=== PATIENT | female | born 1950 | race African-American/Black ===

== ENCOUNTER 2017-04-15 02:19 | Emergency (ER) | payer OTHER, MEDICARE ==
[~2017-04-15] VITALS: Ht 160 cm; Wt 45.4 kg
[2017-04-15] MEDS ORDERED: Aspirin Baby 81mg ORAL ONE (02:30)
[2017-04-15 02:54] LABS: BASOPHILS % (AUTO) 1.7 % (0.0-2.0); EOSINOPHILS % (AUTO) 0.8 % (0.0-3.0); LYMPHOCYTES % (AUTO) 54.3 % (20.0-45.0); MEAN CORPUSCULAR HEMOGLOBIN 28.9 PG (27.0-31.0); MEAN CORPUSCULAR HGB CONC 32.1 G/DL (32.0-36.0); MEAN CORPUSCULAR VOLUME 90 FL (80-99); MONOCYTES % (AUTO) 5.7 % (1.0-10.0); NEUTROPHILS % (AUTO) 37.5 % (45.0-75.0); PLATELET COUNT 231 K/UL (150-450); RED CELL DISTRIBUTION WIDTH 15.3 % (11.6-14.8); WHITE BLOOD COUNT 8.1 K/UL (4.8-10.8)
[2017-04-15 03:04] VITALS: BP 151/87
[2017-04-15 03:07] LABS: INR 1.1 (0.9-1.1); PROTHROMBIN TIME 10.7 SEC (9.30-11.50)
[2017-04-15 03:08] LABS: APPEARANCE,URINE CLEAR; KETONES,URINE NEGATIVE (NEGATIVE); LEUKOCYTE ESTERASE ,URINE NEGATIVE (NEGATIVE); NITRITE,URINE NEGATIVE (NEGATIVE); PH,URINE 7 (4.5-8.0); PROTEIN,URINE 3+ (NEGATIVE); UROBILINOGEN,URINE NORMAL MG/DL (0.0-1.0)
[2017-04-15 03:15] LABS: CALCIUM 9.9 mg/dL (8.6-10.2); CREATININE 1.2 mg/dL (0.5-0.9); GLOMERULAR FILTRATION RATE 45.1 mL/min (>60); TOTAL PROTEIN 7.9 g/dL (6.6-8.7)
[2017-04-15 03:16] LABS: POTASSIUM 4.2 mEQ/L (3.4-4.9)
[2017-04-15] MEDS ORDERED: NOVOLIN R100 UNIT/1 SUBQ (03:21)
[2017-04-15] MEDS ORDERED: LOSARTAN POTASS25 MG ORAL (03:21)
[2017-04-15] MEDS ORDERED: HUMALOG100 UNIT/4 SUBQ (03:21)
[2017-04-15] MEDS ORDERED: METFORMIN HCL500 M1 ORAL (03:21)
[2017-04-15] MEDS ORDERED: LASIX40 MG ORAL (03:21)
[2017-04-15 03:26] LABS: SQUAMOUS EPITHELIAL CELL,UR FEW /LPF (NONE/OCC); WBC,URINE 0-2 /HPF (0 - 2)
[2017-04-15 03:27] LABS: TROPONIN I < 0.30 ng/mL (<=0.30)
[2017-04-15 03:37] LABS: CKMB 3.3 ng/mL (< 3.8)
[2017-04-15] MEDS ORDERED: Enalaprilat 2.5mg/2ml Inj IV ONE (04:15)
--- NOTE | 2017-04-15 04:19 | Emergency Room Report ---
History of Present Illness General Chief Complaint: Dyspnea/Respdistress Source: Patient, EMS Present Illness HPI This is a 66-year-old female with multiple medical problems including her blood pressure, diabetes, CHF. She presents with chief complaint of rest or distress. She's been out of her medication for a week. She presents with chief complaint of rest or distress. Per EMS she was hypoxic and pressure was extremely high. Her heart rate was in the 150s .They gave her 1.2 mg of nitroglycerin and placed on CPAP. I also gave her 5 mg albuterol treatment. She felt better being on CPAP. Denies any chest pain. No fever or chills. No nausea no vomiting. Allergies: Coded Allergies: No Known Allergies (Unverified , 04/15/17) Patient History Past Medical History: see triage record, old chart reviewed, DM, HTN, CHF Past Surgical History: other Pertinent Family History: none Social History: Denies: smoking Last Menstrual Period: unk Now: No Immunizations: other Reviewed Nursing Documentation: PMH: Agreed, PSxH: Agreed Nursing Documentation-PMH Past Medical History: No History, Except For Hx Cardiac Problems: Yes Hx Hypertension: Yes Review of Systems Eye: Denies: blurred vision, eye pain ENT: Denies: ear pain, nose congestion, throat swelling Respiratory: Reports: SEGOVIA, shortness of breath, Denies: cough Cardiovascular: Denies: chest pain, palpitations Gastrointestinal: Denies: abdominal pain, diarrhea, nausea, vomiting Musculoskeletal: Denies: back pain, joint pain Skin: Denies: rash Neurological: Denies: headache, numbness Endocrine: Denies: increased thirst, increased urine Hematologic/Lymphatic: Denies: easy bruising All Other Systems: negative except mentioned in HPI Physical Exam Vital Signs Date Time Temp Pulse Resp B/P Pulse Ox O2 Delivery O2 Flow Rate FiO2 04/15/17 02:10 139 25 232/114 100 Bi-pap 04/15/17 02:10 15.0 04/15/17 02:22 40 04/15/17 03:04 97.2 colitis with tachycardia, hypertension, hypoxia Sp02 EP Interpretation: abnormal General Appearance: severe distress Head: normocephalic, atraumatic Eyes: bilateral eye EOMI, bilateral eye PERRL ENT: hearing grossly normal, normal pharynx Neck: full range of motion, supple, no meningismus Respiratory: chest non-tender, rales Cardiovascular #1: regular rate, rhythm, no murmur Gastrointestinal: normal bowel sounds, non tender, no mass, no organomegaly, no bruit, non-distended Musculoskeletal: back normal, normal range of motion, other - One plus edema Neurologic: alert, oriented x3 Psychiatric: mood/affect normal Skin: warm/dry Procedures Critical Care Time Critical Care Time Critical care is mandated in this patient who presented with severe respiratory distress secondary to CHF. Patient require my urgent intervention to attenuate the risks of respiratory collapse which may lead to cardiovascular collapse and . Critical care time is 75 minutes excluding any reportable procedure. Critical care time included evaluation, multiple reevaluation, looking at old charts, interpreting laboratory and diagnostic data, discussing case with patient and family and consultants, and charting. Medical Decision Making Diagnostic Impression: Primary Impression: Acute respiratory failure with hypoxia Additional Impressions: Pulmonary edema with congestive heart failure Hyperglycemia due to type 1 diabetes mellitus Hypertensive emergency Noncompliance Proteinuria Qualified Codes: R80.9 - Proteinuria, unspecified ER Course Patient presents with respiratory distress from pulmonary edema and CHF. This is due to her been out of medication. Blood sugars extremely high but not in DKA. She was placed on BiPAP and given Lasix. She diuresed about a liter and wanted to be off the BiPAP. She is now 97% on 4 L. Heart rate also improved from the 150s down to the 120s. This may be secondary to rebound from nothing on her blood pressure medication, albuterol treatment, CHF. At this point she is improve enough to be transferred to [place]. I discussed the case with Dr. Decker, case #[id number], who accepted the patient. Laboratory Tests Test 04/15/17 02:20 04/15/17 02:45 White Blood Count 8.1 K/UL (4.8-10.8) Red Blood Count 5.70 M/UL (4.20-5.40) H Hemoglobin 16.5 G/DL (12.0-16.0) H Hematocrit 51.4 % (37.0-47.0) H Mean Corpuscular Volume 90 FL (80-99) Mean Corpuscular Hemoglobin 28.9 PG (27.0-31.0) Mean Corpuscular Hemoglobin Concent 32.1 G/DL (32.0-36.0) Red Cell Distribution Width 15.3 % (11.6-14.8) H Platelet Count 231 K/UL (150-450) Mean Platelet Volume 11.0 FL (6.5-10.1) H Neutrophils (%) (Auto) 37.5 % (45.0-75.0) L Lymphocytes (%) (Auto) 54.3 % (20.0-45.0) H Monocytes (%) (Auto) 5.7 % (1.0-10.0) Eosinophils (%) (Auto) 0.8 % (0.0-3.0) Basophils (%) (Auto) 1.7 % (0.0-2.0) Prothrombin Time 10.7 SEC (9.30-11.50) Prothromb Time International Ratio 1.1 (0.9-1.1) Activated Partial Thromboplast Time 24 SEC (23-33) Sodium Level 133 mEQ/L (135-145) L Potassium Level 4.2 mEQ/L (3.4-4.9) Chloride Level 89 mEQ/L (98-107) L Carbon Dioxide Level 23 mEQ/L (20-30) Anion Gap 21 (5-15) H Blood Urea Nitrogen 19 mg/dL (7-23) Creatinine 1.2 mg/dL (0.5-0.9) H Estimat Glomerular Filtration Rate 45.1 mL/min (>60) Glucose Level 804 mg/dL (74-106) *H Calcium Level 9.9 mg/dL (8.6-10.2) Total Bilirubin 0.8 mg/dL (0.0-1.2) Aspartate Amino Transf (AST/SGOT) 102 U/L (5-40) H Alanine Aminotransferase (ALT/SGPT) 86 U/L (3-33) H Alkaline Phosphatase 157 U/L (35-104) H Total Creatine Kinase 71 U/L (26-140) Creatine Kinase MB 3.3 ng/mL (< 3.8) Creatine Kinase MB Relative Index 4.6 Troponin I < 0.30 ng/mL (<=0.30) Pro-B-Type Natriuretic Peptide 1170 pg/mL (0-125) H Total Protein 7.9 g/dL (6.6-8.7) Albumin 4.0 g/dL (3.5-5.2) Globulin 3.9 g/dL Albumin/Globulin Ratio 1.0 (1.0-2.7) Urine Color Pale yellow Urine Appearance Clear Urine pH 7 (4.5-8.0) Urine Specific [place] 1.005 (1.005-1.035) Urine Protein 3+ (NEGATIVE) H Urine Glucose (UA) 4+ (NEGATIVE) H Urine Ketones Negative (NEGATIVE) Urine Occult Blood 1+ (NEGATIVE) H Urine Nitrite Negative (NEGATIVE) Urine Bilirubin Negative (NEGATIVE) Urine Urobilinogen Normal MG/DL (0.0-1.0) Urine Leukocyte Esterase Negative (NEGATIVE) Urine RBC 2-4 /HPF (0 - 2) H Urine WBC 0-2 /HPF (0 - 2) Urine Squamous Epithelial Cells Few /LPF (NONE/OCC) Urine Bacteria None /HPF (NONE) Urine Opiates Screen Negative (NEGATIVE) Urine Barbiturates Screen Negative (NEGATIVE) Phencyclidine (PCP) Screen Negative (NEGATIVE) Urine Amphetamines Screen Negative (NEGATIVE) Urine Benzodiazepines Screen Negative (NEGATIVE) Urine Cocaine Screen Negative (NEGATIVE) Urine Marijuana (THC) Screen Negative (NEGATIVE) Lab Results Impression labs with elevated BNP EKG Diagnostic Results Rate: tachycardiac Rhythm: NSR ST Segments: no acute changes Rhythm Strip Diag. Results EP Interpretation: yes Rate: 123 Rhythm: NSR, no PVC's, no ectopy Chest X-Ray Diagnostic Results EP Interpretation: Yes Findings: no effusion, no pneumothorax, other - Cardiomegaly with vascular congestion Number of Views: 1 Last Vital Signs Date Time Temp Pulse Resp B/P Pulse Ox O2 Delivery O2 Flow Rate FiO2 04/15/17 04:06 167/81 04/15/17 03:04 97.2 125 25 98 Nasal Cannula 4.0 04/15/17 02:32 40 Disposition: XFER SHT-TRM HOSP Condition: Serious Referrals: [facility] (PCP) CAESAR QUINTANA M.D. April 15, 2017 04:19
[2017-04-15 04:38] VITALS: BP 141/63
[2017-04-15 05:59] VITALS: BP 143/63
[2017-04-15 06:17] VITALS: BP 143/63
--- NOTE | 2017-04-15 11:07 | Diagnostic Imaging Report ---
Indication: Chest Pain Comparison: None A single view chest radiograph was obtained. Findings: Diffuse interstitial edema demonstrated. Single nodular opacity is projected over the right upper lobe. Followup is recommended. Heart is borderline enlarged. Bones are osteopenic. Impression: Suspected interstitial edema. Nodular density in the right upper lobe noted. Followup is recommended
--- NOTE | 2017-04-15 18:49 | Cardiology Report ---
APPROVED REPORT EKG Measurement Heart [id number] Sinus tachycardia Biatrial enlargement Nonspecific ST and T wave abnormality Abnormal ECG
== END 2017-04-15 06:21 | disposition short-term general hospital (02) ==
LOC: EDBD 02:19 → EMR 02:35 → EDBEDREQ 03:32 → EMR 06:21
DX: J96.01 Acute respiratory failure with hypoxia (principal); I50.1 Left ventricular failure, unspecified; E10.65 Type 1 diabetes mellitus with hyperglycemia; I16.1 Hypertensive emergency; Z91.14 Patient's other noncompliance with medication regimen; R80.9 Proteinuria, unspecified; I51.7 Cardiomegaly; R00.0 Tachycardia, unspecified
CPT/HCPCS: 36415; 71010; 80053; 80300; 81003; 82550; 82553; 82962; 83880; 84484; 85025; 85610; 85730; 93005; 94664; 96374; 96375; 99291; J1940

== ENCOUNTER 2017-08-13 03:29 | Emergency (ER) | payer MEDICARE, OTHER ==
[~2017-08-13] VITALS: Ht 162.6 cm; Wt 55.3 kg
[~2017-08-13 03:29] MED LIST: HUMALOG100 UNIT/4 SUBQ; LASIX40 MG ORAL; LOSARTAN POTASS25 MG ORAL; METFORMIN HCL500 M1 ORAL; NOVOLIN R100 UNIT/1 SUBQ
[2017-08-13 03:31] VITALS: BP 122/76
[2017-08-13] MEDS ORDERED: Albuterol ud Inhalation HHN ONE (03:45)
[2017-08-13] MEDS ORDERED: Solu-MEDROL 125mg Inj IVP ONE (03:45)
[2017-08-13] MEDS ORDERED: Ipratropium 0.02% Inh Soln 2.5ml UD HHN ONE (03:45)
[2017-08-13 03:56] LABS: MEAN CORPUSCULAR HGB CONC 32.7 G/DL (32.0-36.0); MEAN CORPUSCULAR VOLUME 92 FL (80-99); MEAN PLATELET VOLUME 9.9 FL (6.5-10.1); PLATELET COUNT 237 K/UL (150-450); RED BLOOD COUNT 5.72 M/UL (4.20-5.40); RED CELL DISTRIBUTION WIDTH 14.4 % (11.6-14.8); WHITE BLOOD COUNT 4.7 K/UL (4.8-10.8)
[2017-08-13 04:07] LABS: TROPONIN I < 0.30 ng/mL (<=0.30)
[2017-08-13 04:11] LABS: ALBUMIN/GLOBULIN RATIO 0.9 (1.0-2.7); CALCIUM 9.3 mg/dL (8.6-10.2); CREATININE 1.4 mg/dL (0.5-0.9); GLOMERULAR FILTRATION RATE 45.8 mL/min (>60); POTASSIUM 4.4 mEQ/L (3.4-4.9); TOTAL PROTEIN 7.7 g/dL (6.6-8.7)
[2017-08-13 04:21] LABS: CKMB 3.7 ng/mL (< 3.8)
[2017-08-13 04:22] LABS: APPEARANCE,URINE CLEAR; KETONES,URINE NEGATIVE (NEGATIVE); LEUKOCYTE ESTERASE ,URINE NEGATIVE (NEGATIVE); NITRITE,URINE NEGATIVE (NEGATIVE); PH,URINE 7 (4.5-8.0); UROBILINOGEN,URINE NORMAL MG/DL (0.0-1.0)
--- NOTE | 2017-08-13 04:29 | Emergency Room Report ---
History of Present Illness General Chief Complaint: Dyspnea/Respdistress Source: Patient, EMS Present Illness HPI This is a 66-year-old female with a history hypertension, diabetes and CHF. She is noncompliant with her medication. She says she hasn't had them for about a week. She was just at [facility] for the same thing. Last time she was here I saw her and she had to be on BiPAP. Patient called 911 because of rest or distress. Per EMS she was tripoding and very hypoxic. Her observation was 60% on room air. I place her on Z-Valdo and started breathing treatment. Here she is improved but still very short of breath. Denies any chest pain. Denies any fever or chills. Onset for about a day. Allergies: Coded Allergies: No Known Allergies (Unverified , 04/15/17) Patient History Past Medical History: see triage record, old chart reviewed, DM, HTN, CAD, CHF Past Surgical History: other Pertinent Family History: none Social History: Reports: smoking Last Menstrual Period: n/a Now: No Immunizations: other Reviewed Nursing Documentation: PMH: Agreed, PSxH: Agreed Nursing Documentation-PMH Past Medical History: No History, Except For Hx Cardiac Problems: Yes - chf Hx Hypertension: Yes Hx COPD: Yes Hx Diabetes: Yes Review of Systems Eye: Denies: eye pain, blurred vision ENT: Denies: ear pain, nose congestion, throat swelling Respiratory: Reports: cough, shortness of breath, SEGOVIA Cardiovascular: Denies: chest pain, palpitations Gastrointestinal: Denies: abdominal pain, diarrhea, nausea, vomiting Musculoskeletal: Denies: back pain, joint pain Skin: Denies: rash Neurological: Denies: headache, numbness Endocrine: Denies: increased thirst, increased urine Hematologic/Lymphatic: Denies: easy bruising All Other Systems: negative except mentioned in HPI Physical Exam Vital Signs Date Time Temp Pulse Resp B/P (MAP) Pulse Ox O2 Delivery O2 Flow Rate FiO2 08/13/17 03:25 140 220/140 99 Bi-pap 15.0 08/13/17 03:31 27 60 08/13/17 03:31 98.1 vitals with tachycardia, hypotension and hypoxia Sp02 EP Interpretation: reviewed, abnormal General Appearance: severe distress Head: normocephalic, atraumatic Eyes: bilateral eye PERRL, bilateral eye EOMI ENT: hearing grossly normal, normal pharynx Neck: full range of motion, supple, no meningismus Respiratory: chest non-tender, respiratory distress, decreased breath sounds, accessory muscle use, rales Cardiovascular #1: regular rate, rhythm, no murmur, tachycardia Gastrointestinal: normal bowel sounds, non tender, no mass, no organomegaly, no bruit, non-distended Musculoskeletal: back normal, gait/station normal, normal range of motion Psychiatric: mood/affect normal Skin: warm/dry Procedures Critical Care Time Critical Care Time Critical care is mandated in this patient who presented with respiratory distress secondary to pulmonary edema. Patient require my urgent intervention to attenuate the risks of metabolic collapse which may lead to cardiovascular collapse and . Critical care time is 35 minutes excluding any reportable procedure. Critical care time included evaluation, multiple reevaluation, looking at old charts, interpreting laboratory and diagnostic data, discussing case with patient and family and consultants, and charting. Medical Decision Making Diagnostic Impression: Primary Impression: Acute respiratory failure with hypoxia Additional Impressions: Hyperglycemia due to type 1 diabetes mellitus Pulmonary edema Qualified Codes: J81.0 - Acute pulmonary edema COPD exacerbation Noncompliance ER Course Patient present with pulmonary edema. She much improved after being on BiPAP given Lasix. Blood pressures improved. Oxygenation better. She is breathing better. She diuresed about a liter. I discussed the case with Dr. Ortiz at [facility]. She accepted patient for transfer. Laboratory Tests Test 08/13/17 03:30 08/13/17 04:00 White Blood Count 4.7 K/UL (4.8-10.8) L Red Blood Count 5.72 M/UL (4.20-5.40) H Hemoglobin 17.1 G/DL (12.0-16.0) H Hematocrit 52.4 % (37.0-47.0) H Mean Corpuscular Volume 92 FL (80-99) Mean Corpuscular Hemoglobin 30.0 PG (27.0-31.0) Mean Corpuscular Hemoglobin Concent 32.7 G/DL (32.0-36.0) Red Cell Distribution Width 14.4 % (11.6-14.8) Platelet Count 237 K/UL (150-450) Mean Platelet Volume 9.9 FL (6.5-10.1) Neutrophils (%) (Auto) % (45.0-75.0) Lymphocytes (%) (Auto) % (20.0-45.0) Monocytes (%) (Auto) % (1.0-10.0) Eosinophils (%) (Auto) % (0.0-3.0) Basophils (%) (Auto) % (0.0-2.0) Sodium Level 137 mEQ/L (135-145) Potassium Level 4.4 mEQ/L (3.4-4.9) Chloride Level 96 mEQ/L (98-107) L Carbon Dioxide Level 26 mEQ/L (20-30) Anion Gap 15 (5-15) Blood Urea Nitrogen 16 mg/dL (7-23) Creatinine 1.4 mg/dL (0.5-0.9) H Estimat Glomerular Filtration Rate 45.8 mL/min (>60) Glucose Level 553 mg/dL (74-106) *H Calcium Level 9.3 mg/dL (8.6-10.2) Total Bilirubin 0.7 mg/dL (0.0-1.2) Aspartate Amino Transf (AST/SGOT) 72 U/L (5-40) H Alanine Aminotransferase (ALT/SGPT) 54 U/L (3-33) H Alkaline Phosphatase 220 U/L (35-104) H Total Creatine Kinase 51 U/L (26-140) Creatine Kinase MB 3.7 ng/mL (< 3.8) Creatine Kinase MB Relative Index 7.2 Troponin I < 0.30 ng/mL (<=0.30) Pro-B-Type Natriuretic Peptide 2102 pg/mL (0-125) H Total Protein 7.7 g/dL (6.6-8.7) Albumin 3.7 g/dL (3.5-5.2) Globulin 4.0 g/dL Albumin/Globulin Ratio 0.9 (1.0-2.7) L Urine Color Yellow Urine Appearance Clear Urine pH 7 (4.5-8.0) Urine Specific [place] 1.005 (1.005-1.035) Urine Protein Negative (NEGATIVE) Urine Glucose (UA) 4+ (NEGATIVE) H Urine Ketones Negative (NEGATIVE) Urine Occult Blood Negative (NEGATIVE) Urine Nitrite Negative (NEGATIVE) Urine Bilirubin Negative (NEGATIVE) Urine Urobilinogen Normal MG/DL (0.0-1.0) Urine Leukocyte Esterase Negative (NEGATIVE) Urine Opiates Screen Negative (NEGATIVE) Urine Barbiturates Screen Negative (NEGATIVE) Phencyclidine (PCP) Screen Negative (NEGATIVE) Urine Amphetamines Screen Negative (NEGATIVE) Urine Benzodiazepines Screen Negative (NEGATIVE) Urine Cocaine Screen Negative (NEGATIVE) Urine Marijuana (THC) Screen Negative (NEGATIVE) Lab Results Impression labs with elevated glucose and BNP EKG Diagnostic Results Rate: tachycardiac Rhythm: NSR ST Segments: other - NSST changes. Rhythm Strip Diag. Results Rhythm Strip Time: 04:28 EP Interpretation: yes Rate: 91 Rhythm: NSR, no PVC's, no ectopy Chest X-Ray Diagnostic Results Chest X-Ray Diagnostic Results : Chest X-Ray Ordered: Yes # of Views/Limited/Complete: 1 View Indication: Shortness of Breath EP Interpretation: Yes Interpretation: no consolidation, no effusion, no pneumothorax, other - pulmonary edema/chf Impression: Other - chf Electronically Signed by: Electronically signed by Guy Alberts MD Last Vital Signs Date Time Temp Pulse Resp B/P (MAP) Pulse Ox O2 Delivery O2 Flow Rate FiO2 08/13/17 04:14 93 24 100 Bi-pap 60 08/13/17 04:05 15.0 08/13/17 03:31 98.1 122/76 Status: improved Disposition: XFER SHT-TRM HOSP Condition: Serious GUY ALBERTS M.D. Aug 13, 2017 04:29
[2017-08-13 04:45] LABS: PROTEIN,URINE NEGATIVE (NEGATIVE)
[2017-08-13 05:31] VITALS: BP 150/68
[2017-08-13 07:30] VITALS: BP 167/68
[2017-08-13 09:09] VITALS: BP 167/68
[2017-08-13 09:11] VITALS: BP 181/67
--- NOTE | 2017-08-13 11:26 | Diagnostic Imaging Report ---
Indication: Dyspnea Comparison: 04/15/17 A single view chest radiograph was obtained. Findings: Patchy groundglass opacities are present throughout the lungs bilaterally. Heart size is relatively normal. There is a nodular density in the right upper lobe again demonstrated. This was noted previously as well. Consider CT for further evaluation. The bones are mildly osteopenic. Impression: Bilateral infiltrates. Nodular density in the right upper lobe. Consider CT for further evaluation. A mass is not excluded.
--- NOTE | 2017-08-13 17:54 | Cardiology Report ---
APPROVED REPORT EKG Measurement Heart [id number] Sinus tachycardia Abnormal ECG
== END 2017-08-13 09:14 | disposition short-term general hospital (02) ==
LOC: EDBD 03:29 → EMR 03:35
DX: J96.01 Acute respiratory failure with hypoxia (principal); E10.65 Type 1 diabetes mellitus with hyperglycemia; J81.0 Acute pulmonary edema; J44.1 Chronic obstructive pulmonary disease with (acute) exacerbation; Z91.14 Patient's other noncompliance with medication regimen; I10 Essential (primary) hypertension; F17.200 Nicotine dependence, unspecified, uncomplicated; I25.10 Atherosclerotic heart disease of native coronary artery without angina pectoris; M85.80 Other specified disorders of bone density and structure, unspecified site
CPT/HCPCS: 36415; 71010; 80053; 80300; 81003; 82550; 82553; 82962; 83880; 84484; 85025; 93005; 94640; 96374; 96375; 99291; J1815; J1940; J2930

== ENCOUNTER 2017-08-20 01:00 | Emergency (ER) | payer MEDICARE, OTHER ==
[~2017-08-20] VITALS: Ht 162.6 cm; Wt 54.4 kg
[2017-08-20 01:13] VITALS: BP 172/98
[2017-08-20] MEDS ORDERED: Albuterol ud Inhalation HHN ONE (01:15)
[2017-08-20] MEDS ORDERED: Ipratropium 0.02% Inh Soln 2.5ml UD HHN ONE (01:15)
[2017-08-20] MEDS ORDERED: Nitroglycerin Subl 0.4mg tab SL ONE (01:15)
[2017-08-20 01:33] LABS: BASOPHILS % (AUTO) 1.5 % (0.0-2.0); EOSINOPHILS % (AUTO) 1.4 % (0.0-3.0); LYMPHOCYTES % (AUTO) 49.5 % (20.0-45.0); MEAN CORPUSCULAR HEMOGLOBIN 30.5 PG (27.0-31.0); MEAN CORPUSCULAR HGB CONC 32.8 G/DL (32.0-36.0); MEAN CORPUSCULAR VOLUME 93 FL (80-99); MEAN PLATELET VOLUME 8.9 FL (6.5-10.1); MONOCYTES % (AUTO) 8.5 % (1.0-10.0); NEUTROPHILS % (AUTO) 39.1 % (45.0-75.0); PLATELET COUNT 203 K/UL (150-450); RED BLOOD COUNT 4.94 M/UL (4.20-5.40); RED CELL DISTRIBUTION WIDTH 14.7 % (11.6-14.8); WHITE BLOOD COUNT 5.7 K/UL (4.8-10.8)
[2017-08-20 01:49] LABS: ALBUMIN/GLOBULIN RATIO 0.8 (1.0-2.7); CALCIUM 9.5 mg/dL (8.6-10.2); CREATININE 1.3 mg/dL (0.5-0.9); GLOMERULAR FILTRATION RATE 49.8 mL/min (>60); POTASSIUM 4.6 mEQ/L (3.4-4.9); TOTAL PROTEIN 7.7 g/dL (6.6-8.7)
[2017-08-20 02:25] LABS: TROPONIN I < 0.30 ng/mL (<=0.30)
[2017-08-20 02:33] LABS: CKMB 2.6 ng/mL (< 3.8)
[2017-08-20 03:13] VITALS: BP 130/78
--- NOTE | 2017-08-20 03:14 | Emergency Room Report ---
History of Present Illness General Chief Complaint: Dyspnea/Respdistress Source: Patient, Medical Record, EMS Present Illness HPI This is a 66-year-old female with history hypertension, diabetes, CHF and noncompliance with her medication. I saw her last week for the same thing. Patient presents with shortness of breath and respiratory distress. Onset tonight. Per EMS her observation was in the 70s. She was placed on BiPAP. Patient said she hasn't been taking her medication. No nausea no vomiting. No chest pain. Worse with exertion. Denies any other complaint. Allergies: Coded Allergies: No Known Allergies (Unverified , 04/15/17) Patient History Past Medical History: see triage record, old chart reviewed, DM, HTN, CHF Past Surgical History: other Pertinent Family History: none Social History: Reports: smoking Now: No Immunizations: other Reviewed Nursing Documentation: PMH: Agreed, PSxH: Agreed Nursing Documentation-PMH Hx Cardiac Problems: Yes - chf Hx Hypertension: Yes Hx COPD: Yes Hx Diabetes: Yes Review of Systems Eye: Denies: eye pain, blurred vision ENT: Denies: ear pain, nose congestion, throat swelling Respiratory: Reports: shortness of breath, wheezing, Denies: cough Cardiovascular: Denies: chest pain, palpitations Gastrointestinal: Denies: abdominal pain, diarrhea, nausea, vomiting Musculoskeletal: Denies: back pain, joint pain Skin: Denies: rash Neurological: Denies: headache, numbness Endocrine: Denies: increased thirst, increased urine Hematologic/Lymphatic: Denies: easy bruising All Other Systems: negative except mentioned in HPI Physical Exam Vital Signs Date Time Temp Pulse Resp B/P (MAP) Pulse Ox O2 Delivery O2 Flow Rate FiO2 08/20/17 01:09 97.3 130 24 172/98 82 Room Air 08/20/17 01:14 6.0 08/20/17 01:30 30 vitals with tachycardia, hypertension, and hypoxia Sp02 EP Interpretation: abnormal General Appearance: moderate distress Head: normocephalic, atraumatic Eyes: bilateral eye PERRL, bilateral eye EOMI ENT: hearing grossly normal, normal pharynx Neck: full range of motion, supple, no meningismus Respiratory: chest non-tender, rales, wheezing Cardiovascular #1: regular rate, rhythm, no murmur Gastrointestinal: normal bowel sounds, non tender, no mass, no organomegaly, no bruit, non-distended Musculoskeletal: back normal, normal range of motion Neurologic: alert, oriented x3 Psychiatric: mood/affect normal Skin: warm/dry Procedures Critical Care Time Critical Care Time Critical care is mandated in this patient who presented with respiratory failure secondary to chf. Patient require my urgent intervention to attenuate the risks of respiratory collapse which may lead to cardiovascular collapse and . Critical care time is 35 minutes excluding any reportable procedure. Critical care time included evaluation, multiple reevaluation, looking at old charts, interpreting laboratory and diagnostic data, discussing case with patient and family and consultants, and charting. Medical Decision Making Diagnostic Impression: Primary Impression: CHF exacerbation Qualified Codes: I50.9 - Heart failure, unspecified Additional Impressions: Respiratory failure with hypoxia Qualified Codes: J96.01 - Acute respiratory failure with hypoxia Hyperglycemia due to type 2 diabetes mellitus Qualified Codes: E11.65 - Type 2 diabetes mellitus with hyperglycemia Noncompliance ER Course Patient with CHF exacerbation respiratory failure. She did well and BiPAP. Nitroglycerin and Lasix here. Able to wean her off the BiPAP to nasal cannula. Patient is stable for transfer to [place]. First set of troponin negative. Lab Results Impression labs with elevated BNP. EKG Diagnostic Results Rate: tachycardiac Rhythm: NSR ST Segments: no acute changes Rhythm Strip Diag. Results EP Interpretation: yes Rate: 110 Rhythm: NSR, no PVC's, no ectopy Chest X-Ray Diagnostic Results Chest X-Ray Diagnostic Results : Chest X-Ray Ordered: Yes # of Views/Limited/Complete: 1 View Indication: Shortness of Breath EP Interpretation: Yes Interpretation: no consolidation, no effusion, no pneumothorax, other - cfh Impression: Other - chf Electronically Signed by: Electronically signed by Guy Alberts MD Last Vital Signs Date Time Temp Pulse Resp B/P (MAP) Pulse Ox O2 Delivery O2 Flow Rate FiO2 08/20/17 01:42 137/67 08/20/17 01:31 113 27 96 Facial 30 08/20/17 01:14 6.0 08/20/17 01:13 97.3 Status: unchanged Disposition: XFER SHT-TRM HOSP Condition: Serious Referrals: [facility] (PCP) GUY ALBERTS M.D. Aug 20, 2017 03:14
[2017-08-20 04:18] LABS: APPEARANCE,URINE CLEAR; KETONES,URINE NEGATIVE (NEGATIVE); LEUKOCYTE ESTERASE ,URINE NEGATIVE (NEGATIVE); NITRITE,URINE NEGATIVE (NEGATIVE); PH,URINE 6 (4.5-8.0); UROBILINOGEN,URINE NORMAL MG/DL (0.0-1.0)
[2017-08-20 04:31] LABS: PROTEIN,URINE NEGATIVE (NEGATIVE)
[2017-08-20 05:13] VITALS: BP 137/72
[2017-08-20 05:44] VITALS: BP 128/62
--- NOTE | 2017-08-20 10:30 | Diagnostic Imaging Report ---
Indication: SOB Technique: One view of the chest Comparison: 08/13/2017 Findings: Again demonstrated is diffuse bilateral pulmonary interstitial edema with associated groundglass opacity, appearance similar to the previous exam. The pleural spaces are clear. 2.5 cm diameter masslike opacity is again demonstrated in the right midlung. The heart is borderline enlarged. Impression: Bilateral interstitial edema, similar to prior study of 7 days earlier 2.5 cm masslike opacity in the right midlung also previously reported. Recommend CT for further evaluation, as previously recommended Borderline cardiomegaly
== END 2017-08-20 05:44 | disposition short-term general hospital (02) ==
LOC: EDBD 01:00 → EDUNIT# 01:00 → EMR 01:13
DX: I50.9 Heart failure, unspecified (principal); J96.01 Acute respiratory failure with hypoxia; E11.65 Type 2 diabetes mellitus with hyperglycemia; I10 Essential (primary) hypertension; Z91.14 Patient's other noncompliance with medication regimen; F17.200 Nicotine dependence, unspecified, uncomplicated; J44.9 Chronic obstructive pulmonary disease, unspecified
CPT/HCPCS: 36415; 71010; 80053; 81003; 82550; 82553; 83880; 84484; 85025; 93005; 94640; 96374; 96375; 99291; J1815; J1940

== ENCOUNTER 2017-09-14 02:35 | Emergency (ER) | payer MEDICARE, OTHER ==
[~2017-09-14] VITALS: Ht 167.6 cm; Wt 70.3 kg
[2017-09-14] MEDS ORDERED: Nitroglycerin Subl 0.4mg tab SL PRN (02:45)
[2017-09-14 02:52] LABS: MEAN CORPUSCULAR HEMOGLOBIN 29.5 PG (27.0-31.0); MEAN CORPUSCULAR HGB CONC 32.2 G/DL (32.0-36.0); MEAN CORPUSCULAR VOLUME 92 FL (80-99); MEAN PLATELET VOLUME 9.2 FL (6.5-10.1); PLATELET COUNT 236 K/UL (150-450); RED BLOOD COUNT 5.48 M/UL (4.20-5.40); RED CELL DISTRIBUTION WIDTH 14.7 % (11.6-14.8); WHITE BLOOD COUNT 6.5 K/UL (4.8-10.8)
[2017-09-14 03:17] LABS: ALANINE AMINOTRANSFERASE 161 U/L (12-78); ALBUMIN/GLOBULIN RATIO 0.6 (1.0-2.7); ANION GAP 10 (5-15); ASPARTATE AMINO TRANSFERASE 146 U/L (15-37); CALCIUM 9.3 MG/DL (8.5-10.1); CARBON DIOXIDE 24 MMOL/L (21-32); CHLORIDE 94 MMOL/L (98-107); CKMB 2.9 NG/ML (0.0-3.6); CREATININE 1.6 MG/DL (0.55-1.30); GLOMERULAR FILTRATION RATE 39.1 mL/min (>60); SODIUM 128 MMOL/L (136-145); TOTAL PROTEIN 7.9 G/DL (6.4-8.2)
--- NOTE | 2017-09-14 03:21 | Emergency Room Report ---
History of Present Illness General Chief Complaint: Dyspnea/Respdistress Source: Patient, EMS Present Illness HPI 67YOF BIBEMS from home on CPAP for acute SOB - EMS endorses bilateral rales. Non-compliant with medications for CHF Denies fever/chills, cough, chest pain, abd pain, urinary complaints, headache PMHx of HTN, CHF, DM. Patient was admitted/transferred to [facility] after stabilization in the ED twice in August 2017 and once in April 2017 Never had echo here so unknown CHF Allergies: Coded Allergies: No Known Allergies (Unverified , 04/15/17) Patient History Past Medical History: CHF Past Surgical History: none Pertinent Family History: none Social History: Denies: smoking, alcohol use, drug use Last Menstrual Period: N/A Now: No Immunizations: UTD Reviewed Nursing Documentation: PMH: Agreed, PSxH: Agreed Nursing Documentation-PMH Hx Cardiac Problems: Yes - chf Hx Hypertension: Yes Hx COPD: Yes - EMPHYSEMA Hx Diabetes: Yes Review of Systems All Other Systems: negative except mentioned in HPI Physical Exam Vital Signs Date Time Temp Pulse Resp B/P (MAP) Pulse Ox O2 Delivery O2 Flow Rate FiO2 09/14/17 02:35 99.1 98 18 181/107 99 Bi-pap 09/14/17 02:40 15.0 09/14/17 02:50 35 Sp02 EP Interpretation: reviewed, normal General Appearance: normal inspection, well appearing, alert, GCS 15, non-toxic , mild distress Head: normocephalic, atraumatic Eyes: bilateral eye PERRL, bilateral eye EOMI ENT: normal ENT inspection, hearing grossly normal, normal voice Neck: normal inspection, full range of motion, supple, no meningismus, no bony tend Respiratory: normal inspection, no wheezing, decreased breath sounds, accessory muscle use, rales Cardiovascular #1: no edema, no gallop, no JVD, no murmur, tachycardia Gastrointestinal: normal inspection, normal bowel sounds, non tender, soft, no guarding, no hernia Genitourinary: no CVA tenderness Musculoskeletal: normal inspection, back normal, normal range of motion, Sherice' s Sign negative Neurologic: normal inspection, alert, oriented x3, responsive, city secretary III-XII nml as tested, motor strength/tone normal, speech normal Psychiatric: normal inspection, judgement/insight normal, mood/affect normal Skin: normal inspection Medical Decision Making Medicare Attestation I Gosia Bangura MD hereby attest that the medical record entry for date of service, 09/14/17 accurately reflects signatures/notations that I made in my capacity as MD when I treated/diagnosed the above listed Medicare beneficiary. I attest that this information is true, accurate and complete to the best of my knowledge. I understand that any falsification, omission, or concealment of material fact may subject me to administrative, civil, or criminal liability. This patient warrants hospital admission for extreme of age and has a condition that cannot be treated as outpatient. Diagnostic Impression: Primary Impression: Dyspnea Qualified Codes: R06.00 - Dyspnea, unspecified Additional Impressions: Acute on chronic heart failure Qualified Codes: I50.9 - Heart failure, unspecified Elevated troponin Hyperglycemia ER Course Labs: H&H stable. No leuks. Troponin <0.056. Mild BNP elevation. ECG: Sinus tachy CXR: Bilateral pulm congestion Improved on BIPAP. HR down to 122. On FIO2 35% only and remains NOT hypoxic. Was given lasix, 1X SL nitro as well Was never hypoxic Elevated troponin 0.05. Under previous visits with older assay, levels always "normal" and <0.3 ASA given Hyperglycemia - known DM - K, AG, are normal - Was given 4U insulin regular - Not in DKA Dr Kate from [place] approved for Transfer EKG Diagnostic Results Rate: tachycardiac Rhythm: NSR ST Segments: no acute changes ASA given to the pt in ED: No Rhythm Strip Diag. Results EP Interpretation: yes Rate: 108 Rhythm: NSR, no PVC's, no ectopy Chest X-Ray Diagnostic Results Chest X-Ray Diagnostic Results : Chest X-Ray Ordered: Yes # of Views/Limited/Complete: 1 View Indication: Shortness of Breath EP Interpretation: Yes Interpretation: no consolidation, no pneumothorax, other - Pulm congestion Electronically Signed by: Dr Gosia Bangura MD Last Vital Signs Date Time Temp Pulse Resp B/P (MAP) Pulse Ox O2 Delivery O2 Flow Rate FiO2 09/14/17 03:08 115 21 Bi-pap 35 09/14/17 03:08 97 09/14/17 02:48 181/107 09/14/17 02:40 15.0 09/14/17 02:35 99.1 Status: improved Disposition: ADMITTED INPATIENT Condition: Serious Referrals: NOT CHOSEN YASMIN/,REFERRING (PCP) GOSIA BANGURA M.D. Sep 14, 2017 03:21
[2017-09-14 04:03] VITALS: BP 150/80
[2017-09-14 04:44] LABS: BAND NEUTROPHILS % (MANUAL) 2 % (0-8); BASOPHILS % (MANUAL) 0 % (0-2); EOSINOPHILS % (MANUAL) 2 % (0-3); LYMPHOCYTES % (MANUAL) 60 % (20-45); NEUTROPHILS % (MANUAL) 32 % (45-75); PLATELET ESTIMATE ADEQUATE; PLATELET MORPHOLOGY NORMAL; TOTAL CELLS COUNTED 100
[2017-09-14 04:45] LABS: ANISOCYTOSIS 1+
[2017-09-14 05:31] VITALS: BP 143/66
[2017-09-14 06:54] VITALS: BP 158/96
[2017-09-14 07:41] VITALS: BP 158/96
--- NOTE | 2017-09-14 08:59 | Diagnostic Imaging Report ---
Indication: Shortness of breath Comparison: Chest one view 08/20/2017 Findings: Single view the chest shows normal cardiac size. Again noted is bilateral interstitial edema which is not significantly changed from the prior examination. Also again noted is a 2.5 cm masslike opacity in the right midlung which is unchanged. There is also now increased density seen in the right lower lobe. No significant pleural effusions. Bones are unremarkable. Impression: Bilateral interstitial edema, not significantly changed from the prior exam 08/20/2017. 2.5 cm masslike opacity in the right midlung, unchanged. Recommend CT scan for further evaluation as previously recommended. Increasing density in the right lower lobe which may be due to worsening interstitial edema or underlying infiltrate.
--- NOTE | 2017-09-24 08:31 | Cardiology Report ---
APPROVED REPORT EKG Measurement Heart [id number] Sinus tachycardia with a few single VPCs. Biatrial enlargement Nonspecific T wave abnormality Abnormal ECG
== END 2017-09-14 07:45 | disposition short-term general hospital (02) ==
LOC: EDBD 02:35 → EMR 02:50
DX: I50.9 Heart failure, unspecified (principal); R79.89 Other specified abnormal findings of blood chemistry; E11.65 Type 2 diabetes mellitus with hyperglycemia; Z91.14 Patient's other noncompliance with medication regimen; I10 Essential (primary) hypertension; J43.9 Emphysema, unspecified; R00.0 Tachycardia, unspecified
CPT/HCPCS: 36415; 71010; 80053; 80300; 82550; 82553; 83880; 84484; 85007; 85025; 93005; 94664; 96374; 96375; 99284; J1815; J1940

== ENCOUNTER 2018-01-10 19:37 | Inpatient (IN) | payer MEDICARE, OTHER ==
[~2018-01-10] VITALS: Ht 162.6 cm; Wt 62.6 kg
[2018-01-10] MEDS ORDERED: Sodium Chloride 500ML 500 ML IV ONE (20:24)
[2018-01-10] MEDS ORDERED: Morphine Sulfate 2mg/ml Inj IVP ONE (20:30)
[2018-01-10 21:39] LABS: BASOPHILS % (AUTO) 1.2 % (0.0-2.0); EOSINOPHILS % (AUTO) 6.4 % (0.0-3.0); HEMATOCRIT 30.2 % (37.0-47.0); HEMOGLOBIN 9.7 G/DL (12.0-16.0); LYMPHOCYTES % (AUTO) 29.9 % (20.0-45.0); MEAN CORPUSCULAR VOLUME 90 FL (80-99); MONOCYTES % (AUTO) 8.9 % (1.0-10.0); NEUTROPHILS % (AUTO) 53.7 % (45.0-75.0); PLATELET COUNT 317 K/UL (150-450); RED BLOOD COUNT 3.37 M/UL (4.20-5.40); RED CELL DISTRIBUTION WIDTH 17.8 % (11.6-14.8); WHITE BLOOD COUNT 5.3 K/UL (4.8-10.8)
[2018-01-10] MEDS ORDERED: HYDRALAZINE HCL50 MG ORAL (21:39)
[2018-01-10] MEDS ORDERED: DULERA 200 MCG/13 GM IH (21:39)
[2018-01-10] MEDS ORDERED: GABAPENTIN300 MG ORAL (21:39)
[2018-01-10] MEDS ORDERED: NITROGLYCERIN0.4 MG SL (21:39)
[2018-01-10] MEDS ORDERED: PERCOCET 5-3251 EACH ORAL (21:39)
[2018-01-10] MEDS ORDERED: FUROSEMIDE40 MG ORAL (21:39)
[2018-01-10] MEDS ORDERED: ASPIRIN81 MG ORAL (21:39)
[2018-01-10] MEDS ORDERED: ATORVASTATIN CA40 MG ORAL (21:39)
[2018-01-10] MEDS ORDERED: TAMSULOSIN HCL0.4 MG ORAL (21:39)
[2018-01-10] MEDS ORDERED: DOCUSATE SODIU100 MG ORAL (21:39)
[2018-01-10] MEDS ORDERED: MULTIVITAMINS1 EAC8 ORAL (21:39)
[2018-01-10] MEDS ORDERED: STARLIX60 MG ORAL (21:39)
[2018-01-10] MEDS ORDERED: POLYETHYLENE GL17 GM ORAL (21:39)
[2018-01-10] MEDS ORDERED: HUMULIN R100 UNIT/1 SUBQ (21:39)
[2018-01-10] MEDS ORDERED: CALCITRIOL0.25 MCG PO (21:39)
[2018-01-10] MEDS ORDERED: VENTOLIN HFA18 GM INH (21:39)
[2018-01-10] MEDS ORDERED: CARVEDILOL6.25 MG ORAL (21:39)
[2018-01-10] MEDS ORDERED: HUMULIN N100 UNIT/1 SUBQ (21:39)
[2018-01-10] MEDS ORDERED: ACETAMINOP160 MG/54 ORAL (21:39)
[2018-01-10] MEDS ORDERED: BRILINTA90 MG PO (21:39)
[2018-01-10 21:51] LABS: ANION GAP 3 mmol/L (5-15); BLOOD UREA NITROGEN 21 mg/dL (7-18); CALCIUM 9.4 MG/DL (8.5-10.1); CARBON DIOXIDE 32 MMOL/L (21-32); CHLORIDE 101 MMOL/L (98-107); CREATININE 1.5 MG/DL (0.55-1.30); POTASSIUM 4.2 MMOL/L (3.5-5.1); SODIUM 136 MMOL/L (136-145)
[2018-01-10 22:04] LABS: ALANINE AMINOTRANSFERASE 26 U/L (12-78); ALBUMIN 2.5 G/DL (3.4-5.0); ALBUMIN/GLOBULIN RATIO 0.4 (1.0-2.7); ALKALINE PHOSPHATASE 258 U/L (46-116); ASPARTATE AMINO TRANSFERASE 36 U/L (15-37); BILIRUBIN,TOTAL 0.5 MG/DL (0.2-1.0); CREATINE KINASE 59 U/L (26-308)
[2018-01-10] MEDS ORDERED: Nitroglycerin Subl 0.4mg tab SL PRN (22:45)
[2018-01-10] MEDS ORDERED: Enalaprilat 2.5mg/2ml Inj IV PRN (22:45)
[2018-01-10] MEDS ORDERED: Ketorolac 30mg Inj IV PRN (22:45)
[2018-01-10] MEDS ORDERED: Miralax 17gm pkt ORAL PRN (22:45)
[2018-01-10] MEDS ORDERED: dilTIAZem HCl 25mg/5ml Inj IV PRN (22:45)
--- NOTE | 2018-01-10 23:14 | Emergency Room Report ---
History of Present Illness General Chief Complaint: Chest Pain Source: Patient, Medical Record, EMS Present Illness HPI 67-year-old female presents ED complaining of chest pain. Comes from [facility] facility. Started at rest just prior to arrival. Pressure-like, 8/10, nonradiating. Patient was given nitroglycerin x3, aspirin. States chest pain is resolved. Denies any fevers or chills. Denies cough. No other aggravating relieving factors. Denies any other associated symptoms Allergies: Coded Allergies: No Known Allergies (Unverified , 04/15/17) Patient History Past Medical History: DM, HTN Past Surgical History: none Pertinent Family History: none Social History: Denies: smoking, alcohol use, drug use Now: No Immunizations: UTD Reviewed Nursing Documentation: PMH: Agreed, PSxH: Agreed Nursing Documentation-PMH Past Medical History: No History, Except For Hx Hypertension: Yes Hx COPD: Yes - PE Hx Diabetes: Yes - Type 2 Hx Gastrointestinal Problems: Yes - Dysphagia, UTI Review of Systems All Other Systems: negative except mentioned in HPI Physical Exam Vital Signs Date Time Temp Pulse Resp B/P (MAP) Pulse Ox O2 Delivery O2 Flow Rate FiO2 01/10/18 19:34 97.2 91 18 134/77 98 Nasal Cannula 2.0 Sp02 EP Interpretation: reviewed, normal General Appearance: no apparent distress, alert, GCS 15, non-toxic Head: normocephalic, atraumatic Eyes: bilateral eye normal inspection, bilateral eye PERRL ENT: hearing grossly normal, normal pharynx, no angioedema, normal voice Neck: full range of motion, supple/symm/no masses Respiratory: chest non-tender, lungs clear, normal breath sounds, speaking full sentences Cardiovascular #1: regular rate, rhythm, no edema Cardiovascular #2: 2+ carotid (R), 2+ carotid (L), 2+ radial (R), 2+ radial (L) , 2+ dorsalis pedis (R), 2+ dorsalis pedis (L) Gastrointestinal: normal bowel sounds, non tender, soft, non-distended, no guarding, no rebound Rectal: deferred Genitourinary: normal inspection, no CVA tenderness Musculoskeletal: back normal, gait/station normal, normal range of motion, non- tender Neurologic: alert, oriented x3, responsive, motor strength/tone normal, sensory intact, speech normal Psychiatric: judgement/insight normal, memory normal, mood/affect normal, no suicidal/homicidal ideation Reflexes: 3+ bicep (R), 3+ bicep (L), 3+ tricep (R), 3+ tricep (L), 3+ knee (R) , 3+ knee (L) Skin: normal color, no rash, warm/dry, well hydrated Lymphatic: no adenopathy Medical Decision Making Diagnostic Impression: Primary Impression: ACS (acute coronary syndrome) ER Course Hospital Course 54-year-old male presents ED complaining of left-sided chest pain, shortness of breath Differential diagnoses include: FL/unstable angina, contusion, muscle strain, PTX, rib fracture Clinical course Patient placed on stretcher. on air sampling and monitoring. After initial history and physical I ordered labs, EKG, chest x-ray, morphine labs reviewed- no leukocytosis, hb/hct stable, electrolytes ok, trop 0.358 EKG - NSR, PVCs noted, no acute ischemic changes interpreted by me Chest x-ray- cardiomegaly. bilateral effusions. ? infiltrate + R lung nodule seen on previous CXR given abx Case discussed with Dr. Bautista and he agreed to accept the patient to his service for further care and support I. I feel this is a highly complex case requiring extensive working including EKG/Rhythm strip, Xray/CT/US, Blood/urine lab work, repeat exams while in ED, and administration of strong opiates/narcotics for pain control, admission to hospital or close patient follow up. Diagnosis - ACS admitted to telemetry in serious condition Labs Test 01/10/18 21:21 White Blood Count 5.3 K/UL (4.8-10.8) Red Blood Count 3.37 M/UL (4.20-5.40) Hemoglobin 9.7 G/DL (12.0-16.0) Hematocrit 30.2 % (37.0-47.0) Mean Corpuscular Volume 90 FL (80-99) Mean Corpuscular Hemoglobin 28.9 PG (27.0-31.0) Mean Corpuscular Hemoglobin Concent 32.2 G/DL (32.0-36.0) Red Cell Distribution Width 17.8 % (11.6-14.8) Platelet Count 317 K/UL (150-450) Mean Platelet Volume 6.9 FL (6.5-10.1) Neutrophils (%) (Auto) 53.7 % (45.0-75.0) Lymphocytes (%) (Auto) 29.9 % (20.0-45.0) Monocytes (%) (Auto) 8.9 % (1.0-10.0) Eosinophils (%) (Auto) 6.4 % (0.0-3.0) Basophils (%) (Auto) 1.2 % (0.0-2.0) Sodium Level 136 MMOL/L (136-145) Potassium Level 4.2 MMOL/L (3.5-5.1) Chloride Level 101 MMOL/L (98-107) Carbon Dioxide Level 32 MMOL/L (21-32) Anion Gap 3 mmol/L (5-15) Blood Urea Nitrogen 21 mg/dL (7-18) Creatinine 1.5 MG/DL (0.55-1.30) Estimat Glomerular Filtration Rate 42.1 mL/min (>60) Glucose Level 162 MG/DL (74-106) Calcium Level 9.4 MG/DL (8.5-10.1) Total Bilirubin 0.5 MG/DL (0.2-1.0) Aspartate Amino Transf (AST/SGOT) 36 U/L (15-37) Alanine Aminotransferase (ALT/SGPT) 26 U/L (12-78) Alkaline Phosphatase 258 U/L (46-116) Total Creatine Kinase 59 U/L (26-308) Creatine Kinase MB 1.0 NG/ML (0.0-3.6) Creatine Kinase MB Relative Index 1.6 Troponin I 0.358 ng/mL (0.000-0.056) Total Protein 8.7 G/DL (6.4-8.2) Albumin 2.5 G/DL (3.4-5.0) Globulin 6.2 g/dL Albumin/Globulin Ratio 0.4 (1.0-2.7) EKG Diagnostic Results Rate: normal Rhythm: NSR ST Segments: no acute changes ASA given to the pt in ED: No - given by ems Rhythm Strip Diag. Results EP Interpretation: yes Rhythm: NSR, no ectopy, other - PVCs Chest X-Ray Diagnostic Results Chest X-Ray Diagnostic Results : Chest X-Ray Ordered: Yes # of Views/Limited/Complete: 1 View Indication: Chest Pain EP Interpretation: Yes Interpretation: no pneumothorax, other - bilateral effusion. ? R lung mass. ?infiltrate Impression: Other - lung mass + PNA Electronically Signed by: Electronically signed by Chaz Rutledge MD Last Vital Signs Date Time Temp Pulse Resp B/P (MAP) Pulse Ox O2 Delivery O2 Flow Rate FiO2 01/10/18 19:34 97.2 91 18 134/77 98 Nasal Cannula 2.0 Status: improved Disposition: ADMITTED INPATIENT Condition: Serious Referrals: Onesimo Bautista MD (PCP) CHAZ RUTLEDGE M.D. Jan 10, 2018 23:13
--- NOTE | 2018-01-10 23:42 | Consultation ---
History of Present Illness General Date patient seen: Jan 10, 2018 Chief Complaint: Chest Pain Referring physician: Dr. Lindsay Reason for Consultation: chest pain Present Illness HPI 67-year-old female with hx of CAD, DM, [facility] resident presented to ED complaining of chest pain, Started at rest just prior to arrival. Pressure- like, 8/10, nonradiating. Patient was given nitroglycerin x3, aspirin. States chest pain is resolved. Denies any fevers or chills. Denies cough. No other aggravating relieving factors. Denies any other associated symptoms. Her troponin was elevated and she is admitted to telemetry for further evaluation. Allergies: Coded Allergies: No Known Allergies (Unverified , 04/15/17) Medication History Scheduled Albuterol Sulfate (Ventolin Hfa), 1 PUFF INH EVERY 6 HOURS, (Reported) Aspirin* (Aspirin*), 81 MG ORAL DAILY, (Reported) Atorvastatin Calcium* (Atorvastatin Calcium*), 80 MG ORAL BEDTIME, (Reported) Carvedilol* (Carvedilol*), 6.25 MG ORAL EVERY 12 HOURS, (Reported) Docusate Sodium* (Docusate Sodium*), 200 MG ORAL TWICE A DAY, (Reported) Furosemide* (Lasix*), 40 MG ORAL DAILY, (Reported) Furosemide* (Lasix*), 40 MG ORAL DAILY, (Reported) Gabapentin* (Gabapentin*), 300 MG ORAL BEDTIME, (Reported) Hydralazine Hcl* (Hydralazine Hcl*), 50 MG ORAL EVERY 6 HOURS, (Reported) Insulin Regular, Human* (Novolin R*), 0 SUBQ .SLIDING SCALE, (Reported) Losartan Potassium* (Losartan Potassium*), 25 MG ORAL DAILY, (Reported) Metformin Hcl* (Metformin Hcl*), 500 MG ORAL TWICE A DAY, (Reported) Multivitamin With Minerals (Multivitamins With Minerals*), 1 TAB ORAL DAILY, ( Reported) Nateglinide* (Starlix*), 60 MG ORAL BID, (Reported) Tamsulosin Hcl (Tamsulosin Hcl*), 0.4 MG ORAL BEDTIME, (Reported) Ticagrelor* (Brilinta*), 90 MG PO BID, (Reported) Scheduled PRN Acetaminophen* (Acetaminophen*), 320 MG ORAL Q6H PRN for Mild Pain/Temp > 100.5, (Reported) Oxycodone/Acetaminophen 5-325* (Percocet 5-325 Mg Tablet*), 1 TAB ORAL Q6H PRN for For Pain, (Reported) Polyethylene Glycol 3350* (Polyethylene Glycol 3350*), 17 GM ORAL NEEDED PRN for Constipation, (Reported) Miscellaneous Medications Calcitriol (Calcitriol), 0.25 MCG PO, (Reported) Insulin Lispro (Humalog), 0 SUBQ, (Reported) Insulin Regular, Human (Humulin R), 8 SUBQ, (Reported) Mometasone/Formoterol (Dulera 200 Mcg/5 Mcg Inhaler), 13 GM IH, (Reported) Nitroglycerin (Nitroglycerin), 0.4 MG SL, (Reported) Nph, Human Insulin Isophane (Humulin N), 18 SUBQ, (Reported) Patient History Healthcare decision maker WILD SERRANO Resuscitation status Advanced Directive on File No Past Medical/Surgical History Past Medical/Surgical History: (1) Diabetes mellitus (2) Anemia (3) Hypertension Review of Systems All Other Systems: negative except mentioned in HPI Physical Exam General Appearance: cachetic Lines, tubes and drains: peripheral HEENT: normocephalic, anicteric Neck: non-tender, normal alignment Respiratory/Chest: chest wall non-tender, lungs clear, normal breath sounds Breasts: no masses Cardiovascular/Chest: normal peripheral pulses Abdomen: normal bowel sounds Genitourinary/Rectal: normal genital exam Extremities: normal range of motion Last 24 Hour Vital Signs Date Time Temp Pulse Resp B/P (MAP) Pulse Ox O2 Delivery O2 Flow Rate FiO2 01/10/18 19:34 97.2 91 18 134/77 98 Nasal Cannula 2.0 Laboratory Tests Test 01/10/18 21:21 01/10/18 22:00 White Blood Count 5.3 K/UL (4.8-10.8) Red Blood Count 3.37 M/UL (4.20-5.40) L Hemoglobin 9.7 G/DL (12.0-16.0) L Hematocrit 30.2 % (37.0-47.0) L Mean Corpuscular Volume 90 FL (80-99) Mean Corpuscular Hemoglobin 28.9 PG (27.0-31.0) Mean Corpuscular Hemoglobin Concent 32.2 G/DL (32.0-36.0) Red Cell Distribution Width 17.8 % (11.6-14.8) H Platelet Count 317 K/UL (150-450) Mean Platelet Volume 6.9 FL (6.5-10.1) Neutrophils (%) (Auto) 53.7 % (45.0-75.0) Lymphocytes (%) (Auto) 29.9 % (20.0-45.0) Monocytes (%) (Auto) 8.9 % (1.0-10.0) Eosinophils (%) (Auto) 6.4 % (0.0-3.0) H Basophils (%) (Auto) 1.2 % (0.0-2.0) Sodium Level 136 MMOL/L (136-145) Potassium Level 4.2 MMOL/L (3.5-5.1) Chloride Level 101 MMOL/L (98-107) Carbon Dioxide Level 32 MMOL/L (21-32) Anion Gap 3 mmol/L (5-15) L Blood Urea Nitrogen 21 mg/dL (7-18) H Creatinine 1.5 MG/DL (0.55-1.30) H Estimat Glomerular Filtration Rate 42.1 mL/min (>60) Glucose Level 162 MG/DL (74-106) H Calcium Level 9.4 MG/DL (8.5-10.1) Total Bilirubin 0.5 MG/DL (0.2-1.0) Aspartate Amino Transf (AST/SGOT) 36 U/L (15-37) Alanine Aminotransferase (ALT/SGPT) 26 U/L (12-78) Alkaline Phosphatase 258 U/L (46-116) H Total Creatine Kinase 59 U/L (26-308) Creatine Kinase MB 1.0 NG/ML (0.0-3.6) Creatine Kinase MB Relative Index 1.6 Troponin I 0.358 ng/mL (0.000-0.056) Pending Total Protein 8.7 G/DL (6.4-8.2) H Albumin 2.5 G/DL (3.4-5.0) L Globulin 6.2 g/dL Albumin/Globulin Ratio 0.4 (1.0-2.7) L Height (Feet): 5 Height (Inches): 4.00 Weight (Pounds): 145 Medications Current Medications Medications (Trade) Dose Ordered Sig/Tristan Route PRN Reason Start Time Stop Time Status Last Admin Dose Admin Acetaminophen (Tylenol) 650 mg Q4H PRN ORAL FEVER 01/10/18 22:45 02/09/18 22:44 Albuterol/ Ipratropium (Albuterol/ Ipratropium) 3 ml EVERY 4 HOURS PRN HHN Shortness of Breath 01/10/18 22:45 01/15/18 22:44 Aspirin (ASA) 162 mg DAILY ORAL 01/11/18 09:00 02/10/18 08:59 Carvedilol (Coreg) 6.25 mg EVERY 12 HOURS ORAL 01/11/18 09:00 02/10/18 08:59 Diltiazem HCl (Cardizem) 10 mg EVERY HOUR PRN IV heart rate more than 120, 01/10/18 22:45 02/09/18 22:44 Enalaprilat (Vasotec) 2.5 mg EVERY 6 HOURS PRN IV sbp more than 160 01/10/18 22:45 02/09/18 22:44 Gabapentin (Neurontin) 300 mg BEDTIME ORAL 01/11/18 21:00 02/10/18 20:59 Heparin Sodium (Porcine) (Heparin 5000 units/ml) 5,000 units EVERY 12 HOURS SUBQ 01/11/18 09:00 02/10/18 08:59 Hydralazine HCl (Apresoline) 50 mg EVERY 6 HOURS ORAL 01/11/18 00:00 02/10/18 00:00 Ketorolac Tromethamine (Toradol 30mg) 30 mg Q6HR PRN IV moderate pain ( 4-6) 01/10/18 22:45 01/15/18 22:44 Levofloxacin 150 ml @ 100 mls/hr NOW ONCE IVPB 01/10/18 23:15 01/11/18 00:44 Morphine Sulfate (Morphine Sulfate) 2 mg EVERY 4 HOURS PRN IVP severe Pain (Pain Scale 7-10) 01/10/18 22:45 01/17/18 22:44 Nateglinide (Starlix) 60 mg BID ORAL 01/11/18 09:00 02/10/18 08:59 Nitroglycerin (Ntg) 0.4 mg Every 5 Minutes PRN SL Prn Chest Pain 01/10/18 22:45 02/09/18 22:44 Ondansetron HCl (Zofran) 4 mg Q6H PRN IVP Nausea & Vomiting 01/10/18 22:45 02/09/18 22:44 Polyethylene Glycol (Miralax) 17 gm DAILYPRN PRN ORAL Constipation 01/10/18 22:45 02/09/18 22:44 Tamsulosin HCl (Flomax) 0.4 mg BEDTIME ORAL 01/11/18 21:00 02/10/18 20:59 Temazepam (Restoril) 15 mg HSPRN PRN ORAL Insomnia 01/10/18 22:45 01/17/18 22:44 Assessment/Plan Problem List: (1) ACS (acute coronary syndrome) ICD Codes: I24.9 - Acute ischemic heart disease, unspecified SNOMED: 938106902 (2) Anemia ICD Codes: D64.9 - Anemia, unspecified SNOMED: 616437200 (3) ATN (acute tubular necrosis) ICD Codes: N17.0 - Acute kidney failure with tubular necrosis SNOMED: 99584353 (4) Diabetes mellitus ICD Codes: E11.9 - Type 2 diabetes mellitus without complications SNOMED: 95596495 (5) Hypertension ICD Codes: I10 - Essential (primary) hypertension SNOMED: 87179519 Assessment/Plan serial ekg, troponin echo sliding scale diabetic diet endo to see stool for ob renal w/u dvt prophylaxis KHADAR BENAVIDES Jan 10, 2018 23:42
[2018-01-10 23:57] LABS: CREATINE KINASE 48 U/L (26-308)
[2018-01-11] VITALS (7 sets, daily range): BP systolic 125–158; BP diastolic 63–99
[2018-01-11] MEDS: HydrALAZINE 50mg tab ORAL SCH ×5 (01:56→23:56)
[2018-01-11] MEDS: Morphine Sulfate 2mg/ml Inj IVP PRN ×3 (01:57→18:30)
[2018-01-11] MEDS: Albuterol/Ipratropium 3ml neb HHN PRN (02:24)
[2018-01-11 05:13] LABS: APPEARANCE,URINE CLOUDY; BILIRUBIN, URINE NEGATIVE (NEGATIVE); COLOR,URINE YELLOW; GLUCOSE, URINE (UA) NEGATIVE (NEGATIVE); KETONES,URINE NEGATIVE (NEGATIVE); LEUKOCYTE ESTERASE ,URINE 3+ (NEGATIVE); NITRITE,URINE NEGATIVE (NEGATIVE); PH,URINE 6.5 (4.5-8.0); PROTEIN,URINE 2+ (NEGATIVE); UROBILINOGEN,URINE NORMAL MG/DL (0.0-1.0)
--- NOTE | 2018-01-11 06:24 | General Progress Note ---
Assessment/Plan Problem List: (1) Diabetes mellitus ICD Codes: E11.9 - Type 2 diabetes mellitus without complications SNOMED: 99781132 (2) ACS (acute coronary syndrome) ICD Codes: I24.9 - Acute ischemic heart disease, unspecified SNOMED: 210010149 (3) Anemia ICD Codes: D64.9 - Anemia, unspecified SNOMED: 611022610 (4) Hypertension ICD Codes: I10 - Essential (primary) hypertension SNOMED: 44217090 Assessment/Plan add Levemir 10 units daily add NISS continue Starlix 60 mg ac tid Subjective Allergies: Coded Allergies: No Known Allergies (Unverified , 04/15/17) All Systems: reviewed and negative except above Subjective 67-year-old female presents ED complaining of chest pain. Comes from intermediate facility. Started at rest just prior to arrival. Pressure-like, 810, nonradiating. Patient was given nitroglycerin x3, aspirin. States chest pain is resolved. Denies any fevers or chills. Denies cough. No other aggravating relieving factors. Denies any other associated symptoms insulin dependent diabetic on NPH, Humalog and Starlix as OP Objective Last 24 Hour Vital Signs Date Time Temp Pulse Resp B/P (MAP) Pulse Ox O2 Delivery O2 Flow Rate FiO2 01/11/18 06:18 161/80 01/11/18 04:00 97.0 88 16 153/90 97 Nasal Cannula 2.0 01/11/18 02:26 88 20 Room Air 21 01/11/18 02:25 88 20 99 Room Air 21 01/11/18 02:24 82 20 97 Room Air 21 01/11/18 01:56 131/70 01/11/18 01:16 91 01/11/18 01:00 97.0 90 20 131/70 100 Nasal Cannula 2.0 01/11/18 01:00 97.5 88 20 144/72 100 Nasal Cannula 2.0 01/11/18 00:16 97.5 88 20 144/72 100 Nasal Cannula 2.0 01/10/18 22:33 97.2 01/10/18 20:20 91 18 Nasal Cannula 2.0 01/10/18 19:34 97.2 91 18 134/77 98 Nasal Cannula 2.0 Intake and Output 01/10/18 01/11/18 19:00 07:00 Output Total 300 ml Balance -300 ml Output Urine Total 300 ml Laboratory Tests 01/10/18 21:21: White Blood Count 5.3, Red Blood Count 3.37L, Hemoglobin 9.7L, Hematocrit 30.2L , Mean Corpuscular Volume 90, Mean Corpuscular Hemoglobin 28.9, Mean Corpuscular Hemoglobin Concent 32.2, Red Cell Distribution Width 17.8H, Platelet Count 317, Mean Platelet Volume 6.9, Neutrophils (%) (Auto) 53.7, Lymphocytes (%) (Auto) 29.9, Monocytes (%) (Auto) 8.9, Eosinophils (%) (Auto) 6.4H, Basophils (%) (Auto) 1.2, Sodium Level 136, Potassium Level 4.2, Chloride Level 101, Carbon Dioxide Level 32, Anion Gap 3L, Blood Urea Nitrogen 21H, Creatinine 1.5H, Estimat Glomerular Filtration Rate 42.1, Glucose Level 162H, Calcium Level 9.4, Total Bilirubin 0.5, Aspartate Amino Transf (AST/SGOT) 36, Alanine Aminotransferase (ALT/SGPT) 26, Alkaline Phosphatase 258H, Total Creatine Kinase 59, Creatine Kinase MB 1.0, Creatine Kinase MB Relative Index 1.6, Troponin I 0.358H, Total Protein 8.7H, Albumin 2.5L, Globulin 6.2, Albumin/ Globulin Ratio 0.4L 01/10/18 22:00: Total Creatine Kinase 48, Troponin I 0.354H, Uric Acid 6.7 01/11/18 00:13: Troponin I 0.317H Height (Feet): 5 Height (Inches): 4.00 Weight (Pounds): 138 General Appearance: no apparent distress Neck: normal alignment Cardiovascular: normal rate Respiratory/Chest: lungs clear Abdomen: normal bowel sounds Pelvis: normal external exam Edema: no edema noted Arm (L), no edema noted Arm (R), no edema noted Leg (L), no edema noted Leg (R), no edema noted Pedal (L), no edema noted Pedal (R), no edema noted Generalized Objective Current Medications Medications (Trade) Dose Ordered Sig/Tristan Route PRN Reason Start Time Stop Time Status Last Admin Dose Admin Acetaminophen (Tylenol) 650 mg Q4H PRN ORAL FEVER 01/10/18 22:45 02/09/18 22:44 Albuterol/ Ipratropium (Albuterol/ Ipratropium) 3 ml EVERY 4 HOURS PRN HHN Shortness of Breath 01/10/18 22:45 01/15/18 22:44 01/11/18 02:24 Aspirin (ASA) 162 mg DAILY ORAL 01/11/18 09:00 02/10/18 08:59 Carvedilol (Coreg) 6.25 mg EVERY 12 HOURS ORAL 01/11/18 09:00 02/10/18 08:59 Diltiazem HCl (Cardizem) 10 mg EVERY HOUR PRN IV heart rate more than 120, 01/10/18 22:45 02/09/18 22:44 Enalaprilat (Vasotec) 2.5 mg EVERY 6 HOURS PRN IV sbp more than 160 01/10/18 22:45 02/09/18 22:44 Gabapentin (Neurontin) 300 mg BEDTIME ORAL 01/11/18 21:00 02/10/18 20:59 Heparin Sodium (Porcine) (Heparin 5000 units/ml) 5,000 units EVERY 12 HOURS SUBQ 01/11/18 09:00 02/10/18 08:59 Hydralazine HCl (Apresoline) 50 mg EVERY 6 HOURS ORAL 01/11/18 00:00 02/10/18 00:00 01/11/18 06:18 Ketorolac Tromethamine (Toradol 30mg) 30 mg Q6HR PRN IV moderate pain ( 4-6) 01/10/18 22:45 01/15/18 22:44 Morphine Sulfate (Morphine Sulfate) 2 mg EVERY 4 HOURS PRN IVP severe Pain (Pain Scale 7-10) 01/10/18 22:45 01/17/18 22:44 01/11/18 01:57 Nateglinide (Starlix) 60 mg BID ORAL 01/11/18 09:00 02/10/18 08:59 Nitroglycerin (Ntg) 0.4 mg Every 5 Minutes PRN SL Prn Chest Pain 01/10/18 22:45 02/09/18 22:44 Ondansetron HCl (Zofran) 4 mg Q6H PRN IVP Nausea & Vomiting 01/10/18 22:45 02/09/18 22:44 Polyethylene Glycol (Miralax) 17 gm DAILYPRN PRN ORAL Constipation 01/10/18 22:45 02/09/18 22:44 Tamsulosin HCl (Flomax) 0.4 mg BEDTIME ORAL 01/11/18 21:00 02/10/18 20:59 Temazepam (Restoril) 15 mg HSPRN PRN ORAL Insomnia 01/10/18 22:45 01/17/18 22:44 Item Value Date Time Glucose Level 162 MG/DL H 01/10/181 TREVOR ARIAS Jan 11, 2018 06:24
[2018-01-11] MEDS: NovoLOG Insulin Flexpen SUBQ SCH ×4 (06:30→20:48)
[2018-01-11] MEDS: Heparin 5000 units/ml inj SUBQ SCH ×2 (09:00→20:47)
[2018-01-11] MEDS ORDERED: Aspirin Baby 81mg ORAL SCH (09:00)
--- NOTE | 2018-01-11 09:12 | Pulmonology Progress Note ---
Assessment/Plan Problems: (1) ACS (acute coronary syndrome) (2) Anemia (3) ATN (acute tubular necrosis) (4) UTI (urinary tract infection) (5) Hypertension (6) Diabetes mellitus Assessment/Plan check echo Endo note and input appreciated check electroltyes add levofolxacin f/u torponin cardio to see Subjective ROS Limited/Unobtainable: No Constitutional: Reports: no symptoms Allergies: Coded Allergies: No Known Allergies (Unverified , 04/15/17) Objective Last 24 Hour Vital Signs Date Time Temp Pulse Resp B/P (MAP) Pulse Ox O2 Delivery O2 Flow Rate FiO2 01/11/18 06:18 161/80 01/11/18 04:00 97.0 88 16 153/90 97 Nasal Cannula 2.0 01/11/18 02:26 88 20 Room Air 21 01/11/18 02:25 88 20 99 Room Air 21 01/11/18 02:24 82 20 97 Room Air 21 01/11/18 01:56 131/70 01/11/18 01:16 91 01/11/18 01:00 97.0 90 20 131/70 100 Nasal Cannula 2.0 01/11/18 01:00 97.5 88 20 144/72 100 Nasal Cannula 2.0 01/11/18 00:16 97.5 88 20 144/72 100 Nasal Cannula 2.0 01/10/18 22:33 97.2 01/10/18 20:20 91 18 Nasal Cannula 2.0 01/10/18 19:34 97.2 91 18 134/77 98 Nasal Cannula 2.0 Intake and Output 01/10/18 01/11/18 19:00 07:00 Intake Total 300 ml Output Total 550 ml Balance -250 ml Intake Oral 300 ml Output Urine Total 550 ml General Appearance: WD/WN HEENT: normocephalic Respiratory/Chest: chest wall non-tender, lungs clear, normal breath sounds Cardiovascular: normal peripheral pulses, normal rate Abdomen: normal bowel sounds, soft, non tender, no organomegaly Extremities: no cyanosis, no clubbing Neurologic/Psychiatric: 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 grossly normal Lymphatic: no neck adenopathy Laboratory Tests 01/10/18 21:21: White Blood Count 5.3, Red Blood Count 3.37L, Hemoglobin 9.7L, Hematocrit 30.2L , Mean Corpuscular Volume 90, Mean Corpuscular Hemoglobin 28.9, Mean Corpuscular Hemoglobin Concent 32.2, Red Cell Distribution Width 17.8H, Platelet Count 317, Mean Platelet Volume 6.9, Neutrophils (%) (Auto) 53.7, Lymphocytes (%) (Auto) 29.9, Monocytes (%) (Auto) 8.9, Eosinophils (%) (Auto) 6.4H, Basophils (%) (Auto) 1.2, Sodium Level 136, Potassium Level 4.2, Chloride Level 101, Carbon Dioxide Level 32, Anion Gap 3L, Blood Urea Nitrogen 21H, Creatinine 1.5H, Estimat Glomerular Filtration Rate 42.1, Glucose Level 162H, Calcium Level 9.4, Total Bilirubin 0.5, Aspartate Amino Transf (AST/SGOT) 36, Alanine Aminotransferase (ALT/SGPT) 26, Alkaline Phosphatase 258H, Total Creatine Kinase 59, Creatine Kinase MB 1.0, Creatine Kinase MB Relative Index 1.6, Troponin I 0.358H, Total Protein 8.7H, Albumin 2.5L, Globulin 6.2, Albumin/ Globulin Ratio 0.4L 01/10/18 22:00: Total Creatine Kinase 48, Troponin I 0.354H, Uric Acid 6.7 01/11/18 00:13: Troponin I 0.317H 01/11/18 08:20: White Blood Count [Pending], Red Blood Count [Pending], Hemoglobin [Pending], Hematocrit [Pending], Mean Corpuscular Volume [Pending], Mean Corpuscular Hemoglobin [Pending], Mean Corpuscular Hemoglobin Concent [Pending], Red Cell Distribution Width [Pending], Platelet Count [Pending], Mean Platelet Volume [ Pending], Neutrophils (%) (Auto) [Pending], Lymphocytes (%) (Auto) [Pending], Monocytes (%) (Auto) [Pending], Eosinophils (%) (Auto) [Pending], Basophils (%) (Auto) [Pending], Erythrocyte Sedimentation Rate [Pending], Reticulocyte Count [ Pending], Prothrombin Time [Pending], Prothromb Time International Ratio [ Pending], Activated Partial Thromboplast Time [Pending], Iron Level [Pending], Unsaturated Iron Binding [Pending], Lactate Dehydrogenase [Pending], C-Reactive Protein, Quantitative [Pending], Triglycerides Level [Pending], Cholesterol Level [Pending], LDL Cholesterol [Pending], HDL Cholesterol [Pending], Cholesterol/HDL Ratio [Pending], Vitamin B12 Level [Pending], Folate [Pending], Thyroid Stimulating Hormone (TSH) [Pending] Current Medications Medications (Trade) Dose Ordered Sig/Tristan Route PRN Reason Start Time Stop Time Status Last Admin Dose Admin Acetaminophen (Tylenol) 650 mg Q4H PRN ORAL FEVER 01/10/18 22:45 02/09/18 22:44 Albuterol/ Ipratropium (Albuterol/ Ipratropium) 3 ml EVERY 4 HOURS PRN HHN Shortness of Breath 01/10/18 22:45 01/15/18 22:44 01/11/18 02:24 Aspirin (ASA) 162 mg DAILY ORAL 01/11/18 09:00 02/10/18 08:59 Carvedilol (Coreg) 6.25 mg EVERY 12 HOURS ORAL 01/11/18 09:00 02/10/18 08:59 Dextrose (Dextrose 50%) STAT PRN IV Hypoglycemia 01/11/18 06:30 02/10/18 06:29 Diltiazem HCl (Cardizem) 10 mg EVERY HOUR PRN IV heart rate more than 120, 01/10/18 22:45 02/09/18 22:44 Enalaprilat (Vasotec) 2.5 mg EVERY 6 HOURS PRN IV sbp more than 160 01/10/18 22:45 02/09/18 22:44 Gabapentin (Neurontin) 300 mg BEDTIME ORAL 01/11/18 21:00 02/10/18 20:59 Heparin Sodium (Porcine) (Heparin 5000 units/ml) 5,000 units EVERY 12 HOURS SUBQ 01/11/18 09:00 02/10/18 08:59 Hydralazine HCl (Apresoline) 50 mg EVERY 6 HOURS ORAL 01/11/18 00:00 02/10/18 00:00 01/11/18 06:18 Insulin Aspart (NovoLOG) BEFORE MEALS AND HS SUBQ 01/11/18 06:30 02/10/18 06:29 Insulin Detemir (Levemir) 10 units DAILY SUBQ 01/11/18 09:00 02/10/18 08:59 Ketorolac Tromethamine (Toradol 30mg) 30 mg Q6HR PRN IV moderate pain ( 4-6) 01/10/18 22:45 01/15/18 22:44 Morphine Sulfate (Morphine Sulfate) 2 mg EVERY 4 HOURS PRN IVP severe Pain (Pain Scale 7-10) 01/10/18 22:45 01/17/18 22:44 01/11/18 01:57 Nateglinide (Starlix) 60 mg BID ORAL 01/11/18 09:00 02/10/18 08:59 Nitroglycerin (Ntg) 0.4 mg Every 5 Minutes PRN SL Prn Chest Pain 01/10/18 22:45 02/09/18 22:44 Ondansetron HCl (Zofran) 4 mg Q6H PRN IVP Nausea & Vomiting 01/10/18 22:45 02/09/18 22:44 Polyethylene Glycol (Miralax) 17 gm DAILYPRN PRN ORAL Constipation 01/10/18 22:45 02/09/18 22:44 Tamsulosin HCl (Flomax) 0.4 mg BEDTIME ORAL 01/11/18 21:00 02/10/18 20:59 Temazepam (Restoril) 15 mg HSPRN PRN ORAL Insomnia 01/10/18 22:45 01/17/18 22:44 KHADAR BENAVIDES Jan 11, 2018 09:12
[2018-01-11 09:26] LABS: BASOPHILS % (AUTO) 1.7 % (0.0-2.0); EOSINOPHILS % (AUTO) 6.3 % (0.0-3.0); HEMATOCRIT 26.3 % (37.0-47.0); HEMOGLOBIN 8.4 G/DL (12.0-16.0); LYMPHOCYTES % (AUTO) 26.7 % (20.0-45.0); MEAN CORPUSCULAR VOLUME 90 FL (80-99); MONOCYTES % (AUTO) 11.9 % (1.0-10.0); NEUTROPHILS % (AUTO) 53.4 % (45.0-75.0); PLATELET COUNT 274 K/UL (150-450); RED BLOOD COUNT 2.93 M/UL (4.20-5.40); RED CELL DISTRIBUTION WIDTH 17.9 % (11.6-14.8); WHITE BLOOD COUNT 5.2 K/UL (4.8-10.8)
[2018-01-11] MEDS: Nateglinide 60mg tab ORAL SCH ×2 (09:35→17:13)
[2018-01-11] MEDS: Carvedilol 6.25mg Tab ORAL SCH ×2 (09:36→20:43)
[2018-01-11] MEDS: Levemir Flexpen SUBQ SCH (09:37)
[2018-01-11 09:41] LABS: INR 1.1 (0.9-1.1)
[2018-01-11 09:47] LABS: % IRON SATURATION 20 % (15-50); IRON 53 ug/dL (50-175); TOTAL IRON BINDING CAPACITY 270 ug/dL (250-450)
[2018-01-11 09:49] LABS: LACTATE DEHYDROGENASE 273 U/L (81-234)
[2018-01-11 09:53] LABS: CHOLESTEROL 122 MG/DL (< 200); HDL CHOLESTEROL 49 MG/DL (40-60); TRIGLYCERIDES 71 MG/DL (30-150)
--- NOTE | 2018-01-11 12:09 | Diagnostic Imaging Report ---
Indication: Chest pain Technique: XRAY Chest 1v Comparison: 09/14/2017 Findings: Heart border is obscured but likely stable. There is interstitial and patchy bilateral airspace opacities. There are small bowel are pleural effusions and bibasilar atelectasis/consolidation. There is a 2.1 cm masslike opacity in the right midlung. This is seen on prior exams. Is no pneumothorax. No acute osseous abnormality appreciated. Impression: Interstitial opacification/edema and patchy bilateral airspace opacities with small bilateral pleural effusions and bibasilar atelectasis or consolidation. Findings may be related to CHF. Superimposed pneumonia not entirely excluded. Clinical correlation and follow-up exam recommended. 2.1 cm masslike opacity in the right midlung. This was seen on prior exams and is roughly stable in size. CT of the chest recommended (as recommended on previous chest x-rays) for more definitive characterization if not done previously (none in [place] [facility]). Study obtained via the emergency department however patient admitted to the hospital at time of dictation of the final report.
--- NOTE | 2018-01-11 12:41 | Diagnostic Imaging Report ---
Indication: Abnormal renal function Technique: Multiplanar grayscale and Doppler imaging of the kidneys and bladder Comparison: None Findings: Right kidney measures 9.2 cm in length. Left kidney measures 9.4 cm in length. No hydronephrosis or sonographically usual renal stones bilaterally. Both kidneys demonstrate normal parenchymal echogenicity. Romero catheter decompresses the bladder. Imaged portions of the liver and IVC unremarkable. Impression: No hydronephrosis or sonographically appreciable renal stone. Parenchymal echogenicity appears within normal limits. Romero catheter in the bladder, limiting its evaluation.
--- NOTE | 2018-01-11 16:27 | Cardiology Progress Note ---
Subjective Subjective [id number] Objective Last 24 Hour Vital Signs Date Time Temp Pulse Resp B/P (MAP) Pulse Ox O2 Delivery O2 Flow Rate FiO2 01/11/18 16:00 138/74 01/11/18 12:00 94 01/11/18 12:00 138/74 01/11/18 12:00 97.2 20 138/76 97 Nasal Cannula 2.0 01/11/18 09:36 92 158/80 01/11/18 08:07 92 20 Room Air 21 01/11/18 08:00 97.0 18 158/99 95 Nasal Cannula 2.0 01/11/18 08:00 96 01/11/18 06:18 161/80 01/11/18 04:00 97.0 88 16 153/90 97 Nasal Cannula 2.0 01/11/18 02:26 88 20 Room Air 21 01/11/18 02:25 88 20 99 Room Air 21 01/11/18 02:24 82 20 97 Room Air 21 01/11/18 01:56 131/70 01/11/18 01:16 91 01/11/18 01:00 97.0 90 20 131/70 100 Nasal Cannula 2.0 01/11/18 01:00 97.5 88 20 144/72 100 Nasal Cannula 2.0 01/11/18 00:16 97.5 88 20 144/72 100 Nasal Cannula 2.0 01/10/18 22:33 97.2 01/10/18 20:20 91 18 Nasal Cannula 2.0 01/10/18 19:34 97.2 91 18 134/77 98 Nasal Cannula 2.0 Intake and Output 01/10/18 01/11/18 19:00 07:00 Intake Total 300 ml Output Total 550 ml Balance -250 ml Intake Oral 300 ml Output Urine Total 550 ml Laboratory Tests Test 01/10/18 21:21 01/10/18 22:00 01/11/18 00:13 01/11/18 08:20 White Blood Count 5.3 K/UL (4.8-10.8) 5.2 K/UL (4.8-10.8) Red Blood Count 3.37 M/UL (4.20-5.40) L 2.93 M/UL (4.20-5.40) L Hemoglobin 9.7 G/DL (12.0-16.0) L 8.4 G/DL (12.0-16.0) L Hematocrit 30.2 % (37.0-47.0) L 26.3 % (37.0-47.0) L Mean Corpuscular Volume 90 FL (80-99) 90 FL (80-99) Mean Corpuscular Hemoglobin 28.9 PG (27.0-31.0) 28.7 PG (27.0-31.0) Mean Corpuscular Hemoglobin Concent 32.2 G/DL (32.0-36.0) 32.0 G/DL (32.0-36.0) Red Cell Distribution Width 17.8 % (11.6-14.8) H 17.9 % (11.6-14.8) H Platelet Count 317 K/UL (150-450) 274 K/UL (150-450) Mean Platelet Volume 6.9 FL (6.5-10.1) 7.4 FL (6.5-10.1) Neutrophils (%) (Auto) 53.7 % (45.0-75.0) 53.4 % (45.0-75.0) Lymphocytes (%) (Auto) 29.9 % (20.0-45.0) 26.7 % (20.0-45.0) Monocytes (%) (Auto) 8.9 % (1.0-10.0) 11.9 % (1.0-10.0) H Eosinophils (%) (Auto) 6.4 % (0.0-3.0) H 6.3 % (0.0-3.0) H Basophils (%) (Auto) 1.2 % (0.0-2.0) 1.7 % (0.0-2.0) Sodium Level 136 MMOL/L (136-145) Potassium Level 4.2 MMOL/L (3.5-5.1) Chloride Level 101 MMOL/L (98-107) Carbon Dioxide Level 32 MMOL/L (21-32) Anion Gap 3 mmol/L (5-15) L Blood Urea Nitrogen 21 mg/dL (7-18) H Creatinine 1.5 MG/DL (0.55-1.30) H Estimat Glomerular Filtration Rate 42.1 mL/min (>60) Glucose Level 162 MG/DL (74-106) H Calcium Level 9.4 MG/DL (8.5-10.1) Total Bilirubin 0.5 MG/DL (0.2-1.0) Aspartate Amino Transf (AST/SGOT) 36 U/L (15-37) Alanine Aminotransferase (ALT/SGPT) 26 U/L (12-78) Alkaline Phosphatase 258 U/L (46-116) H Total Creatine Kinase 59 U/L (26-308) 48 U/L (26-308) Creatine Kinase MB 1.0 NG/ML (0.0-3.6) Creatine Kinase MB Relative Index 1.6 Troponin I 0.358 ng/mL (0.000-0.056) 0.354 ng/mL (0.000-0.056) 0.317 ng/mL (0.000-0.056) Total Protein 8.7 G/DL (6.4-8.2) H Albumin 2.5 G/DL (3.4-5.0) L Globulin 6.2 g/dL Albumin/Globulin Ratio 0.4 (1.0-2.7) L Uric Acid 6.7 MG/DL (2.6-7.2) Differential Total Cells Counted 100 Neutrophils % (Manual) 54 % (45-75) Lymphocytes % (Manual) 27 % (20-45) Monocytes % (Manual) 12 % (1-10) H Eosinophils % (Manual) 6 % (0-3) H Basophils % (Manual) 1 % (0-2) Band Neutrophils 0 % (0-8) Platelet Estimate Adequate Platelet Morphology Normal Hypochromasia 2+ Anisocytosis 1+ Erythrocyte Sedimentation Rate 121 MM/HR (0-30) H Reticulocyte Count 3.1 % (0.0-2.0) H Prothrombin Time 12.0 SEC (9.30-11.50) H Prothromb Time International Ratio 1.1 (0.9-1.1) Activated Partial Thromboplast Time 28 SEC (23-33) Iron Level 53 ug/dL (50-175) Total Iron Binding Capacity 270 ug/dL (250-450) Percent Iron Saturation 20 % (15-50) Unsaturated Iron Binding 217 ug/dL (112-346) Lactate Dehydrogenase 273 U/L (81-234) H C-Reactive Protein, Quantitative 0.6 mg/dL (0.00-0.90) Triglycerides Level 71 MG/DL (30-150) Cholesterol Level 122 MG/DL (< 200) LDL Cholesterol 71 mg/dL (<100) HDL Cholesterol 49 MG/DL (40-60) Cholesterol/HDL Ratio 2.5 (3.3-4.4) L Vitamin B12 Level 901 PG/ML (193-986) Folate 7.9 NG/ML (8.6-58.9) L Thyroid Stimulating Hormone (TSH) 6.889 uiU/mL (0.358-3.740) JOE CORRAL Jan 11, 2018 16:27
[2018-01-11] MEDS ORDERED: Aspirin Baby 81mg NG SCH (16:30)
--- NOTE | 2018-01-11 18:15 | History & Physical ---
History and Physical History & Physicial Dictated for Int Med-Dr Bautista no. [id number]. KRISTINA CARABALLO Jan 11, 2018 18:15
[2018-01-11 19:22] LABS: ANION GAP 5 mmol/L (5-15); BLOOD UREA NITROGEN 26 mg/dL (7-18); CALCIUM 8.8 MG/DL (8.5-10.1); CARBON DIOXIDE 29 MMOL/L (21-32); CHLORIDE 103 MMOL/L (98-107); CREATININE 1.5 MG/DL (0.55-1.30); POTASSIUM 4.2 MMOL/L (3.5-5.1); SODIUM 137 MMOL/L (136-145)
[2018-01-11] MEDS: Tamsulosin 0.4mg cap ORAL SCH (20:43)
[2018-01-11] MEDS: Atorvastatin 20mg tab ORAL SCH (20:43)
--- NOTE | 2018-01-11 21:30 | History and Physical Report ---
DATE OF ADMISSION: 01/10/2018 CHIEF COMPLAINT: The patient is a 67-year-old female who presents with chief complaint of chest pain and shortness of breath. HISTORY OF PRESENT ILLNESS: The patient is a resident of [facility]. The patient states that she began to feel short of breath yesterday . The patient has a history of congestive heart failure. The patient presented to [place] emergency room. The patient is admitted for chest pain and congestive heart failure. PAST MEDICAL HISTORY: Significant for: 1. Type 2 diabetes. 2. Hypertension. 3. Diabetic peripheral neuropathy. 4. Congestive heart failure. 5. History of coronary artery disease. 6. Chronic obstructive pulmonary disease. PAST SURGICAL HISTORY: The patient denies. CURRENT MEDICATIONS: 1. Albuterol metered-dose inhaler two puffs p.o. q.i.d. p.r.n. 2. Aspirin 81 mg p.o. daily. 3. Atorvastatin 80 mg p.o. at bedtime. 4. Calcitriol 0.25 mcg p.o. daily. 5. Carvedilol 6.25 mg p.o. q.12 hours. 6. Lasix 40 mg p.o. daily. 7. Gabapentin 300 mg p.o. at bedtime. 8. Hydralazine 50 mg p.o. q.6 hours. 9. Lispro sliding scale. 10. Losartan 25 mg p.o. daily. 11. Metformin 500 mg p.o. twice daily. 12. Dulera one puff p.o. daily. 13. Multivitamin daily. 14. Starlix 60 mg p.o. twice daily. 15. Nitroglycerin as needed. 16. NPH insulin 18 units subcutaneously daily. 17. Oxycodone as needed for pain. 18. 19. Brilinta 90 mg p.o. twice daily. ALLERGIES: No known drug allergies. SOCIAL HISTORY: The patient is single. The patient lives at [facility]. The patient denies tobacco use having quit in December 2017. The patient denies alcohol use. REVIEW OF SYSTEMS: CONSTITUTIONAL: The patient denies weight loss or weight gain. The patient denies fevers or chills. HEENT: The patient denies ear or throat pain. The patient denies headache. CARDIOVASCULAR: The patient complains of chest pain as above. The patient denies palpitations. CHEST: The patient complains of shortness of breath. The patient denies wheezes. ABDOMEN: The patient denies nausea, vomiting, diarrhea, or constipation. GENITOURINARY: The patient denies dysuria or increased frequency of urination. NEUROMUSCULAR: The patient denies seizures or generalized weakness. PHYSICAL EXAMINATION: VITAL SIGNS: Temperature 97.0, respirations 18, pulse 96, blood pressure 158/99. GENERAL: The patient is well-developed and well-nourished thin appearing female, in no apparent distress. HEENT: Eyes, pupils are equal and responsive to light and accommodation. Extraocular movements are intact. NECK: Supple without lymphadenopathy. CHEST AND LUNGS: Diffuse crackles on bilateral bases otherwise, clear to auscultation without wheezes or rales. CARDIOVASCULAR: Regular rhythm and rate. S1 and S2 are normal without murmurs, rubs, or gallops. ABDOMEN: Soft, nontender, and nondistended. Positive bowel sounds. No evidence of hepatosplenomegaly. Currently, no rebound or guarding noted. EXTREMITIES: Negative for clubbing, cyanosis, or edema. RECTAL/GENITAL: Refused. NEUROLOGICAL: Cranial nerves II to XII grossly intact without focal deficits. Motor strength is 5/5 bilaterally. Deep tendon reflexes are 2+ plantar. LABORATORY STUDIES: WBC 5.3, hemoglobin 9.7, hematocrit 30.2, platelets 217,000. Sodium 136, potassium 4.2, chloride 101, CO2 32, BUN 29, creatinine 1.5, glucose 162. Troponin elevated at 0.358. A chest x-ray was consistent with congestive heart failure. ASSESSMENT: This is a 67-year-old female. 1. Shortness of breath. 2. Congestive heart failure. 3. Chest pain. 4. Diabetes type 2. 5. Elevated troponin. 6. Hypertension. 7. Asthma. 8. Chronic obstructive pulmonary disease. 9. History of coronary artery disease. TREATMENT: 1. Shortness of breath/congestive heart failure. Cardiology consultation obtained with Dr. Jayro Jay. Serial troponin levels will be performed. An echocardiogram is pending. We will follow recommendations of Cardiology. 2. Diabetes type 2. Continue NovoLog sliding scale. 3. Elevated troponin. As above, a Cardiology consultation obtained with Dr. Jayro Jay. We will follow serial troponin. 4. Hypertension. The patient will remain on Coreg and intravenous Vasotec during the hospitalization. 5. Asthma/chronic obstructive pulmonary disease. The patient will be offered DuoNeb as needed for shortness of breath. 6. History of coronary artery disease. Paul Lindsay M.D. DR: Yvonne JOB#: [id number] CC:
[2018-01-12] VITALS: BP 138/93
--- NOTE | 2018-01-12 02:30 | Consultation ---
DATE OF CONSULTATION: 01/11/2018 CARDIOLOGY CONSULTATION IDENTIFYING DATA: This is a 67-year-old black female. REASON FOR EVALUATION: Chest pain. HISTORY OF PRESENT ILLNESS: History of present illness was taken from the patient and her family member. The patient reports severe left-sided chest pain at the junction with the sternum in the special point, severe, nonradiating, and she had for about a month. The patient was admitted to [facility] a month ago and that was for respiratory failure requiring intubation, but in addition to that, she also had found coronary artery disease with non-ST elevation myocardial infarction and she underwent coronary angiogram that revealed three-vessel coronary artery disease and subsequently underwent interventional LAD and circumflex. The procedure was done on 12/20/2017. The reason for intervention was that Surgery felt her not a good candidate for heart surgery because of severe chronic obstructive pulmonary disease. On 12/16/2017, the patient suffered cardiac arrest, most likely due to respiratory condition and she received chest compression. PAST MEDICAL HISTORY: Significant for severe chronic obstructive pulmonary disease, diabetes, hypertension, and she is a heavy smoker. MEDICATIONS: Her home medications were reviewed. After the procedure, the patient was placed on ticagrelor and aspirin. ALLERGIES: Not reported. HABITS: She continues to smoke. No alcohol abuse. No any drug abuse. REVIEW OF SYSTEMS: The main problem is severe left-sided chest pain at the junction to the sternum of about 6 or 7 rib, which is constant and relieved by morphine. Her review of system was done in detail. She has some mild orthopnea and some cough. Her ejection fraction by the echo, which was done at [facility] was 35%. PHYSICAL EXAMINATION: GENERAL: This is an elderly female, resting in bed, slightly anxious, not in any distress. VITAL SIGNS: Blood pressure is 138/70, heart rate is 90, temperature is normal, and oxygen saturation 97% on three liters. She looks chronically ill. HEENT: PERRLA. EOMI. NECK: Neck veins are distended up to 8 cm. Carotid upstroke is brisk. There is no bruit. LUNGS: Severely decreased breath sounds bilaterally with some wheezing. HEART: Regular with distant S1. ABDOMEN: Soft and nontender. There is tenderness on palpation of the 7 and 8 rib cartilage attached to the sternum. EXTREMITIES: Lower extremities, no edema. Distal pulses palpable. DIAGNOSTIC DATA: Her EKG shows sinus rhythm with mild T-inversion in lateral leads, which is not much different from her ECG at [facility]. Her chest x-ray is significant for interstitial disease and possible fluid collection. LABORATORY DATA: Significant for hemoglobin 8.4 and platelets 274,000. Her chemistry showed elevated blood sugar with creatinine of 1.5. Chest x-ray showed interstitial disease and possible heart failure. IMPRESSION AND RECOMMENDATION: Atypical chest pain, reproducible on palpation due to tenderness on the cartilage, area should be treated with regular pain medication such as Tylenol and narcotics. I would suggest to stay away as much as possible from nonsteroidals to avoid more bleeding because she is on dual antiplatelet therapy and she must be on it for at least two months. Also add furosemide and monitor her very closely with the serial troponins. Thank you very much for your consultation. I will follow this patient with you. Alicia Perdomo M.D. DR: LORRI JOB#: [id number] CC:
[2018-01-12 04:00] VITALS: BP 134/64
--- NOTE | 2018-01-12 04:15 | Consultation ---
DATE OF CONSULTATION: 01/11/2018 HEMATOLOGY/ONCOLOGY CONSULTATION CONSULTING PHYSICIAN: Earl Oquendo M.D. REQUESTING PHYSICIAN: Onesimo Bautista M.D. REASON FOR CONSULTATION: Evaluation of anemia. IDENTIFICATION DATA: Dear Dr. Bautista, The patient is a pleasant 67-year-old female with past medical history significant for diabetes mellitus, CAD, is a [facility] resident, at this time presents to the ER with chest pain, which began prior to arrival, pressure like, 8/10, nonradiating, given nitroglycerin for several doses as well as aspirin, which was started. Denies any fevers, chills, night sweats, hematochezia, or hematemesis. Troponin is elevated. She was admitted to telemetry for further evaluation and care. Hematology Service was consulted for further evaluation and underlying treatment given anemia. PAST MEDICAL HISTORY: CAD and diabetes mellitus. MEDICATIONS: Albuterol, aspirin, Lasix, Colace, losartan, metformin, multivitamin, tamsulosin, and ticagrelor. ALLERGIES: No known drug allergies. REVIEW OF SYSTEMS: CONSTITUTIONAL: No fevers, chills, or night sweats. SKIN: No rashes, bumps, or itching. HEENT: No headache, hearing or vision changes. BREASTS: No lumps, pain, or discharge. PULMONARY: No cough, sputum, or shortness of breath. GASTROINTESTINAL: No nausea, vomiting, or diarrhea. GENITOURINARY: No dysuria, frequency, or urgency. MUSCULOSKELETAL: No joint swelling, muscle pain, or trauma. PHYSICAL EXAMINATION: VITAL SIGNS: Reviewed. GENERAL: No distress. PULMONARY: Decreased breath sounds. CARDIOVASCULAR: Regular rate. No S3 or S4. ABDOMEN: Soft, nontender, and nondistended. EXTREMITIES: No cyanosis, swelling, or edema. LABORATORY DATA: WBC 5.3, hemoglobin 9.7, hematocrit 30, and platelet count of 200. ASSESSMENT AND RECOMMENDATIONS: 1. Anemia due to underlying chronic disease. Reticulocyte count elevated. Anemia workup ordered. Apparently, folic acid was found to be decreased. 2. Anemia due to folic acid deficiency. At this time, begin the patient on folic acid. Folic acid has been begun. 3. Diabetes mellitus. A1c is pending at this time. 4. Acute coronary syndrome rule out. Troponin pending at the moment as well. Cardiology to follow. 5. Hypertension. Blood pressure at goal. Systolic blood pressure less than 140. I appreciate the consultation. Thank you for the courtesy of this consultation. Earl Oquendo M.D. DR: Shawna JOB#: [id number] CC:
[2018-01-12] MEDS: HydrALAZINE 50mg tab ORAL SCH ×3 (06:20→17:21)
[2018-01-12] MEDS: NovoLOG Insulin Flexpen SUBQ SCH ×4 (06:22→21:00)
[2018-01-12 08:00] VITALS: BP 129/58
[2018-01-12 08:37] LABS: BASOPHILS % (AUTO) 1.1 % (0.0-2.0); EOSINOPHILS % (AUTO) 2.9 % (0.0-3.0); HEMATOCRIT 24.8 % (37.0-47.0); HEMOGLOBIN 8.6 G/DL (12.0-16.0); LYMPHOCYTES % (AUTO) 28.6 % (20.0-45.0); MEAN CORPUSCULAR VOLUME 88 FL (80-99); MONOCYTES % (AUTO) 11.7 % (1.0-10.0); NEUTROPHILS % (AUTO) 55.7 % (45.0-75.0); PLATELET COUNT 251 K/UL (150-450); RED BLOOD COUNT 2.82 M/UL (4.20-5.40); RED CELL DISTRIBUTION WIDTH 17.2 % (11.6-14.8); WHITE BLOOD COUNT 5.2 K/UL (4.8-10.8)
--- NOTE | 2018-01-12 08:38 | Pulmonology Progress Note ---
Assessment/Plan Problems: (1) ACS (acute coronary syndrome) (2) Anemia (3) ATN (acute tubular necrosis) (4) UTI (urinary tract infection) (5) Hypertension (6) Diabetes mellitus Assessment/Plan check echo Endo note and input appreciated check electroltyes add levofolxacin f/u torponin cardio note appreciated anemia w/u in progress Subjective ROS Limited/Unobtainable: No Constitutional: Reports: no symptoms HEENT: Repors: no symptoms Allergies: Coded Allergies: No Known Allergies (Unverified , 04/15/17) Objective Last 24 Hour Vital Signs Date Time Temp Pulse Resp B/P (MAP) Pulse Ox O2 Delivery O2 Flow Rate FiO2 01/12/18 08:07 106 20 Room Air 21 01/12/18 06:20 134/64 01/12/18 04:00 103 01/12/18 04:00 99.3 100 20 134/64 93 Nasal Cannula 2.0 01/12/18 00:39 83 20 Room Air 21 01/12/18 00:00 96 01/12/18 00:00 97.0 100 20 138/93 97 Nasal Cannula 2.0 01/11/18 23:56 138/93 01/11/18 20:43 83 125/64 01/11/18 20:00 97.9 83 16 125/64 98 01/11/18 20:00 85 01/11/18 17:14 138/74 01/11/18 16:00 86 01/11/18 16:00 138/74 01/11/18 16:00 97.5 20 135/63 97 Nasal Cannula 2.0 01/11/18 12:00 94 01/11/18 12:00 138/74 01/11/18 12:00 97.2 20 138/76 97 Nasal Cannula 2.0 01/11/18 09:36 92 158/80 Intake and Output 01/11/18 01/12/18 19:00 07:00 Intake Total 120 ml Output Total 300 ml 300 ml Balance -180 ml -300 ml Intake Oral 120 ml Output Urine Total 300 ml 300 ml Objective General Appearance: WD/WN HEENT: normocephalic Respiratory/Chest: chest wall non-tender, lungs clear, normal breath sounds Cardiovascular: normal peripheral pulses, normal rate Abdomen: normal bowel sounds, soft, non tender, no organomegaly Extremities: no cyanosis, no clubbing 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 Lymphatic: no neck adenopathy Laboratory Tests 01/12/18 07:45: White Blood Count [Pending], Red Blood Count [Pending], Hemoglobin [Pending], Hematocrit [Pending], Mean Corpuscular Volume [Pending], Mean Corpuscular Hemoglobin [Pending], Mean Corpuscular Hemoglobin Concent [Pending], Red Cell Distribution Width [Pending], Platelet Count [Pending], Mean Platelet Volume [ Pending], Neutrophils (%) (Auto) [Pending], Lymphocytes (%) (Auto) [Pending], Monocytes (%) (Auto) [Pending], Eosinophils (%) (Auto) [Pending], Basophils (%) (Auto) [Pending], Troponin I [Pending], Pro-B-Type Natriuretic Peptide [Pending] Current Medications Medications (Trade) Dose Ordered Sig/Tristan Route PRN Reason Start Time Stop Time Status Last Admin Dose Admin Acetaminophen (Tylenol) 650 mg Q4H PRN ORAL FEVER 01/10/18 22:45 02/09/18 22:44 Albuterol/ Ipratropium (Albuterol/ Ipratropium) 3 ml EVERY 4 HOURS PRN HHN Shortness of Breath 01/10/18 22:45 01/15/18 22:44 01/11/18 02:24 Aspirin (ASA) 81 mg DAILY ORAL 01/12/18 09:00 02/11/18 08:59 Atorvastatin Calcium (Lipitor) 20 mg BEDTIME ORAL 01/11/18 21:00 02/10/18 20:59 01/11/18 20:43 Carvedilol (Coreg) 6.25 mg EVERY 12 HOURS ORAL 01/11/18 09:00 02/10/18 08:59 01/11/18 20:43 Clopidogrel Bisulfate (Plavix) 75 mg DAILY ORAL 01/11/18 16:30 02/10/18 16:29 Dextrose (Dextrose 50%) STAT PRN IV Hypoglycemia 01/11/18 06:30 02/10/18 06:29 Diltiazem HCl (Cardizem) 10 mg EVERY HOUR PRN IV heart rate more than 120, 01/10/18 22:45 02/09/18 22:44 Enalaprilat (Vasotec) 2.5 mg EVERY 6 HOURS PRN IV sbp more than 160 01/10/18 22:45 02/09/18 22:44 Folic Acid (Folate) 1 mg Q24HRS ORAL 01/11/18 21:00 02/10/18 20:59 01/11/18 20:50 Furosemide (Lasix) 20 mg DAILY ORAL 01/11/18 16:30 02/10/18 16:29 01/11/18 17:13 Gabapentin (Neurontin) 300 mg BEDTIME ORAL 01/11/18 21:00 02/10/18 20:59 01/11/18 20:43 Heparin Sodium (Porcine) (Heparin 5000 units/ml) 5,000 units EVERY 12 HOURS SUBQ 01/11/18 09:00 02/10/18 08:59 01/11/18 20:47 Hydralazine HCl (Apresoline) 50 mg EVERY 6 HOURS ORAL 01/11/18 00:00 02/10/18 00:00 01/12/18 06:20 Insulin Aspart (NovoLOG) BEFORE MEALS AND HS SUBQ 01/11/18 06:30 02/10/18 06:29 01/12/18 06:22 Insulin Detemir (Levemir) 10 units DAILY SUBQ 01/11/18 09:00 02/10/18 08:59 01/11/18 09:37 Ketorolac Tromethamine (Toradol 30mg) 30 mg Q6HR PRN IV moderate pain ( 4-6) 01/10/18 22:45 01/15/18 22:44 Levofloxacin 50 ml @ 50 mls/hr Q24H IVPB 01/11/18 23:00 01/18/18 22:59 01/11/18 23:55 Morphine Sulfate (Morphine Sulfate) 2 mg Q4H PRN IVP severe Pain (Pain Scale 7-10) 01/11/18 14:45 01/17/18 22:44 01/11/18 18:30 Nateglinide (Starlix) 60 mg BID ORAL 01/11/18 09:00 02/10/18 08:59 01/11/18 17:13 Nitroglycerin (Ntg) 0.4 mg Every 5 Minutes PRN SL Prn Chest Pain 01/10/18 22:45 02/09/18 22:44 01/11/18 16:00 Ondansetron HCl (Zofran) 4 mg Q6H PRN IVP Nausea & Vomiting 01/10/18 22:45 02/09/18 22:44 Polyethylene Glycol (Miralax) 17 gm DAILYPRN PRN ORAL Constipation 01/10/18 22:45 02/09/18 22:44 Tamsulosin HCl (Flomax) 0.4 mg BEDTIME ORAL 01/11/18 21:00 02/10/18 20:59 01/11/18 20:43 Temazepam (Restoril) 15 mg HSPRN PRN ORAL Insomnia 01/10/18 22:45 01/17/18 22:44 KHADAR BENAVIDES Jan 12, 2018 08:38
[2018-01-12] MEDS: Heparin 5000 units/ml inj SUBQ SCH ×2 (09:00→21:08)
[2018-01-12] MEDS: Nateglinide 60mg tab ORAL SCH ×3 (09:28→17:21)
[2018-01-12] MEDS: Aspirin Baby 81mg ORAL SCH (09:29)
[2018-01-12] MEDS: Carvedilol 6.25mg Tab ORAL SCH ×2 (09:29→21:09)
[2018-01-12] MEDS: Levemir Flexpen SUBQ SCH (09:30)
--- NOTE | 2018-01-12 09:40 | General Progress Note ---
Assessment/Plan Problem List: (1) Diabetes mellitus ICD Codes: E11.9 - Type 2 diabetes mellitus without complications SNOMED: 98576329 (2) ACS (acute coronary syndrome) ICD Codes: I24.9 - Acute ischemic heart disease, unspecified SNOMED: 667146242 (3) Anemia ICD Codes: D64.9 - Anemia, unspecified SNOMED: 536797425 (4) Hypertension ICD Codes: I10 - Essential (primary) hypertension SNOMED: 62504986 (5) Abnormal thyroid blood test ICD Codes: R94.6 - Abnormal results of thyroid function studies SNOMED: 802696769 Assessment/Plan continue Levemir 10 units daily continue NISS change Starlix 60 mg ac bid to tid repeat TSH check free T4 Subjective Allergies: Coded Allergies: No Known Allergies (Unverified , 04/15/17) All Systems: reviewed and negative except above Subjective events noted - interval notes reviewed Objective Last 24 Hour Vital Signs Date Time Temp Pulse Resp B/P (MAP) Pulse Ox O2 Delivery O2 Flow Rate FiO2 01/12/18 09:29 110 129/58 01/12/18 08:07 106 20 Room Air 21 01/12/18 06:20 134/64 01/12/18 04:00 103 01/12/18 04:00 99.3 100 20 134/64 93 Nasal Cannula 2.0 01/12/18 00:39 83 20 Room Air 21 01/12/18 00:00 96 01/12/18 00:00 97.0 100 20 138/93 97 Nasal Cannula 2.0 01/11/18 23:56 138/93 01/11/18 20:43 83 125/64 01/11/18 20:00 97.9 83 16 125/64 98 01/11/18 20:00 85 01/11/18 17:14 138/74 01/11/18 16:00 86 01/11/18 16:00 138/74 01/11/18 16:00 97.5 20 135/63 97 Nasal Cannula 2.0 01/11/18 12:00 94 01/11/18 12:00 138/74 01/11/18 12:00 97.2 20 138/76 97 Nasal Cannula 2.0 Intake and Output 01/11/18 01/12/18 19:00 07:00 Intake Total 120 ml Output Total 300 ml 300 ml Balance -180 ml -300 ml Intake Oral 120 ml Output Urine Total 300 ml 300 ml Laboratory Tests 01/12/18 07:45: White Blood Count 5.2, Red Blood Count 2.82L, Hemoglobin 8.6L, Hematocrit 24.8L , Mean Corpuscular Volume 88, Mean Corpuscular Hemoglobin 30.4, Mean Corpuscular Hemoglobin Concent 34.5, Red Cell Distribution Width 17.2H, Platelet Count 251, Mean Platelet Volume 7.0, Neutrophils (%) (Auto) 55.7, Lymphocytes (%) (Auto) 28.6, Monocytes (%) (Auto) 11.7H, Eosinophils (%) (Auto) 2.9, Basophils (%) (Auto) 1.1, Sodium Level [Pending], Potassium Level [Pending] , Chloride Level [Pending], Carbon Dioxide Level [Pending], Blood Urea Nitrogen [Pending], Creatinine [Pending], Estimat Glomerular Filtration Rate [Pending], Glucose Level [Pending], Calcium Level [Pending], Total Bilirubin [Pending], Aspartate Amino Transf (AST/SGOT) [Pending], Alanine Aminotransferase (ALT/SGPT ) [Pending], Alkaline Phosphatase [Pending], Troponin I 0.287H, Pro-B-Type Natriuretic Peptide 3704H, Total Protein [Pending], Albumin [Pending], Globulin [Pending] Height (Feet): 5 Height (Inches): 4.00 Weight (Pounds): 138 General Appearance: no apparent distress Neck: normal alignment Cardiovascular: normal rate Respiratory/Chest: lungs clear Abdomen: non tender Objective Current Medications Medications (Trade) Dose Ordered Sig/Tristan Route PRN Reason Start Time Stop Time Status Last Admin Dose Admin Acetaminophen (Tylenol) 650 mg Q4H PRN ORAL FEVER 01/10/18 22:45 02/09/18 22:44 Albuterol/ Ipratropium (Albuterol/ Ipratropium) 3 ml EVERY 4 HOURS PRN HHN Shortness of Breath 01/10/18 22:45 01/15/18 22:44 01/11/18 02:24 Aspirin (ASA) 162 mg DAILY ORAL 01/11/18 09:00 02/10/18 08:59 Carvedilol (Coreg) 6.25 mg EVERY 12 HOURS ORAL 01/11/18 09:00 02/10/18 08:59 Diltiazem HCl (Cardizem) 10 mg EVERY HOUR PRN IV heart rate more than 120, 01/10/18 22:45 02/09/18 22:44 Enalaprilat (Vasotec) 2.5 mg EVERY 6 HOURS PRN IV sbp more than 160 01/10/18 22:45 02/09/18 22:44 Gabapentin (Neurontin) 300 mg BEDTIME ORAL 01/11/18 21:00 02/10/18 20:59 Heparin Sodium (Porcine) (Heparin 5000 units/ml) 5,000 units EVERY 12 HOURS SUBQ 01/11/18 09:00 02/10/18 08:59 Hydralazine HCl (Apresoline) 50 mg EVERY 6 HOURS ORAL 01/11/18 00:00 02/10/18 00:00 01/11/18 06:18 Ketorolac Tromethamine (Toradol 30mg) 30 mg Q6HR PRN IV moderate pain ( 4-6) 01/10/18 22:45 01/15/18 22:44 Morphine Sulfate (Morphine Sulfate) 2 mg EVERY 4 HOURS PRN IVP severe Pain (Pain Scale 7-10) 01/10/18 22:45 01/17/18 22:44 01/11/18 01:57 Nateglinide (Starlix) 60 mg BID ORAL 01/11/18 09:00 02/10/18 08:59 Nitroglycerin (Ntg) 0.4 mg Every 5 Minutes PRN SL Prn Chest Pain 01/10/18 22:45 02/09/18 22:44 Ondansetron HCl (Zofran) 4 mg Q6H PRN IVP Nausea & Vomiting 01/10/18 22:45 02/09/18 22:44 Polyethylene Glycol (Miralax) 17 gm DAILYPRN PRN ORAL Constipation 01/10/18 22:45 02/09/18 22:44 Tamsulosin HCl (Flomax) 0.4 mg BEDTIME ORAL 01/11/18 21:00 02/10/18 20:59 Temazepam (Restoril) 15 mg HSPRN PRN ORAL Insomnia 01/10/18 22:45 01/17/18 22:44 Item Value Date Time Glucose Level 162 MG/DL H 01/10/181 TREVOR ARIAS Jan 12, 2018 09:40
[2018-01-12 10:06] LABS: ALANINE AMINOTRANSFERASE 19 U/L (12-78); ALBUMIN 2.1 G/DL (3.4-5.0); ALBUMIN/GLOBULIN RATIO 0.4 (1.0-2.7); ALKALINE PHOSPHATASE 178 U/L (46-116); ANION GAP 8 mmol/L (5-15); ASPARTATE AMINO TRANSFERASE 31 U/L (15-37); BILIRUBIN,TOTAL 0.4 MG/DL (0.2-1.0); BLOOD UREA NITROGEN 24 mg/dL (7-18); CALCIUM 8.9 MG/DL (8.5-10.1); CARBON DIOXIDE 25 MMOL/L (21-32); CHLORIDE 102 MMOL/L (98-107); CREATININE 1.4 MG/DL (0.55-1.30); POTASSIUM 4.6 MMOL/L (3.5-5.1); SODIUM 135 MMOL/L (136-145)
[2018-01-12 12:00] VITALS: BP 121/58
--- NOTE | 2018-01-12 14:47 | Cardiology Report ---
APPROVED REPORT EXAM: Two-dimensional and M-mode echocardiogram with Doppler and color Doppler. INDICATION LV FUNCTION M-Mode DIMENSIONS IVSd1.5 (0.7-1.1cm)Left Atrium (MM)3.7 (1.6-4.0cm) LVDd5.5 (3.5-5.6cm)Aortic Root3.3 (2.0-3.7cm) PWd1.4 (0.7-1.1cm)Aortic Cusp Exc.1.3 (1.5-2.0cm) IVSs2.0 cm LVDs5.0 (2.5-4.0cm) PWs1.3 cm Global left ventricular hypokinesis. Mild left atrial enlargements . Left ventricular ejection fraction estimated to be 40-45%. Mild left ventricular hypertrophy by 2-D. Pleural effusion . Mild Left atrial enlargement. Right ventricular chamber sizes is within normal limits. Focal aortic valve sclerosis with adequate cusp excursion. Heavy Thickened mitral valve leaflets with normal excursion. Heavy Mitral annulus and aortic root calcification. Pulmonic valve not well visualized. IVC dilated at 2.5 cm with physiologic collapse suggestive of increased RA pressure. A color flow and spectral Doppler study was performed and revealed: trace aortic regurgitation. Peak aortic valve gradient of 11 mm Hg and a mean of 4 mmHg. Aortic valve area 1.4 cm2 calculated by continuity equation. Mild to moderate mitral regurgitation. Mitral inflow velocities indicates possible pseudo normalization pattern implying moderately elevated left atrial pressure (Grade II ). Mild tricuspid regurgitation. Tricuspid systolic velocities suggests peak right ventricular systolic pressure of 38 mmHg,consistent with mild pulmonary hypertension. No Pulmonic regurgitation present.
--- NOTE | 2018-01-12 15:10 | Cardiology Report ---
APPROVED REPORT EKG Measurement Heart [id number] ID [id number] Sinus rhythm with occasional premature ventricular complexes Low voltage QRS Nonspecific T wave abnormality Abnormal ECG
[2018-01-12 16:00] VITALS: BP 129/65
--- NOTE | 2018-01-12 16:36 | Internal Med Progress Note ---
Subjective Date of Service: Jan 12, 2018 Physician Name LindsayKristina argueta Attending Physician Onesimo Bautista MD Current Medications Medications (Trade) Dose Ordered Sig/Tristan Route PRN Reason Start Time Stop Time Status Last Admin Dose Admin Acetaminophen (Tylenol) 650 mg Q4H PRN ORAL FEVER 01/10/18 22:45 02/09/18 22:44 Albuterol/ Ipratropium (Albuterol/ Ipratropium) 3 ml EVERY 4 HOURS PRN HHN Shortness of Breath 01/10/18 22:45 01/15/18 22:44 01/11/18 02:24 Aspirin (ASA) 81 mg DAILY ORAL 01/12/18 09:00 02/11/18 08:59 01/12/18 09:29 Atorvastatin Calcium (Lipitor) 20 mg BEDTIME ORAL 01/11/18 21:00 02/10/18 20:59 01/11/18 20:43 Carvedilol (Coreg) 6.25 mg EVERY 12 HOURS ORAL 01/11/18 09:00 02/10/18 08:59 01/12/18 09:29 Clopidogrel Bisulfate (Plavix) 75 mg DAILY ORAL 01/11/18 16:30 02/10/18 16:29 01/12/18 09:29 Dextrose (Dextrose 50%) STAT PRN IV Hypoglycemia 01/11/18 06:30 02/10/18 06:29 Diltiazem HCl (Cardizem) 10 mg EVERY HOUR PRN IV heart rate more than 120, 01/10/18 22:45 02/09/18 22:44 Enalaprilat (Vasotec) 2.5 mg EVERY 6 HOURS PRN IV sbp more than 160 01/10/18 22:45 02/09/18 22:44 Folic Acid (Folate) 1 mg Q24HRS ORAL 01/11/18 21:00 02/10/18 20:59 01/11/18 20:50 Furosemide (Lasix) 20 mg DAILY ORAL 01/11/18 16:30 02/10/18 16:29 01/12/18 09:28 Gabapentin (Neurontin) 300 mg BEDTIME ORAL 01/11/18 21:00 02/10/18 20:59 01/11/18 20:43 Heparin Sodium (Porcine) (Heparin 5000 units/ml) 5,000 units EVERY 12 HOURS SUBQ 01/11/18 09:00 02/10/18 08:59 01/11/18 20:47 Hydralazine HCl (Apresoline) 50 mg EVERY 6 HOURS ORAL 01/11/18 00:00 02/10/18 00:00 01/12/18 12:30 Insulin Aspart (NovoLOG) BEFORE MEALS AND HS SUBQ 01/11/18 06:30 02/10/18 06:29 01/12/18 06:22 Insulin Detemir (Levemir) 10 units DAILY SUBQ 01/11/18 09:00 02/10/18 08:59 01/12/18 09:30 Ketorolac Tromethamine (Toradol 30mg) 30 mg Q6HR PRN IV moderate pain ( 4-6) 01/10/18 22:45 01/15/18 22:44 Levofloxacin 50 ml @ 50 mls/hr Q24H IVPB 01/11/18 23:00 01/18/18 22:59 01/11/18 23:55 Morphine Sulfate (Morphine Sulfate) 2 mg Q4H PRN IVP severe Pain (Pain Scale 7-10) 01/11/18 14:45 01/17/18 22:44 01/11/18 18:30 Nateglinide (Starlix) 60 mg TID ORAL 01/12/18 13:00 02/10/18 08:59 01/12/18 12:30 Nitroglycerin (Ntg) 0.4 mg Every 5 Minutes PRN SL Prn Chest Pain 01/10/18 22:45 02/09/18 22:44 01/11/18 16:00 Ondansetron HCl (Zofran) 4 mg Q6H PRN IVP Nausea & Vomiting 01/10/18 22:45 02/09/18 22:44 Polyethylene Glycol (Miralax) 17 gm DAILYPRN PRN ORAL Constipation 01/10/18 22:45 02/09/18 22:44 Tamsulosin HCl (Flomax) 0.4 mg BEDTIME ORAL 01/11/18 21:00 02/10/18 20:59 01/11/18 20:43 Temazepam (Restoril) 15 mg HSPRN PRN ORAL Insomnia 01/10/18 22:45 01/17/18 22:44 Allergies: Coded Allergies: No Known Allergies (Unverified , 04/15/17) ROS Limited/Unobtainable: No Constitutional: Reports: no symptoms HEENT: Reports: no symptoms Cardiovascular: Reports: chest pain Respiratory: Reports: shortness of breath Gastrointestinal/Abdominal: Reports: no symptoms Genitourinary: Reports: no symptoms Neurologic/Psychiatric: Reports: no symptoms Subjective 67 YO F admitted with chest pain and shortness of breath. Now elevated troponin. Cover for Int Trever-Dr Bautista Objective Last Vital Signs Date Time Temp Pulse Resp B/P (MAP) Pulse Ox O2 Delivery O2 Flow Rate FiO2 01/12/18 12:30 128/57 01/12/18 12:00 94 01/12/18 12:00 98.2 20 96 Nasal Cannula 2.0 01/12/18 08:07 21 General Appearance: WD/WN, no apparent distress, alert EENT: PERRL/EOMI, normal ENT inspection, TMs normal Neck: non-tender, normal alignment, supple Cardiovascular: normal peripheral pulses, normal rate, regular rhythm, no gallop/murmur, no JVD Respiratory/Chest: chest wall non-tender, lungs clear, normal breath sounds, no respiratory distress, no accessory muscle use Abdomen: normal bowel sounds, non tender, soft, no organomegaly, no mass Extremities: normal range of motion, non-tender 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, no motor/sensory deficits Skin: normal pigmentation, warm/dry Laboratory Tests Test 01/12/18 07:45 White Blood Count 5.2 K/UL (4.8-10.8) Red Blood Count 2.82 M/UL (4.20-5.40) L Hemoglobin 8.6 G/DL (12.0-16.0) L Hematocrit 24.8 % (37.0-47.0) L Mean Corpuscular Volume 88 FL (80-99) Mean Corpuscular Hemoglobin 30.4 PG (27.0-31.0) Mean Corpuscular Hemoglobin Concent 34.5 G/DL (32.0-36.0) Red Cell Distribution Width 17.2 % (11.6-14.8) H Platelet Count 251 K/UL (150-450) Mean Platelet Volume 7.0 FL (6.5-10.1) Neutrophils (%) (Auto) 55.7 % (45.0-75.0) Lymphocytes (%) (Auto) 28.6 % (20.0-45.0) Monocytes (%) (Auto) 11.7 % (1.0-10.0) H Eosinophils (%) (Auto) 2.9 % (0.0-3.0) Basophils (%) (Auto) 1.1 % (0.0-2.0) Sodium Level 135 MMOL/L (136-145) L Potassium Level 4.6 MMOL/L (3.5-5.1) Chloride Level 102 MMOL/L (98-107) Carbon Dioxide Level 25 MMOL/L (21-32) Anion Gap 8 mmol/L (5-15) Blood Urea Nitrogen 24 mg/dL (7-18) H Creatinine 1.4 MG/DL (0.55-1.30) H Estimat Glomerular Filtration Rate 45.6 mL/min (>60) Glucose Level 113 MG/DL (74-106) H Calcium Level 8.9 MG/DL (8.5-10.1) Total Bilirubin 0.4 MG/DL (0.2-1.0) Aspartate Amino Transf (AST/SGOT) 31 U/L (15-37) Alanine Aminotransferase (ALT/SGPT) 19 U/L (12-78) Alkaline Phosphatase 178 U/L (46-116) H Troponin I 0.287 ng/mL (0.000-0.056) Pro-B-Type Natriuretic Peptide 3704 pg/mL (0-125) H Total Protein 7.4 G/DL (6.4-8.2) Albumin 2.1 G/DL (3.4-5.0) L Globulin 5.3 g/dL Albumin/Globulin Ratio 0.4 (1.0-2.7) L Thyroid Stimulating Hormone (TSH) 4.812 uiU/mL (0.358-3.740) Free Thyroxine 1.06 NG/DL (0.76-1.46) Microbiology Date/Time Source Procedure Growth Status 01/10/18 04:00 Urine,Clean Catch Urine Culture - Preliminary Gram Negative Bacillus 1 Resulted Intake and Output 01/11/18 01/12/18 19:00 07:00 Intake Total 120 ml Output Total 300 ml 300 ml Balance -180 ml -300 ml Intake Oral 120 ml Output Urine Total 300 ml 300 ml Assessment/Plan Problem List: (1) Chest pain (2) SOB (shortness of breath) (3) Diabetes mellitus, type II Assessment & Plan: See Endocrinology note. Cont levemir, novolog and starlix. (4) Elevated troponin Assessment & Plan: See cardiology note. (5) HTN (hypertension) Assessment & Plan: Continue coreg, vasotec and diltiazem (6) Asthma (7) COPD (chronic obstructive pulmonary disease) (8) CAD (coronary artery disease) Assessment & Plan: Continue plavix and aspirin. See cardiology note. (9) Anemia Status: unchanged KRISTINA LINDSAY Jan 12, 2018 16:36
--- NOTE | 2018-01-12 17:19 | Cardiology Progress Note ---
Assessment/Plan Assessment/Plan The patient post recent coronary intervention, most likely troponin elevation is still lingering from that intervention her pain is atypical continue to morniot Subjective Subjective The patient is compalining on left sdied chest pain pointing ot left sdied chest Objective Last 24 Hour Vital Signs Date Time Temp Pulse Resp B/P (MAP) Pulse Ox O2 Delivery O2 Flow Rate FiO2 01/12/18 16:00 98.1 92 20 129/65 97 Nasal Cannula 2.0 01/12/18 12:30 128/57 01/12/18 12:00 94 01/12/18 12:00 98.2 95 20 121/58 96 Nasal Cannula 2.0 01/12/18 09:29 110 129/58 01/12/18 08:07 106 20 Room Air 21 01/12/18 08:00 112 01/12/18 08:00 99.3 110 20 129/58 93 Nasal Cannula 2.0 01/12/18 06:20 134/64 01/12/18 04:00 103 01/12/18 04:00 99.3 100 20 134/64 93 Nasal Cannula 2.0 01/12/18 00:39 83 20 Room Air 21 01/12/18 00:00 96 01/12/18 00:00 97.0 100 20 138/93 97 Nasal Cannula 2.0 01/11/18 23:56 138/93 01/11/18 20:43 83 125/64 01/11/18 20:00 97.9 83 16 125/64 98 01/11/18 20:00 85 General Appearance: alert, mild distress EENT: PERRL/EOMI Neck: JVD Rhythm: NSR Cardiovascular: regular rhythm Respiratory/Chest: crackles/rales Abdomen: normal bowel sounds Intake and Output 01/11/18 01/12/18 19:00 07:00 Intake Total 120 ml Output Total 300 ml 300 ml Balance -180 ml -300 ml Intake Oral 120 ml Output Urine Total 300 ml 300 ml Laboratory Tests Test 01/12/18 07:45 White Blood Count 5.2 K/UL (4.8-10.8) Red Blood Count 2.82 M/UL (4.20-5.40) L Hemoglobin 8.6 G/DL (12.0-16.0) L Hematocrit 24.8 % (37.0-47.0) L Mean Corpuscular Volume 88 FL (80-99) Mean Corpuscular Hemoglobin 30.4 PG (27.0-31.0) Mean Corpuscular Hemoglobin Concent 34.5 G/DL (32.0-36.0) Red Cell Distribution Width 17.2 % (11.6-14.8) H Platelet Count 251 K/UL (150-450) Mean Platelet Volume 7.0 FL (6.5-10.1) Neutrophils (%) (Auto) 55.7 % (45.0-75.0) Lymphocytes (%) (Auto) 28.6 % (20.0-45.0) Monocytes (%) (Auto) 11.7 % (1.0-10.0) H Eosinophils (%) (Auto) 2.9 % (0.0-3.0) Basophils (%) (Auto) 1.1 % (0.0-2.0) Sodium Level 135 MMOL/L (136-145) L Potassium Level 4.6 MMOL/L (3.5-5.1) Chloride Level 102 MMOL/L (98-107) Carbon Dioxide Level 25 MMOL/L (21-32) Anion Gap 8 mmol/L (5-15) Blood Urea Nitrogen 24 mg/dL (7-18) H Creatinine 1.4 MG/DL (0.55-1.30) H Estimat Glomerular Filtration Rate 45.6 mL/min (>60) Glucose Level 113 MG/DL (74-106) H Calcium Level 8.9 MG/DL (8.5-10.1) Total Bilirubin 0.4 MG/DL (0.2-1.0) Aspartate Amino Transf (AST/SGOT) 31 U/L (15-37) Alanine Aminotransferase (ALT/SGPT) 19 U/L (12-78) Alkaline Phosphatase 178 U/L (46-116) H Troponin I 0.287 ng/mL (0.000-0.056) Pro-B-Type Natriuretic Peptide 3704 pg/mL (0-125) H Total Protein 7.4 G/DL (6.4-8.2) Albumin 2.1 G/DL (3.4-5.0) L Globulin 5.3 g/dL Albumin/Globulin Ratio 0.4 (1.0-2.7) L Thyroid Stimulating Hormone (TSH) 4.812 uiU/mL (0.358-3.740) Free Thyroxine 1.06 NG/DL (0.76-1.46) Microbiology Date/Time Source Procedure Growth Status 01/10/18 04:00 Urine,Clean Catch Urine Culture - Preliminary Gram Negative Bacillus 1 Resulted JOE CORRAL Jan 12, 2018 17:19
[2018-01-12 20:00] VITALS: BP 128/65
[2018-01-12] MEDS: Tamsulosin 0.4mg cap ORAL SCH (21:09)
[2018-01-12] MEDS: Atorvastatin 20mg tab ORAL SCH (21:09)
[2018-01-13] VITALS: BP 139/68
[2018-01-13] MEDS: HydrALAZINE 50mg tab ORAL SCH ×4 (00:20→17:04)
--- NOTE | 2018-01-13 00:28 | General Progress Note ---
Assessment/Plan Assessment/Plan 1. Anemia due to underlying chronic disease. --> Reticulocyte count elevated. --> Anemia workup ordered. --> Apparently, folic acid was found to be decreased. 2. Anemia due to folic acid deficiency. --> At this time, begin the patient on folic acid. --> Folic acid has been begun. 3. Diabetes mellitus. A1c is pending at this time. 4. Acute coronary syndrome rule out. --> Troponin pending at the moment as well. Cardiology to follow. 5. Hypertension. --> Blood pressure at goal. Systolic blood pressure less than 140. Subjective Date patient seen: Jan 12, 2018 Constitutional: Denies: no symptoms, chills, diaphoresis, fever, malaise, weakness, other HEENT: Denies: no symptoms, eye pain, blurred vision, tearing, double vision, ear pain, ear discharge, nose pain, nose congestion, throat pain, throat swelling, mouth pain, mouth swelling, other Cardiovascular: Denies: no symptoms, chest pain, edema, irregular heart rate, lightheadedness, palpitations, syncope, other Respiratory: Denies: no symptoms, cough, orthopnea, shortness of breath, SOB with excertion, SOB at rest, sputum, stridor, wheezing, other Gastrointestinal/Abdominal: Denies: no symptoms, abdomen distended, abdominal pain, black stools, tarry stools, blood in stool, constipated, diarrhea, difficulty swallowing, nausea, poor appetite, poor fluid intake, rectal bleeding , vomiting, other Genitourinary: Denies: no symptoms, burning, discharge, frequency, flank pain, hematuria, incontinence, pain, urgency, other Neurologic/Psychiatric: Denies: no symptoms, anxiety, depressed, emotional problems, headache, numbness, paresthesia, pre-existing deficit, seizure, tingling, tremors, weakness, other Allergies: Coded Allergies: No Known Allergies (Unverified , 04/15/17) Subjective NAD. Afebrile. Objective Last 24 Hour Vital Signs Date Time Temp Pulse Resp B/P (MAP) Pulse Ox O2 Delivery O2 Flow Rate FiO2 01/13/18 00:20 137/59 01/12/18 21:09 63 137/59 01/12/18 20:00 98.2 97 18 128/65 97 Nasal Cannula 2.0 01/12/18 20:00 96 2/11/18 19:30 90 20 Nasal Cannula 2.0 28 01/12/18 19:30 96 Nasal Cannula 2.0 28 01/12/18 19:30 Nasal Cannula 2.0 28 01/12/18 17:21 129/65 01/12/18 16:00 98.1 92 20 129/65 97 Nasal Cannula 2.0 01/12/18 16:00 92 01/12/18 12:30 128/57 01/12/18 12:00 94 01/12/18 12:00 98.2 95 20 121/58 96 Nasal Cannula 2.0 01/12/18 09:29 110 129/58 01/12/18 08:07 106 20 Room Air 21 01/12/18 08:00 112 01/12/18 08:00 99.3 110 20 129/58 93 Nasal Cannula 2.0 01/12/18 06:20 134/64 01/12/18 04:00 103 01/12/18 04:00 99.3 100 20 134/64 93 Nasal Cannula 2.0 01/12/18 00:39 83 20 Room Air 21 Intake and Output 01/12/18 01/13/18 19:00 07:00 Output Total 400 ml Balance -400 ml Output Urine Total 400 ml Laboratory Tests 01/12/18 07:45: White Blood Count 5.2, Red Blood Count 2.82L, Hemoglobin 8.6L, Hematocrit 24.8L , Mean Corpuscular Volume 88, Mean Corpuscular Hemoglobin 30.4, Mean Corpuscular Hemoglobin Concent 34.5, Red Cell Distribution Width 17.2H, Platelet Count 251, Mean Platelet Volume 7.0, Neutrophils (%) (Auto) 55.7, Lymphocytes (%) (Auto) 28.6, Monocytes (%) (Auto) 11.7H, Eosinophils (%) (Auto) 2.9, Basophils (%) (Auto) 1.1, Sodium Level 135L, Potassium Level 4.6, Chloride Level 102, Carbon Dioxide Level 25, Anion Gap 8, Blood Urea Nitrogen 24H, Creatinine 1.4H, Estimat Glomerular Filtration Rate 45.6, Glucose Level 113H, Calcium Level 8.9, Total Bilirubin 0.4, Aspartate Amino Transf (AST/SGOT) 31, Alanine Aminotransferase (ALT/SGPT) 19, Alkaline Phosphatase 178H, Troponin I 0.287H, Pro-B-Type Natriuretic Peptide 3704H, Total Protein 7.4, Albumin 2.1L, Globulin 5.3, Albumin/Globulin Ratio 0.4L, Thyroid Stimulating Hormone (TSH) 4.812H, Free Thyroxine 1.06 01/12/18 22:15: Troponin I 0.322H Height (Feet): 5 Height (Inches): 4.00 Weight (Pounds): 138 General Appearance: no apparent distress Neck: supple Cardiovascular: normal rate, regular rhythm Respiratory/Chest: lungs clear, normal breath sounds Abdomen: soft Earl Oquendo Jan 13, 2018 00:27
[2018-01-13 04:00] VITALS: BP 140/77
[2018-01-13] MEDS: NovoLOG Insulin Flexpen SUBQ SCH ×4 (06:30→22:07)
[2018-01-13 08:00] VITALS: BP 133/69
--- NOTE | 2018-01-13 08:00 | General Progress Note ---
Assessment/Plan Problem List: (1) Diabetes mellitus ICD Codes: E11.9 - Type 2 diabetes mellitus without complications SNOMED: 46805644 (2) ACS (acute coronary syndrome) ICD Codes: I24.9 - Acute ischemic heart disease, unspecified SNOMED: 764236622 (3) Anemia ICD Codes: D64.9 - Anemia, unspecified SNOMED: 987227085 (4) Hypertension ICD Codes: I10 - Essential (primary) hypertension SNOMED: 18113125 (5) Abnormal thyroid blood test ICD Codes: R94.6 - Abnormal results of thyroid function studies SNOMED: 889468785 Assessment/Plan BG values on lower side without hypoglycemia - continue Levemir 10 units daily - continue NISS - DC Starlix for now repeat TSH shows improvement from 6 to 4 without treatment free T4 is normal - no need for thyroid hormone replacement - repeat thyroid function in 3-4 weeks Subjective Allergies: Coded Allergies: No Known Allergies (Unverified , 04/15/17) All Systems: reviewed and negative except above Subjective events noted - interval notes reviewed Objective Last 24 Hour Vital Signs Date Time Temp Pulse Resp B/P (MAP) Pulse Ox O2 Delivery O2 Flow Rate FiO2 01/13/18 07:07 99 Room Air 21 01/13/18 07:07 106 20 Room Air 21 01/13/18 07:07 Room Air 21 01/13/18 07:00 97 18 Nasal Cannula 2.0 28 01/13/18 06:34 140/77 01/13/18 04:00 97.9 99 21 140/77 100 Nasal Cannula 2.0 01/13/18 04:00 98 01/13/18 00:20 137/59 01/13/18 00:00 100.2 99 20 139/68 98 Nasal Cannula 2.0 01/13/18 00:00 95 01/12/18 21:09 63 137/59 01/12/18 20:00 98.2 97 18 128/65 97 Nasal Cannula 2.0 01/12/18 20:00 96 01/12/18 19:30 90 20 Nasal Cannula 2.0 28 01/12/18 19:30 96 Nasal Cannula 2.0 28 01/12/18 19:30 Nasal Cannula 2.0 28 01/12/18 17:21 129/65 01/12/18 16:00 98.1 92 20 129/65 97 Nasal Cannula 2.0 01/12/18 16:00 92 01/12/18 12:30 128/57 01/12/18 12:00 94 01/12/18 12:00 98.2 95 20 121/58 96 Nasal Cannula 2.0 01/12/18 09:29 110 129/58 01/12/18 08:07 106 20 Room Air 21 01/12/18 08:00 112 01/12/18 08:00 99.3 110 20 129/58 93 Nasal Cannula 2.0 Intake and Output 01/12/18 01/13/18 19:00 07:00 Intake Total 100 ml Output Total 400 ml 400 ml Balance -400 ml -300 ml Intake Oral 100 ml Output Urine Total 400 ml 400 ml Laboratory Tests 01/12/18 22:15: Troponin I 0.322H Height (Feet): 5 Height (Inches): 4.00 Weight (Pounds): 138 General Appearance: no apparent distress Neck: normal alignment Cardiovascular: normal rate Respiratory/Chest: lungs clear Abdomen: normal bowel sounds Pelvis: normal external exam Edema: no edema noted Arm (L), no edema noted Arm (R), no edema noted Leg (L), no edema noted Leg (R), no edema noted Pedal (L), no edema noted Pedal (R), no edema noted Generalized Objective Current Medications Medications (Trade) Dose Ordered Sig/Tristan Route PRN Reason Start Time Stop Time Status Last Admin Dose Admin Acetaminophen (Tylenol) 650 mg Q4H PRN ORAL FEVER 01/10/18 22:45 02/09/18 22:44 Albuterol/ Ipratropium (Albuterol/ Ipratropium) 3 ml EVERY 4 HOURS PRN HHN Shortness of Breath 01/10/18 22:45 01/15/18 22:44 01/11/18 02:24 Aspirin (ASA) 81 mg DAILY ORAL 01/12/18 09:00 02/11/18 08:59 01/12/18 09:29 Atorvastatin Calcium (Lipitor) 20 mg BEDTIME ORAL 01/11/18 21:00 02/10/18 20:59 01/12/18 21:09 Carvedilol (Coreg) 6.25 mg EVERY 12 HOURS ORAL 01/11/18 09:00 02/10/18 08:59 01/12/18 21:09 Clopidogrel Bisulfate (Plavix) 75 mg DAILY ORAL 01/11/18 16:30 02/10/18 16:29 01/12/18 09:29 Dextrose (Dextrose 50%) STAT PRN IV Hypoglycemia 01/11/18 06:30 3 06:29 Diltiazem HCl (Cardizem) 10 mg EVERY HOUR PRN IV heart rate more than 120, 01/10/18 22:45 02/09/18 22:44 Enalaprilat (Vasotec) 2.5 mg EVERY 6 HOURS PRN IV sbp more than 160 01/10/18 22:45 02/09/18 22:44 Folic Acid (Folate) 1 mg Q24HRS ORAL 01/11/18 21:00 02/10/18 20:59 01/12/18 21:09 Furosemide (Lasix) 20 mg DAILY ORAL 01/11/18 16:30 02/10/18 16:29 01/12/18 09:28 Gabapentin (Neurontin) 300 mg BEDTIME ORAL 01/11/18 21:00 02/10/18 20:59 01/12/18 21:09 Heparin Sodium (Porcine) (Heparin 5000 units/ml) 5,000 units EVERY 12 HOURS SUBQ 01/11/18 09:00 02/10/18 08:59 01/12/18 21:08 Hydralazine HCl (Apresoline) 50 mg EVERY 6 HOURS ORAL 01/11/18 00:00 02/10/18 00:00 01/13/18 06:34 Insulin Aspart (NovoLOG) BEFORE MEALS AND HS SUBQ 01/11/18 06:30 02/10/18 06:29 01/12/18 06:22 Insulin Detemir (Levemir) 10 units DAILY SUBQ 01/11/18 09:00 02/10/18 08:59 01/12/18 09:30 Ketorolac Tromethamine (Toradol 30mg) 30 mg Q6HR PRN IV moderate pain ( 4-6) 01/10/18 22:45 01/15/18 22:44 Levofloxacin 50 ml @ 50 mls/hr Q24H IVPB 01/11/18 23:00 01/18/18 22:59 01/12/18 23:00 Morphine Sulfate (Morphine Sulfate) 2 mg Q4H PRN IVP severe Pain (Pain Scale 7-10) 01/11/18 14:45 01/17/18 22:44 01/11/18 18:30 Nateglinide (Starlix) 60 mg TID ORAL 01/12/18 13:00 02/10/18 08:59 01/12/18 17:21 Nitroglycerin (Ntg) 0.4 mg Every 5 Minutes PRN SL Prn Chest Pain 01/10/18 22:45 02/09/18 22:44 01/11/18 16:00 Ondansetron HCl (Zofran) 4 mg Q6H PRN IVP Nausea & Vomiting 01/10/18 22:45 02/09/18 22:44 Polyethylene Glycol (Miralax) 17 gm DAILYPRN PRN ORAL Constipation 01/10/18 22:45 02/09/18 22:44 Tamsulosin HCl (Flomax) 0.4 mg BEDTIME ORAL 01/11/18 21:00 02/10/18 20:59 01/12/18 21:09 Temazepam (Restoril) 15 mg HSPRN PRN ORAL Insomnia 01/10/18 22:45 01/17/18 22:44 Item Value Date Time Bedside Blood Glucose 128 mg/dl H 01/12/18 0930 Bedside Blood Glucose 117 mg/dl 01/12/18 0630 Bedside Blood Glucose 136 mg/dl H 01/11/18 2100 Bedside Blood Glucose 155 mg/dl H 01/11/18 1715 Bedside Blood Glucose 198 mg/dl H 01/11/18 1201 Bedside Blood Glucose 188 mg/dl H 01/11/18 0937 Bedside Blood Glucose 188 mg/dl H 01/11/18 0630 Bedside Blood Glucose 96 mg/dl 01/13/18 0630 Bedside Blood Glucose 80 mg/dl 01/12/18 2100 Bedside Blood Glucose 86 mg/dl 01/12/18 1630 Bedside Blood Glucose 110 mg/dl 01/12/18 1130 TREVOR ARIAS Jan 13, 2018 08:00
[2018-01-13] MEDS: Carvedilol 6.25mg Tab ORAL SCH ×2 (08:23→22:03)
[2018-01-13] MEDS: Aspirin Baby 81mg ORAL SCH (08:24)
[2018-01-13] MEDS: Heparin 5000 units/ml inj SUBQ SCH ×2 (08:26→22:05)
[2018-01-13] MEDS: Levemir Flexpen SUBQ SCH (08:34)
[2018-01-13 08:37] LABS: BASOPHILS % (AUTO) 1.4 % (0.0-2.0); EOSINOPHILS % (AUTO) 0.8 % (0.0-3.0); HEMATOCRIT 25.7 % (37.0-47.0); HEMOGLOBIN 8.4 G/DL (12.0-16.0); LYMPHOCYTES % (AUTO) 34.9 % (20.0-45.0); MEAN CORPUSCULAR VOLUME 89 FL (80-99); MONOCYTES % (AUTO) 12.5 % (1.0-10.0); NEUTROPHILS % (AUTO) 50.5 % (45.0-75.0); PLATELET COUNT 252 K/UL (150-450); RED CELL DISTRIBUTION WIDTH 17.4 % (11.6-14.8)
[2018-01-13 09:04] LABS: ALANINE AMINOTRANSFERASE 16 U/L (12-78); ALBUMIN 2.1 G/DL (3.4-5.0); ALBUMIN/GLOBULIN RATIO 0.4 (1.0-2.7); ALKALINE PHOSPHATASE 157 U/L (46-116); ANION GAP 10 mmol/L (5-15); ASPARTATE AMINO TRANSFERASE 26 U/L (15-37); BILIRUBIN,TOTAL 0.5 MG/DL (0.2-1.0); BLOOD UREA NITROGEN 24 mg/dL (7-18); CALCIUM 8.8 MG/DL (8.5-10.1); CARBON DIOXIDE 25 MMOL/L (21-32); CHLORIDE 104 MMOL/L (98-107); CREATININE 1.5 MG/DL (0.55-1.30); PHOSPHORUS 3.7 MG/DL (2.5-4.9); POTASSIUM 4.2 MMOL/L (3.5-5.1); SODIUM 139 MMOL/L (136-145)
[2018-01-13 12:00] VITALS: BP 140/64
--- NOTE | 2018-01-13 12:02 | Pulmonology Progress Note ---
Assessment/Plan Problems: (1) ACS (acute coronary syndrome) (2) Anemia (3) ATN (acute tubular necrosis) (4) UTI (urinary tract infection) (5) Hypertension (6) Diabetes mellitus Assessment/Plan checked echo, EF 40% and mild pulmonary hypertension Endo note and input appreciated check electrolytes on levofloxacin f/u torponin cardio note appreciated anemia w/u in progress could go home if no cardiac procedure is planned. Subjective ROS Limited/Unobtainable: No Interval Events: doing better Allergies: Coded Allergies: No Known Allergies (Unverified , 04/15/17) Objective Last 24 Hour Vital Signs Date Time Temp Pulse Resp B/P (MAP) Pulse Ox O2 Delivery O2 Flow Rate FiO2 01/13/18 11:40 133/69 01/13/18 08:23 100 133/69 01/13/18 08:00 97.2 100 20 133/69 97 Nasal Cannula 2.0 01/13/18 08:00 98 01/13/18 07:07 99 Room Air 21 01/13/18 07:07 106 20 Room Air 21 01/13/18 07:07 Room Air 21 01/13/18 07:00 97 18 Nasal Cannula 2.0 28 01/13/18 06:34 140/77 01/13/18 04:00 97.9 99 21 140/77 100 Nasal Cannula 2.0 01/13/18 04:00 98 01/13/18 00:20 137/59 01/13/18 00:00 100.2 99 20 139/68 98 Nasal Cannula 2.0 01/13/18 00:00 95 01/12/18 21:09 63 137/59 01/12/18 20:00 98.2 97 18 128/65 97 Nasal Cannula 2.0 01/12/18 20:00 96 01/12/18 19:30 90 20 Nasal Cannula 2.0 28 01/12/18 19:30 96 Nasal Cannula 2.0 28 01/12/18 19:30 Nasal Cannula 2.0 28 01/12/18 17:21 129/65 01/12/18 16:00 98.1 92 20 129/65 97 Nasal Cannula 2.0 01/12/18 16:00 92 01/12/18 12:30 128/57 01/12/18 12:00 94 01/12/18 12:00 98.2 95 20 121/58 96 Nasal Cannula 2.0 Intake and Output 01/12/18 01/13/18 19:00 07:00 Intake Total 100 ml Output Total 400 ml 400 ml Balance -400 ml -300 ml Intake Oral 100 ml Output Urine Total 400 ml 400 ml Objective General Appearance: WD/WN HEENT: normocephalic Respiratory/Chest: chest wall non-tender, lungs clear, normal breath sounds Cardiovascular: normal peripheral pulses, normal rate Abdomen: normal bowel sounds, soft, non tender, no organomegaly Extremities: no cyanosis, no clubbing 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 Complete 01/11/18 00:00 Rectum VRE Culture - Final Enterococcus Faecalis - Vre Complete Laboratory Tests 01/12/18 22:15: Troponin I 0.322H 01/13/18 08:07: White Blood Count 5.0, Red Blood Count 2.90L, Hemoglobin 8.4L, Hematocrit 25.7L , Mean Corpuscular Volume 89, Mean Corpuscular Hemoglobin 28.9, Mean Corpuscular Hemoglobin Concent 32.5, Red Cell Distribution Width 17.4H, Platelet Count 252, Mean Platelet Volume 6.6, Neutrophils (%) (Auto) 50.5, Lymphocytes (%) (Auto) 34.9, Monocytes (%) (Auto) 12.5H, Eosinophils (%) (Auto) 0.8, Basophils (%) (Auto) 1.4, Erythrocyte Sedimentation Rate 116H, Sodium Level 139, Potassium Level 4.2, Chloride Level 104, Carbon Dioxide Level 25, Anion Gap 10, Blood Urea Nitrogen 24H, Creatinine 1.5H, Estimat Glomerular Filtration Rate 42.1, Glucose Level 86, Calcium Level 8.8, Phosphorus Level 3.7 , Magnesium Level 1.8, Total Bilirubin 0.5, Aspartate Amino Transf (AST/SGOT) 26 , Alanine Aminotransferase (ALT/SGPT) 16, Alkaline Phosphatase 157H, Total Protein 7.0, Albumin 2.1L, Globulin 4.9, Albumin/Globulin Ratio 0.4L Current Medications Medications (Trade) Dose Ordered Sig/Tristan Route PRN Reason Start Time Stop Time Status Last Admin Dose Admin Acetaminophen (Tylenol) 650 mg Q4H PRN ORAL FEVER 01/10/18 22:45 02/09/18 22:44 Albuterol/ Ipratropium (Albuterol/ Ipratropium) 3 ml EVERY 4 HOURS PRN HHN Shortness of Breath 01/10/18 22:45 01/15/18 22:44 01/11/18 02:24 Aspirin (ASA) 81 mg DAILY ORAL 01/12/18 09:00 02/11/18 08:59 01/13/18 08:24 Atorvastatin Calcium (Lipitor) 20 mg BEDTIME ORAL 01/11/18 21:00 02/10/18 20:59 01/12/18 21:09 Carvedilol (Coreg) 6.25 mg EVERY 12 HOURS ORAL 01/11/18 09:00 02/10/18 08:59 01/13/18 08:23 Clopidogrel Bisulfate (Plavix) 75 mg DAILY ORAL 01/11/18 16:30 02/10/18 16:29 01/13/18 08:23 Dextrose (Dextrose 50%) STAT PRN IV Hypoglycemia 01/11/18 06:30 02/10/18 06:29 Diltiazem HCl (Cardizem) 10 mg EVERY HOUR PRN IV heart rate more than 120, 01/10/18 22:45 02/09/18 22:44 Enalaprilat (Vasotec) 2.5 mg EVERY 6 HOURS PRN IV sbp more than 160 01/10/18 22:45 02/09/18 22:44 Folic Acid (Folate) 1 mg Q24HRS ORAL 01/11/18 21:00 02/10/18 20:59 01/12/18 21:09 Furosemide (Lasix) 20 mg DAILY ORAL 01/11/18 16:30 02/10/18 16:29 01/13/18 08:23 Gabapentin (Neurontin) 300 mg BEDTIME ORAL 01/11/18 21:00 02/10/18 20:59 01/12/18 21:09 Heparin Sodium (Porcine) (Heparin 5000 units/ml) 5,000 units EVERY 12 HOURS SUBQ 01/11/18 09:00 02/10/18 08:59 01/13/18 08:26 Hydralazine HCl (Apresoline) 50 mg EVERY 6 HOURS ORAL 01/11/18 00:00 02/10/18 00:00 01/13/18 11:40 Insulin Aspart (NovoLOG) BEFORE MEALS AND HS SUBQ 01/11/18 06:30 02/10/18 06:29 01/12/18 06:22 Insulin Detemir (Levemir) 10 units DAILY SUBQ 01/11/18 09:00 02/10/18 08:59 01/13/18 08:34 Ketorolac Tromethamine (Toradol 30mg) 30 mg Q6HR PRN IV moderate pain ( 4-6) 01/10/18 22:45 01/15/18 22:44 Levofloxacin (Levaquin) 250 mg DAILY ORAL 01/13/18 11:00 01/20/18 10:59 01/13/18 11:39 Morphine Sulfate (Morphine Sulfate) 2 mg Q4H PRN IVP severe Pain (Pain Scale 7-10) 01/11/18 14:45 01/17/18 22:44 01/11/18 18:30 Nitroglycerin (Ntg) 0.4 mg Every 5 Minutes PRN SL Prn Chest Pain 01/10/18 22:45 02/09/18 22:44 01/11/18 16:00 Ondansetron HCl (Zofran) 4 mg Q6H PRN IVP Nausea & Vomiting 01/10/18 22:45 02/09/18 22:44 Polyethylene Glycol (Miralax) 17 gm DAILYPRN PRN ORAL Constipation 01/10/18 22:45 02/09/18 22:44 Tamsulosin HCl (Flomax) 0.4 mg BEDTIME ORAL 01/11/18 21:00 02/10/18 20:59 01/12/18 21:09 Temazepam (Restoril) 15 mg HSPRN PRN ORAL Insomnia 01/10/18 22:45 01/17/18 22:44 KHADAR BENAVIDES Jan 13, 2018 12:02
--- NOTE | 2018-01-13 13:06 | Internal Med Progress Note ---
Subjective Date of Service: Jan 13, 2018 Physician Name LindsayKristina argueta Attending Physician Onesimo Bautista MD Current Medications Medications (Trade) Dose Ordered Sig/Tristan Route PRN Reason Start Time Stop Time Status Last Admin Dose Admin Acetaminophen (Tylenol) 650 mg Q4H PRN ORAL FEVER 01/10/18 22:45 02/09/18 22:44 Albuterol/ Ipratropium (Albuterol/ Ipratropium) 3 ml EVERY 4 HOURS PRN HHN Shortness of Breath 01/10/18 22:45 01/15/18 22:44 01/11/18 02:24 Aspirin (ASA) 81 mg DAILY ORAL 01/12/18 09:00 02/11/18 08:59 01/13/18 08:24 Atorvastatin Calcium (Lipitor) 20 mg BEDTIME ORAL 01/11/18 21:00 02/10/18 20:59 01/12/18 21:09 Carvedilol (Coreg) 6.25 mg EVERY 12 HOURS ORAL 01/11/18 09:00 02/10/18 08:59 01/13/18 08:23 Clopidogrel Bisulfate (Plavix) 75 mg DAILY ORAL 01/11/18 16:30 02/10/18 16:29 01/13/18 08:23 Dextrose (Dextrose 50%) STAT PRN IV Hypoglycemia 01/11/18 06:30 02/10/18 06:29 Diltiazem HCl (Cardizem) 10 mg EVERY HOUR PRN IV heart rate more than 120, 01/10/18 22:45 02/09/18 22:44 Enalaprilat (Vasotec) 2.5 mg EVERY 6 HOURS PRN IV sbp more than 160 01/10/18 22:45 02/09/18 22:44 Folic Acid (Folate) 1 mg Q24HRS ORAL 01/11/18 21:00 02/10/18 20:59 01/12/18 21:09 Furosemide (Lasix) 20 mg DAILY ORAL 01/11/18 16:30 02/10/18 16:29 01/13/18 08:23 Gabapentin (Neurontin) 300 mg BEDTIME ORAL 01/11/18 21:00 02/10/18 20:59 01/12/18 21:09 Heparin Sodium (Porcine) (Heparin 5000 units/ml) 5,000 units EVERY 12 HOURS SUBQ 01/11/18 09:00 02/10/18 08:59 01/13/18 08:26 Hydralazine HCl (Apresoline) 50 mg EVERY 6 HOURS ORAL 01/11/18 00:00 02/10/18 00:00 01/13/18 11:40 Insulin Aspart (NovoLOG) BEFORE MEALS AND HS SUBQ 01/11/18 06:30 02/10/18 06:29 01/12/18 06:22 Insulin Detemir (Levemir) 10 units DAILY SUBQ 01/11/18 09:00 02/10/18 08:59 01/13/18 08:34 Ketorolac Tromethamine (Toradol 30mg) 30 mg Q6HR PRN IV moderate pain ( 4-6) 01/10/18 22:45 01/15/18 22:44 Levofloxacin (Levaquin) 250 mg DAILY ORAL 01/13/18 11:00 01/20/18 10:59 01/13/18 11:39 Morphine Sulfate (Morphine Sulfate) 2 mg Q4H PRN IVP severe Pain (Pain Scale 7-10) 01/11/18 14:45 01/17/18 22:44 01/11/18 18:30 Nitroglycerin (Ntg) 0.4 mg Every 5 Minutes PRN SL Prn Chest Pain 01/10/18 22:45 02/09/18 22:44 01/11/18 16:00 Ondansetron HCl (Zofran) 4 mg Q6H PRN IVP Nausea & Vomiting 01/10/18 22:45 02/09/18 22:44 Polyethylene Glycol (Miralax) 17 gm DAILYPRN PRN ORAL Constipation 01/10/18 22:45 02/09/18 22:44 Tamsulosin HCl (Flomax) 0.4 mg BEDTIME ORAL 01/11/18 21:00 02/10/18 20:59 01/12/18 21:09 Temazepam (Restoril) 15 mg HSPRN PRN ORAL Insomnia 01/10/18 22:45 01/17/18 22:44 Allergies: Coded Allergies: No Known Allergies (Unverified , 04/15/17) ROS Limited/Unobtainable: No Constitutional: Reports: no symptoms HEENT: Reports: no symptoms Cardiovascular: Reports: chest pain Respiratory: Reports: shortness of breath Genitourinary: Reports: no symptoms Neurologic/Psychiatric: Reports: no symptoms Subjective 67 YO F admitted with chest pain and shortness of breath. Now elevated troponin. Cover for Int Trever-Dr Bautista Objective Last Vital Signs Date Time Temp Pulse Resp B/P (MAP) Pulse Ox O2 Delivery O2 Flow Rate FiO2 01/13/18 12:00 97.5 18 140/64 96 Nasal Cannula 2.0 01/13/18 12:00 100 01/13/18 07:07 21 Laboratory Tests Test 01/12/18 22:15 01/13/18 08:07 Troponin I 0.322 ng/mL (0.000-0.056) White Blood Count 5.0 K/UL (4.8-10.8) Red Blood Count 2.90 M/UL (4.20-5.40) L Hemoglobin 8.4 G/DL (12.0-16.0) L Hematocrit 25.7 % (37.0-47.0) L Mean Corpuscular Volume 89 FL (80-99) Mean Corpuscular Hemoglobin 28.9 PG (27.0-31.0) Mean Corpuscular Hemoglobin Concent 32.5 G/DL (32.0-36.0) Red Cell Distribution Width 17.4 % (11.6-14.8) H Platelet Count 252 K/UL (150-450) Mean Platelet Volume 6.6 FL (6.5-10.1) Neutrophils (%) (Auto) 50.5 % (45.0-75.0) Lymphocytes (%) (Auto) 34.9 % (20.0-45.0) Monocytes (%) (Auto) 12.5 % (1.0-10.0) H Eosinophils (%) (Auto) 0.8 % (0.0-3.0) Basophils (%) (Auto) 1.4 % (0.0-2.0) Erythrocyte Sedimentation Rate 116 MM/HR (0-30) H Sodium Level 139 MMOL/L (136-145) Potassium Level 4.2 MMOL/L (3.5-5.1) Chloride Level 104 MMOL/L (98-107) Carbon Dioxide Level 25 MMOL/L (21-32) Anion Gap 10 mmol/L (5-15) Blood Urea Nitrogen 24 mg/dL (7-18) H Creatinine 1.5 MG/DL (0.55-1.30) H Estimat Glomerular Filtration Rate 42.1 mL/min (>60) Glucose Level 86 MG/DL (74-106) Calcium Level 8.8 MG/DL (8.5-10.1) Phosphorus Level 3.7 MG/DL (2.5-4.9) Magnesium Level 1.8 MG/DL (1.8-2.4) Total Bilirubin 0.5 MG/DL (0.2-1.0) Aspartate Amino Transf (AST/SGOT) 26 U/L (15-37) Alanine Aminotransferase (ALT/SGPT) 16 U/L (12-78) Alkaline Phosphatase 157 U/L (46-116) H Total Protein 7.0 G/DL (6.4-8.2) Albumin 2.1 G/DL (3.4-5.0) L Globulin 4.9 g/dL Albumin/Globulin Ratio 0.4 (1.0-2.7) L Microbiology Date/Time Source Procedure Growth Status 01/11/18 00:00 Nasal Nares MRSA Culture - Final NO METHICILLIN RESISTANT STAPH AUREUS... Complete 01/11/18 00:00 Rectum VRE Culture - Final Enterococcus Faecalis - Vre Complete Intake and Output 01/12/18 01/13/18 19:00 07:00 Intake Total 100 ml Output Total 400 ml 400 ml Balance -400 ml -300 ml Intake Oral 100 ml Output Urine Total 400 ml 400 ml Objective General Appearance: WD/WN, no apparent distress, alert EENT: PERRL/EOMI, normal ENT inspection, TMs normal Neck: non-tender, normal alignment, supple Cardiovascular: normal peripheral pulses, normal rate, regular rhythm, no gallop/murmur, no JVD Respiratory/Chest: chest wall non-tender, lungs clear, normal breath sounds, no respiratory distress, no accessory muscle use Abdomen: normal bowel sounds, non tender, soft, no organomegaly, no mass Extremities: normal range of motion, non-tender Neurologic: stem mounter II-XII grossly normal, no motor/sensory deficits Skin: normal pigmentation, warm/dry Assessment/Plan Problem List: (1) Chest pain Assessment & Plan: Atypical. See cardiology note. (2) SOB (shortness of breath) (3) Diabetes mellitus, type II Assessment & Plan: See Endocrinology note. Cont levemir, novolog and starlix. (4) Elevated troponin Assessment & Plan: ?due to recent procedure? See cardiology note. (5) HTN (hypertension) Assessment & Plan: Continue coreg, vasotec and diltiazem (6) Asthma (7) COPD (chronic obstructive pulmonary disease) (8) CAD (coronary artery disease) Assessment & Plan: Continue plavix and aspirin. See cardiology note. (9) Anemia Status: not improved KRISTINA LINDSAY Jan 13, 2018 13:06
[2018-01-13 16:00] VITALS: BP 138/72
[2018-01-13 20:00] VITALS: BP 115/54
--- NOTE | 2018-01-13 21:01 | Cardiology Progress Note ---
Assessment/Plan Assessment/Plan chest wall pain s/p cpr cad s/p pci renal insuf anemia min abn trop the pain seem reproducible on palp her trop are nto sig elevated and the pattern of release is not suggestive of acs with peak or sridevi tele sinus ekg shows sinus t inversion in lead 2 3 avf v1-v6 amny of which have been present on prior ekg as well form [place] ef seems unchanged since [place]ed[place] with swma in nato infer and inferolateral aldana i am unalbe to exclude underlyign cad yaya brothers iacheryl discussed with pt son at bedside optiof perfusion iamgign with it risk of mi and or side effect d.w him he asked pt if she wanter o have doen which pt confirmed will try to sched for tomorrow Subjective ROS Limited/Unobtainable: Yes Cardiovascular: Reports: chest pain - right sided she say but indicates has been on goign for while Respiratory: Denies: shortness of breath Gastrointestinal/Abdominal: Denies: abdominal pain Genitourinary: Denies: burning Objective Last 24 Hour Vital Signs Date Time Temp Pulse Resp B/P (MAP) Pulse Ox O2 Delivery O2 Flow Rate FiO2 01/13/18 17:04 134/72 01/13/18 16:00 87 01/13/18 16:00 97.9 95 22 138/72 96 Nasal Cannula 2.0 01/13/18 12:00 97.5 18 140/64 96 Nasal Cannula 2.0 01/13/18 12:00 100 01/13/18 11:40 133/69 01/13/18 08:23 100 133/69 01/13/18 08:00 97.2 100 20 133/69 97 Nasal Cannula 2.0 01/13/18 08:00 98 01/13/18 07:07 99 Room Air 21 01/13/18 07:07 106 20 Room Air 21 01/13/18 07:07 Room Air 21 01/13/18 07:00 97 18 Nasal Cannula 2.0 28 01/13/18 06:34 140/77 01/13/18 04:00 97.9 99 21 140/77 100 Nasal Cannula 2.0 01/13/18 04:00 98 01/13/18 00:20 137/59 01/13/18 00:00 100.2 99 20 139/68 98 Nasal Cannula 2.0 01/13/18 00:00 95 01/12/18 21:09 63 137/59 General Appearance: no apparent distress, alert Cardiovascular: normal rate, other - chest wall is tender rith side an ton the sternum reproducing pt pain Respiratory/Chest: lungs clear Abdomen: normal bowel sounds, non tender, soft Extremities: trace edema Intake and Output 01/12/18 01/13/18 19:00 07:00 Intake Total 100 ml Output Total 400 ml 400 ml Balance -400 ml -300 ml Intake Oral 100 ml Output Urine Total 400 ml 400 ml Laboratory Tests Test 01/12/18 22:15 01/13/18 08:07 Troponin I 0.322 ng/mL (0.000-0.056) White Blood Count 5.0 K/UL (4.8-10.8) Red Blood Count 2.90 M/UL (4.20-5.40) L Hemoglobin 8.4 G/DL (12.0-16.0) L Hematocrit 25.7 % (37.0-47.0) L Mean Corpuscular Volume 89 FL (80-99) Mean Corpuscular Hemoglobin 28.9 PG (27.0-31.0) Mean Corpuscular Hemoglobin Concent 32.5 G/DL (32.0-36.0) Red Cell Distribution Width 17.4 % (11.6-14.8) H Platelet Count 252 K/UL (150-450) Mean Platelet Volume 6.6 FL (6.5-10.1) Neutrophils (%) (Auto) 50.5 % (45.0-75.0) Lymphocytes (%) (Auto) 34.9 % (20.0-45.0) Monocytes (%) (Auto) 12.5 % (1.0-10.0) H Eosinophils (%) (Auto) 0.8 % (0.0-3.0) Basophils (%) (Auto) 1.4 % (0.0-2.0) Erythrocyte Sedimentation Rate 116 MM/HR (0-30) H Sodium Level 139 MMOL/L (136-145) Potassium Level 4.2 MMOL/L (3.5-5.1) Chloride Level 104 MMOL/L (98-107) Carbon Dioxide Level 25 MMOL/L (21-32) Anion Gap 10 mmol/L (5-15) Blood Urea Nitrogen 24 mg/dL (7-18) H Creatinine 1.5 MG/DL (0.55-1.30) H Estimat Glomerular Filtration Rate 42.1 mL/min (>60) Glucose Level 86 MG/DL (74-106) Calcium Level 8.8 MG/DL (8.5-10.1) Phosphorus Level 3.7 MG/DL (2.5-4.9) Magnesium Level 1.8 MG/DL (1.8-2.4) Total Bilirubin 0.5 MG/DL (0.2-1.0) Aspartate Amino Transf (AST/SGOT) 26 U/L (15-37) Alanine Aminotransferase (ALT/SGPT) 16 U/L (12-78) Alkaline Phosphatase 157 U/L (46-116) H Total Protein 7.0 G/DL (6.4-8.2) Albumin 2.1 G/DL (3.4-5.0) L Globulin 4.9 g/dL Albumin/Globulin Ratio 0.4 (1.0-2.7) L Microbiology Date/Time Source Procedure Growth Status 01/11/18 00:00 Nasal Nares MRSA Culture - Final NO METHICILLIN RESISTANT STAPH AUREUS... Complete 01/11/18 00:00 Rectum VRE Culture - Final Enterococcus Faecalis - Vre Complete LITA DAVE Jan 13, 2018 21:01
[2018-01-13] MEDS ORDERED: Lexiscan 0.4mg/5ml syringe IV PRN (21:15)
[2018-01-13] MEDS: Tamsulosin 0.4mg cap ORAL SCH (22:03)
[2018-01-13] MEDS: Atorvastatin 20mg tab ORAL SCH (22:03)
[2018-01-14] VITALS: BP 110/74
--- NOTE | 2018-01-14 00:17 | General Progress Note ---
Assessment/Plan Assessment/Plan 1. Anemia due to underlying chronic disease. --> Reticulocyte count elevated. --> Anemia workup reviewed. --> Apparently, folic acid was found to be decreased. --> Blood transfusion not required unless symptomatic or hgb <7 2. Anemia due to folic acid deficiency. --> At this time, begin the patient on folic acid. --> Folic acid has been begun. 3. Diabetes mellitus. A1c is pending at this time. 4. Acute coronary syndrome rule out. --> Troponin pending at the moment as well. Cardiology to follow. 5. Hypertension. --> Blood pressure at goal. Systolic blood pressure less than 140. Subjective Date patient seen: Jan 13, 2018 Constitutional: Denies: no symptoms, chills, diaphoresis, fever, malaise, weakness, other HEENT: Denies: no symptoms, eye pain, blurred vision, tearing, double vision, ear pain, ear discharge, nose pain, nose congestion, throat pain, throat swelling, mouth pain, mouth swelling, other Cardiovascular: Denies: no symptoms, chest pain, edema, irregular heart rate, lightheadedness, palpitations, syncope, other Respiratory: Denies: no symptoms, cough, orthopnea, shortness of breath, SOB with excertion, SOB at rest, sputum, stridor, wheezing, other Gastrointestinal/Abdominal: Denies: no symptoms, abdomen distended, abdominal pain, black stools, tarry stools, blood in stool, constipated, diarrhea, difficulty swallowing, nausea, poor appetite, poor fluid intake, rectal bleeding , vomiting, other Genitourinary: Denies: no symptoms, burning, discharge, frequency, flank pain, hematuria, incontinence, pain, urgency, other Neurologic/Psychiatric: Denies: no symptoms, anxiety, depressed, emotional problems, headache, numbness, paresthesia, pre-existing deficit, seizure, tingling, tremors, weakness, other Hematologic/Lymphatic: Reports: anemia Allergies: Coded Allergies: No Known Allergies (Unverified , 04/15/17) Subjective No acute events. No fever or chills. Objective Last 24 Hour Vital Signs Date Time Temp Pulse Resp B/P (MAP) Pulse Ox O2 Delivery O2 Flow Rate FiO2 01/13/18 22:03 100 115/54 01/13/18 21:20 104 01/13/18 20:00 97.7 100 18 115/54 96 Nasal Cannula 2.0 01/13/18 17:04 134/72 01/13/18 16:00 87 01/13/18 16:00 97.9 95 22 138/72 96 Nasal Cannula 2.0 01/13/18 12:00 97.5 18 140/64 96 Nasal Cannula 2.0 01/13/18 12:00 100 01/13/18 11:40 133/69 01/13/18 08:23 100 133/69 01/13/18 08:00 97.2 100 20 133/69 97 Nasal Cannula 2.0 01/13/18 08:00 98 01/13/18 07:07 99 Room Air 21 01/13/18 07:07 106 20 Room Air 21 01/13/18 07:07 Room Air 21 01/13/18 07:00 97 18 Nasal Cannula 2.0 28 01/13/18 06:34 140/77 01/13/18 04:00 97.9 99 21 140/77 100 Nasal Cannula 2.0 01/13/18 04:00 98 01/13/18 00:20 137/59 Intake and Output 01/13/18 01/14/18 19:00 07:00 Intake Total 360 ml Output Total 700 ml Balance -340 ml Intake Oral 360 ml Output Urine Total 700 ml Laboratory Tests 01/13/18 08:07: White Blood Count 5.0, Red Blood Count 2.90L, Hemoglobin 8.4L, Hematocrit 25.7L , Mean Corpuscular Volume 89, Mean Corpuscular Hemoglobin 28.9, Mean Corpuscular Hemoglobin Concent 32.5, Red Cell Distribution Width 17.4H, Platelet Count 252, Mean Platelet Volume 6.6, Neutrophils (%) (Auto) 50.5, Lymphocytes (%) (Auto) 34.9, Monocytes (%) (Auto) 12.5H, Eosinophils (%) (Auto) 0.8, Basophils (%) (Auto) 1.4, Erythrocyte Sedimentation Rate 116H, Sodium Level 139, Potassium Level 4.2, Chloride Level 104, Carbon Dioxide Level 25, Anion Gap 10, Blood Urea Nitrogen 24H, Creatinine 1.5H, Estimat Glomerular Filtration Rate 42.1, Glucose Level 86, Calcium Level 8.8, Phosphorus Level 3.7 , Magnesium Level 1.8, Total Bilirubin 0.5, Aspartate Amino Transf (AST/SGOT) 26 , Alanine Aminotransferase (ALT/SGPT) 16, Alkaline Phosphatase 157H, Total Protein 7.0, Albumin 2.1L, Globulin 4.9, Albumin/Globulin Ratio 0.4L Height (Feet): 5 Height (Inches): 4.00 Weight (Pounds): 138 General Appearance: no apparent distress EENT: normal ENT inspection Cardiovascular: normal rate Respiratory/Chest: lungs clear Abdomen: non tender, soft Earl Oquendo Jan 14, 2018 00:16
[2018-01-14] MEDS: HydrALAZINE 50mg tab ORAL SCH ×5 (00:42→23:58)
[2018-01-14 04:00] VITALS: BP 141/68
[2018-01-14] MEDS: NovoLOG Insulin Flexpen SUBQ SCH ×4 (06:44→20:40)
[2018-01-14 07:21] LABS: BASOPHILS % (AUTO) 1.2 % (0.0-2.0); HEMATOCRIT 25.6 % (37.0-47.0); HEMOGLOBIN 8.3 G/DL (12.0-16.0); LYMPHOCYTES % (AUTO) 36.8 % (20.0-45.0); MEAN CORPUSCULAR VOLUME 88 FL (80-99); MONOCYTES % (AUTO) 12.1 % (1.0-10.0); NEUTROPHILS % (AUTO) 48.9 % (45.0-75.0); PLATELET COUNT 246 K/UL (150-450); RED CELL DISTRIBUTION WIDTH 17.5 % (11.6-14.8); WHITE BLOOD COUNT 4.7 K/UL (4.8-10.8)
[2018-01-14 07:40] LABS: ANION GAP 11 mmol/L (5-15); BLOOD UREA NITROGEN 22 mg/dL (7-18); CALCIUM 8.6 MG/DL (8.5-10.1); CARBON DIOXIDE 23 MMOL/L (21-32); CHLORIDE 103 MMOL/L (98-107); CREATININE 1.6 MG/DL (0.55-1.30); POTASSIUM 4.1 MMOL/L (3.5-5.1); SODIUM 137 MMOL/L (136-145)
[2018-01-14 08:00] VITALS: BP 128/69
[2018-01-14] MEDS: Carvedilol 6.25mg Tab ORAL SCH ×2 (09:00→20:38)
[2018-01-14] MEDS: Aspirin Baby 81mg ORAL SCH (09:13)
[2018-01-14] MEDS: Heparin 5000 units/ml inj SUBQ SCH ×2 (09:17→20:39)
[2018-01-14] MEDS: Levemir Flexpen SUBQ SCH (10:37)
--- NOTE | 2018-01-14 11:04 | Pulmonology Progress Note ---
Assessment/Plan Problems: (1) ACS (acute coronary syndrome) (2) Anemia (3) ATN (acute tubular necrosis) (4) UTI (urinary tract infection) (5) Hypertension (6) Diabetes mellitus (7) Lower GI bleed Assessment/Plan checked echo, EF 40% and mild pulmonary hypertension Endo note and input appreciated check electrolytes on levofloxacin OB positive, with anemia, needs to rule out GI bleeding and malignancy, Dr. petersen informed cardio note appreciated stress test pending Subjective ROS Limited/Unobtainable: No Constitutional: Reports: no symptoms Respiratory: Reports: no symptoms Allergies: Coded Allergies: No Known Allergies (Unverified , 04/15/17) Objective Last 24 Hour Vital Signs Date Time Temp Pulse Resp B/P (MAP) Pulse Ox O2 Delivery O2 Flow Rate FiO2 01/14/18 10:08 98 Room Air 21 01/14/18 10:08 Room Air 21 01/14/18 10:08 89 18 Room Air 21 01/14/18 09:12 99.7 01/14/18 09:00 110 128/69 01/14/18 08:00 106 01/14/18 08:00 99.7 110 18 128/69 95 Room Air 01/14/18 06:57 141/68 01/14/18 04:01 102 01/14/18 04:00 96.9 105 20 141/68 97 Nasal Cannula 2.0 01/14/18 00:42 149/82 01/14/18 00:00 97.7 100 19 110/74 98 Nasal Cannula 2.0 01/13/18 23:53 102 01/13/18 22:03 100 115/54 01/13/18 21:20 104 01/13/18 20:00 97.7 100 18 115/54 96 Nasal Cannula 2.0 01/13/18 17:04 134/72 01/13/18 16:00 87 01/13/18 16:00 97.9 95 22 138/72 96 Nasal Cannula 2.0 01/13/18 12:00 97.5 18 140/64 96 Nasal Cannula 2.0 01/13/18 12:00 100 01/13/18 11:40 133/69 Intake and Output 01/13/18 01/14/18 19:00 07:00 Intake Total 360 ml Output Total 700 ml 300 ml Balance -340 ml -300 ml Intake Oral 360 ml Output Urine Total 700 ml 300 ml # Bowel Movements 2 Objective General Appearance: WD/WN HEENT: normocephalic Respiratory/Chest: chest wall non-tender, lungs clear, normal breath sounds Cardiovascular: normal peripheral pulses, normal rate Abdomen: normal bowel sounds, soft, non tender, no organomegaly Extremities: no cyanosis, no clubbing Neurologic/Psychiatric: supervisor print line II-XII grossly normal Lymphatic: no neck adenopathy Laboratory Tests 01/13/18 20:30: Stool Occult Blood Positive 01/14/18 05:55: White Blood Count 4.7L, Red Blood Count 2.90L, Hemoglobin 8.3L, Hematocrit 25.6L , Mean Corpuscular Volume 88, Mean Corpuscular Hemoglobin 28.6, Mean Corpuscular Hemoglobin Concent 32.3, Red Cell Distribution Width 17.5H, Platelet Count 246, Mean Platelet Volume 7.0, Neutrophils (%) (Auto) 48.9, Lymphocytes (%) (Auto) 36.8, Monocytes (%) (Auto) 12.1H, Eosinophils (%) (Auto) 1.0, Basophils (%) (Auto) 1.2, Sodium Level 137, Potassium Level 4.1, Chloride Level 103, Carbon Dioxide Level 23, Anion Gap 11, Blood Urea Nitrogen 22H, Creatinine 1.6H, Estimat Glomerular Filtration Rate 39.1, Glucose Level 143H, Calcium Level 8.6 Current Medications Medications (Trade) Dose Ordered Sig/Tristan Route PRN Reason Start Time Stop Time Status Last Admin Dose Admin Acetaminophen (Tylenol) 650 mg Q4H PRN ORAL FEVER 01/10/18 22:45 02/09/18 22:44 01/14/18 09:12 Albuterol/ Ipratropium (Albuterol/ Ipratropium) 3 ml EVERY 4 HOURS PRN HHN Shortness of Breath 01/10/18 22:45 01/15/18 22:44 01/11/18 02:24 Aspirin (ASA) 81 mg DAILY ORAL 01/12/18 09:00 02/11/18 08:59 01/14/18 09:13 Atorvastatin Calcium (Lipitor) 20 mg BEDTIME ORAL 01/11/18 21:00 02/10/18 20:59 01/13/18 22:03 Carvedilol (Coreg) 6.25 mg EVERY 12 HOURS ORAL 01/11/18 09:00 02/10/18 08:59 01/13/18 22:03 Clopidogrel Bisulfate (Plavix) 75 mg DAILY ORAL 01/11/18 16:30 02/10/18 16:29 01/14/18 09:13 Dextrose (Dextrose 50%) STAT PRN IV Hypoglycemia 01/11/18 06:30 02/10/18 06:29 Diltiazem HCl (Cardizem) 10 mg EVERY HOUR PRN IV heart rate more than 120, 01/10/18 22:45 02/09/18 22:44 Enalaprilat (Vasotec) 2.5 mg EVERY 6 HOURS PRN IV sbp more than 160 01/10/18 22:45 02/09/18 22:44 Folic Acid (Folate) 1 mg Q24HRS ORAL 01/11/18 21:00 02/10/18 20:59 01/13/18 22:03 Furosemide (Lasix) 20 mg DAILY ORAL 01/11/18 16:30 02/10/18 16:29 01/14/18 09:12 Gabapentin (Neurontin) 300 mg BEDTIME ORAL 01/11/18 21:00 02/10/18 20:59 01/13/18 22:07 Heparin Sodium (Porcine) (Heparin 5000 units/ml) 5,000 units EVERY 12 HOURS SUBQ 01/11/18 09:00 02/10/18 08:59 01/14/18 09:17 Hydralazine HCl (Apresoline) 50 mg EVERY 6 HOURS ORAL 01/11/18 00:00 02/10/18 00:00 01/14/18 06:57 Insulin Aspart (NovoLOG) BEFORE MEALS AND HS SUBQ 01/11/18 06:30 02/10/18 06:29 01/14/18 06:44 Insulin Detemir (Levemir) 10 units DAILY SUBQ 01/11/18 09:00 02/10/18 08:59 01/14/18 10:37 Ketorolac Tromethamine (Toradol 30mg) 30 mg Q6HR PRN IV moderate pain ( 4-6) 01/10/18 22:45 01/15/18 22:44 Levofloxacin (Levaquin) 250 mg DAILY ORAL 01/13/18 11:00 01/20/18 10:59 01/14/18 09:13 Morphine Sulfate (Morphine Sulfate) 2 mg Q4H PRN IVP severe Pain (Pain Scale 7-10) 01/11/18 14:45 01/17/18 22:44 01/11/18 18:30 Nitroglycerin (Ntg) 0.4 mg Every 5 Minutes PRN SL Prn Chest Pain 01/10/18 22:45 02/09/18 22:44 01/11/18 16:00 Ondansetron HCl (Zofran) 4 mg Q6H PRN IVP Nausea & Vomiting 01/10/18 22:45 02/09/18 22:44 Polyethylene Glycol (Miralax) 17 gm DAILYPRN PRN ORAL Constipation 01/10/18 22:45 02/09/18 22:44 Regadenoson (Lexiscan) 0.4 mg ONCE PRN IV STRESS TEST 01/13/18 21:15 01/15/18 23:59 Tamsulosin HCl (Flomax) 0.4 mg BEDTIME ORAL 01/11/18 21:00 02/10/18 20:59 01/13/18 22:03 Temazepam (Restoril) 15 mg HSPRN PRN ORAL Insomnia 01/10/18 22:45 01/17/18 22:44 KHADAR BENAVIDES Jan 14, 2018 11:04
[2018-01-14 12:00] VITALS: BP 144/73
[2018-01-14] MEDS: Morphine Sulfate 2mg/ml Inj IVP PRN (14:10)
--- NOTE | 2018-01-14 14:10 | Cardiology Progress Note ---
Assessment/Plan Assessment/Plan chest wall pain s/p cpr cad s/p pci renal insuf anemia min abn trop her trop are nto sig elevated and the pattern of release is not suggestive of acs with peak or sridevi tele sinus ekg shows sinus t inversion in lead 2 3 avf v1-v6 many of which have been present on prior ekg as well form [place] butsome new ones as well ef seems unchanged since [place] with swma in nato infer and inferolateral aldana lexiscan imaging performed pt had sob bu tno chest pain , ekg did not chnge during the test and for logn term monitring post sat were at 99-100% impoved late in recovery await perfusion imaging results had ob positive stool will need evlaution once cardiac aleman ok zantac for nwo may need proton pump inhibitor Subjective Cardiovascular: Reports: chest pain - right sided Respiratory: Reports: shortness of breath - durign nato infusion lexiscan with normal sats and ekg Gastrointestinal/Abdominal: Denies: abdominal pain Genitourinary: Denies: burning Objective Last 24 Hour Vital Signs Date Time Temp Pulse Resp B/P (MAP) Pulse Ox O2 Delivery O2 Flow Rate FiO2 01/14/18 13:05 144/73 01/14/18 12:00 97.9 94 18 144/73 98 Room Air 01/14/18 12:00 96 01/14/18 10:11 97.9 01/14/18 10:08 Room Air 01/14/18 10:08 Room Air 01/14/18 10:08 01/14/18 09:12 99.7 01/14/18 09:00 110 128/69 01/14/18 08:00 106 01/14/18 08:00 99.7 110 18 128/69 95 Room Air 01/14/18 06:57 141/68 01/14/18 04:01 102 01/14/18 04:00 96.9 105 20 141/68 97 Nasal Cannula 2.0 01/14/18 00:42 149/82 01/14/18 00:00 97.7 100 19 110/74 98 Nasal Cannula 2.0 01/13/18 23:53 102 01/13/18 22:03 100 115/54 01/13/18 21:20 104 01/13/18 20:00 97.7 100 18 115/54 96 Nasal Cannula 2.0 2/12/18 17:04 134/72 01/13/18 16:00 87 01/13/18 16:00 97.9 95 22 138/72 96 Nasal Cannula 2.0 General Appearance: no apparent distress, alert Cardiovascular: normal rate Respiratory/Chest: lungs clear, normal breath sounds Abdomen: normal bowel sounds, non tender, soft Extremities: no swelling Intake and Output 01/13/18 01/14/18 19:00 07:00 Intake Total 360 ml Output Total 700 ml 300 ml Balance -340 ml -300 ml Intake Oral 360 ml Output Urine Total 700 ml 300 ml # Bowel Movements 2 Laboratory Tests Test 01/13/18 20:30 01/14/18 05:55 Stool Occult Blood Positive (NEGATIVE) White Blood Count 4.7 K/UL (4.8-10.8) L Red Blood Count 2.90 M/UL (4.20-5.40) L Hemoglobin 8.3 G/DL (12.0-16.0) L Hematocrit 25.6 % (37.0-47.0) L Mean Corpuscular Volume 88 FL (80-99) Mean Corpuscular Hemoglobin 28.6 PG (27.0-31.0) Mean Corpuscular Hemoglobin Concent 32.3 G/DL (32.0-36.0) Red Cell Distribution Width 17.5 % (11.6-14.8) H Platelet Count 246 K/UL (150-450) Mean Platelet Volume 7.0 FL (6.5-10.1) Neutrophils (%) (Auto) 48.9 % (45.0-75.0) Lymphocytes (%) (Auto) 36.8 % (20.0-45.0) Monocytes (%) (Auto) 12.1 % (1.0-10.0) H Eosinophils (%) (Auto) 1.0 % (0.0-3.0) Basophils (%) (Auto) 1.2 % (0.0-2.0) Sodium Level 137 MMOL/L (136-145) Potassium Level 4.1 MMOL/L (3.5-5.1) Chloride Level 103 MMOL/L (98-107) Carbon Dioxide Level 23 MMOL/L (21-32) Anion Gap 11 mmol/L (5-15) Blood Urea Nitrogen 22 mg/dL (7-18) H Creatinine 1.6 MG/DL (0.55-1.30) H Estimat Glomerular Filtration Rate 39.1 mL/min (>60) Glucose Level 143 MG/DL (74-106) H Calcium Level 8.6 MG/DL (8.5-10.1) LITA DAVE Jan 14, 2018 14:10
--- NOTE | 2018-01-14 14:17 | GI Initial Consult Note ---
Celina Alberts N.PJorge 01/14/18 1417: History of Present Illness General Date patient seen: Jan 14, 2018 Time patient seen: 13:00 Reason for Hospitalization: Chest Pain Referring physician: Dr. Lindsay Reason for Consultation: OCCULT STOOL POSITIVE Present Illness HPI 67-year-old female presents ED complaining of chest pain. Comes from alf facility. Started at rest just prior to arrival. Pressure-like, 8/10, nonradiating. Patient was given nitroglycerin x3, aspirin. States chest pain is resolved. Denies any fevers or chills. Denies cough. No other aggravating relieving factors. Denies any other associated symptoms. GI consulted for positive occult blood. Pt seen on floor, awake A&Ox4 NAD with no active s/sx of N/V/D. No GI complaints at this time, just feeling tired and hungry. Patient pending stress test today, has been seen by Hematology noted with anemia 2/2 to folic/B12 deficiency. Presents today with anemia, positive OB stool and elevated troponin levels. Last colonoscopy over 5 years ago. Home Meds Reported Medications Albuterol Sulfate (VENTOLIN HFA) 18 Gm Hfa.aer.ad, 1 PUFF INH EVERY 6 HOURS, # 18 GM 0 Refills 01/10/18 Ticagrelor* (BRILINTA*) 90 Mg Tablet, 90 MG PO BID, TAB 01/10/18 Tamsulosin Hcl (TAMSULOSIN HCL*) 0.4 Mg Cap.er.24h, 0.4 MG ORAL BEDTIME, CAP 01/10/18 Polyethylene Glycol 3350* (POLYETHYLENE GLYCOL 3350*) 17 Gm Powd.pack, 17 GM ORAL NEEDED Y for Constipation, PACKET 01/10/18 Oxycodone/Acetaminophen 5-325* (PERCOCET 5-325 MG TABLET*) 1 Each Tablet, 1 TAB ORAL Q6H Y for For Pain, #30 TAB 0 Refills 01/10/18 Nitroglycerin (NITROGLYCERIN) 0.4 Mg Tab.subl, 0.4 MG SL, TAB 01/10/18 Nateglinide* (STARLIX*) 60 Mg Tablet, 60 MG ORAL BID, TAB 01/10/18 Multivitamin With Minerals (MULTIVITAMINS WITH MINERALS*) 1 Each Tablet, 1 TAB ORAL DAILY, TAB 01/10/18 Hydralazine Hcl* (HYDRALAZINE HCL*) 50 Mg Tablet, 50 MG ORAL EVERY 6 HOURS, TAB 01/10/18 Insulin Regular, Human (HUMULIN R) 100 Unit/1 Ml Vial, 8 SUBQ, VIAL 01/10/18 Nph, Human Insulin Isophane (HUMULIN N) 100 Unit/1 Ml Vial, 18 SUBQ, VIAL 01/10/18 Gabapentin* (GABAPENTIN*) 300 Mg Capsule, 300 MG ORAL BEDTIME, CAP 01/10/18 Furosemide* (LASIX*) 40 Mg Tablet, 40 MG ORAL DAILY, TAB 01/10/18 Mometasone/Formoterol (DULERA 200 MCG/5 MCG INHALER) 13 Gm Hfa.aer.ad, 13 GM IH 01/10/18 Docusate Sodium* (DOCUSATE SODIUM*) 100 Mg Capsule, 200 MG ORAL TWICE A DAY, CAP 01/10/18 Carvedilol* (CARVEDILOL*) 6.25 Mg Tablet, 6.25 MG ORAL EVERY 12 HOURS, TAB 01/10/18 Calcitriol (CALCITRIOL) 0.25 Mcg Capsule, 0.25 MCG PO, CAP 01/10/18 Atorvastatin Calcium* (ATORVASTATIN CALCIUM*) 40 Mg Tablet, 80 MG ORAL BEDTIME, TAB 01/10/18 Aspirin* (ASPIRIN*) 81 Mg Tab.chew, 81 MG ORAL DAILY, TAB 01/10/18 Acetaminophen* (ACETAMINOPHEN*) 160 Mg/5 Ml Solution, 320 MG ORAL Q6H Y for Mild Pain/Temp > 100.5, ML 01/10/18 Insulin Lispro (HUMALOG) 100 Unit/1 Ml Cartridge, 0 SUBQ, #1 UNITS 0 Refills 04/15/17 Insulin Regular, Human* (NOVOLIN R*) 100 Unit/1 Ml Vial, 0 SUBQ .SLIDING SCALE, UNITS 04/15/17 Metformin Hcl* (METFORMIN HCL*) 500 Mg Tablet, 500 MG ORAL TWICE A DAY, TAB 04/15/17 Losartan Potassium* (LOSARTAN POTASSIUM*) 25 Mg Tablet, 25 MG ORAL DAILY, TAB 04/15/17 Furosemide* (LASIX*) 40 Mg Tablet, 40 MG ORAL DAILY, TAB 04/15/17 Med list reviewed/reconciled: Yes Allergies: Coded Allergies: No Known Allergies (Unverified , 04/15/17) Patient History History Provided By: Patient, Medical Record PMH Narrative Past Medical History: DM, HTN Past Surgical History: none Pertinent Family History: none Social History: Denies: smoking, alcohol use, drug use Now: No Immunizations: UTD Reviewed Nursing Documentation: PMH: Agreed, PSxH: Agreed Nursing Documentation-PM Past Medical History: No History, Except For Hx Hypertension: Yes Hx COPD: Yes - PE Hx Diabetes: Yes - Type 2 Hx Gastrointestinal Problems: Yes - Dysphagia, UTI Social History: Denies: smoking, alcohol use, drug use, other Review of Systems All Other Systems: negative except mentioned in HPI Physical Exam Vital Signs Date Time Temp Pulse Resp B/P (MAP) Pulse Ox O2 Delivery O2 Flow Rate FiO2 01/10/18 19:34 97.2 91 18 134/77 98 Nasal Cannula 2.0 01/11/18 02:24 21 Sp02 EP Interpretation: reviewed, normal Labs Laboratory Tests Test 01/13/18 20:30 01/14/18 05:55 Stool Occult Blood Positive (NEGATIVE) White Blood Count 4.7 K/UL (4.8-10.8) L Red Blood Count 2.90 M/UL (4.20-5.40) L Hemoglobin 8.3 G/DL (12.0-16.0) L Hematocrit 25.6 % (37.0-47.0) L Mean Corpuscular Volume 88 FL (80-99) Mean Corpuscular Hemoglobin 28.6 PG (27.0-31.0) Mean Corpuscular Hemoglobin Concent 32.3 G/DL (32.0-36.0) Red Cell Distribution Width 17.5 % (11.6-14.8) H Platelet Count 246 K/UL (150-450) Mean Platelet Volume 7.0 FL (6.5-10.1) Neutrophils (%) (Auto) 48.9 % (45.0-75.0) Lymphocytes (%) (Auto) 36.8 % (20.0-45.0) Monocytes (%) (Auto) 12.1 % (1.0-10.0) H Eosinophils (%) (Auto) 1.0 % (0.0-3.0) Basophils (%) (Auto) 1.2 % (0.0-2.0) Sodium Level 137 MMOL/L (136-145) Potassium Level 4.1 MMOL/L (3.5-5.1) Chloride Level 103 MMOL/L (98-107) Carbon Dioxide Level 23 MMOL/L (21-32) Anion Gap 11 mmol/L (5-15) Blood Urea Nitrogen 22 mg/dL (7-18) H Creatinine 1.6 MG/DL (0.55-1.30) H Estimat Glomerular Filtration Rate 39.1 mL/min (>60) Glucose Level 143 MG/DL (74-106) H Calcium Level 8.6 MG/DL (8.5-10.1) General Appearance: well appearing, no apparent distress, alert Head: normocephalic EENT: PERRL/EOMI, normal ENT inspection Neck: supple Respiratory: normal breath sounds, no respiratory distress Cardiovascular: normal rate Gastrointestinal: normal inspection, non tender, soft, normal bowel sounds, non -distended Rectal: deferred Genitourinary: no CVA tenderness Musculoskeletal: normal inspection, back normal Neurologic: normal inspection, alert, oriented x3, responsive Psychiatric: normal inspection, judgement/insight normal, memory normal Skin: normal inspection, normal color, no rash, warm/dry, palpation normal, well hydrated Lymphatic: normal inspection, no adenopathy Current Medications Current Medications Medications (Trade) Dose Ordered Sig/Tristan Route PRN Reason Start Time Stop Time Status Last Admin Dose Admin Acetaminophen (Tylenol) 650 mg Q4H PRN ORAL FEVER 01/10/18 22:45 02/09/18 22:44 01/14/18 09:12 Albuterol/ Ipratropium (Albuterol/ Ipratropium) 3 ml EVERY 4 HOURS PRN HHN Shortness of Breath 01/10/18 22:45 01/15/18 22:44 01/11/18 02:24 Aspirin (ASA) 81 mg DAILY ORAL 01/12/18 09:00 02/11/18 08:59 01/14/18 09:13 Atorvastatin Calcium (Lipitor) 20 mg BEDTIME ORAL 01/11/18 21:00 02/10/18 20:59 01/13/18 22:03 Carvedilol (Coreg) 6.25 mg EVERY 12 HOURS ORAL 01/11/18 09:00 02/10/18 08:59 01/13/18 22:03 Clopidogrel Bisulfate (Plavix) 75 mg DAILY ORAL 01/11/18 16:30 02/10/18 16:29 01/14/18 09:13 Dextrose (Dextrose 50%) STAT PRN IV Hypoglycemia 01/11/18 06:30 02/10/18 06:29 Diltiazem HCl (Cardizem) 10 mg EVERY HOUR PRN IV heart rate more than 120, 01/10/18 22:45 02/09/18 22:44 Enalaprilat (Vasotec) 2.5 mg EVERY 6 HOURS PRN IV sbp more than 160 01/10/18 22:45 02/09/18 22:44 Folic Acid (Folate) 1 mg Q24HRS ORAL 01/11/18 21:00 02/10/18 20:59 01/13/18 22:03 Furosemide (Lasix) 20 mg DAILY ORAL 01/11/18 16:30 02/10/18 16:29 01/14/18 09:12 Gabapentin (Neurontin) 300 mg BEDTIME ORAL 01/11/18 21:00 02/10/18 20:59 01/13/18 22:07 Heparin Sodium (Porcine) (Heparin 5000 units/ml) 5,000 units EVERY 12 HOURS SUBQ 01/11/18 09:00 02/10/18 08:59 01/14/18 09:17 Hydralazine HCl (Apresoline) 50 mg EVERY 6 HOURS ORAL 01/11/18 00:00 02/10/18 00:00 01/14/18 13:05 Insulin Aspart (NovoLOG) BEFORE MEALS AND HS SUBQ 01/11/18 06:30 02/10/18 06:29 01/14/18 06:44 Insulin Detemir (Levemir) 10 units DAILY SUBQ 01/11/18 09:00 02/10/18 08:59 01/14/18 10:37 Ketorolac Tromethamine (Toradol 30mg) 30 mg Q6HR PRN IV moderate pain ( 4-6) 01/10/18 22:45 01/15/18 22:44 Levofloxacin (Levaquin) 250 mg DAILY ORAL 01/13/18 11:00 01/20/18 10:59 01/14/18 09:13 Morphine Sulfate (Morphine Sulfate) 2 mg Q4H PRN IVP severe Pain (Pain Scale 7-10) 01/11/18 14:45 01/17/18 22:44 01/11/18 18:30 Nitroglycerin (Ntg) 0.4 mg Every 5 Minutes PRN SL Prn Chest Pain 01/10/18 22:45 02/09/18 22:44 01/11/18 16:00 Ondansetron HCl (Zofran) 4 mg Q6H PRN IVP Nausea & Vomiting 01/10/18 22:45 02/09/18 22:44 Polyethylene Glycol (Miralax) 17 gm DAILYPRN PRN ORAL Constipation 01/10/18 22:45 02/09/18 22:44 Regadenoson (Lexiscan) 0.4 mg ONCE PRN IV STRESS TEST 01/13/18 21:15 01/15/18 23:59 Tamsulosin HCl (Flomax) 0.4 mg BEDTIME ORAL 01/11/18 21:00 02/10/18 20:59 01/13/18 22:03 Temazepam (Restoril) 15 mg HSPRN PRN ORAL Insomnia 01/10/18 22:45 01/17/18 22:44 GI: Plan Problems: (1) Occult blood in stools (2) Anemia (3) Diabetes mellitus, type II Plan occult blood positive anemia 2/2 folate/b12 deficiency r/o GI bleed elevated troponin patient on plavix EGD/colonoscopy on hold, will require cardiac clearance - pending stress test today renal/ADA diet monitor H&H, prn transfusions ppi folate/B12 supplementation fu labs Discussed with Dr. Don. Thank you for this patient referral, we will follow. SVETLANA DON 01/15/18 1053: History of Present Illness General Reason for Hospitalization: Chest Pain Present Illness Home Meds Reported Medications Albuterol Sulfate (VENTOLIN HFA) 18 Gm Hfa.aer.ad, 1 PUFF INH EVERY 6 HOURS, # 18 GM 0 Refills 01/10/18 Ticagrelor* (BRILINTA*) 90 Mg Tablet, 90 MG PO BID, TAB 01/10/18 Tamsulosin Hcl (TAMSULOSIN HCL*) 0.4 Mg Cap.er.24h, 0.4 MG ORAL BEDTIME, CAP 01/10/18 Polyethylene Glycol 3350* (POLYETHYLENE GLYCOL 3350*) 17 Gm Powd.pack, 17 GM ORAL NEEDED Y for Constipation, PACKET 01/10/18 Oxycodone/Acetaminophen 5-325* (PERCOCET 5-325 MG TABLET*) 1 Each Tablet, 1 TAB ORAL Q6H Y for For Pain, #30 TAB 0 Refills 01/10/18 Nitroglycerin (NITROGLYCERIN) 0.4 Mg Tab.subl, 0.4 MG SL, TAB 01/10/18 Nateglinide* (STARLIX*) 60 Mg Tablet, 60 MG ORAL BID, TAB 01/10/18 Multivitamin With Minerals (MULTIVITAMINS WITH MINERALS*) 1 Each Tablet, 1 TAB ORAL DAILY, TAB 01/10/18 Hydralazine Hcl* (HYDRALAZINE HCL*) 50 Mg Tablet, 50 MG ORAL EVERY 6 HOURS, TAB 01/10/18 Insulin Regular, Human (HUMULIN R) 100 Unit/1 Ml Vial, 8 SUBQ, VIAL 01/10/18 Nph, Human Insulin Isophane (HUMULIN N) 100 Unit/1 Ml Vial, 18 SUBQ, VIAL 01/10/18 Gabapentin* (GABAPENTIN*) 300 Mg Capsule, 300 MG ORAL BEDTIME, CAP 01/10/18 Furosemide* (LASIX*) 40 Mg Tablet, 40 MG ORAL DAILY, TAB 01/10/18 Mometasone/Formoterol (DULERA 200 MCG/5 MCG INHALER) 13 Gm Hfa.aer.ad, 13 GM IH 01/10/18 Docusate Sodium* (DOCUSATE SODIUM*) 100 Mg Capsule, 200 MG ORAL TWICE A DAY, CAP 01/10/18 Carvedilol* (CARVEDILOL*) 6.25 Mg Tablet, 6.25 MG ORAL EVERY 12 HOURS, TAB 01/10/18 Calcitriol (CALCITRIOL) 0.25 Mcg Capsule, 0.25 MCG PO, CAP 01/10/18 Atorvastatin Calcium* (ATORVASTATIN CALCIUM*) 40 Mg Tablet, 80 MG ORAL BEDTIME, TAB 01/10/18 Aspirin* (ASPIRIN*) 81 Mg Tab.chew, 81 MG ORAL DAILY, TAB 01/10/18 Acetaminophen* (ACETAMINOPHEN*) 160 Mg/5 Ml Solution, 320 MG ORAL Q6H Y for Mild Pain/Temp > 100.5, ML 01/10/18 Insulin Lispro (HUMALOG) 100 Unit/1 Ml Cartridge, 0 SUBQ, #1 UNITS 0 Refills 04/15/17 Insulin Regular, Human* (NOVOLIN R*) 100 Unit/1 Ml Vial, 0 SUBQ .SLIDING SCALE, UNITS 04/15/17 Metformin Hcl* (METFORMIN HCL*) 500 Mg Tablet, 500 MG ORAL TWICE A DAY, TAB 04/15/17 Losartan Potassium* (LOSARTAN POTASSIUM*) 25 Mg Tablet, 25 MG ORAL DAILY, TAB 04/15/17 Furosemide* (LASIX*) 40 Mg Tablet, 40 MG ORAL DAILY, TAB 04/15/17 Allergies: Coded Allergies: No Known Allergies (Unverified , 04/15/17) GI: Plan Plan The patient was seen and examined at bedside and all new and available data was reviewed in the patients chart. I agree with the above findings, impression and plan. (Patient seen earlier today. Signature stamp does not reflect patient encounter time.). - MD Lexus Humphrey [address] [place] Jan 14, 2018 14:17 SVETLANA DON Jan 15, 2018 10:53
[2018-01-14 16:00] VITALS: BP 123/61
--- NOTE | 2018-01-14 16:20 | Diagnostic Imaging Report ---
Indication: chest pain Technique: The study was conducted under the supervision of a signal maintenance technician. lexiscan (regadenoson) infusion over 10 seconds followed by intravenous administration of 31.4 mCi of technetium 99m Myoview was performed. Three plane SPECT imaging of the heart was then performed. A resting study was performed as part of the one-day protocol with 9.5 mCi of technetium 99m myoview injected intravenously at that time. Three plane SPECT imaging of the heart was obtained. Comparison: None Clinical data: 1. Clinical response: Non ischemic 2. Electrocardiographic response: Non ischemic Findings: The myocardial perfusion scan demonstrates perfusion defect in the lateral and inferior segment. The defect appears slightly worse on the Lexiscan SPECT images compared to the resting SPECT images. Findings are consistent with myocardial infarct involving the inferior wall and lateral wall with some degree of sg-infarct ischemia. Left ventricular ejection fraction is estimated at 47%. IMPRESSION: Myocardial infarct involving the lateral wall, inferolateral wall and inferior wall. This appears to be one contiguous perfusion defect. The margins of the infarct show some reversibility indicative of sg-infarct ischemia. LVEF 47%
--- NOTE | 2018-01-14 17:35 | Internal Med Progress Note ---
Subjective Date of Service: Jan 14, 2018 Physician Name Kristina Caraballo Attending Physician Onesimo Bautista MD Current Medications Medications (Trade) Dose Ordered Sig/Tristan Route PRN Reason Start Time Stop Time Status Last Admin Dose Admin Acetaminophen (Tylenol) 650 mg Q4H PRN ORAL FEVER 01/10/18 22:45 02/09/18 22:44 01/14/18 09:12 Albuterol/ Ipratropium (Albuterol/ Ipratropium) 3 ml EVERY 4 HOURS PRN HHN Shortness of Breath 01/10/18 22:45 01/15/18 22:44 01/11/18 02:24 Aspirin (ASA) 81 mg DAILY ORAL 01/12/18 09:00 02/11/18 08:59 01/14/18 09:13 Atorvastatin Calcium (Lipitor) 20 mg BEDTIME ORAL 01/11/18 21:00 02/10/18 20:59 01/13/18 22:03 Carvedilol (Coreg) 6.25 mg EVERY 12 HOURS ORAL 01/11/18 09:00 02/10/18 08:59 01/13/18 22:03 Clopidogrel Bisulfate (Plavix) 75 mg DAILY ORAL 01/11/18 16:30 02/10/18 16:29 01/14/18 09:13 Dextrose (Dextrose 50%) STAT PRN IV Hypoglycemia 01/11/18 06:30 02/10/18 06:29 Diltiazem HCl (Cardizem) 10 mg EVERY HOUR PRN IV heart rate more than 120, 01/10/18 22:45 02/09/18 22:44 Enalaprilat (Vasotec) 2.5 mg EVERY 6 HOURS PRN IV sbp more than 160 01/10/18 22:45 02/09/18 22:44 Folic Acid (Folate) 1 mg Q24HRS ORAL 01/11/18 21:00 02/10/18 20:59 01/13/18 22:03 Furosemide (Lasix) 20 mg DAILY ORAL 01/11/18 16:30 02/10/18 16:29 01/14/18 09:12 Gabapentin (Neurontin) 300 mg BEDTIME ORAL 01/11/18 21:00 02/10/18 20:59 01/13/18 22:07 Heparin Sodium (Porcine) (Heparin 5000 units/ml) 5,000 units EVERY 12 HOURS SUBQ 01/11/18 09:00 02/10/18 08:59 01/14/18 09:17 Hydralazine HCl (Apresoline) 50 mg EVERY 6 HOURS ORAL 01/11/18 00:00 02/10/18 00:00 01/14/18 17:21 Insulin Aspart (NovoLOG) BEFORE MEALS AND HS SUBQ 01/11/18 06:30 02/10/18 06:29 01/14/18 17:22 Insulin Detemir (Levemir) 10 units DAILY SUBQ 01/11/18 09:00 02/10/18 08:59 01/14/18 10:37 Ketorolac Tromethamine (Toradol 30mg) 30 mg Q6HR PRN IV moderate pain ( 4-6) 01/10/18 22:45 01/15/18 22:44 Levofloxacin (Levaquin) 250 mg DAILY ORAL 01/13/18 11:00 01/20/18 10:59 01/14/18 09:13 Morphine Sulfate (Morphine Sulfate) 2 mg Q4H PRN IVP severe Pain (Pain Scale 7-10) 01/11/18 14:45 01/17/18 22:44 01/14/18 14:10 Nitroglycerin (Ntg) 0.4 mg Every 5 Minutes PRN SL Prn Chest Pain 01/10/18 22:45 02/09/18 22:44 01/11/18 16:00 Ondansetron HCl (Zofran) 4 mg Q6H PRN IVP Nausea & Vomiting 01/10/18 22:45 02/09/18 22:44 Pantoprazole (Protonix) 40 mg DAILY ORAL 01/15/18 09:00 02/14/18 08:59 Polyethylene Glycol (Miralax) 17 gm DAILYPRN PRN ORAL Constipation 01/10/18 22:45 02/09/18 22:44 Regadenoson (Lexiscan) 0.4 mg ONCE PRN IV STRESS TEST 01/13/18 21:15 01/15/18 23:59 01/14/18 14:13 Tamsulosin HCl (Flomax) 0.4 mg BEDTIME ORAL 01/11/18 21:00 02/10/18 20:59 01/13/18 22:03 Temazepam (Restoril) 15 mg HSPRN PRN ORAL Insomnia 01/10/18 22:45 01/17/18 22:44 Allergies: Coded Allergies: No Known Allergies (Unverified , 04/15/17) ROS Limited/Unobtainable: No Constitutional: Reports: no symptoms HEENT: Reports: no symptoms Cardiovascular: Reports: no symptoms Respiratory: Reports: no symptoms Gastrointestinal/Abdominal: Reports: no symptoms Genitourinary: Reports: no symptoms Neurologic/Psychiatric: Reports: no symptoms Subjective 67 YO F admitted with chest pain and shortness of breath. Now elevated troponin. Await myocardial perfusion scan. Cover for Int Trever-Dr Bautista Objective Last Vital Signs Date Time Temp Pulse Resp B/P (MAP) Pulse Ox O2 Delivery O2 Flow Rate FiO2 01/14/18 17:21 123/61 01/14/18 16:00 97.3 94 18 100 Room Air 01/14/18 10:08 01/14/18 04:00 2.0 Laboratory Tests Test 01/13/18 20:30 01/14/18 05:55 Stool Occult Blood Positive (NEGATIVE) White Blood Count 4.7 K/UL (4.8-10.8) L Red Blood Count 2.90 M/UL (4.20-5.40) L Hemoglobin 8.3 G/DL (12.0-16.0) L Hematocrit 25.6 % (37.0-47.0) L Mean Corpuscular Volume 88 FL (80-99) Mean Corpuscular Hemoglobin 28.6 PG (27.0-31.0) Mean Corpuscular Hemoglobin Concent 32.3 G/DL (32.0-36.0) Red Cell Distribution Width 17.5 % (11.6-14.8) H Platelet Count 246 K/UL (150-450) Mean Platelet Volume 7.0 FL (6.5-10.1) Neutrophils (%) (Auto) 48.9 % (45.0-75.0) Lymphocytes (%) (Auto) 36.8 % (20.0-45.0) Monocytes (%) (Auto) 12.1 % (1.0-10.0) H Eosinophils (%) (Auto) 1.0 % (0.0-3.0) Basophils (%) (Auto) 1.2 % (0.0-2.0) Sodium Level 137 MMOL/L (136-145) Potassium Level 4.1 MMOL/L (3.5-5.1) Chloride Level 103 MMOL/L (98-107) Carbon Dioxide Level 23 MMOL/L (21-32) Anion Gap 11 mmol/L (5-15) Blood Urea Nitrogen 22 mg/dL (7-18) H Creatinine 1.6 MG/DL (0.55-1.30) H Estimat Glomerular Filtration Rate 39.1 mL/min (>60) Glucose Level 143 MG/DL (74-106) H Calcium Level 8.6 MG/DL (8.5-10.1) Intake and Output 01/13/18 01/14/18 19:00 07:00 Intake Total 360 ml Output Total 700 ml 300 ml Balance -340 ml -300 ml Intake Oral 360 ml Output Urine Total 700 ml 300 ml # Bowel Movements 2 Objective General Appearance: WD/WN, no apparent distress, alert EENT: PERRL/EOMI, normal ENT inspection, TMs normal Neck: non-tender, normal alignment, supple Cardiovascular: normal peripheral pulses, normal rate, regular rhythm, no gallop/murmur, no JVD Respiratory/Chest: chest wall non-tender, lungs clear, normal breath sounds, no respiratory distress, no accessory muscle use Abdomen: normal bowel sounds, non tender, soft, no organomegaly, no mass Extremities: normal range of motion, non-tender Neurologic: back order clerk II-XII grossly normal, no motor/sensory deficits Skin: normal pigmentation, warm/dry Assessment/Plan Problem List: (1) Chest pain Assessment & Plan: Await myocardial perfusion scan. See cardiology note. (2) SOB (shortness of breath) (3) Diabetes mellitus, type II Assessment & Plan: See Endocrinology note. Cont levemir, novolog and starlix. (4) Elevated troponin Assessment & Plan: ?due to recent procedure? See cardiology note. (5) HTN (hypertension) Assessment & Plan: Continue coreg, vasotec and diltiazem (6) Asthma (7) COPD (chronic obstructive pulmonary disease) (8) CAD (coronary artery disease) Assessment & Plan: Continue plavix and aspirin. See cardiology note. (9) Anemia Status: not improved KRISTINA CARABALLO Jan 14, 2018 17:35
[2018-01-14 20:00] VITALS: BP 142/77
[2018-01-14] MEDS: Atorvastatin 20mg tab ORAL SCH (20:38)
[2018-01-14] MEDS: Tamsulosin 0.4mg cap ORAL SCH (20:39)
[2018-01-15] VITALS: BP 129/70
--- NOTE | 2018-01-15 03:45 | General Progress Note ---
Assessment/Plan Assessment/Plan 1. Anemia due to underlying chronic disease. --> Hgb >8, no prbc needed today. --> Reticulocyte count elevated. --> Anemia workup reviewed. --> Apparently, folic acid was found to be decreased. --> Blood transfusion not required unless symptomatic or hgb <7 2. Anemia due to folic acid deficiency. --> At this time, begin the patient on folic acid. --> Folic acid has been begun. --> monitor levels. 3. Diabetes mellitus. A1c test done. 4. Acute coronary syndrome rule out. --> Check troponin. Cardiology to follow. 5. Hypertension. --> Blood pressure at goal. Systolic blood pressure less than 140. --> Improved 6. Myocardial infarct. Subjective Date patient seen: Jan 14, 2018 Constitutional: Denies: no symptoms, chills, diaphoresis, fever, malaise, weakness, other HEENT: Denies: no symptoms, eye pain, blurred vision, tearing, double vision, ear pain, ear discharge, nose pain, nose congestion, throat pain, throat swelling, mouth pain, mouth swelling, other Cardiovascular: Denies: no symptoms, chest pain, edema, irregular heart rate, lightheadedness, palpitations, syncope, other Respiratory: Denies: no symptoms, cough, orthopnea, shortness of breath, SOB with excertion, SOB at rest, sputum, stridor, wheezing, other Gastrointestinal/Abdominal: Denies: no symptoms, abdomen distended, abdominal pain, black stools, tarry stools, blood in stool, constipated, diarrhea, difficulty swallowing, nausea, poor appetite, poor fluid intake, rectal bleeding , vomiting, other Genitourinary: Denies: no symptoms, burning, discharge, frequency, flank pain, hematuria, incontinence, pain, urgency, other Allergies: Coded Allergies: No Known Allergies (Unverified , 04/15/17) Subjective No major events overnight. Afebrile. Objective Last 24 Hour Vital Signs Date Time Temp Pulse Resp B/P (MAP) Pulse Ox O2 Delivery O2 Flow Rate FiO2 01/15/18 00:00 98.2 92 20 129/70 98 Room Air 01/15/18 00:00 90 01/14/18 23:58 129/70 01/14/18 20:38 92 142/77 01/14/18 20:04 92 2/13/18 20:00 98.7 91 20 142/77 98 Room Air 01/14/18 17:21 123/61 01/14/18 16:00 97.3 94 18 123/61 100 Room Air 01/14/18 16:00 94 01/14/18 13:05 144/73 01/14/18 12:00 97.9 94 18 144/73 98 Room Air 01/14/18 12:00 96 01/14/18 10:11 97.9 01/14/18 10:08 Room Air 01/14/18 10:08 Room Air 01/14/18 10:08 01/14/18 09:12 99.7 01/14/18 09:00 110 128/69 01/14/18 08:00 106 01/14/18 08:00 99.7 110 18 128/69 95 Room Air 01/14/18 06:57 141/68 01/14/18 04:01 102 01/14/18 04:00 96.9 105 20 141/68 97 Nasal Cannula 2.0 Intake and Output 01/14/18 01/15/18 19:00 07:00 Intake Total 350 ml Output Total 425 ml Balance -75 ml Intake Oral 350 ml Output Urine Total 425 ml Laboratory Tests 01/14/18 05:55: White Blood Count 4.7L, Red Blood Count 2.90L, Hemoglobin 8.3L, Hematocrit 25.6L , Mean Corpuscular Volume 88, Mean Corpuscular Hemoglobin 28.6, Mean Corpuscular Hemoglobin Concent 32.3, Red Cell Distribution Width 17.5H, Platelet Count 246, Mean Platelet Volume 7.0, Neutrophils (%) (Auto) 48.9, Lymphocytes (%) (Auto) 36.8, Monocytes (%) (Auto) 12.1H, Eosinophils (%) (Auto) 1.0, Basophils (%) (Auto) 1.2, Sodium Level 137, Potassium Level 4.1, Chloride Level 103, Carbon Dioxide Level 23, Anion Gap 11, Blood Urea Nitrogen 22H, Creatinine 1.6H, Estimat Glomerular Filtration Rate 39.1, Glucose Level 143H, Calcium Level 8.6 Height (Feet): 5 Height (Inches): 4.00 Weight (Pounds): 138 Earl Oquendo Jan 15, 2018 03:45
[2018-01-15 04:00] VITALS: BP 131/59
[2018-01-15] MEDS: HydrALAZINE 50mg tab ORAL SCH ×3 (06:17→17:19)
[2018-01-15] MEDS: NovoLOG Insulin Flexpen SUBQ SCH ×4 (06:19→21:13)
[2018-01-15 08:00] VITALS: BP 127/71
[2018-01-15 08:10] LABS: ALANINE AMINOTRANSFERASE 18 U/L (12-78); ALBUMIN 2.1 G/DL (3.4-5.0); ALBUMIN/GLOBULIN RATIO 0.4 (1.0-2.7); ALKALINE PHOSPHATASE 155 U/L (46-116); ANION GAP 8 mmol/L (5-15); ASPARTATE AMINO TRANSFERASE 33 U/L (15-37); BILIRUBIN,TOTAL 0.6 MG/DL (0.2-1.0); BLOOD UREA NITROGEN 9 mg/dL (7-18); CALCIUM 8.5 MG/DL (8.5-10.1); CARBON DIOXIDE 26 MMOL/L (21-32); CHLORIDE 102 MMOL/L (98-107); CREATININE 1.4 MG/DL (0.55-1.30); PHOSPHORUS 3.8 MG/DL (2.5-4.9); POTASSIUM 4.1 MMOL/L (3.5-5.1); SODIUM 136 MMOL/L (136-145)
[2018-01-15 08:17] LABS: HEMATOCRIT 24.7 % (37.0-47.0); MEAN CORPUSCULAR VOLUME 89 FL (80-99); PLATELET COUNT 203 K/UL (150-450); RED BLOOD COUNT 2.78 M/UL (4.20-5.40); WHITE BLOOD COUNT 3.7 K/UL (4.8-10.8)
[2018-01-15 08:18] LABS: BASOPHILS % (AUTO) 1.9 % (0.0-2.0); EOSINOPHILS % (AUTO) 2.5 % (0.0-3.0); LYMPHOCYTES % (AUTO) 42.6 % (20.0-45.0); MONOCYTES % (AUTO) 17.2 % (1.0-10.0); NEUTROPHILS % (AUTO) 35.8 % (45.0-75.0)
[2018-01-15] MEDS: Aspirin Baby 81mg ORAL SCH (09:04)
[2018-01-15] MEDS: Carvedilol 6.25mg Tab ORAL SCH ×2 (09:04→21:10)
[2018-01-15] MEDS: Heparin 5000 units/ml inj SUBQ SCH ×2 (09:05→21:12)
[2018-01-15] MEDS: Levemir Flexpen SUBQ SCH (09:06)
--- NOTE | 2018-01-15 10:54 | GI Progress Note ---
Assessment/Plan Problems: (1) Occult blood in stools ICD Codes: R19.5 - Other fecal abnormalities SNOMED: 24180083, 891940929 (2) Elevated troponin ICD Codes: R74.8 - Abnormal levels of other serum enzymes SNOMED: 762714673, 794429280, [id number] (3) Diabetes mellitus, type II ICD Codes: E11.9 - Type 2 diabetes mellitus without complications SNOMED: 18071496 (4) Anemia ICD Codes: D64.9 - Anemia, unspecified SNOMED: 456278454 (5) Diabetes mellitus ICD Codes: E11.9 - Type 2 diabetes mellitus without complications SNOMED: 77428770 Status: unchanged Status Narrative Discussed with Dr. Snow. Assessment/Plan occult blood positive anemia 2/2 folate/b12 deficiency elevated troponin patient on plavix EGD/colonoscopy on hold, will require cardiac clearance renal/ADA diet monitor H&H, prn transfusions ppi folate/B12 supplementation fu labs Subjective Gastrointestinal/Abdominal: Reports: no symptoms Objective Last 24 Hour Vital Signs Date Time Temp Pulse Resp B/P (MAP) Pulse Ox O2 Delivery O2 Flow Rate FiO2 01/15/18 09:04 104 127/71 01/15/18 08:00 97.0 104 19 127/71 99 Room Air 01/15/18 07:38 104 01/15/18 06:17 127/69 01/15/18 04:00 97.2 99 20 131/59 100 Room Air 01/15/18 04:00 97 01/15/18 00:00 98.2 92 20 129/70 98 Room Air 01/15/18 00:00 90 01/14/18 23:58 129/70 01/14/18 20:38 92 142/77 01/14/18 20:04 92 01/14/18 20:00 98.7 91 20 142/77 98 Room Air 01/14/18 19:00 98 20 Room Air 21 01/14/18 19:00 98 Room Air 21 01/14/18 19:00 Room Air 01/14/18 17:21 123/61 01/14/18 16:00 97.3 94 18 123/61 100 Room Air 01/14/18 16:00 94 01/14/18 13:05 144/73 01/14/18 12:00 97.9 94 18 144/73 98 Room Air 01/14/18 12:00 96 Intake and Output 01/14/18 01/15/18 19:00 07:00 Intake Total 350 ml Output Total 425 ml 300 ml Balance -75 ml -300 ml Intake Oral 350 ml Output Urine Total 425 ml 300 ml Laboratory Tests Test 01/15/18 06:34 White Blood Count 3.7 K/UL (4.8-10.8) L Red Blood Count 2.78 M/UL (4.20-5.40) L Hemoglobin 8.0 G/DL (12.0-16.0) L Hematocrit 24.7 % (37.0-47.0) L Mean Corpuscular Volume 89 FL (80-99) Mean Corpuscular Hemoglobin 28.7 PG (27.0-31.0) Mean Corpuscular Hemoglobin Concent 32.3 G/DL (32.0-36.0) Red Cell Distribution Width 17.0 % (11.6-14.8) H Platelet Count 203 K/UL (150-450) Mean Platelet Volume 7.5 FL (6.5-10.1) Neutrophils (%) (Auto) 35.8 % (45.0-75.0) L Lymphocytes (%) (Auto) 42.6 % (20.0-45.0) Monocytes (%) (Auto) 17.2 % (1.0-10.0) H Eosinophils (%) (Auto) 2.5 % (0.0-3.0) Basophils (%) (Auto) 1.9 % (0.0-2.0) Erythrocyte Sedimentation Rate 110 MM/HR (0-30) H Sodium Level 136 MMOL/L (136-145) Potassium Level 4.1 MMOL/L (3.5-5.1) Chloride Level 102 MMOL/L (98-107) Carbon Dioxide Level 26 MMOL/L (21-32) Anion Gap 8 mmol/L (5-15) Blood Urea Nitrogen 9 mg/dL (7-18) Creatinine 1.4 MG/DL (0.55-1.30) H Estimat Glomerular Filtration Rate 45.6 mL/min (>60) Glucose Level 141 MG/DL (74-106) H Calcium Level 8.5 MG/DL (8.5-10.1) Phosphorus Level 3.8 MG/DL (2.5-4.9) Magnesium Level 1.8 MG/DL (1.5-2.4) Total Bilirubin 0.6 MG/DL (0.2-1.0) Aspartate Amino Transf (AST/SGOT) 33 U/L (15-37) Alanine Aminotransferase (ALT/SGPT) 18 U/L (12-78) Alkaline Phosphatase 155 U/L (46-116) H Troponin I 0.356 ng/mL (0.000-0.056) Total Protein 6.8 G/DL (6.4-8.2) Albumin 2.1 G/DL (3.4-5.0) L Globulin 4.7 g/dL Albumin/Globulin Ratio 0.4 (1.0-2.7) L Height (Feet): 5 Height (Inches): 4.00 Weight (Pounds): 138 General Appearance: WD/WN, no apparent distress, alert Cardiovascular: normal rate Respiratory/Chest: normal breath sounds, no respiratory distress Abdominal Exam: normal bowel sounds, non tender, soft Extremities: normal range of motion, non-tender Celina Alberts N.P. Jan 15, 2018 10:54
[2018-01-15 12:00] VITALS: BP 126/58
[2018-01-15] MEDS: Morphine Sulfate 4mg/ml Inj IVP PRN (12:16)
--- NOTE | 2018-01-15 12:21 | Pulmonology Progress Note ---
Assessment/Plan Problems: (1) ACS (acute coronary syndrome) (2) Anemia (3) ATN (acute tubular necrosis) (4) UTI (urinary tract infection) (5) Hypertension (6) Diabetes mellitus (7) Lower GI bleed Assessment/Plan checked echo, EF 40% and mild pulmonary hypertension Endo note and input appreciated check electrolytes on levofloxacin OB positive, with anemia, needs to rule out GI bleeding and malignancy, Dr. petersen informed cardio note appreciated stress test done showing ischemia/ awaiting cardiac recommendation GI procedure pending Subjective ROS Limited/Unobtainable: No Interval Events: nuclear medicine study done Allergies: Coded Allergies: No Known Allergies (Unverified , 04/15/17) Objective Last 24 Hour Vital Signs Date Time Temp Pulse Resp B/P (MAP) Pulse Ox O2 Delivery O2 Flow Rate FiO2 01/15/18 09:04 104 127/71 01/15/18 08:00 98 Room Air 21 01/15/18 08:00 97.0 104 19 127/71 99 Room Air 01/15/18 08:00 80 20 Room Air 01/15/18 08:00 Room Air 01/15/18 07:38 104 01/15/18 06:17 127/69 01/15/18 04:00 97.2 99 20 131/59 100 Room Air 01/15/18 04:00 97 01/15/18 00:00 98.2 92 20 129/70 98 Room Air 01/15/18 00:00 90 01/14/18 23:58 129/70 01/14/18 20:38 92 142/77 01/14/18 20:04 92 01/14/18 20:00 98.7 91 20 142/77 98 Room Air 01/14/18 19:00 98 20 Room Air 21 01/14/18 19:00 98 Room Air 21 01/14/18 19:00 Room Air 01/14/18 17:21 123/61 01/14/18 16:00 97.3 94 18 123/61 100 Room Air 01/14/18 16:00 94 01/14/18 13:05 144/73 Intake and Output 01/14/18 01/15/18 19:00 07:00 Intake Total 350 ml Output Total 425 ml 300 ml Balance -75 ml -300 ml Intake Oral 350 ml Output Urine Total 425 ml 300 ml Objective General Appearance: WD/WN HEENT: normocephalic Respiratory/Chest: chest wall non-tender, lungs clear, normal breath sounds Cardiovascular: normal peripheral pulses, normal rate Abdomen: normal bowel sounds, soft, non tender, no organomegaly Extremities: no cyanosis, no clubbing Neurologic/Psychiatric: suspect artist II-XII grossly normal Lymphatic: no neck adenopathy Laboratory Tests 01/15/18 06:34: White Blood Count 3.7L, Red Blood Count 2.78L, Hemoglobin 8.0L, Hematocrit 24.7L , Mean Corpuscular Volume 89, Mean Corpuscular Hemoglobin 28.7, Mean Corpuscular Hemoglobin Concent 32.3, Red Cell Distribution Width 17.0H, Platelet Count 203, Mean Platelet Volume 7.5, Neutrophils (%) (Auto) 35.8L, Lymphocytes (%) (Auto) 42.6, Monocytes (%) (Auto) 17.2H, Eosinophils (%) (Auto) 2.5, Basophils (%) (Auto) 1.9, Erythrocyte Sedimentation Rate 110H, Sodium Level 136, Potassium Level 4.1, Chloride Level 102, Carbon Dioxide Level 26, Anion Gap 8, Blood Urea Nitrogen 9, Creatinine 1.4H, Estimat Glomerular Filtration Rate 45.6, Glucose Level 141H, Calcium Level 8.5, Phosphorus Level 3.8, Magnesium Level 1.8, Total Bilirubin 0.6, Aspartate Amino Transf (AST/SGOT ) 33, Alanine Aminotransferase (ALT/SGPT) 18, Alkaline Phosphatase 155H, Troponin I 0.356H, Total Protein 6.8, Albumin 2.1L, Globulin 4.7, Albumin/ Globulin Ratio 0.4L Current Medications Medications (Trade) Dose Ordered Sig/Tristan Route PRN Reason Start Time Stop Time Status Last Admin Dose Admin Acetaminophen (Tylenol) 650 mg Q4H PRN ORAL FEVER 01/10/18 22:45 02/09/18 22:44 01/14/18 09:12 Albuterol/ Ipratropium (Albuterol/ Ipratropium) 3 ml EVERY 4 HOURS PRN HHN Shortness of Breath 01/10/18 22:45 01/15/18 22:44 01/11/18 02:24 Aspirin (ASA) 81 mg DAILY ORAL 01/12/18 09:00 02/11/18 08:59 01/15/18 09:04 Atorvastatin Calcium (Lipitor) 20 mg BEDTIME ORAL 01/11/18 21:00 02/10/18 20:59 01/14/18 20:38 Carvedilol (Coreg) 6.25 mg EVERY 12 HOURS ORAL 01/11/18 09:00 02/10/18 08:59 01/15/18 09:04 Clopidogrel Bisulfate (Plavix) 75 mg DAILY ORAL 01/11/18 16:30 02/10/18 16:29 01/15/18 09:04 Dextrose (Dextrose 50%) STAT PRN IV Hypoglycemia 01/11/18 06:30 02/10/18 06:29 Diltiazem HCl (Cardizem) 10 mg EVERY HOUR PRN IV heart rate more than 120, 01/10/18 22:45 02/09/18 22:44 Enalaprilat (Vasotec) 2.5 mg EVERY 6 HOURS PRN IV sbp more than 160 01/10/18 22:45 02/09/18 22:44 Folic Acid (Folate) 1 mg Q24HRS ORAL 01/11/18 21:00 02/10/18 20:59 01/14/18 20:39 Furosemide (Lasix) 20 mg DAILY ORAL 01/11/18 16:30 02/10/18 16:29 01/15/18 09:04 Gabapentin (Neurontin) 300 mg BEDTIME ORAL 01/11/18 21:00 02/10/18 20:59 01/14/18 20:38 Heparin Sodium (Porcine) (Heparin 5000 units/ml) 5,000 units EVERY 12 HOURS SUBQ 01/11/18 09:00 02/10/18 08:59 01/15/18 09:05 Hydralazine HCl (Apresoline) 50 mg EVERY 6 HOURS ORAL 01/11/18 00:00 02/10/18 00:00 01/15/18 06:17 Insulin Aspart (NovoLOG) BEFORE MEALS AND HS SUBQ 01/11/18 06:30 02/10/18 06:29 01/15/18 06:19 Insulin Detemir (Levemir) 10 units DAILY SUBQ 01/11/18 09:00 02/10/18 08:59 01/15/18 09:06 Ketorolac Tromethamine (Toradol 30mg) 30 mg Q6HR PRN IV moderate pain ( 4-6) 01/10/18 22:45 01/15/18 22:44 Levofloxacin (Levaquin) 250 mg DAILY ORAL 01/13/18 11:00 01/20/18 10:59 01/15/18 09:04 Morphine Sulfate (Morphine Sulfate) 2 mg Q4H PRN IVP severe Pain (Pain Scale 7-10) 01/15/18 12:15 01/22/18 12:14 Nitroglycerin (Ntg) 0.4 mg Every 5 Minutes PRN SL Prn Chest Pain 01/10/18 22:45 02/09/18 22:44 01/11/18 16:00 Ondansetron HCl (Zofran) 4 mg Q6H PRN IVP Nausea & Vomiting 01/10/18 22:45 02/09/18 22:44 Pantoprazole (Protonix) 40 mg DAILY ORAL 01/15/18 09:00 02/14/18 08:59 01/15/18 09:04 Polyethylene Glycol (Miralax) 17 gm DAILYPRN PRN ORAL Constipation 01/10/18 22:45 02/09/18 22:44 Regadenoson (Lexiscan) 0.4 mg ONCE PRN IV STRESS TEST 01/13/18 21:15 01/15/18 23:59 01/14/18 14:13 Tamsulosin HCl (Flomax) 0.4 mg BEDTIME ORAL 01/11/18 21:00 02/10/18 20:59 01/14/18 20:39 Temazepam (Restoril) 15 mg HSPRN PRN ORAL Insomnia 01/10/18 22:45 01/17/18 22:44 KHADAR BENAVIDES Jan 15, 2018 12:21
--- NOTE | 2018-01-15 12:37 | Internal Med Progress Note ---
Subjective Date of Service: Jan 15, 2018 Physician Name Kristina Lindsay Attending Physician Onesimo Bautista MD Current Medications Medications (Trade) Dose Ordered Sig/Tristan Route PRN Reason Start Time Stop Time Status Last Admin Dose Admin Acetaminophen (Tylenol) 650 mg Q4H PRN ORAL FEVER 01/10/18 22:45 02/09/18 22:44 01/14/18 09:12 Albuterol/ Ipratropium (Albuterol/ Ipratropium) 3 ml EVERY 4 HOURS PRN HHN Shortness of Breath 01/10/18 22:45 01/15/18 22:44 01/11/18 02:24 Aspirin (ASA) 81 mg DAILY ORAL 01/12/18 09:00 02/11/18 08:59 01/15/18 09:04 Atorvastatin Calcium (Lipitor) 20 mg BEDTIME ORAL 01/11/18 21:00 02/10/18 20:59 01/14/18 20:38 Carvedilol (Coreg) 6.25 mg EVERY 12 HOURS ORAL 01/11/18 09:00 02/10/18 08:59 01/15/18 09:04 Clopidogrel Bisulfate (Plavix) 75 mg DAILY ORAL 01/11/18 16:30 02/10/18 16:29 01/15/18 09:04 Dextrose (Dextrose 50%) STAT PRN IV Hypoglycemia 01/11/18 06:30 02/10/18 06:29 Diltiazem HCl (Cardizem) 10 mg EVERY HOUR PRN IV heart rate more than 120, 01/10/18 22:45 02/09/18 22:44 Enalaprilat (Vasotec) 2.5 mg EVERY 6 HOURS PRN IV sbp more than 160 01/10/18 22:45 02/09/18 22:44 Folic Acid (Folate) 1 mg Q24HRS ORAL 01/11/18 21:00 02/10/18 20:59 01/14/18 20:39 Furosemide (Lasix) 20 mg DAILY ORAL 01/11/18 16:30 02/10/18 16:29 01/15/18 09:04 Gabapentin (Neurontin) 300 mg BEDTIME ORAL 01/11/18 21:00 02/10/18 20:59 01/14/18 20:38 Heparin Sodium (Porcine) (Heparin 5000 units/ml) 5,000 units EVERY 12 HOURS SUBQ 01/11/18 09:00 02/10/18 08:59 01/15/18 09:05 Hydralazine HCl (Apresoline) 50 mg EVERY 6 HOURS ORAL 01/11/18 00:00 02/10/18 00:00 01/15/18 12:17 Insulin Aspart (NovoLOG) BEFORE MEALS AND HS SUBQ 01/11/18 06:30 02/10/18 06:29 01/15/18 12:18 Insulin Detemir (Levemir) 10 units DAILY SUBQ 01/11/18 09:00 02/10/18 08:59 01/15/18 09:06 Ketorolac Tromethamine (Toradol 30mg) 30 mg Q6HR PRN IV moderate pain ( 4-6) 01/10/18 22:45 01/15/18 22:44 Levofloxacin (Levaquin) 250 mg DAILY ORAL 01/13/18 11:00 01/20/18 10:59 01/15/18 09:04 Morphine Sulfate (Morphine Sulfate) 2 mg Q4H PRN IVP severe Pain (Pain Scale 7-10) 01/15/18 12:15 01/22/18 12:14 01/15/18 12:16 Nitroglycerin (Ntg) 0.4 mg Every 5 Minutes PRN SL Prn Chest Pain 01/10/18 22:45 02/09/18 22:44 01/11/18 16:00 Ondansetron HCl (Zofran) 4 mg Q6H PRN IVP Nausea & Vomiting 01/10/18 22:45 02/09/18 22:44 Pantoprazole (Protonix) 40 mg DAILY ORAL 01/15/18 09:00 02/14/18 08:59 01/15/18 09:04 Polyethylene Glycol (Miralax) 17 gm DAILYPRN PRN ORAL Constipation 01/10/18 22:45 02/09/18 22:44 Regadenoson (Lexiscan) 0.4 mg ONCE PRN IV STRESS TEST 01/13/18 21:15 01/15/18 23:59 01/14/18 14:13 Tamsulosin HCl (Flomax) 0.4 mg BEDTIME ORAL 01/11/18 21:00 02/10/18 20:59 01/14/18 20:39 Temazepam (Restoril) 15 mg HSPRN PRN ORAL Insomnia 01/10/18 22:45 01/17/18 22:44 Allergies: Coded Allergies: No Known Allergies (Unverified , 04/15/17) ROS Limited/Unobtainable: No Constitutional: Reports: no symptoms HEENT: Reports: no symptoms Cardiovascular: Reports: no symptoms Respiratory: Reports: no symptoms Gastrointestinal/Abdominal: Reports: no symptoms Genitourinary: Reports: no symptoms Neurologic/Psychiatric: Reports: no symptoms Subjective 67 YO F admitted with chest pain and shortness of breath. Now elevated troponin. Await myocardial perfusion scan. Cover for Int Trever-Dr Bautista Objective Last Vital Signs Date Time Temp Pulse Resp B/P (MAP) Pulse Ox O2 Delivery O2 Flow Rate FiO2 01/15/18 12:17 126/58 01/15/18 12:16 97.0 01/15/18 09:04 104 01/15/18 08:00 98 Room Air 21 01/15/18 08:00 19 01/14/18 04:00 2.0 Laboratory Tests Test 01/15/18 06:34 White Blood Count 3.7 K/UL (4.8-10.8) L Red Blood Count 2.78 M/UL (4.20-5.40) L Hemoglobin 8.0 G/DL (12.0-16.0) L Hematocrit 24.7 % (37.0-47.0) L Mean Corpuscular Volume 89 FL (80-99) Mean Corpuscular Hemoglobin 28.7 PG (27.0-31.0) Mean Corpuscular Hemoglobin Concent 32.3 G/DL (32.0-36.0) Red Cell Distribution Width 17.0 % (11.6-14.8) H Platelet Count 203 K/UL (150-450) Mean Platelet Volume 7.5 FL (6.5-10.1) Neutrophils (%) (Auto) 35.8 % (45.0-75.0) L Lymphocytes (%) (Auto) 42.6 % (20.0-45.0) Monocytes (%) (Auto) 17.2 % (1.0-10.0) H Eosinophils (%) (Auto) 2.5 % (0.0-3.0) Basophils (%) (Auto) 1.9 % (0.0-2.0) Erythrocyte Sedimentation Rate 110 MM/HR (0-30) H Sodium Level 136 MMOL/L (136-145) Potassium Level 4.1 MMOL/L (3.5-5.1) Chloride Level 102 MMOL/L (98-107) Carbon Dioxide Level 26 MMOL/L (21-32) Anion Gap 8 mmol/L (5-15) Blood Urea Nitrogen 9 mg/dL (7-18) Creatinine 1.4 MG/DL (0.55-1.30) H Estimat Glomerular Filtration Rate 45.6 mL/min (>60) Glucose Level 141 MG/DL (74-106) H Calcium Level 8.5 MG/DL (8.5-10.1) Phosphorus Level 3.8 MG/DL (2.5-4.9) Magnesium Level 1.8 MG/DL (1.5-2.4) Total Bilirubin 0.6 MG/DL (0.2-1.0) Aspartate Amino Transf (AST/SGOT) 33 U/L (15-37) Alanine Aminotransferase (ALT/SGPT) 18 U/L (12-78) Alkaline Phosphatase 155 U/L (46-116) H Troponin I 0.356 ng/mL (0.000-0.056) Total Protein 6.8 G/DL (6.4-8.2) Albumin 2.1 G/DL (3.4-5.0) L Globulin 4.7 g/dL Albumin/Globulin Ratio 0.4 (1.0-2.7) L Intake and Output 01/14/18 01/15/18 19:00 07:00 Intake Total 350 ml Output Total 425 ml 300 ml Balance -75 ml -300 ml Intake Oral 350 ml Output Urine Total 425 ml 300 ml Objective General Appearance: WD/WN, no apparent distress, alert EENT: PERRL/EOMI, normal ENT inspection, TMs normal Neck: non-tender, normal alignment, supple Cardiovascular: normal peripheral pulses, normal rate, regular rhythm, no gallop/murmur, no JVD Respiratory/Chest: chest wall non-tender, lungs clear, normal breath sounds, no respiratory distress, no accessory muscle use Abdomen: normal bowel sounds, non tender, soft, no organomegaly, no mass Extremities: normal range of motion, non-tender Neurologic: lumber straightener II-XII grossly normal, no motor/sensory deficits Skin: normal pigmentation, warm/dry Assessment/Plan Problem List: (1) Chest pain Assessment & Plan: Await myocardial perfusion scan. See cardiology note. (2) SOB (shortness of breath) (3) Diabetes mellitus, type II Assessment & Plan: See Endocrinology note. Cont levemir, novolog and starlix. (4) Elevated troponin Assessment & Plan: ?due to recent procedure? See cardiology note. (5) HTN (hypertension) Assessment & Plan: Continue coreg, vasotec and diltiazem (6) Asthma (7) COPD (chronic obstructive pulmonary disease) (8) CAD (coronary artery disease) Assessment & Plan: Continue plavix and aspirin. See cardiology note. (9) Anemia Status: KRISTINA Gomez Jan 15, 2018 12:37
[2018-01-15 16:27] VITALS: BP 123/62
--- NOTE | 2018-01-15 19:01 | Cardiology Progress Note ---
Assessment/Plan Assessment/Plan chest wall pain s/p cpr cad s/p pci renal insuf anemia min abn trop her trop are nto sig elevated and the pattern of release is not suggestive of acs with peak or sridevi tele sinus ekg shows sinus perfusion showed infarction with some periinfarct ischemia no need for further intervention at this time chest wall remains tender to palp d/w son op + sahil proceed with gi dewey bonita enriquez Subjective Cardiovascular: Reports: chest pain, Denies: lightheadedness Respiratory: Denies: shortness of breath Gastrointestinal/Abdominal: Denies: abdominal pain Genitourinary: Reports: other - enriquez in place Subjective son questioning if foely can come off Objective Last 24 Hour Vital Signs Date Time Temp Pulse Resp B/P (MAP) Pulse Ox O2 Delivery O2 Flow Rate FiO2 01/15/18 17:19 123/62 01/15/18 16:27 97.2 88 18 123/62 98 Room Air 01/15/18 16:06 89 01/15/18 12:46 97.0 01/15/18 12:17 126/58 01/15/18 12:16 97.0 01/15/18 12:00 97.6 93 22 126/58 98 Room Air 01/15/18 11:41 98 01/15/18 09:04 104 127/71 01/15/18 08:00 98 Room Air 01/15/18 08:00 97.0 104 19 127/71 99 Room Air 01/15/18 08:00 80 20 Room Air 01/15/18 08:00 Room Air 01/15/18 07:38 104 01/15/18 06:17 127/69 01/15/18 04:00 97.2 99 20 131/59 100 Room Air 01/15/18 04:00 97 01/15/18 00:00 98.2 92 20 129/70 98 Room Air 01/15/18 00:00 90 01/14/18 23:58 129/70 01/14/18 20:38 92 142/77 01/14/18 20:04 92 01/14/18 20:00 98.7 91 20 142/77 98 Room Air 01/14/18 19:00 98 20 Room Air 01/14/18 19:00 98 Room Air 21 01/14/18 19:00 Room Air General Appearance: no apparent distress, alert Neck: supple Cardiovascular: normal rate, regular rhythm Respiratory/Chest: lungs clear, normal breath sounds Abdomen: normal bowel sounds, non tender, soft Extremities: no swelling Intake and Output 01/14/18 01/15/18 19:00 07:00 Intake Total 350 ml Output Total 425 ml 300 ml Balance -75 ml -300 ml Intake Oral 350 ml Output Urine Total 425 ml 300 ml Laboratory Tests Test 01/15/18 06:34 White Blood Count 3.7 K/UL (4.8-10.8) L Red Blood Count 2.78 M/UL (4.20-5.40) L Hemoglobin 8.0 G/DL (12.0-16.0) L Hematocrit 24.7 % (37.0-47.0) L Mean Corpuscular Volume 89 FL (80-99) Mean Corpuscular Hemoglobin 28.7 PG (27.0-31.0) Mean Corpuscular Hemoglobin Concent 32.3 G/DL (32.0-36.0) Red Cell Distribution Width 17.0 % (11.6-14.8) H Platelet Count 203 K/UL (150-450) Mean Platelet Volume 7.5 FL (6.5-10.1) Neutrophils (%) (Auto) 35.8 % (45.0-75.0) L Lymphocytes (%) (Auto) 42.6 % (20.0-45.0) Monocytes (%) (Auto) 17.2 % (1.0-10.0) H Eosinophils (%) (Auto) 2.5 % (0.0-3.0) Basophils (%) (Auto) 1.9 % (0.0-2.0) Erythrocyte Sedimentation Rate 110 MM/HR (0-30) H Sodium Level 136 MMOL/L (136-145) Potassium Level 4.1 MMOL/L (3.5-5.1) Chloride Level 102 MMOL/L (98-107) Carbon Dioxide Level 26 MMOL/L (21-32) Anion Gap 8 mmol/L (5-15) Blood Urea Nitrogen 9 mg/dL (7-18) Creatinine 1.4 MG/DL (0.55-1.30) H Estimat Glomerular Filtration Rate 45.6 mL/min (>60) Glucose Level 141 MG/DL (74-106) H Calcium Level 8.5 MG/DL (8.5-10.1) Phosphorus Level 3.8 MG/DL (2.5-4.9) Magnesium Level 1.8 MG/DL (1.5-2.4) Total Bilirubin 0.6 MG/DL (0.2-1.0) Aspartate Amino Transf (AST/SGOT) 33 U/L (15-37) Alanine Aminotransferase (ALT/SGPT) 18 U/L (12-78) Alkaline Phosphatase 155 U/L (46-116) H Troponin I 0.356 ng/mL (0.000-0.056) Total Protein 6.8 G/DL (6.4-8.2) Albumin 2.1 G/DL (3.4-5.0) L Globulin 4.7 g/dL Albumin/Globulin Ratio 0.4 (1.0-2.7) L LITA DAVE Jan 15, 2018 19:01
--- NOTE | 2018-01-15 19:40 | General Progress Note ---
Assessment/Plan Problem List: (1) Diabetes mellitus ICD Codes: E11.9 - Type 2 diabetes mellitus without complications SNOMED: 43750697 (2) ACS (acute coronary syndrome) ICD Codes: I24.9 - Acute ischemic heart disease, unspecified SNOMED: 365037119 (3) Anemia ICD Codes: D64.9 - Anemia, unspecified SNOMED: 728293902 (4) Hypertension ICD Codes: I10 - Essential (primary) hypertension SNOMED: 42262223 (5) Abnormal thyroid blood test ICD Codes: R94.6 - Abnormal results of thyroid function studies SNOMED: 632243855 Assessment/Plan BG mostly elevated - especially during the day - continue Levemir 10 units daily - continue NISS - add Starlix 60 mg ac tid repeat TSH shows improvement from 6 to 4 without treatment free T4 is normal - no need for thyroid hormone replacement - repeat thyroid function in 3-4 weeks Subjective Allergies: Coded Allergies: No Known Allergies (Unverified , 04/15/17) All Systems: reviewed and negative except above Subjective events noted - interval notes reviewed Item Value Date Time Bedside Blood Glucose 207 mg/dl H 01/15/18 1720 Bedside Blood Glucose 250 mg/dl H 01/15/18 1218 Bedside Blood Glucose 169 mg/dl H 01/15/18 0906 Bedside Blood Glucose 169 mg/dl H 01/15/18 0630 Objective Last 24 Hour Vital Signs Date Time Temp Pulse Resp B/P (MAP) Pulse Ox O2 Delivery O2 Flow Rate FiO2 01/15/18 17:19 123/62 01/15/18 16:27 97.2 88 18 123/62 98 Room Air 01/15/18 16:06 89 01/15/18 12:46 97.0 01/15/18 12:17 126/58 01/15/18 12:16 97.0 01/15/18 12:00 97.6 93 22 126/58 98 Room Air 01/15/18 11:41 98 01/15/18 09:04 104 127/71 01/15/18 08:00 98 Room Air 21 01/15/18 08:00 97.0 104 19 127/71 99 Room Air 01/15/18 08:00 80 20 Room Air 21 01/15/18 08:00 Room Air 01/15/18 07:38 104 2/14/18 06:17 127/69 01/15/18 04:00 97.2 99 20 131/59 100 Room Air 01/15/18 04:00 97 01/15/18 00:00 98.2 92 20 129/70 98 Room Air 01/15/18 00:00 90 01/14/18 23:58 129/70 01/14/18 20:38 92 142/77 01/14/18 20:04 92 01/14/18 20:00 98.7 91 20 142/77 98 Room Air Intake and Output 01/14/18 01/15/18 19:00 07:00 Intake Total 350 ml Output Total 425 ml 300 ml Balance -75 ml -300 ml Intake Oral 350 ml Output Urine Total 425 ml 300 ml Laboratory Tests 01/15/18 06:34: White Blood Count 3.7L, Red Blood Count 2.78L, Hemoglobin 8.0L, Hematocrit 24.7L , Mean Corpuscular Volume 89, Mean Corpuscular Hemoglobin 28.7, Mean Corpuscular Hemoglobin Concent 32.3, Red Cell Distribution Width 17.0H, Platelet Count 203, Mean Platelet Volume 7.5, Neutrophils (%) (Auto) 35.8L, Lymphocytes (%) (Auto) 42.6, Monocytes (%) (Auto) 17.2H, Eosinophils (%) (Auto) 2.5, Basophils (%) (Auto) 1.9, Erythrocyte Sedimentation Rate 110H, Sodium Level 136, Potassium Level 4.1, Chloride Level 102, Carbon Dioxide Level 26, Anion Gap 8, Blood Urea Nitrogen 9, Creatinine 1.4H, Estimat Glomerular Filtration Rate 45.6, Glucose Level 141H, Calcium Level 8.5, Phosphorus Level 3.8, Magnesium Level 1.8, Total Bilirubin 0.6, Aspartate Amino Transf (AST/SGOT ) 33, Alanine Aminotransferase (ALT/SGPT) 18, Alkaline Phosphatase 155H, Troponin I 0.356H, Total Protein 6.8, Albumin 2.1L, Globulin 4.7, Albumin/ Globulin Ratio 0.4L Height (Feet): 5 Height (Inches): 4.00 Weight (Pounds): 138 General Appearance: no apparent distress Neck: normal alignment Cardiovascular: normal rate Respiratory/Chest: lungs clear Abdomen: normal bowel sounds Pelvis: normal external exam Objective Current Medications Medications (Trade) Dose Ordered Sig/Tristan Route PRN Reason Start Time Stop Time Status Last Admin Dose Admin Acetaminophen (Tylenol) 650 mg Q4H PRN ORAL FEVER 01/10/18 22:45 02/09/18 22:44 01/14/18 09:12 Albuterol/ Ipratropium (Albuterol/ Ipratropium) 3 ml EVERY 4 HOURS PRN HHN Shortness of Breath 01/10/18 22:45 01/15/18 22:44 01/11/18 02:24 Aspirin (ASA) 81 mg DAILY ORAL 01/12/18 09:00 02/11/18 08:59 01/15/18 09:04 Atorvastatin Calcium (Lipitor) 20 mg BEDTIME ORAL 01/11/18 21:00 02/10/18 20:59 01/14/18 20:38 Carvedilol (Coreg) 6.25 mg EVERY 12 HOURS ORAL 01/11/18 09:00 02/10/18 08:59 01/15/18 09:04 Clopidogrel Bisulfate (Plavix) 75 mg DAILY ORAL 01/11/18 16:30 02/10/18 16:29 01/15/18 09:04 Dextrose (Dextrose 50%) STAT PRN IV Hypoglycemia 01/11/18 06:30 02/10/18 06:29 Diltiazem HCl (Cardizem) 10 mg EVERY HOUR PRN IV heart rate more than 120, 01/10/18 22:45 02/09/18 22:44 Enalaprilat (Vasotec) 2.5 mg EVERY 6 HOURS PRN IV sbp more than 160 01/10/18 22:45 02/09/18 22:44 Folic Acid (Folate) 1 mg Q24HRS ORAL 01/11/18 21:00 02/10/18 20:59 01/14/18 20:39 Furosemide (Lasix) 20 mg DAILY ORAL 01/11/18 16:30 02/10/18 16:29 01/15/18 09:04 Gabapentin (Neurontin) 300 mg BEDTIME ORAL 01/11/18 21:00 02/10/18 20:59 01/14/18 20:38 Heparin Sodium (Porcine) (Heparin 5000 units/ml) 5,000 units EVERY 12 HOURS SUBQ 01/11/18 09:00 02/10/18 08:59 01/15/18 09:05 Hydralazine HCl (Apresoline) 50 mg EVERY 6 HOURS ORAL 01/11/18 00:00 02/10/18 00:00 01/15/18 17:19 Insulin Aspart (NovoLOG) BEFORE MEALS AND HS SUBQ 01/11/18 06:30 02/10/18 06:29 01/15/18 17:20 Insulin Detemir (Levemir) 10 units DAILY SUBQ 01/11/18 09:00 02/10/18 08:59 01/15/18 09:06 Ketorolac Tromethamine (Toradol 30mg) 30 mg Q6HR PRN IV moderate pain ( 4-6) 01/10/18 22:45 01/15/18 22:44 Levofloxacin (Levaquin) 250 mg DAILY ORAL 01/13/18 11:00 01/20/18 10:59 01/15/18 09:04 Morphine Sulfate (Morphine Sulfate) 2 mg Q4H PRN IVP severe Pain (Pain Scale 7-10) 01/15/18 12:15 01/22/18 12:14 01/15/18 12:16 Nitroglycerin (Ntg) 0.4 mg Every 5 Minutes PRN SL Prn Chest Pain 01/10/18 22:45 02/09/18 22:44 01/11/18 16:00 Ondansetron HCl (Zofran) 4 mg Q6H PRN IVP Nausea & Vomiting 01/10/18 22:45 02/09/18 22:44 Pantoprazole (Protonix) 40 mg DAILY ORAL 01/15/18 09:00 02/14/18 08:59 01/15/18 09:04 Polyethylene Glycol (Miralax) 17 gm DAILYPRN PRN ORAL Constipation 01/10/18 22:45 02/09/18 22:44 Regadenoson (Lexiscan) 0.4 mg ONCE PRN IV STRESS TEST 01/13/18 21:15 01/15/18 23:59 01/14/18 14:13 Tamsulosin HCl (Flomax) 0.4 mg BEDTIME ORAL 01/11/18 21:00 02/10/18 20:59 01/14/18 20:39 Temazepam (Restoril) 15 mg HSPRN PRN ORAL Insomnia 01/10/18 22:45 01/17/18 22:44 TREVOR ARIAS Jan 15, 2018 19:40
[2018-01-15 20:00] VITALS: BP 127/67
[2018-01-15] MEDS: Atorvastatin 20mg tab ORAL SCH (21:10)
[2018-01-15] MEDS: Tamsulosin 0.4mg cap ORAL SCH (21:10)
[2018-01-15] MEDS: Albuterol/Ipratropium 3ml neb HHN PRN (22:34)
--- NOTE | 2018-01-15 23:34 | General Progress Note ---
Assessment/Plan Assessment/Plan 1. Anemia due to underlying chronic disease. --> Hgb >8, no prbc needed today. --> Reticulocyte count elevated. --> Anemia workup reviewed. --> Blood transfusion not required unless symptomatic or hgb <7 --> Occult blood detected, followup by GI services. 2. Anemia due to folic acid deficiency. --> At this time, begin the patient on folic acid. --> Folic acid has been begun. --> monitor levels. 3. Diabetes mellitus. A1c test done. 4. Acute coronary syndrome rule out. --> Check troponin. Cardiology to follow. 5. Hypertension. --> Blood pressure at goal. Systolic blood pressure less than 140. --> Improved 6. Myocardial infarct. Subjective Date patient seen: Jan 15, 2018 Constitutional: Denies: no symptoms, chills, diaphoresis, fever, malaise, weakness, other HEENT: Denies: no symptoms, eye pain, blurred vision, tearing, double vision, ear pain, ear discharge, nose pain, nose congestion, throat pain, throat swelling, mouth pain, mouth swelling, other Cardiovascular: Denies: no symptoms, chest pain, edema, irregular heart rate, lightheadedness, palpitations, syncope, other Respiratory: Denies: no symptoms, cough, orthopnea, shortness of breath, SOB with excertion, SOB at rest, sputum, stridor, wheezing, other Gastrointestinal/Abdominal: Denies: no symptoms, abdomen distended, abdominal pain, black stools, tarry stools, blood in stool, constipated, diarrhea, difficulty swallowing, nausea, poor appetite, poor fluid intake, rectal bleeding , vomiting, other Genitourinary: Denies: no symptoms, burning, discharge, frequency, flank pain, hematuria, incontinence, pain, urgency, other Neurologic/Psychiatric: Denies: no symptoms, anxiety, depressed, emotional problems, headache, numbness, paresthesia, pre-existing deficit, seizure, tingling, tremors, weakness, other Allergies: Coded Allergies: No Known Allergies (Unverified , 04/15/17) Subjective Patient has hematochezia. No fever or chills. Objective Last 24 Hour Vital Signs Date Time Temp Pulse Resp B/P (MAP) Pulse Ox O2 Delivery O2 Flow Rate FiO2 01/15/18 22:43 90 20 99 Nasal Cannula 3.0 32 01/15/18 22:37 Nasal Cannula 3.0 32 01/15/18 22:34 92 20 96 Nasal Cannula 3.0 32 01/15/18 21:10 88 123/62 01/15/18 20:06 Room Air 01/15/18 20:06 98 Room Air 21 01/15/18 20:06 88 20 Room Air 21 01/15/18 20:00 89 01/15/18 20:00 96.8 89 20 127/67 99 Nasal Cannula 2.0 01/15/18 17:19 123/62 01/15/18 16:27 97.2 88 18 123/62 98 Room Air 01/15/18 16:06 89 01/15/18 12:46 97.0 01/15/18 12:17 126/58 01/15/18 12:16 97.0 01/15/18 12:00 97.6 93 22 126/58 98 Room Air 01/15/18 11:41 98 01/15/18 09:04 104 127/71 01/15/18 08:00 98 Room Air 21 01/15/18 08:00 97.0 104 19 127/71 99 Room Air 01/15/18 08:00 80 20 Room Air 01/15/18 08:00 Room Air 01/15/18 07:38 104 01/15/18 06:17 127/69 01/15/18 04:00 97.2 99 20 131/59 100 Room Air 01/15/18 04:00 97 01/15/18 00:00 98.2 92 20 129/70 98 Room Air 01/15/18 00:00 90 01/14/18 23:58 129/70 Intake and Output 01/14/18 01/15/18 19:00 07:00 Intake Total 350 ml Output Total 425 ml 300 ml Balance -75 ml -300 ml Intake Oral 350 ml Output Urine Total 425 ml 300 ml Laboratory Tests 01/15/18 06:34: White Blood Count 3.7L, Red Blood Count 2.78L, Hemoglobin 8.0L, Hematocrit 24.7L , Mean Corpuscular Volume 89, Mean Corpuscular Hemoglobin 28.7, Mean Corpuscular Hemoglobin Concent 32.3, Red Cell Distribution Width 17.0H, Platelet Count 203, Mean Platelet Volume 7.5, Neutrophils (%) (Auto) 35.8L, Lymphocytes (%) (Auto) 42.6, Monocytes (%) (Auto) 17.2H, Eosinophils (%) (Auto) 2.5, Basophils (%) (Auto) 1.9, Erythrocyte Sedimentation Rate 110H, Sodium Level 136, Potassium Level 4.1, Chloride Level 102, Carbon Dioxide Level 26, Anion Gap 8, Blood Urea Nitrogen 9, Creatinine 1.4H, Estimat Glomerular Filtration Rate 45.6, Glucose Level 141H, Calcium Level 8.5, Phosphorus Level 3.8, Magnesium Level 1.8, Total Bilirubin 0.6, Aspartate Amino Transf (AST/SGOT ) 33, Alanine Aminotransferase (ALT/SGPT) 18, Alkaline Phosphatase 155H, Troponin I 0.356H, Total Protein 6.8, Albumin 2.1L, Globulin 4.7, Albumin/ Globulin Ratio 0.4L Height (Feet): 5 Height (Inches): 4.00 Weight (Pounds): 138 General Appearance: confused Respiratory/Chest: decreased breath sounds Earl Oquendo Jan 15, 2018 23:34
[2018-01-16] VITALS (7 sets, daily range): BP systolic 127–139; BP diastolic 58–81
[2018-01-16] MEDS: HydrALAZINE 50mg tab ORAL SCH ×4 (02:18→18:57)
[2018-01-16] MEDS: Nateglinide 60mg tab ORAL SCH ×3 (06:49→17:15)
[2018-01-16] MEDS: Morphine Sulfate 4mg/ml Inj IVP PRN ×2 (06:51→21:09)
[2018-01-16] MEDS: NovoLOG Insulin Flexpen SUBQ SCH ×4 (06:55→20:55)
[2018-01-16 08:25] LABS: HEMATOCRIT 23.2 % (37.0-47.0); HEMOGLOBIN 7.7 G/DL (12.0-16.0); MEAN CORPUSCULAR VOLUME 87 FL (80-99); PLATELET COUNT 206 K/UL (150-450); RED BLOOD COUNT 2.65 M/UL (4.20-5.40); RED CELL DISTRIBUTION WIDTH 16.8 % (11.6-14.8); WHITE BLOOD COUNT 3.4 K/UL (4.8-10.8)
[2018-01-16 08:44] LABS: ANION GAP 6 mmol/L (5-15); BLOOD UREA NITROGEN 18 mg/dL (7-18); CALCIUM 8.4 MG/DL (8.5-10.1); CARBON DIOXIDE 27 MMOL/L (21-32); CHLORIDE 100 MMOL/L (98-107); CREATININE 1.4 MG/DL (0.55-1.30); POTASSIUM 4.3 MMOL/L (3.5-5.1); SODIUM 133 MMOL/L (136-145)
[2018-01-16] MEDS: Aspirin Baby 81mg ORAL SCH (09:13)
[2018-01-16] MEDS: Carvedilol 6.25mg Tab ORAL SCH ×2 (09:13→21:09)
[2018-01-16] MEDS: Heparin 5000 units/ml inj SUBQ SCH ×2 (09:15→21:00)
[2018-01-16] MEDS: Levemir Flexpen SUBQ SCH (09:16)
--- NOTE | 2018-01-16 10:35 | GI Progress Note ---
Assessment/Plan Problems: (1) Occult blood in stools ICD Codes: R19.5 - Other fecal abnormalities SNOMED: 04449632, 356971557 (2) Elevated troponin ICD Codes: R74.8 - Abnormal levels of other serum enzymes SNOMED: 133676874, 117324640, 781224101 (3) Diabetes mellitus, type II ICD Codes: E11.9 - Type 2 diabetes mellitus without complications SNOMED: 09400341 (4) Anemia ICD Codes: D64.9 - Anemia, unspecified SNOMED: 375948208 (5) Diabetes mellitus ICD Codes: E11.9 - Type 2 diabetes mellitus without complications SNOMED: 88107830 Status: stable Status Narrative Discussed with Dr. Snow. Assessment/Plan occult blood positive anemia 2/2 folate/b12 deficiency elevated troponin patient on plavix cardiology recs reviewed EGD/colonoscopy scheduled tomorrow. - CLD now, NPO @ [facility]. - hold plavix ppi folate/B12 supplementation fu labs The patient was seen and examined at bedside and all new and available data was reviewed in the patients chart. I agree with the above findings, impression and plan. (Patient seen earlier today. Signature stamp does not reflect patient encounter time.). - Rachael Snow MD Subjective Subjective limited Objective Last 24 Hour Vital Signs Date Time Temp Pulse Resp B/P (MAP) Pulse Ox O2 Delivery O2 Flow Rate FiO2 01/16/18 09:13 94 127/62 01/16/18 08:00 96 01/16/18 08:00 98.1 94 18 127/62 98 Nasal Cannula 2.0 01/16/18 06:50 135/64 01/16/18 04:00 96 01/16/18 04:00 97.6 92 21 135/64 94 Nasal Cannula 2.0 01/16/18 02:18 123/62 01/16/18 00:00 98.7 94 21 127/58 98 Nasal Cannula 2.0 01/16/18 00:00 94 01/15/18 22:43 90 20 99 Nasal Cannula 3.0 32 01/15/18 22:37 Nasal Cannula 3.0 32 01/15/18 22:34 92 20 96 Nasal Cannula 3.0 32 01/15/18 21:10 88 123/62 01/15/18 20:06 Room Air 01/15/18 20:06 98 Room Air 21 01/15/18 20:06 88 20 Room Air 21 01/15/18 20:00 89 01/15/18 20:00 96.8 89 20 127/67 99 Nasal Cannula 2.0 01/15/18 17:19 123/62 01/15/18 16:27 97.2 88 18 123/62 98 Room Air 01/15/18 16:06 89 01/15/18 12:46 97.0 01/15/18 12:17 126/58 01/15/18 12:16 97.0 01/15/18 12:00 97.6 93 22 126/58 98 Room Air 01/15/18 11:41 98 Intake and Output 01/15/18 01/16/18 19:00 07:00 Intake Total 960 ml Output Total 0 ml Balance 960 ml 0 ml Intake Oral 960 ml Output Urine Total 0 ml Laboratory Tests Test 01/16/18 06:35 White Blood Count 3.4 K/UL (4.8-10.8) L Red Blood Count 2.65 M/UL (4.20-5.40) L Hemoglobin 7.7 G/DL (12.0-16.0) L Hematocrit 23.2 % (37.0-47.0) L Mean Corpuscular Volume 87 FL (80-99) Mean Corpuscular Hemoglobin 28.9 PG (27.0-31.0) Mean Corpuscular Hemoglobin Concent 33.0 G/DL (32.0-36.0) Red Cell Distribution Width 16.8 % (11.6-14.8) H Platelet Count 206 K/UL (150-450) Mean Platelet Volume 7.6 FL (6.5-10.1) Neutrophils (%) (Auto) % (45.0-75.0) Lymphocytes (%) (Auto) % (20.0-45.0) Monocytes (%) (Auto) % (1.0-10.0) Eosinophils (%) (Auto) % (0.0-3.0) Basophils (%) (Auto) % (0.0-2.0) Differential Total Cells Counted 100 Neutrophils % (Manual) 37 % (45-75) L Lymphocytes % (Manual) 46 % (20-45) H Monocytes % (Manual) 15 % (1-10) H Eosinophils % (Manual) 2 % (0-3) Basophils % (Manual) 0 % (0-2) Band Neutrophils 0 % (0-8) Platelet Estimate Adequate Platelet Morphology Normal Polychromasia 1+ Anisocytosis 1+ Sodium Level 133 MMOL/L (136-145) L Potassium Level 4.3 MMOL/L (3.5-5.1) Chloride Level 100 MMOL/L (98-107) Carbon Dioxide Level 27 MMOL/L (21-32) Anion Gap 6 mmol/L (5-15) Blood Urea Nitrogen 18 mg/dL (7-18) Creatinine 1.4 MG/DL (0.55-1.30) H Estimat Glomerular Filtration Rate 45.6 mL/min (>60) Glucose Level 176 MG/DL (74-106) H Calcium Level 8.4 MG/DL (8.5-10.1) L Height (Feet): 5 Height (Inches): 4.00 Weight (Pounds): 138 General Appearance: WD/WN, no apparent distress, alert Cardiovascular: normal rate Respiratory/Chest: normal breath sounds, no respiratory distress Abdominal Exam: normal bowel sounds, non tender, soft Extremities: non-tender Celina Alberts N.P. Jan 16, 2018 10:35 SVETLANA SNOW Jan 20, 2018 09:08
--- NOTE | 2018-01-16 12:30 | Pulmonology Progress Note ---
Assessment/Plan Problems: (1) ACS (acute coronary syndrome) (2) Anemia (3) ATN (acute tubular necrosis) (4) UTI (urinary tract infection) (5) Hypertension (6) Diabetes mellitus (7) Lower GI bleed Assessment/Plan checked echo, EF 40% and mild pulmonary hypertension Endo note and input appreciated check electrolytes on levofloxacin OB positive, with anemia, needs to rule out GI bleeding and malignancy, Dr. petersen informed cardio note appreciated, cleared for GI proceudres stress test done showing ischemia, appreciate cario input GI procedure planned transfuse one unit of prbc. Subjective ROS Limited/Unobtainable: No Interval Events: no new complains Allergies: Coded Allergies: No Known Allergies (Unverified , 04/15/17) Objective Last 24 Hour Vital Signs Date Time Temp Pulse Resp B/P (MAP) Pulse Ox O2 Delivery O2 Flow Rate FiO2 01/16/18 12:00 98.1 95 18 134/62 98 Nasal Cannula 2.0 01/16/18 09:13 94 127/62 01/16/18 08:00 96 01/16/18 08:00 98.1 94 18 127/62 98 Nasal Cannula 2.0 01/16/18 06:50 135/64 01/16/18 04:00 96 01/16/18 04:00 97.6 92 21 135/64 94 Nasal Cannula 2.0 01/16/18 02:18 123/62 01/16/18 00:00 98.7 94 21 127/58 98 Nasal Cannula 2.0 01/16/18 00:00 94 01/15/18 22:43 90 20 99 Nasal Cannula 3.0 32 01/15/18 22:37 Nasal Cannula 3.0 32 01/15/18 22:34 92 20 96 Nasal Cannula 3.0 32 01/15/18 21:10 88 123/62 01/15/18 20:06 Room Air 01/15/18 20:06 98 Room Air 21 01/15/18 20:06 88 20 Room Air 21 01/15/18 20:00 89 01/15/18 20:00 96.8 89 20 127/67 99 Nasal Cannula 2.0 01/15/18 17:19 123/62 01/15/18 16:27 97.2 88 18 123/62 98 Room Air 01/15/18 16:06 89 01/15/18 12:46 97.0 Intake and Output 01/15/18 01/16/18 19:00 07:00 Intake Total 960 ml Output Total 0 ml Balance 960 ml 0 ml Intake Oral 960 ml Output Urine Total 0 ml Objective General Appearance: WD/WN HEENT: normocephalic Respiratory/Chest: chest wall non-tender, lungs clear, normal breath sounds Cardiovascular: normal peripheral pulses, normal rate Abdomen: normal bowel sounds, soft, non tender, no organomegaly Extremities: no cyanosis, no clubbing 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 Lymphatic: no neck adenopathy Laboratory Tests 01/16/18 06:35: White Blood Count 3.4L, Red Blood Count 2.65L, Hemoglobin 7.7L, Hematocrit 23.2L , Mean Corpuscular Volume 87, Mean Corpuscular Hemoglobin 28.9, Mean Corpuscular Hemoglobin Concent 33.0, Red Cell Distribution Width 16.8H, Platelet Count 206, Mean Platelet Volume 7.6, Neutrophils (%) (Auto) , Lymphocytes (%) (Auto) , Monocytes (%) (Auto) , Eosinophils (%) (Auto) , Basophils (%) (Auto) , Differential Total Cells Counted 100, Neutrophils % ( Manual) 37L, Lymphocytes % (Manual) 46H, Monocytes % (Manual) 15H, Eosinophils % (Manual) 2, Basophils % (Manual) 0, Band Neutrophils 0, Platelet Estimate Adequate, Platelet Morphology Normal, Polychromasia 1+, Anisocytosis 1+, Sodium Level 133L, Potassium Level 4.3, Chloride Level 100, Carbon Dioxide Level 27, Anion Gap 6, Blood Urea Nitrogen 18, Creatinine 1.4H, Estimat Glomerular Filtration Rate 45.6, Glucose Level 176H, Calcium Level 8.4L Current Medications Medications (Trade) Dose Ordered Sig/Tristan Route PRN Reason Start Time Stop Time Status Last Admin Dose Admin Acetaminophen (Tylenol) 650 mg Q4H PRN ORAL FEVER 01/10/18 22:45 02/09/18 22:44 01/14/18 09:12 Aspirin (ASA) 81 mg DAILY ORAL 01/12/18 09:00 02/11/18 08:59 01/16/18 09:13 Atorvastatin Calcium (Lipitor) 20 mg BEDTIME ORAL 01/11/18 21:00 02/10/18 20:59 01/15/18 21:10 Carvedilol (Coreg) 6.25 mg EVERY 12 HOURS ORAL 01/11/18 09:00 02/10/18 08:59 01/16/18 09:13 Clopidogrel Bisulfate (Plavix) 75 mg DAILY ORAL 01/11/18 16:30 02/10/18 16:29 01/16/18 09:13 Dextrose (Dextrose 50%) STAT PRN IV Hypoglycemia 01/11/18 06:30 02/10/18 06:29 Diltiazem HCl (Cardizem) 10 mg EVERY HOUR PRN IV heart rate more than 120, 01/10/18 22:45 02/09/18 22:44 Enalaprilat (Vasotec) 2.5 mg EVERY 6 HOURS PRN IV sbp more than 160 01/10/18 22:45 02/09/18 22:44 Folic Acid (Folate) 1 mg Q24HRS ORAL 01/11/18 21:00 02/10/18 20:59 01/15/18 21:10 Furosemide (Lasix) 20 mg DAILY ORAL 01/11/18 16:30 02/10/18 16:29 01/16/18 09:25 Gabapentin (Neurontin) 300 mg BEDTIME ORAL 01/11/18 21:00 02/10/18 20:59 01/15/18 21:10 Heparin Sodium (Porcine) (Heparin 5000 units/ml) 5,000 units EVERY 12 HOURS SUBQ 01/11/18 09:00 02/10/18 08:59 01/16/18 09:15 Hydralazine HCl (Apresoline) 50 mg EVERY 6 HOURS ORAL 01/11/18 00:00 02/10/18 00:00 01/16/18 06:50 Insulin Aspart (NovoLOG) BEFORE MEALS AND HS SUBQ 01/11/18 06:30 02/10/18 06:29 01/16/18 11:50 Insulin Detemir (Levemir) 10 units DAILY SUBQ 01/11/18 09:00 02/10/18 08:59 01/16/18 09:16 Levofloxacin (Levaquin) 250 mg DAILY ORAL 01/13/18 11:00 01/20/18 10:59 01/16/18 09:13 Morphine Sulfate (Morphine Sulfate) 2 mg Q4H PRN IVP severe Pain (Pain Scale 7-10) 01/15/18 12:15 01/22/18 12:14 01/16/18 06:51 Nateglinide (Starlix) 60 mg TIAC ORAL 01/16/18 06:30 02/15/18 06:29 01/16/18 11:49 Nitroglycerin (Ntg) 0.4 mg Every 5 Minutes PRN SL Prn Chest Pain 01/10/18 22:45 02/09/18 22:44 01/11/18 16:00 Ondansetron HCl (Zofran) 4 mg Q6H PRN IVP Nausea & Vomiting 01/10/18 22:45 02/09/18 22:44 Pantoprazole (Protonix) 40 mg DAILY ORAL 01/15/18 09:00 02/14/18 08:59 01/16/18 09:23 Polyethylene Glycol (Miralax) 17 gm DAILYPRN PRN ORAL Constipation 01/10/18 22:45 02/09/18 22:44 Tamsulosin HCl (Flomax) 0.4 mg BEDTIME ORAL 01/11/18 21:00 02/10/18 20:59 01/15/18 21:10 Temazepam (Restoril) 15 mg HSPRN PRN ORAL Insomnia 01/10/18 22:45 01/17/18 22:44 KHADAR BENAVIDES Jan 16, 2018 12:30
[2018-01-16] MEDS ORDERED: NS 500ML ONE (15:39)
[2018-01-16] MEDS ORDERED: Polyethylene Glycol 238gm bottle ORAL ONE (16:00)
[2018-01-16] MEDS ORDERED: Magnesium Citrate Liq Btl ORAL ONE (16:00)
[2018-01-16] MEDS ORDERED: Bisacodyl EC 5mg tab ORAL ONE (16:00)
--- NOTE | 2018-01-16 18:35 | Internal Med Progress Note ---
Subjective Date of Service: Jan 16, 2018 Physician Name Kristina Caraballo Attending Physician Onesimo Bautista MD Current Medications Medications (Trade) Dose Ordered Sig/Tristan Route PRN Reason Start Time Stop Time Status Last Admin Dose Admin Acetaminophen (Tylenol) 650 mg Q4H PRN ORAL FEVER 01/10/18 22:45 02/09/18 22:44 01/14/18 09:12 Aspirin (ASA) 81 mg DAILY ORAL 01/12/18 09:00 02/11/18 08:59 01/16/18 09:13 Atorvastatin Calcium (Lipitor) 20 mg BEDTIME ORAL 01/11/18 21:00 02/10/18 20:59 01/15/18 21:10 Carvedilol (Coreg) 6.25 mg EVERY 12 HOURS ORAL 01/11/18 09:00 02/10/18 08:59 01/16/18 09:13 Dextrose (Dextrose 50%) STAT PRN IV Hypoglycemia 01/11/18 06:30 02/10/18 06:29 Diltiazem HCl (Cardizem) 10 mg EVERY HOUR PRN IV heart rate more than 120, 01/10/18 22:45 02/09/18 22:44 Enalaprilat (Vasotec) 2.5 mg EVERY 6 HOURS PRN IV sbp more than 160 01/10/18 22:45 02/09/18 22:44 Folic Acid (Folate) 1 mg Q24HRS ORAL 01/11/18 21:00 02/10/18 20:59 01/15/18 21:10 Furosemide (Lasix) 20 mg DAILY ORAL 01/11/18 16:30 02/10/18 16:29 01/16/18 09:25 Gabapentin (Neurontin) 300 mg BEDTIME ORAL 01/11/18 21:00 02/10/18 20:59 01/15/18 21:10 Heparin Sodium (Porcine) (Heparin 5000 units/ml) 5,000 units EVERY 12 HOURS SUBQ 01/11/18 09:00 02/10/18 08:59 01/16/18 09:15 Hydralazine HCl (Apresoline) 50 mg EVERY 6 HOURS ORAL 01/11/18 00:00 02/10/18 00:00 01/16/18 12:35 Insulin Aspart (NovoLOG) BEFORE MEALS AND HS SUBQ 01/11/18 06:30 02/10/18 06:29 01/16/18 17:38 Insulin Detemir (Levemir) 10 units DAILY SUBQ 01/11/18 09:00 02/10/18 08:59 01/16/18 09:16 Levofloxacin (Levaquin) 250 mg DAILY ORAL 01/13/18 11:00 01/20/18 10:59 01/16/18 09:13 Morphine Sulfate (Morphine Sulfate) 2 mg Q4H PRN IVP severe Pain (Pain Scale 7-10) 01/15/18 12:15 01/22/18 12:14 01/16/18 06:51 Nateglinide (Starlix) 60 mg TIAC ORAL 01/16/18 06:30 02/15/18 06:29 01/16/18 17:15 Nitroglycerin (Ntg) 0.4 mg Every 5 Minutes PRN SL Prn Chest Pain 01/10/18 22:45 02/09/18 22:44 01/11/18 16:00 Ondansetron HCl (Zofran) 4 mg Q6H PRN IVP Nausea & Vomiting 01/10/18 22:45 02/09/18 22:44 Pantoprazole (Protonix) 40 mg DAILY ORAL 01/15/18 09:00 02/14/18 08:59 01/16/18 09:23 Polyethylene Glycol (Miralax) 17 gm DAILYPRN PRN ORAL Constipation 01/10/18 22:45 02/09/18 22:44 Tamsulosin HCl (Flomax) 0.4 mg BEDTIME ORAL 01/11/18 21:00 02/10/18 20:59 01/15/18 21:10 Temazepam (Restoril) 15 mg HSPRN PRN ORAL Insomnia 01/10/18 22:45 01/17/18 22:44 Allergies: Coded Allergies: No Known Allergies (Unverified , 04/15/17) ROS Limited/Unobtainable: No Constitutional: Reports: no symptoms HEENT: Reports: no symptoms Cardiovascular: Reports: no symptoms Respiratory: Reports: no symptoms Gastrointestinal/Abdominal: Reports: no symptoms Genitourinary: Reports: no symptoms Neurologic/Psychiatric: Reports: no symptoms Subjective 67 YO F admitted with chest pain and shortness of breath. Now elevated troponin. S/P transfusion 1 unit PRBC today. Cover for Int Trever-Dr Bautista Objective Last Vital Signs Date Time Temp Pulse Resp B/P (MAP) Pulse Ox O2 Delivery O2 Flow Rate FiO2 01/16/18 17:30 88 18 Room Air 21 01/16/18 16:00 98.1 136/68 100 2.0 Laboratory Tests Test 01/16/18 06:35 White Blood Count 3.4 K/UL (4.8-10.8) L Red Blood Count 2.65 M/UL (4.20-5.40) L Hemoglobin 7.7 G/DL (12.0-16.0) L Hematocrit 23.2 % (37.0-47.0) L Mean Corpuscular Volume 87 FL (80-99) Mean Corpuscular Hemoglobin 28.9 PG (27.0-31.0) Mean Corpuscular Hemoglobin Concent 33.0 G/DL (32.0-36.0) Red Cell Distribution Width 16.8 % (11.6-14.8) H Platelet Count 206 K/UL (150-450) Mean Platelet Volume 7.6 FL (6.5-10.1) Neutrophils (%) (Auto) % (45.0-75.0) Lymphocytes (%) (Auto) % (20.0-45.0) Monocytes (%) (Auto) % (1.0-10.0) Eosinophils (%) (Auto) % (0.0-3.0) Basophils (%) (Auto) % (0.0-2.0) Differential Total Cells Counted 100 Neutrophils % (Manual) 37 % (45-75) L Lymphocytes % (Manual) 46 % (20-45) H Monocytes % (Manual) 15 % (1-10) H Eosinophils % (Manual) 2 % (0-3) Basophils % (Manual) 0 % (0-2) Band Neutrophils 0 % (0-8) Platelet Estimate Adequate Platelet Morphology Normal Polychromasia 1+ Anisocytosis 1+ Sodium Level 133 MMOL/L (136-145) L Potassium Level 4.3 MMOL/L (3.5-5.1) Chloride Level 100 MMOL/L (98-107) Carbon Dioxide Level 27 MMOL/L (21-32) Anion Gap 6 mmol/L (5-15) Blood Urea Nitrogen 18 mg/dL (7-18) Creatinine 1.4 MG/DL (0.55-1.30) H Estimat Glomerular Filtration Rate 45.6 mL/min (>60) Glucose Level 176 MG/DL (74-106) H Calcium Level 8.4 MG/DL (8.5-10.1) L Intake and Output 01/15/18 01/16/18 19:00 07:00 Intake Total 960 ml Output Total 0 ml Balance 960 ml 0 ml Intake Oral 960 ml Output Urine Total 0 ml Objective General Appearance: WD/WN, no apparent distress, alert EENT: PERRL/EOMI, normal ENT inspection, TMs normal Neck: non-tender, normal alignment, supple Cardiovascular: normal peripheral pulses, normal rate, regular rhythm, no gallop/murmur, no JVD Respiratory/Chest: chest wall non-tender, lungs clear, normal breath sounds, no respiratory distress, no accessory muscle use Abdomen: normal bowel sounds, non tender, soft, no organomegaly, no mass Extremities: normal range of motion, non-tender Neurologic: manager storage II-XII grossly normal, no motor/sensory deficits Skin: normal pigmentation, warm/dry Assessment/Plan Problem List: (1) Chest pain Assessment & Plan: Await myocardial perfusion scan. See cardiology note. (2) SOB (shortness of breath) (3) Diabetes mellitus, type II Assessment & Plan: See Endocrinology note. Cont levemir, novolog and starlix. (4) Elevated troponin Assessment & Plan: ?due to recent procedure? See cardiology note. (5) HTN (hypertension) Assessment & Plan: Continue coreg, vasotec and diltiazem (6) Asthma (7) COPD (chronic obstructive pulmonary disease) (8) CAD (coronary artery disease) Assessment & Plan: Continue plavix and aspirin. See cardiology note. (9) Anemia Assessment & Plan: s/P transfusion 1 unit PRBC 01/16/18 KRISTINA CARABALLO Jan 16, 2018 18:35
--- NOTE | 2018-01-16 19:32 | Cardiology Progress Note ---
Assessment/Plan Assessment/Plan chest wall pain s/p cpr cad s/p pci renal insuf anemia min abn trop her trop are nto sig elevated and the pattern of release is not suggestive of acs with peak or sridevi tele sinus perfusion showed infarction with some sg infarct ischemia no need for further intervention at this time proceed with gi work up cannot stop dapt risk of stent thrombosis keep on ecotrin and plavix Subjective ROS Limited/Unobtainable: Yes Subjective sleeping Objective Last 24 Hour Vital Signs Date Time Temp Pulse Resp B/P (MAP) Pulse Ox O2 Delivery O2 Flow Rate FiO2 01/16/18 18:57 136/68 01/16/18 18:40 99.3 96 133/69 01/16/18 17:30 88 18 Room Air 21 01/16/18 16:00 98.1 88 18 136/68 100 Nasal Cannula 2.0 01/16/18 16:00 88 01/16/18 12:35 134/62 01/16/18 12:00 98 01/16/18 12:00 98.1 95 18 134/62 98 Nasal Cannula 2.0 01/16/18 09:13 94 127/62 01/16/18 08:00 96 01/16/18 08:00 98.1 94 18 127/62 98 Nasal Cannula 2.0 01/16/18 06:50 135/64 01/16/18 04:00 96 01/16/18 04:00 97.6 92 21 135/64 94 Nasal Cannula 2.0 01/16/18 02:18 123/62 01/16/18 00:00 98.7 94 21 127/58 98 Nasal Cannula 2.0 01/16/18 00:00 94 01/15/18 22:43 90 20 99 Nasal Cannula 3.0 32 01/15/18 22:37 Nasal Cannula 3.0 32 01/15/18 22:34 92 20 96 Nasal Cannula 3.0 32 01/15/18 21:10 88 123/62 01/15/18 20:06 Room Air 01/15/18 20:06 98 Room Air 21 01/15/18 20:06 88 20 Room Air 21 01/15/18 20:00 89 01/15/18 20:00 96.8 89 20 127/67 99 Nasal Cannula 2.0 General Appearance: other - sleepign appear comfortable Extremities: no swelling Intake and Output 01/15/18 01/16/18 19:00 07:00 Intake Total 960 ml Output Total 0 ml Balance 960 ml 0 ml Intake Oral 960 ml Output Urine Total 0 ml Laboratory Tests Test 01/16/18 06:35 White Blood Count 3.4 K/UL (4.8-10.8) L Red Blood Count 2.65 M/UL (4.20-5.40) L Hemoglobin 7.7 G/DL (12.0-16.0) L Hematocrit 23.2 % (37.0-47.0) L Mean Corpuscular Volume 87 FL (80-99) Mean Corpuscular Hemoglobin 28.9 PG (27.0-31.0) Mean Corpuscular Hemoglobin Concent 33.0 G/DL (32.0-36.0) Red Cell Distribution Width 16.8 % (11.6-14.8) H Platelet Count 206 K/UL (150-450) Mean Platelet Volume 7.6 FL (6.5-10.1) Neutrophils (%) (Auto) % (45.0-75.0) Lymphocytes (%) (Auto) % (20.0-45.0) Monocytes (%) (Auto) % (1.0-10.0) Eosinophils (%) (Auto) % (0.0-3.0) Basophils (%) (Auto) % (0.0-2.0) Differential Total Cells Counted 100 Neutrophils % (Manual) 37 % (45-75) L Lymphocytes % (Manual) 46 % (20-45) H Monocytes % (Manual) 15 % (1-10) H Eosinophils % (Manual) 2 % (0-3) Basophils % (Manual) 0 % (0-2) Band Neutrophils 0 % (0-8) Platelet Estimate Adequate Platelet Morphology Normal Polychromasia 1+ Anisocytosis 1+ Sodium Level 133 MMOL/L (136-145) L Potassium Level 4.3 MMOL/L (3.5-5.1) Chloride Level 100 MMOL/L (98-107) Carbon Dioxide Level 27 MMOL/L (21-32) Anion Gap 6 mmol/L (5-15) Blood Urea Nitrogen 18 mg/dL (7-18) Creatinine 1.4 MG/DL (0.55-1.30) H Estimat Glomerular Filtration Rate 45.6 mL/min (>60) Glucose Level 176 MG/DL (74-106) H Calcium Level 8.4 MG/DL (8.5-10.1) LITA TREVINO Jan 16, 2018 19:32
[2018-01-16] MEDS: Atorvastatin 20mg tab ORAL SCH (21:09)
[2018-01-16] MEDS: Tamsulosin 0.4mg cap ORAL SCH (21:09)
--- NOTE | 2018-01-16 23:33 | General Progress Note ---
Assessment/Plan Assessment/Plan 1. Anemia due to underlying chronic disease. --> Anemia workup has been reviewed. --> Labs: Iron 53, TIBC 270, % sat 20, B12 901, Folate 7.9 --> Transfuse if hgb <7, trend cbc daily. --> ++Occult blood. Consider GI eval with EGD/colonoscopy. Appreciate Recs. 2. Anemia due to folic acid deficiency. --> At this time, begin the patient on folic acid. --> Review CBC daily to make sure no acute drop 3. Diabetes mellitus. A1c test done. 4. Acute coronary syndrome rule out. --> Check troponin. Cardiology to follow. 5. Hypertension. --> Blood pressure at goal. Systolic blood pressure less than 140. --> Improved. BP has been WNL. 6. Myocardial infarct. Subjective Date patient seen: Jan 16, 2018 Allergies: Coded Allergies: No Known Allergies (Unverified , 04/15/17) Subjective NAD. Positive for hematochezia. No fever Objective Last 24 Hour Vital Signs Date Time Temp Pulse Resp B/P (MAP) Pulse Ox O2 Delivery O2 Flow Rate FiO2 01/16/18 21:09 101 136/68 01/16/18 20:07 101 18 Room Air 21 01/16/18 20:00 95 01/16/18 20:00 98.2 96 20 139/81 98 Nasal Cannula 2.0 01/16/18 18:57 136/68 01/16/18 18:40 99.3 96 133/69 01/16/18 17:30 88 18 Room Air 21 01/16/18 16:00 98.1 88 18 136/68 100 Nasal Cannula 2.0 01/16/18 16:00 88 01/16/18 12:35 134/62 01/16/18 12:00 98 01/16/18 12:00 98.1 95 18 134/62 98 Nasal Cannula 2.0 01/16/18 09:13 94 127/62 01/16/18 08:00 96 01/16/18 08:00 98.1 94 18 127/62 98 Nasal Cannula 2.0 01/16/18 06:50 135/64 01/16/18 04:00 96 01/16/18 04:00 97.6 92 21 135/64 94 Nasal Cannula 2.0 01/16/18 02:18 123/62 01/16/18 00:00 98.7 94 21 127/58 98 Nasal Cannula 2.0 01/16/18 00:00 94 Intake and Output 01/15/18 01/16/18 19:00 07:00 Intake Total 960 ml Output Total 0 ml Balance 960 ml 0 ml Intake Oral 960 ml Output Urine Total 0 ml Laboratory Tests 01/16/18 06:35: White Blood Count 3.4L, Red Blood Count 2.65L, Hemoglobin 7.7L, Hematocrit 23.2L , Mean Corpuscular Volume 87, Mean Corpuscular Hemoglobin 28.9, Mean Corpuscular Hemoglobin Concent 33.0, Red Cell Distribution Width 16.8H, Platelet Count 206, Mean Platelet Volume 7.6, Neutrophils (%) (Auto) , Lymphocytes (%) (Auto) , Monocytes (%) (Auto) , Eosinophils (%) (Auto) , Basophils (%) (Auto) , Differential Total Cells Counted 100, Neutrophils % ( Manual) 37L, Lymphocytes % (Manual) 46H, Monocytes % (Manual) 15H, Eosinophils % (Manual) 2, Basophils % (Manual) 0, Band Neutrophils 0, Platelet Estimate Adequate, Platelet Morphology Normal, Polychromasia 1+, Anisocytosis 1+, Sodium Level 133L, Potassium Level 4.3, Chloride Level 100, Carbon Dioxide Level 27, Anion Gap 6, Blood Urea Nitrogen 18, Creatinine 1.4H, Estimat Glomerular Filtration Rate 45.6, Glucose Level 176H, Calcium Level 8.4L Height (Feet): 5 Height (Inches): 4.00 Weight (Pounds): 138 Neck: normal alignment Cardiovascular: normal rate, regular rhythm Edema: trace edema Skin: warm/dry Earl Oquendo Jan 16, 2018 23:33
[2018-01-17] VITALS (11 sets, daily range): BP systolic 109–144; BP diastolic 52–79
[2018-01-17] MEDS: HydrALAZINE 50mg tab ORAL SCH ×4 (00:14→17:28)
[2018-01-17] MEDS: Nateglinide 60mg tab ORAL SCH ×4 (06:11→17:28)
[2018-01-17] MEDS: NovoLOG Insulin Flexpen SUBQ SCH ×4 (06:11→21:37)
[2018-01-17] MEDS ORDERED: Fleet's Enema 133ml RECTAL ONE (07:30)
[2018-01-17 08:13] LABS: EOSINOPHILS % (AUTO) 1.2 % (0.0-3.0); HEMATOCRIT 28.8 % (37.0-47.0); HEMOGLOBIN 9.6 G/DL (12.0-16.0); LYMPHOCYTES % (AUTO) 26.5 % (20.0-45.0); MEAN CORPUSCULAR VOLUME 87 FL (80-99); MONOCYTES % (AUTO) 14.7 % (1.0-10.0); NEUTROPHILS % (AUTO) 56.7 % (45.0-75.0); PLATELET COUNT 222 K/UL (150-450); RED CELL DISTRIBUTION WIDTH 16.1 % (11.6-14.8); WHITE BLOOD COUNT 6.3 K/UL (4.8-10.8)
[2018-01-17 08:18] LABS: INR 1.2 (0.9-1.1)
--- NOTE | 2018-01-17 08:24 | Pulmonology Progress Note ---
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 HTN) COPD/asthma DM Diabetic neuropathy PLAN OF CARE tele Mild elevation of troponin w/out peak or sridevi not suggestive of ACS as per cardio, tele SR, no acute ischemic changes ECHO with EF 40-45% and RVSP of 38 c/w mild pulm HTN as well as mild to moderate MR Stress test + ischemia and evidence of old infarct No need for any interventions at this time as per cardio cardio cleared for GI procedure Per cardio continue ASA and Plavix due to risk of thrombosis continue medical management with statin, BB, Lasix BP management with BB and Hydralazine urine cx+ Enterobacter, low colony count, no urinary symptoms, likely asymptomatic bacteriuria O2 HHN prn CXR with evidence of interstitial congestion and 2 cm mass-like opacity R mid lung will do CT chest chest wall pain reproducible on palpation, likely due to myalgia, pain management renal US negative no change in creatinine, likely CRI due to DM and HTN HH trending down anemia w/up c/w anemia of chronic disease and folate deficiency on folate supplement stool OB + GI follows EGD and colon today PPI monitor counts, transfuse prn, s/p 1 u PRBC BS management with Levemir and Starlix and SSI prn , endo follows case discussed and evaluated by supervising physician Subjective Allergies: Coded Allergies: No Known Allergies (Unverified , 04/15/17) Subjective afebrile, no leucocytosis no c/o CP, SR on tele for GI procedure today Objective Last 24 Hour Vital Signs Date Time Temp Pulse Resp B/P (MAP) Pulse Ox O2 Delivery O2 Flow Rate FiO2 01/17/18 08:00 97.6 90 18 122/75 98 Room Air 01/17/18 06:31 134/71 01/17/18 04:00 91 01/17/18 04:00 97.7 93 19 134/71 96 Nasal Cannula 2.0 01/17/18 00:14 136/68 01/17/18 00:00 96.9 94 18 125/60 94 Nasal Cannula 2.0 01/17/18 00:00 98 01/16/18 21:09 101 136/68 01/16/18 20:07 101 18 Room Air 21 01/16/18 20:00 95 01/16/18 20:00 98.2 96 20 139/81 98 Nasal Cannula 2.0 01/16/18 18:57 136/68 01/16/18 18:40 99.3 96 133/69 01/16/18 17:30 88 18 Room Air 21 01/16/18 16:00 98.1 88 18 136/68 100 Nasal Cannula 2.0 01/16/18 16:00 88 01/16/18 12:35 134/62 01/16/18 12:00 98 01/16/18 12:00 98.1 95 18 134/62 98 Nasal Cannula 2.0 01/16/18 09:13 94 127/62 Intake and Output 01/16/18 01/17/18 19:00 07:00 Intake Total 550 ml 450 ml Output Total 200 ml 200 ml Balance 350 ml 250 ml Intake Oral 550 ml 450 ml Output Urine Total 200 ml 200 ml General Appearance: no acute distress HEENT: normocephalic, atraumatic, anicteric Respiratory/Chest: lungs clear, normal breath sounds, no respiratory distress Cardiovascular: normal rate, regular rhythm Abdomen: normal bowel sounds, soft, non tender Extremities: no edema Neurologic/Psychiatric: alert, responsive Laboratory Tests 01/17/18 07:12: White Blood Count 6.3#, Red Blood Count 3.30L, Hemoglobin 9.6L, Hematocrit 28.8L , Mean Corpuscular Volume 87, Mean Corpuscular Hemoglobin 29.2, Mean Corpuscular Hemoglobin Concent 33.4, Red Cell Distribution Width 16.1H, Platelet Count 222, Mean Platelet Volume 7.4, Neutrophils (%) (Auto) 56.7, Lymphocytes (%) (Auto) 26.5, Monocytes (%) (Auto) 14.7H, Eosinophils (%) (Auto) 1.2, Basophils (%) (Auto) 1.0, Prothrombin Time 12.1H, Prothromb Time International Ratio 1.2H, Activated Partial Thromboplast Time 29, Sodium Level [ Pending], Potassium Level [Pending], Chloride Level [Pending], Carbon Dioxide Level [Pending], Blood Urea Nitrogen [Pending], Creatinine [Pending], Estimat Glomerular Filtration Rate [Pending], Glucose Level [Pending], Calcium Level [ Pending], Phosphorus Level [Pending], Magnesium Level [Pending], Total Bilirubin [Pending], Aspartate Amino Transf (AST/SGOT) [Pending], Alanine Aminotransferase (ALT/SGPT) [Pending], Alkaline Phosphatase [Pending], Total Protein [Pending], Albumin [Pending], Globulin [Pending] Current Medications Medications (Trade) Dose Ordered Sig/Tristan Route PRN Reason Start Time Stop Time Status Last Admin Dose Admin Acetaminophen (Tylenol) 650 mg Q4H PRN ORAL FEVER 01/10/18 22:45 02/09/18 22:44 01/14/18 09:12 Aspirin (ASA) 81 mg DAILY ORAL 01/12/18 09:00 02/11/18 08:59 01/16/18 09:13 Atorvastatin Calcium (Lipitor) 20 mg BEDTIME ORAL 01/11/18 21:00 02/10/18 20:59 01/16/18 21:09 Carvedilol (Coreg) 6.25 mg EVERY 12 HOURS ORAL 01/11/18 09:00 02/10/18 08:59 01/16/18 21:09 Clopidogrel Bisulfate (Plavix) 75 mg DAILY ORAL 01/17/18 09:00 02/16/18 08:59 Dextrose (Dextrose 50%) STAT PRN IV Hypoglycemia 01/11/18 06:30 02/10/18 06:29 Diltiazem HCl (Cardizem) 10 mg EVERY HOUR PRN IV heart rate more than 120, 01/10/18 22:45 02/09/18 22:44 Enalaprilat (Vasotec) 2.5 mg EVERY 6 HOURS PRN IV sbp more than 160 01/10/18 22:45 02/09/18 22:44 Folic Acid (Folate) 1 mg Q24HRS ORAL 01/11/18 21:00 02/10/18 20:59 01/16/18 21:09 Furosemide (Lasix) 20 mg DAILY ORAL 01/11/18 16:30 02/10/18 16:29 01/16/18 09:25 Gabapentin (Neurontin) 300 mg BEDTIME ORAL 01/11/18 21:00 02/10/18 20:59 01/16/18 21:09 Heparin Sodium (Porcine) (Heparin 5000 units/ml) 5,000 units EVERY 12 HOURS SUBQ 01/11/18 09:00 02/10/18 08:59 01/16/18 09:15 Hydralazine HCl (Apresoline) 50 mg EVERY 6 HOURS ORAL 01/11/18 00:00 02/10/18 00:00 01/17/18 06:31 Insulin Aspart (NovoLOG) BEFORE MEALS AND HS SUBQ 01/11/18 06:30 02/10/18 06:29 01/16/18 17:38 Insulin Detemir (Levemir) 10 units DAILY SUBQ 01/11/18 09:00 02/10/18 08:59 01/16/18 09:16 Levofloxacin (Levaquin) 250 mg DAILY ORAL 01/13/18 11:00 01/20/18 10:59 01/16/18 09:13 Morphine Sulfate (Morphine Sulfate) 2 mg Q4H PRN IVP severe Pain (Pain Scale 7-10) 01/15/18 12:15 01/22/18 12:14 01/16/18 21:09 Nateglinide (Starlix) 60 mg TIAC ORAL 01/16/18 06:30 02/15/18 06:29 01/16/18 17:15 Nitroglycerin (Ntg) 0.4 mg Every 5 Minutes PRN SL Prn Chest Pain 01/10/18 22:45 02/09/18 22:44 01/11/18 16:00 Ondansetron HCl (Zofran) 4 mg Q6H PRN IVP Nausea & Vomiting 01/10/18 22:45 02/09/18 22:44 Pantoprazole (Protonix) 40 mg DAILY ORAL 01/15/18 09:00 02/14/18 08:59 01/16/18 09:23 Polyethylene Glycol (Miralax) 17 gm DAILYPRN PRN ORAL Constipation 01/10/18 22:45 02/09/18 22:44 Tamsulosin HCl (Flomax) 0.4 mg BEDTIME ORAL 01/11/18 21:00 02/10/18 20:59 01/16/18 21:09 Temazepam (Restoril) 15 mg HSPRN PRN ORAL Insomnia 01/10/18 22:45 01/17/18 22:44 Sameer ([facility])Milagro NP Jan 17, 2018 08:24
[2018-01-17] MEDS: Heparin 5000 units/ml inj SUBQ SCH ×3 (09:00→21:36)
[2018-01-17] MEDS: Aspirin Baby 81mg ORAL SCH ×2 (09:00→13:34)
[2018-01-17] MEDS: Levemir Flexpen SUBQ SCH (09:00)
[2018-01-17] MEDS: Carvedilol 6.25mg Tab ORAL SCH ×2 (09:02→21:34)
--- NOTE | 2018-01-17 09:37 | Anethesia Preoperative Eval ---
Anesthesia Pre-op PMH/ROS General Date of Evaluation: Jan 17, 2018 Time of Evaluation: 10:01 Anesthesiologist: jarad ASA Score: ASA 4 Mallampati Score Class I : Soft palate, uvula, fauces, pillars visible Class II: Soft palate, uvula, fauces visible Class III: Soft palate, base of uvula visible Class IV: Only hard plate visible Mallampati Classification: Class II Surgeon: ariela Diagnosis: gi bleed Surgical Procedure: egd/colonoscopy Anesthesia History: none Family History: no anesthesia problems Allergies: Coded Allergies: No Known Allergies (Unverified , 04/15/17) Medications: see eMAR Past Medical History Cardiovascular: Reports: [place] - nstemi, other Pulmonary: Reports: COPD Gastrointestinal/Genitourinary: Reports: ESRD, other - uti Endocrine: Reports: DM Anesthesia Pre-op Phys. Exam Physician Exam Last Vital Signs Date Time Temp Pulse Resp B/P (MAP) Pulse Ox O2 Delivery O2 Flow Rate FiO2 01/17/18 09:02 90 122/75 01/17/18 08:00 97.6 18 98 Room Air 01/17/18 04:00 2.0 01/16/18 20:07 21 Constitutional: NAD Neurologic: CN 2-12 intact Cardiovascular: RRR Respiratory: CTA Gastrointestinal: S/NT/ND Airway Exam Mallampati Score: Class II MO: limited Neck: supple TMD: 2fb ROM: limited Teeth: missing Anesthesia Pre-op A/P Labs Hematology Test 01/17/18 07:12 White Blood Count 6.3 K/UL (4.8-10.8) # Red Blood Count 3.30 M/UL (4.20-5.40) L Hemoglobin 9.6 G/DL (12.0-16.0) L Hematocrit 28.8 % (37.0-47.0) L Mean Corpuscular Volume 87 FL (80-99) Mean Corpuscular Hemoglobin 29.2 PG (27.0-31.0) Mean Corpuscular Hemoglobin Concent 33.4 G/DL (32.0-36.0) Red Cell Distribution Width 16.1 % (11.6-14.8) H Platelet Count 222 K/UL (150-450) Mean Platelet Volume 7.4 FL (6.5-10.1) Neutrophils (%) (Auto) 56.7 % (45.0-75.0) Lymphocytes (%) (Auto) 26.5 % (20.0-45.0) Monocytes (%) (Auto) 14.7 % (1.0-10.0) H Eosinophils (%) (Auto) 1.2 % (0.0-3.0) Basophils (%) (Auto) 1.0 % (0.0-2.0) Coagulation Test 01/17/18 07:12 Prothrombin Time 12.1 SEC (9.30-11.50) H Prothromb Time International Ratio 1.2 (0.9-1.1) H Activated Partial Thromboplast Time 29 SEC (23-33) Chemistry Test 01/17/18 07:12 Sodium Level Pending Potassium Level Pending Chloride Level Pending Carbon Dioxide Level Pending Blood Urea Nitrogen Pending Creatinine Pending Estimat Glomerular Filtration Rate Pending Glucose Level Pending Calcium Level Pending Phosphorus Level Pending Magnesium Level Pending Total Bilirubin Pending Aspartate Amino Transf (AST/SGOT) Pending Alanine Aminotransferase (ALT/SGPT) Pending Alkaline Phosphatase Pending Total Protein Pending Albumin Pending Globulin Pending Risk Assessment & Plan Assessment: asa4 Plan: mac Status Change Before Surgery: No Pre-Antibiotics Drug: PASCALE Rudolph Jan 17, 2018 09:37
[2018-01-17 10:00] LABS: ALANINE AMINOTRANSFERASE 15 U/L (12-78); ALBUMIN 2.3 G/DL (3.4-5.0); ALBUMIN/GLOBULIN RATIO 0.5 (1.0-2.7); ALKALINE PHOSPHATASE 164 U/L (46-116); ANION GAP 8 mmol/L (5-15); ASPARTATE AMINO TRANSFERASE 30 U/L (15-37); BILIRUBIN,TOTAL 0.8 MG/DL (0.2-1.0); BLOOD UREA NITROGEN 16 mg/dL (7-18); CALCIUM 8.6 MG/DL (8.5-10.1); CARBON DIOXIDE 25 MMOL/L (21-32); CHLORIDE 101 MMOL/L (98-107); CREATININE 1.4 MG/DL (0.55-1.30); PHOSPHORUS 2.9 MG/DL (2.5-4.9); POTASSIUM 4.3 MMOL/L (3.5-5.1); SODIUM 134 MMOL/L (136-145)
[2018-01-17] MEDS ORDERED: Atropine Inj 1mg/10ml Syr IV PRN (10:00)
[2018-01-17] MEDS ORDERED: DiphenhydrAMINE 50mg/ml Inj IVP PRN (10:00)
[2018-01-17] MEDS ORDERED: fentaNYL 100 mcg/2 mL IV PRN (10:00)
[2018-01-17] MEDS ORDERED: Lidocaine 1% MPF 10mg/ml 5ml ONE (12:00)
[2018-01-17] MEDS ORDERED: Propofol 200mg/20ml IV ONE (12:00)
--- NOTE | 2018-01-17 12:17 | Pre-Procedure Note/Attestation ---
Pre-Procedure Note/Attestation Complete Prior to Procedure Planned Procedure: not applicable Procedure Narrative: esophagogastroduodenoscopy and colonoscopy Indications for Procedure Pre-Operative Diagnosis: gib Attestation I attest that I discussed the nature of the procedure; its benefits; risks and complications; and alternatives (and the risks and benefits of such alternatives ), prior to the procedure, with the patient (or the patient's legal contact representative). I attest that, if there was a reasonable possibility of needing a blood transfusion, the patient (or the patient's legal contact representative) was given the [facility] standardized written summary, pursuant to the Denn[place] Blood Safety Act ([place] Health and Safety Code # 1645, as amended). I attest that I re-evaluated the patient just prior to the surgery and that there has been no change in the patient's H&P, except as documented below: SVETLANA DON Jan 17, 2018 12:17
[2018-01-17] MEDS ORDERED: NS 500ML IV ONE (12:20)
--- NOTE | 2018-01-17 12:37 | Endoscopy Procedure Note ---
Endoscopy Procedure Note General Indication for Procedure: gib Procedures Performed: flexible sigmoidoscopy, EGD Operative Findings/Diagnosis: gastritis, hemorrhoids Specimen: none Pt Tolerated Procedure Well: Yes Estimated Blood Loss: none Anesthesia Anesthesiologist: anne Anesthesia: MAC Inserted Devices Implant(s) used?: No Quality Quality of Bowel Preparation: Poor Did scope reach the cecum?: No Why scope didn't reach cecum: Bowel preparation poor Was there any complications?: No GI Core Measures 50 yrs or older w/o bx or poly: Not Applicable 10yrs. F/U not recommended: Not Applicable SVETLANA DON Jan 17, 2018 12:37
[2018-01-17] MEDS ORDERED: Albuterol/Ipratropium 3ml neb HHN PRN (17:00)
--- NOTE | 2018-01-17 19:06 | Internal Med Progress Note ---
Subjective Date of Service: Jan 17, 2018 Physician Name Kristina Lindsay Attending Physician Onesimo Bautista MD Current Medications Medications (Trade) Dose Ordered Sig/Tristan Route PRN Reason Start Time Stop Time Status Last Admin Dose Admin Acetaminophen (Tylenol) 650 mg Q4H PRN ORAL FEVER 01/10/18 22:45 02/09/18 22:44 01/14/18 09:12 Albuterol/ Ipratropium (Albuterol/ Ipratropium) 3 ml Q4H PRN HHN Shortness of Breath 01/17/18 17:00 01/22/18 16:59 Aspirin (ASA) 81 mg DAILY ORAL 01/12/18 09:00 02/11/18 08:59 01/17/18 13:34 Atorvastatin Calcium (Lipitor) 20 mg BEDTIME ORAL 01/11/18 21:00 02/10/18 20:59 01/16/18 21:09 Carvedilol (Coreg) 6.25 mg EVERY 12 HOURS ORAL 01/11/18 09:00 02/10/18 08:59 01/17/18 09:02 Clopidogrel Bisulfate (Plavix) 75 mg DAILY ORAL 01/17/18 09:00 02/16/18 08:59 01/17/18 13:37 Dextrose (Dextrose 50%) STAT PRN IV Hypoglycemia 01/11/18 06:30 02/10/18 06:29 Diltiazem HCl (Cardizem) 10 mg EVERY HOUR PRN IV heart rate more than 120, 01/10/18 22:45 02/09/18 22:44 Enalaprilat (Vasotec) 2.5 mg EVERY 6 HOURS PRN IV sbp more than 160 01/10/18 22:45 02/09/18 22:44 Folic Acid (Folate) 1 mg Q24HRS ORAL 01/11/18 21:00 02/10/18 20:59 01/16/18 21:09 Furosemide (Lasix) 20 mg DAILY ORAL 01/11/18 16:30 02/10/18 16:29 01/17/18 13:36 Gabapentin (Neurontin) 300 mg BEDTIME ORAL 01/11/18 21:00 02/10/18 20:59 01/16/18 21:09 Heparin Sodium (Porcine) (Heparin 5000 units/ml) 5,000 units EVERY 12 HOURS SUBQ 01/11/18 09:00 02/10/18 08:59 01/17/18 13:32 Hydralazine HCl (Apresoline) 50 mg EVERY 6 HOURS ORAL 01/11/18 00:00 02/10/18 00:00 01/17/18 17:28 Insulin Aspart (NovoLOG) BEFORE MEALS AND HS SUBQ 01/11/18 06:30 02/10/18 06:29 01/17/18 17:29 Insulin Detemir (Levemir) 10 units DAILY SUBQ 01/11/18 09:00 02/10/18 08:59 01/16/18 09:16 Levofloxacin (Levaquin) 250 mg DAILY ORAL 01/13/18 11:00 01/20/18 10:59 01/17/18 13:36 Morphine Sulfate (Morphine Sulfate) 2 mg Q4H PRN IVP severe Pain (Pain Scale 7-10) 01/15/18 12:15 01/22/18 12:14 01/16/18 21:09 Nateglinide (Starlix) 60 mg TIAC ORAL 01/16/18 06:30 02/15/18 06:29 01/17/18 17:28 Nitroglycerin (Ntg) 0.4 mg Every 5 Minutes PRN SL Prn Chest Pain 01/10/18 22:45 02/09/18 22:44 01/11/18 16:00 Ondansetron HCl (Zofran) 4 mg Q6H PRN IVP Nausea & Vomiting 01/10/18 22:45 02/09/18 22:44 Pantoprazole (Protonix) 40 mg DAILY ORAL 01/15/18 09:00 02/14/18 08:59 01/17/18 13:37 Polyethylene Glycol (Miralax) 17 gm DAILYPRN PRN ORAL Constipation 01/10/18 22:45 02/09/18 22:44 Tamsulosin HCl (Flomax) 0.4 mg BEDTIME ORAL 01/11/18 21:00 02/10/18 20:59 01/16/18 21:09 Temazepam (Restoril) 15 mg HSPRN PRN ORAL Insomnia 01/10/18 22:45 01/17/18 22:44 Allergies: Coded Allergies: No Known Allergies (Unverified , 04/15/17) ROS Limited/Unobtainable: No Constitutional: Reports: no symptoms HEENT: Reports: no symptoms Cardiovascular: Reports: no symptoms Respiratory: Reports: no symptoms Gastrointestinal/Abdominal: Reports: no symptoms Genitourinary: Reports: no symptoms Neurologic/Psychiatric: Reports: no symptoms Subjective 67 YO F admitted with chest pain and shortness of breath. Now elevated troponin. S/P transfusion 1 unit PRBC today. Cover for Int Tre[facility]-Dr Bautista Objective Last Vital Signs Date Time Temp Pulse Resp B/P (MAP) Pulse Ox O2 Delivery O2 Flow Rate FiO2 01/17/18 17:28 113/57 01/17/18 16:00 85 01/17/18 16:00 97.2 18 99 Room Air 01/17/18 06:29 21 01/17/18 04:00 2.0 Laboratory Tests Test 01/17/18 07:12 White Blood Count 6.3 K/UL (4.8-10.8) # Red Blood Count 3.30 M/UL (4.20-5.40) L Hemoglobin 9.6 G/DL (12.0-16.0) L Hematocrit 28.8 % (37.0-47.0) L Mean Corpuscular Volume 87 FL (80-99) Mean Corpuscular Hemoglobin 29.2 PG (27.0-31.0) Mean Corpuscular Hemoglobin Concent 33.4 G/DL (32.0-36.0) Red Cell Distribution Width 16.1 % (11.6-14.8) H Platelet Count 222 K/UL (150-450) Mean Platelet Volume 7.4 FL (6.5-10.1) Neutrophils (%) (Auto) 56.7 % (45.0-75.0) Lymphocytes (%) (Auto) 26.5 % (20.0-45.0) Monocytes (%) (Auto) 14.7 % (1.0-10.0) H Eosinophils (%) (Auto) 1.2 % (0.0-3.0) Basophils (%) (Auto) 1.0 % (0.0-2.0) Prothrombin Time 12.1 SEC (9.30-11.50) H Prothromb Time International Ratio 1.2 (0.9-1.1) H Activated Partial Thromboplast Time 29 SEC (23-33) Sodium Level 134 MMOL/L (136-145) L Potassium Level 4.3 MMOL/L (3.5-5.1) Chloride Level 101 MMOL/L (98-107) Carbon Dioxide Level 25 MMOL/L (21-32) Anion Gap 8 mmol/L (5-15) Blood Urea Nitrogen 16 mg/dL (7-18) Creatinine 1.4 MG/DL (0.55-1.30) H Estimat Glomerular Filtration Rate 45.6 mL/min (>60) Glucose Level 94 MG/DL (74-106) Calcium Level 8.6 MG/DL (8.5-10.1) Phosphorus Level 2.9 MG/DL (2.5-4.9) Magnesium Level 1.8 MG/DL (1.8-2.4) Total Bilirubin 0.8 MG/DL (0.2-1.0) Aspartate Amino Transf (AST/SGOT) 30 U/L (15-37) Alanine Aminotransferase (ALT/SGPT) 15 U/L (12-78) Alkaline Phosphatase 164 U/L (46-116) H Total Protein 7.2 G/DL (6.4-8.2) Albumin 2.3 G/DL (3.4-5.0) L Globulin 4.9 g/dL Albumin/Globulin Ratio 0.5 (1.0-2.7) L Intake and Output 01/16/18 01/17/18 19:00 07:00 Intake Total 550 ml 450 ml Output Total 200 ml 200 ml Balance 350 ml 250 ml Intake Oral 550 ml 450 ml Output Urine Total 200 ml 200 ml Objective General Appearance: WD/WN, no apparent distress, alert EENT: PERRL/EOMI, normal ENT inspection, TMs normal Neck: non-tender, normal alignment, supple Cardiovascular: normal peripheral pulses, normal rate, regular rhythm, no gallop/murmur, no JVD Respiratory/Chest: chest wall non-tender, lungs clear, normal breath sounds, no respiratory distress, no accessory muscle use Abdomen: normal bowel sounds, non tender, soft, no organomegaly, no mass Extremities: normal range of motion, non-tender Neurologic: neonatal doctor II-XII grossly normal, no motor/sensory deficits Skin: normal pigmentation, warm/dry Assessment/Plan Problem List: (1) Chest pain Assessment & Plan: Await myocardial perfusion scan. See cardiology note. (2) SOB (shortness of breath) (3) Diabetes mellitus, type II Assessment & Plan: See Endocrinology note. Cont levemir, novolog and starlix. (4) Elevated troponin Assessment & Plan: ?due to recent procedure? See cardiology note. (5) HTN (hypertension) Assessment & Plan: Continue coreg, vasotec and diltiazem (6) Asthma (7) COPD (chronic obstructive pulmonary disease) (8) CAD (coronary artery disease) Assessment & Plan: Continue plavix and aspirin. See cardiology note. (9) Anemia Assessment & Plan: s/P transfusion 1 unit PRBC 01/16/18 Assessment/Plan Discharge plan: KRISTINA Winkler Jan 17, 2018 19:06
--- NOTE | 2018-01-17 20:15 | Procedure Note ---
DATE OF PROCEDURE: 01/17/2018 SURGEON: Edward Snow M.D. PROCEDURE: Upper endoscopy with biopsy and flexible sigmoidoscopy. ANESTHESIA: Tory Heath M.D. INSTRUMENT: Olympus adult flexible upper endoscope and colonoscope. INDICATION: GI bleeding, stool OB positive,and anemia. REASON FOR PROCEDURE: The procedure, risks, benefits, and possible consequences, including hemorrhage, aspiration, perforation and infection, and alternative treatments, were explained to the patient/legal guardian by Dr. Edward Snow and the patient/legal guardian understood and accepted these risks. PROCEDURE: After informed consent was obtained and the patient was adequately sedated, Olympus upper endoscope was advanced from mouth into second portion of the duodenum and retroflexion was performed of the stomach. The patient had diffuse gastritis, but given the patient was on Plavix, did not do any biopsy at this time. No obvious source of upper GI bleeding. No ulcerations. No erosions. No significant upper GI bleeding. At this time, the upper endoscope was retrieved. The patient was turned over for colonoscopy. First, a rectal exam was performed, which was normal. Then, the scope was advanced from the rectum into the area, seems to be descending colon. Given the very poor prep, given we encountered solid stool blocking the passage of the scope, we could not advance the scope beyond this point. So, we only performed partial flexible sigmoidoscopy. There is no evidence of any obvious lower GI bleeding at this time. The stool in the colon looks pretty green. No any obvious dark stool and no evidence of any diverticulosis. No evidence of any polyps, although the exam again was limited given the poor prep. Retroflexion of rectum showed evidence of internal hemorrhoids. FINDINGS: 1. Gastritis. No biopsy was performed, given the patient on Plavix. 2. Incomplete colonoscopy examination, only flexible sigmoidoscopy was performed, even that was limited given poor prep. 3. Internal hemorrhoids. RECOMMENDATIONS: Resume diet. Follow labs. We will check stool for OB. If the patient continues to show any evidence of bleeding, might need a repeat colonoscopy with a better prep. I want to thank, Dr. Bautista, for this kind referral. Edward Ishan Snow DR: NELLIE JOB#: [id number] CC: Onesimo Bautista M.D.; Fax#: [phone]
[2018-01-17] MEDS: Atorvastatin 20mg tab ORAL SCH (21:34)
[2018-01-17] MEDS: Tamsulosin 0.4mg cap ORAL SCH (21:34)
[2018-01-17] MEDS: Morphine Sulfate 4mg/ml Inj IVP PRN (21:41)
[2018-01-18] VITALS: BP 122/60
[2018-01-18] MEDS: HydrALAZINE 50mg tab ORAL SCH ×4 (00:15→17:53)
--- NOTE | 2018-01-18 03:19 | General Progress Note ---
Assessment/Plan Assessment/Plan 1. Anemia due to underlying chronic disease. --> Anemia workup has been reviewed. --> Labs: Iron 53, TIBC 270, % sat 20, B12 901, Folate 7.9 --> Transfuse if hgb <7, trend cbc daily. --> ++Occult blood. Consider GI followup. Appreciate recs. --> Hgb improved from yesterday. 2. Anemia due to folic acid deficiency. --> At this time, begin the patient on folic acid. --> Review CBC daily to make sure no acute drop 3. Diabetes mellitus. A1c test done. 4. Acute coronary syndrome rule out. --> Check troponin. Cardiology to follow. 5. Hypertension. --> Blood pressure at goal. Systolic blood pressure less than 140. --> Improved. BP has been WNL. 6. Myocardial infarct. Subjective Date patient seen: Jan 17, 2018 Constitutional: Denies: no symptoms, chills, diaphoresis, fever, malaise, weakness, other HEENT: Denies: no symptoms, eye pain, blurred vision, tearing, double vision, ear pain, ear discharge, nose pain, nose congestion, throat pain, throat swelling, mouth pain, mouth swelling, other Cardiovascular: Denies: no symptoms, chest pain, edema, irregular heart rate, lightheadedness, palpitations, syncope, other Respiratory: Denies: no symptoms, cough, orthopnea, shortness of breath, SOB with excertion, SOB at rest, sputum, stridor, wheezing, other Gastrointestinal/Abdominal: Denies: no symptoms, abdomen distended, abdominal pain, black stools, tarry stools, blood in stool, constipated, diarrhea, difficulty swallowing, nausea, poor appetite, poor fluid intake, rectal bleeding , vomiting, other Genitourinary: Denies: no symptoms, burning, discharge, frequency, flank pain, hematuria, incontinence, pain, urgency, other Allergies: Coded Allergies: No Known Allergies (Unverified , 04/15/17) Subjective No acute events overnight. Resting in bed watching television. Objective Last 24 Hour Vital Signs Date Time Temp Pulse Resp B/P (MAP) Pulse Ox O2 Delivery O2 Flow Rate FiO2 01/18/18 00:15 122/60 01/18/18 00:00 97.0 85 18 122/60 99 01/18/18 00:00 89 01/17/18 21:34 84 116/57 01/17/18 20:00 97.0 84 18 116/57 99 01/17/18 20:00 86 01/17/18 17:28 113/57 01/17/18 16:00 85 01/17/18 16:00 97.2 81 18 113/57 99 Room Air 01/17/18 13:39 125/62 01/17/18 13:08 97.8 81 17 119/59 99 Room Air 01/17/18 13:00 85 14 120/55 98 Room Air 01/17/18 12:55 80 17 116/53 95 Room Air 01/17/18 12:50 82 15 109/52 97 Room Air 01/17/18 12:45 98.4 81 18 116/53 96 Room Air 01/17/18 12:00 98.6 89 18 144/79 98 Room Air 01/17/18 12:00 85 01/17/18 09:02 90 122/75 01/17/18 08:00 97.6 90 18 122/75 98 Room Air 01/17/18 08:00 89 01/17/18 06:31 134/71 01/17/18 06:29 98 20 Room Air 21 01/17/18 04:00 91 01/17/18 04:00 97.7 93 19 134/71 96 Nasal Cannula 2.0 Intake and Output 01/17/18 01/18/18 19:00 07:00 Intake Total 240 ml Balance 240 ml Intake Oral 240 ml # Voids 1 # Bowel Movements 1 Laboratory Tests 01/17/18 07:12: White Blood Count 6.3#, Red Blood Count 3.30L, Hemoglobin 9.6L, Hematocrit 28.8L , Mean Corpuscular Volume 87, Mean Corpuscular Hemoglobin 29.2, Mean Corpuscular Hemoglobin Concent 33.4, Red Cell Distribution Width 16.1H, Platelet Count 222, Mean Platelet Volume 7.4, Neutrophils (%) (Auto) 56.7, Lymphocytes (%) (Auto) 26.5, Monocytes (%) (Auto) 14.7H, Eosinophils (%) (Auto) 1.2, Basophils (%) (Auto) 1.0, Prothrombin Time 12.1H, Prothromb Time International Ratio 1.2H, Activated Partial Thromboplast Time 29, Sodium Level 134L, Potassium Level 4.3, Chloride Level 101, Carbon Dioxide Level 25, Anion Gap 8, Blood Urea Nitrogen 16, Creatinine 1.4H, Estimat Glomerular Filtration Rate 45.6, Glucose Level 94, Calcium Level 8.6, Phosphorus Level 2.9, Magnesium Level 1.8, Total Bilirubin 0.8, Aspartate Amino Transf (AST/SGOT) 30, Alanine Aminotransferase (ALT/SGPT) 15, Alkaline Phosphatase 164H, Total Protein 7.2, Albumin 2.3L, Globulin 4.9, Albumin/Globulin Ratio 0.5L Height (Feet): 5 Height (Inches): 4.00 Weight (Pounds): 138 General Appearance: no apparent distress EENT: normal ENT inspection Neck: supple Cardiovascular: normal rate, regular rhythm Respiratory/Chest: lungs clear Earl Oquendo Jan 18, 2018 03:19
[2018-01-18 04:00] VITALS: BP 142/74
[2018-01-18] MEDS: Nateglinide 60mg tab ORAL SCH ×2 (06:01→16:56)
[2018-01-18] MEDS: NovoLOG Insulin Flexpen SUBQ SCH ×4 (06:03→20:37)
[2018-01-18 08:00] VITALS: BP 116/60
--- NOTE | 2018-01-18 08:15 | Geriatric Medicine Prog Note ---
DATE: 01/17/2018 NOTE: POOR AUDIO SUBJECTIVE: The patient is more comfortable today. OBJECTIVE: VITAL SIGNS: Blood pressure , pulse 84, respirations 18, and temperature 97 degrees. glucose . Robbi Garcia M.D. DR: RUBY JOB#: [id number] CC:
[2018-01-18 08:41] LABS: BASOPHILS % (AUTO) 1.2 % (0.0-2.0); EOSINOPHILS % (AUTO) 3.4 % (0.0-3.0); HEMATOCRIT 27.5 % (37.0-47.0); HEMOGLOBIN 9.3 G/DL (12.0-16.0); LYMPHOCYTES % (AUTO) 33.6 % (20.0-45.0); MEAN CORPUSCULAR VOLUME 87 FL (80-99); MONOCYTES % (AUTO) 15.5 % (1.0-10.0); NEUTROPHILS % (AUTO) 46.3 % (45.0-75.0); PLATELET COUNT 199 K/UL (150-450); RED BLOOD COUNT 3.15 M/UL (4.20-5.40); RED CELL DISTRIBUTION WIDTH 15.9 % (11.6-14.8); WHITE BLOOD COUNT 4.5 K/UL (4.8-10.8)
[2018-01-18 08:50] LABS: ANION GAP 5 mmol/L (5-15); BLOOD UREA NITROGEN 21 mg/dL (7-18); CALCIUM 8.6 MG/DL (8.5-10.1); CARBON DIOXIDE 27 MMOL/L (21-32); CHLORIDE 103 MMOL/L (98-107); CREATININE 1.7 MG/DL (0.55-1.30); POTASSIUM 4.3 MMOL/L (3.5-5.1); SODIUM 135 MMOL/L (136-145)
--- NOTE | 2018-01-18 09:06 | Pulmonology Progress Note ---
Assessment/Plan Assessment/Plan ASSESSMENT Elevated troponin CAD with hx of OK and PCI HTN mild cardiomyopathy ( EF 40%) acute on chronic CHF , systolic and diastolic POA likely ATN superimposed on CRI ( due to DM and HTN) mild to moderate MR masslike opacity right midlung, r/o mass chest wall pain, likely due to myalgia Mild pulmonary HTN anemia of chronic disease folate deficiency r/o GI bleeding s/p EGD and flex sigmoid. gastritis internal hemorrhoids COPD/asthma DM Diabetic neuropathy PLAN OF CARE Mild elevation of troponin w/out peak or sridevi not suggestive of ACS as per cardio, tele SR, no acute ischemic changes ECHO with EF 40-45% and RVSP of 38 c/w mild pulm HTN as well as mild to moderate MR Stress test + ischemia and evidence of old infarct No need for any interventions at this time as per cardio cardio cleared for GI procedure Per cardio continue ASA and Plavix due to risk of thrombosis continue medical management with statin, BB, Lasix fup with pro BNP and CXR BP management with BB and Hydralazine urine cx+ Enterobacter, low colony count, no urinary symptoms, likely asymptomatic bacteriuria O2 HHN prn CXR with evidence of interstitial congestion and 2 cm mass-like opacity R mid lung CT chest today renal US negative creatinine up to 1.7, likely ATN due to Lasix hold Lasix for now and give 250 cc NS likely CRI due to DM and HTN with ATN superimposed chest wall pain reproducible on palpation, pain management, likely due to myalgia HH stable anemia w/up c/w anemia of chronic disease and folate deficiency on folate supplement stool OB + GI follows s/p EGD and flex sigmoidoscopy ( colon. cancelled due to poor prep) findings of gastritis and internal hemorrhoids, diet resumed PPI monitor counts, transfuse prn, s/p 1 u PRBC BS management with Levemir and Starlix and SSI prn , endo follows transfer to [facility] floor case discussed and evaluated by supervising physician Subjective Allergies: Coded Allergies: No Known Allergies (Unverified , 04/15/17) Subjective afebrile, no leucocytosis no c/o CP, SR on tele Objective Last 24 Hour Vital Signs Date Time Temp Pulse Resp B/P (MAP) Pulse Ox O2 Delivery O2 Flow Rate FiO2 01/18/18 06:01 142/74 01/18/18 04:00 93 01/18/18 04:00 98.8 92 16 142/74 99 01/18/18 00:15 122/60 01/18/18 00:00 97.0 85 18 122/60 99 01/18/18 00:00 89 01/17/18 21:34 84 116/57 01/17/18 20:00 97.0 84 18 116/57 99 01/17/18 20:00 86 01/17/18 17:28 113/57 01/17/18 16:00 85 01/17/18 16:00 97.2 81 18 113/57 99 Room Air 01/17/18 13:39 125/62 01/17/18 13:08 97.8 81 17 119/59 99 Room Air 01/17/18 13:00 85 14 120/55 98 Room Air 01/17/18 12:55 80 17 116/53 95 Room Air 01/17/18 12:50 82 15 109/52 97 Room Air 01/17/18 12:45 98.4 81 18 116/53 96 Room Air 01/17/18 12:00 98.6 89 18 144/79 98 Room Air 01/17/18 12:00 85 Intake and Output 01/17/18 01/18/18 19:00 07:00 Intake Total 240 ml 240 ml Balance 240 ml 240 ml Intake Oral 240 ml 240 ml # Voids 1 # Bowel Movements 1 Objective General Appearance: no acute distress HEENT: normocephalic, atraumatic, anicteric Respiratory/Chest: lungs clear, normal breath sounds, no respiratory distress Cardiovascular: normal rate, regular rhythm Abdomen: normal bowel sounds, soft, non tender Extremities: no edema Neurologic/Psychiatric: alert, responsive Laboratory Tests 01/18/18 06:55: White Blood Count 4.5L, Red Blood Count 3.15L, Hemoglobin 9.3L, Hematocrit 27.5L , Mean Corpuscular Volume 87, Mean Corpuscular Hemoglobin 29.5, Mean Corpuscular Hemoglobin Concent 33.7, Red Cell Distribution Width 15.9H, Platelet Count 199, Mean Platelet Volume 7.8, Neutrophils (%) (Auto) 46.3, Lymphocytes (%) (Auto) 33.6, Monocytes (%) (Auto) 15.5H, Eosinophils (%) (Auto) 3.4H, Basophils (%) (Auto) 1.2, Sodium Level 135L, Potassium Level 4.3, Chloride Level 103, Carbon Dioxide Level 27, Anion Gap 5, Blood Urea Nitrogen 21H, Creatinine 1.7H, Estimat Glomerular Filtration Rate 36.5, Glucose Level 107H, Calcium Level 8.6, C-Reactive Protein, Quantitative [Pending] Current Medications Medications (Trade) Dose Ordered Sig/Tristan Route PRN Reason Start Time Stop Time Status Last Admin Dose Admin Acetaminophen (Tylenol) 650 mg Q4H PRN ORAL FEVER 01/10/18 22:45 02/09/18 22:44 01/14/18 09:12 Albuterol/ Ipratropium (Albuterol/ Ipratropium) 3 ml Q4H PRN HHN Shortness of Breath 01/17/18 17:00 01/22/18 16:59 Aspirin (ASA) 81 mg DAILY ORAL 01/12/18 09:00 02/11/18 08:59 01/17/18 13:34 Atorvastatin Calcium (Lipitor) 20 mg BEDTIME ORAL 01/11/18 21:00 02/10/18 20:59 01/17/18 21:34 Carvedilol (Coreg) 6.25 mg EVERY 12 HOURS ORAL 01/11/18 09:00 02/10/18 08:59 01/17/18 21:34 Clopidogrel Bisulfate (Plavix) 75 mg DAILY ORAL 01/17/18 09:00 02/16/18 08:59 01/17/18 13:37 Dextrose (Dextrose 50%) STAT PRN IV Hypoglycemia 01/11/18 06:30 02/10/18 06:29 Diltiazem HCl (Cardizem) 10 mg EVERY HOUR PRN IV heart rate more than 120, 01/10/18 22:45 02/09/18 22:44 Enalaprilat (Vasotec) 2.5 mg EVERY 6 HOURS PRN IV sbp more than 160 01/10/18 22:45 02/09/18 22:44 Folic Acid (Folate) 1 mg Q24HRS ORAL 01/11/18 21:00 02/10/18 20:59 01/17/18 21:55 Furosemide (Lasix) 20 mg DAILY ORAL 01/11/18 16:30 02/10/18 16:29 01/17/18 13:36 Gabapentin (Neurontin) 300 mg BEDTIME ORAL 01/11/18 21:00 02/10/18 20:59 01/17/18 21:34 Heparin Sodium (Porcine) (Heparin 5000 units/ml) 5,000 units EVERY 12 HOURS SUBQ 01/11/18 09:00 02/10/18 08:59 01/17/18 21:36 Hydralazine HCl (Apresoline) 50 mg EVERY 6 HOURS ORAL 01/11/18 00:00 02/10/18 00:00 01/18/18 06:01 Insulin Aspart (NovoLOG) BEFORE MEALS AND HS SUBQ 01/11/18 06:30 02/10/18 06:29 01/18/18 06:03 Insulin Detemir (Levemir) 10 units DAILY SUBQ 01/11/18 09:00 02/10/18 08:59 01/16/18 09:16 Levofloxacin (Levaquin) 250 mg DAILY ORAL 01/13/18 11:00 01/20/18 10:59 01/17/18 13:36 Morphine Sulfate (Morphine Sulfate) 2 mg Q4H PRN IVP severe Pain (Pain Scale 7-10) 01/15/18 12:15 01/22/18 12:14 01/17/18 21:41 Nateglinide (Starlix) 60 mg TIAC ORAL 01/16/18 06:30 02/15/18 06:29 01/18/18 06:01 Nitroglycerin (Ntg) 0.4 mg Every 5 Minutes PRN SL Prn Chest Pain 01/10/18 22:45 02/09/18 22:44 01/11/18 16:00 Ondansetron HCl (Zofran) 4 mg Q6H PRN IVP Nausea & Vomiting 01/10/18 22:45 02/09/18 22:44 Pantoprazole (Protonix) 40 mg DAILY ORAL 01/15/18 09:00 02/14/18 08:59 01/17/18 13:37 Polyethylene Glycol (Miralax) 17 gm DAILYPRN PRN ORAL Constipation 01/10/18 22:45 02/09/18 22:44 Tamsulosin HCl (Flomax) 0.4 mg BEDTIME ORAL 01/11/18 21:00 02/10/18 20:59 01/17/18 21:34 Estrella (Vanchtein),Milagro FERNANDEZ Jan 18, 2018 09:06
[2018-01-18] MEDS ORDERED: NS 250 ML IVPB ONE (09:15)
[2018-01-18] MEDS: Carvedilol 6.25mg Tab ORAL SCH ×2 (09:26→20:35)
[2018-01-18] MEDS: Heparin 5000 units/ml inj SUBQ SCH ×2 (09:34→20:37)
[2018-01-18] MEDS: Levemir Flexpen SUBQ SCH (09:35)
--- NOTE | 2018-01-18 11:08 | General Progress Note ---
Assessment/Plan Problem List: (1) Occult blood in stools ICD Codes: R19.5 - Other fecal abnormalities SNOMED: 09662359, 238477734 (2) HTN (hypertension) ICD Codes: I10 - Essential (primary) hypertension SNOMED: 48692236 (3) Diabetes mellitus, type II ICD Codes: E11.9 - Type 2 diabetes mellitus without complications SNOMED: 90813255 (4) CAD (coronary artery disease) ICD Codes: I25.10 - Atherosclerotic heart disease of [place] coronary artery without angina pectoris SNOMED: 73944810 (5) Anemia ICD Codes: D64.9 - Anemia, unspecified SNOMED: 644430533 Assessment/Plan s/p EGd and Flex-sig no active GIB resume plavix stable H&H Subjective ROS Limited/Unobtainable: Yes Allergies: Coded Allergies: No Known Allergies (Unverified , 04/15/17) Subjective no event Objective Last 24 Hour Vital Signs Date Time Temp Pulse Resp B/P (MAP) Pulse Ox O2 Delivery O2 Flow Rate FiO2 01/18/18 09:26 91 116/60 01/18/18 08:00 98.3 91 18 116/60 99 Nasal Cannula 2.0 01/18/18 08:00 88 01/18/18 06:01 142/74 01/18/18 04:00 93 01/18/18 04:00 98.8 92 16 142/74 99 01/18/18 00:15 122/60 01/18/18 00:00 97.0 85 18 122/60 99 01/18/18 00:00 89 01/17/18 21:34 84 116/57 01/17/18 20:00 97.0 84 18 116/57 99 01/17/18 20:00 86 01/17/18 17:28 113/57 01/17/18 16:00 85 01/17/18 16:00 97.2 81 18 113/57 99 Room Air 01/17/18 13:39 125/62 01/17/18 13:08 97.8 81 17 119/59 99 Room Air 01/17/18 13:00 85 14 120/55 98 Room Air 01/17/18 12:55 80 17 116/53 95 Room Air 01/17/18 12:50 82 15 109/52 97 Room Air 01/17/18 12:45 98.4 81 18 116/53 96 Room Air 01/17/18 12:00 98.6 89 18 144/79 98 Room Air 01/17/18 12:00 85 Intake and Output 01/17/18 01/18/18 19:00 07:00 Intake Total 240 ml 240 ml Balance 240 ml 240 ml Intake Oral 240 ml 240 ml # Voids 1 # Bowel Movements 1 Laboratory Tests 01/18/18 06:55: White Blood Count 4.5L, Red Blood Count 3.15L, Hemoglobin 9.3L, Hematocrit 27.5L , Mean Corpuscular Volume 87, Mean Corpuscular Hemoglobin 29.5, Mean Corpuscular Hemoglobin Concent 33.7, Red Cell Distribution Width 15.9H, Platelet Count 199, Mean Platelet Volume 7.8, Neutrophils (%) (Auto) 46.3, Lymphocytes (%) (Auto) 33.6, Monocytes (%) (Auto) 15.5H, Eosinophils (%) (Auto) 3.4H, Basophils (%) (Auto) 1.2, Sodium Level 135L, Potassium Level 4.3, Chloride Level 103, Carbon Dioxide Level 27, Anion Gap 5, Blood Urea Nitrogen 21H, Creatinine 1.7H, Estimat Glomerular Filtration Rate 36.5, Glucose Level 107H, Calcium Level 8.6, C-Reactive Protein, Quantitative < 0.4 Height (Feet): 5 Height (Inches): 4.00 Weight (Pounds): 138 General Appearance: no apparent distress EENT: normal ENT inspection Neck: supple Cardiovascular: normal rate Respiratory/Chest: decreased breath sounds Abdomen: normal bowel sounds, non tender, soft Extremities: non-tender SVETLANA DON Jan 18, 2018 11:08
[2018-01-18 11:46] VITALS: BP 141/71
[2018-01-18] MEDS ORDERED: Enalaprilat 2.5mg/2ml Inj IV PRN (12:00)
[2018-01-18] MEDS ORDERED: dilTIAZem HCl 25mg/5ml Inj IV PRN (12:00)
[2018-01-18] MEDS ORDERED: Albuterol/Ipratropium 3ml neb HHN PRN (12:13)
[2018-01-18] MEDS ORDERED: Miralax 17gm pkt ORAL PRN (12:14)
--- NOTE | 2018-01-18 14:28 | Internal Med Progress Note ---
Subjective Date of Service: Jan 18, 2018 Physician Name Kristina Lindsay Attending Physician Onesimo Bautista MD Current Medications Medications (Trade) Dose Ordered Sig/Tristan Route PRN Reason Start Time Stop Time Status Last Admin Dose Admin Acetaminophen (Tylenol) 650 mg Q4H PRN ORAL FEVER 01/18/18 12:12 02/09/18 12:11 Albuterol/ Ipratropium (Albuterol/ Ipratropium) 3 ml Q4H PRN HHN Shortness of Breath 01/18/18 12:13 01/22/18 12:12 Aspirin (ASA) 81 mg DAILY ORAL 01/19/18 09:00 02/11/18 08:59 Atorvastatin Calcium (Lipitor) 20 mg BEDTIME ORAL 01/18/18 21:00 02/10/18 20:59 Carvedilol (Coreg) 6.25 mg EVERY 12 HOURS ORAL 01/18/18 21:00 02/10/18 08:59 Clopidogrel Bisulfate (Plavix) 75 mg DAILY ORAL 01/19/18 09:00 02/16/18 08:59 Dextrose (Dextrose 50%) STAT PRN IV Hypoglycemia 01/18/18 12:13 02/17/18 12:12 Enalaprilat (Vasotec) 2.5 mg EVERY 6 HOURS PRN IV sbp more than 160 01/18/18 12:00 02/09/18 22:44 Folic Acid (Folate) 1 mg Q24HRS ORAL 01/18/18 21:00 02/10/18 20:59 Gabapentin (Neurontin) 300 mg BEDTIME ORAL 01/18/18 21:00 02/10/18 20:59 Heparin Sodium (Porcine) (Heparin 5000 units/ml) 5,000 units EVERY 12 HOURS SUBQ 01/18/18 21:00 02/10/18 08:59 Hydralazine HCl (Apresoline) 50 mg EVERY 6 HOURS ORAL 01/18/18 12:00 02/10/18 00:00 01/18/18 12:44 Insulin Aspart (NovoLOG) BEFORE MEALS AND HS SUBQ 01/18/18 12:30 02/17/18 12:29 01/18/18 12:45 Insulin Detemir (Levemir) 10 units DAILY SUBQ 01/19/18 09:00 02/10/18 08:59 Levofloxacin (Levaquin) 250 mg DAILY ORAL 01/19/18 09:00 01/20/18 10:59 Morphine Sulfate (Morphine Sulfate) 2 mg Q4H PRN IVP severe Pain (Pain Scale 7-10) 01/18/18 12:15 01/22/18 12:14 Nateglinide (Starlix) 60 mg TIAC ORAL 01/18/18 16:30 02/15/18 06:29 Nitroglycerin (Ntg) 0.4 mg Every 5 Minutes PRN SL Prn Chest Pain 01/18/18 11:45 02/09/18 22:44 Ondansetron HCl (Zofran) 4 mg Q6H PRN IVP Nausea & Vomiting 01/18/18 12:14 02/09/18 12:13 Pantoprazole (Protonix) 40 mg DAILY ORAL 01/19/18 09:00 02/14/18 08:59 Polyethylene Glycol (Miralax) 17 gm DAILYPRN PRN ORAL Constipation 01/18/18 12:14 02/09/18 12:13 Tamsulosin HCl (Flomax) 0.4 mg BEDTIME ORAL 01/18/18 21:00 02/10/18 20:59 Allergies: Coded Allergies: No Known Allergies (Unverified , 04/15/17) ROS Limited/Unobtainable: No Constitutional: Reports: no symptoms HEENT: Reports: no symptoms Cardiovascular: Reports: no symptoms Respiratory: Reports: no symptoms Gastrointestinal/Abdominal: Reports: no symptoms Genitourinary: Reports: no symptoms Neurologic/Psychiatric: Reports: no symptoms Subjective 67 YO F admitted with chest pain and shortness of breath. Now elevated troponin. S/P EGD and flex sig 01/17/18.Cover for Int Tre[facility]-Dr Bautista Objective Last Vital Signs Date Time Temp Pulse Resp B/P (MAP) Pulse Ox O2 Delivery O2 Flow Rate FiO2 01/18/18 13:21 96 20 Room Air 21 01/18/18 12:44 141/71 01/18/18 11:46 97.2 98 01/18/18 08:00 2.0 Laboratory Tests Test 01/18/18 06:55 White Blood Count 4.5 K/UL (4.8-10.8) L Red Blood Count 3.15 M/UL (4.20-5.40) L Hemoglobin 9.3 G/DL (12.0-16.0) L Hematocrit 27.5 % (37.0-47.0) L Mean Corpuscular Volume 87 FL (80-99) Mean Corpuscular Hemoglobin 29.5 PG (27.0-31.0) Mean Corpuscular Hemoglobin Concent 33.7 G/DL (32.0-36.0) Red Cell Distribution Width 15.9 % (11.6-14.8) H Platelet Count 199 K/UL (150-450) Mean Platelet Volume 7.8 FL (6.5-10.1) Neutrophils (%) (Auto) 46.3 % (45.0-75.0) Lymphocytes (%) (Auto) 33.6 % (20.0-45.0) Monocytes (%) (Auto) 15.5 % (1.0-10.0) H Eosinophils (%) (Auto) 3.4 % (0.0-3.0) H Basophils (%) (Auto) 1.2 % (0.0-2.0) Sodium Level 135 MMOL/L (136-145) L Potassium Level 4.3 MMOL/L (3.5-5.1) Chloride Level 103 MMOL/L (98-107) Carbon Dioxide Level 27 MMOL/L (21-32) Anion Gap 5 mmol/L (5-15) Blood Urea Nitrogen 21 mg/dL (7-18) H Creatinine 1.7 MG/DL (0.55-1.30) H Estimat Glomerular Filtration Rate 36.5 mL/min (>60) Glucose Level 107 MG/DL (74-106) H Calcium Level 8.6 MG/DL (8.5-10.1) C-Reactive Protein, Quantitative < 0.4 mg/dL (0.00-0.90) Intake and Output 01/17/18 01/18/18 19:00 07:00 Intake Total 240 ml 240 ml Balance 240 ml 240 ml Intake Oral 240 ml 240 ml # Voids 1 # Bowel Movements 1 Objective General Appearance: WD/WN, no apparent distress, alert EENT: PERRL/EOMI, normal ENT inspection, TMs normal Neck: non-tender, normal alignment, supple Cardiovascular: normal peripheral pulses, normal rate, regular rhythm, no gallop/murmur, no JVD Respiratory/Chest: chest wall non-tender, lungs clear, normal breath sounds, no respiratory distress, no accessory muscle use Abdomen: normal bowel sounds, non tender, soft, no organomegaly, no mass Extremities: normal range of motion, non-tender 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 See cardiology note. (2) SOB (shortness of breath) (3) Diabetes mellitus, type II Assessment & Plan: See Endocrinology note. Cont levemir, novolog and starlix. (4) Elevated troponin Assessment & Plan: ?due to recent procedure? See cardiology note. (5) HTN (hypertension) Assessment & Plan: Continue coreg, vasotec and diltiazem (6) Asthma (7) COPD (chronic obstructive pulmonary disease) (8) CAD (coronary artery disease) Assessment & Plan: Continue plavix and aspirin. See cardiology note. (9) Anemia Assessment & Plan: s/P transfusion 1 unit PRBC 01/16/18 (10) Gastritis Assessment & Plan: S/P EGD (11) Occult blood in stools Assessment & Plan: S/P flex sig-see GI note Hemorrhoids.. Status: stable Assessment/Plan Discharge plan: KRISTINA Winkler Jan 18, 2018 14:28
[2018-01-18 15:22] VITALS: BP 140/70
[2018-01-18] MEDS ORDERED: NovoLOG Insulin Flexpen SUBQ SCH (16:30)
[2018-01-18] MEDS ORDERED: NS 275ml ONE (17:24)
[2018-01-18] MEDS ORDERED: Tubing Blood Filter IV ONE (17:24)
[2018-01-18] MEDS: Morphine Sulfate 4mg/ml Inj IVP PRN (17:55)
[2018-01-18 20:00] VITALS: BP 133/67
[2018-01-18] MEDS: Tamsulosin 0.4mg cap ORAL SCH (20:38)
[2018-01-18] MEDS: Atorvastatin 20mg tab ORAL SCH (20:38)
[2018-01-19] VITALS: BP 145/75
[2018-01-19] MEDS: HydrALAZINE 50mg tab ORAL SCH ×4 (00:37→17:10)
[2018-01-19 04:00] VITALS: BP 131/63
[2018-01-19] MEDS: Morphine Sulfate 4mg/ml Inj IVP PRN ×3 (04:07→18:08)
[2018-01-19 05:54] LABS: BASOPHILS % (AUTO) 1.4 % (0.0-2.0); EOSINOPHILS % (AUTO) 4.5 % (0.0-3.0); HEMATOCRIT 28.4 % (37.0-47.0); HEMOGLOBIN 9.4 G/DL (12.0-16.0); LYMPHOCYTES % (AUTO) 34.1 % (20.0-45.0); MEAN CORPUSCULAR VOLUME 88 FL (80-99); MONOCYTES % (AUTO) 14.9 % (1.0-10.0); NEUTROPHILS % (AUTO) 45.1 % (45.0-75.0); PLATELET COUNT 197 K/UL (150-450); RED BLOOD COUNT 3.24 M/UL (4.20-5.40); RED CELL DISTRIBUTION WIDTH 15.8 % (11.6-14.8)
[2018-01-19] MEDS: Nateglinide 60mg tab ORAL SCH ×3 (06:05→17:09)
[2018-01-19 06:24] LABS: ANION GAP 5 mmol/L (5-15); BLOOD UREA NITROGEN 24 mg/dL (7-18); CALCIUM 8.5 MG/DL (8.5-10.1); CARBON DIOXIDE 28 MMOL/L (21-32); CHLORIDE 102 MMOL/L (98-107); CREATININE 1.7 MG/DL (0.55-1.30); POTASSIUM 4.3 MMOL/L (3.5-5.1); SODIUM 135 MMOL/L (136-145)
[2018-01-19] MEDS: NovoLOG Insulin Flexpen SUBQ SCH ×4 (06:49→21:00)
[2018-01-19 08:00] VITALS: BP 136/71
--- NOTE | 2018-01-19 08:24 | General Progress Note ---
Assessment/Plan Problem List: (1) Occult blood in stools ICD Codes: R19.5 - Other fecal abnormalities SNOMED: 15118221, 866782871 (2) HTN (hypertension) ICD Codes: I10 - Essential (primary) hypertension SNOMED: 19531477 (3) Diabetes mellitus, type II ICD Codes: E11.9 - Type 2 diabetes mellitus without complications SNOMED: 97753171 (4) CAD (coronary artery disease) ICD Codes: I25.10 - Atherosclerotic heart disease of [place] coronary artery without angina pectoris SNOMED: 16473857 (5) Anemia ICD Codes: D64.9 - Anemia, unspecified SNOMED: 857878919 Assessment/Plan s/p EGD and Flex-sig no active GIB on plavix stable H&H fu needs out patient fu Subjective ROS Limited/Unobtainable: Yes Allergies: Coded Allergies: No Known Allergies (Unverified , 04/15/17) Subjective no event Objective Last 24 Hour Vital Signs Date Time Temp Pulse Resp B/P (MAP) Pulse Ox O2 Delivery O2 Flow Rate FiO2 01/19/18 06:05 131/63 01/19/18 04:07 97.5 01/19/18 04:00 97.7 97 18 131/63 98 Nasal Cannula 01/19/18 00:37 145/75 01/19/18 00:00 97.5 86 20 145/75 100 Nasal Cannula 01/19/18 00:00 Nasal Cannula 2.0 01/18/18 20:35 82 135/73 01/18/18 20:00 2.0 01/18/18 20:00 97.9 83 19 133/67 100 Nasal Cannula 01/18/18 19:01 99 20 Room Air 21 01/18/18 17:53 140/70 01/18/18 15:22 98.6 90 20 140/70 100 01/18/18 13:21 96 20 Room Air 21 01/18/18 12:44 141/71 01/18/18 11:46 97.2 93 18 141/71 98 01/18/18 09:26 91 116/60 Intake and Output 01/18/18 01/19/18 19:00 07:00 Intake Total 500 ml 800 ml Balance 500 ml 800 ml Intake Oral 250 ml 800 ml IV Total 250 ml # Voids 1 4 Laboratory Tests 01/19/18 03:35: White Blood Count 4.0L, Red Blood Count 3.24L, Hemoglobin 9.4L, Hematocrit 28.4L , Mean Corpuscular Volume 88, Mean Corpuscular Hemoglobin 29.1, Mean Corpuscular Hemoglobin Concent 33.1, Red Cell Distribution Width 15.8H, Platelet Count 197, Mean Platelet Volume 7.9, Neutrophils (%) (Auto) 45.1, Lymphocytes (%) (Auto) 34.1, Monocytes (%) (Auto) 14.9H, Eosinophils (%) (Auto) 4.5H, Basophils (%) (Auto) 1.4, Sodium Level 135L, Potassium Level 4.3, Chloride Level 102, Carbon Dioxide Level 28, Anion Gap 5, Blood Urea Nitrogen 24H, Creatinine 1.7H, Estimat Glomerular Filtration Rate 36.5, Glucose Level 114H, Calcium Level 8.5, Pro-B-Type Natriuretic Peptide 2955H Height (Feet): 5 Height (Inches): 4.00 Weight (Pounds): 138 General Appearance: no apparent distress EENT: normal ENT inspection Neck: supple Cardiovascular: normal rate Respiratory/Chest: decreased breath sounds Abdomen: normal bowel sounds, non tender, soft Extremities: non-tender SVETLANA ODN Jan 19, 2018 08:24
[2018-01-19] MEDS: Carvedilol 6.25mg Tab ORAL SCH ×2 (09:00→21:03)
[2018-01-19] MEDS ORDERED: Levemir Flexpen SUBQ SCH (09:00)
[2018-01-19] MEDS: Aspirin Baby 81mg ORAL SCH (09:00)
[2018-01-19] MEDS: Heparin 5000 units/ml inj SUBQ SCH ×2 (09:01→21:05)
[2018-01-19] MEDS: Levemir Flexpen SUBQ SCH ×2 (09:03→21:06)
--- NOTE | 2018-01-19 10:10 | General Progress Note ---
Assessment/Plan Status: unchanged Assessment/Plan #. Reoccurring GI bleed --> ++Occult blood. --> S/P EGD, flex sigmoid colon, colonoscopy cancelled due to poor prep --> Findings revealed gastritis and internal hemorrhoids --> Diet resumed PPI #. Anemia due to underlying chronic disease. --> Anemia workup has been reviewed. --> Labs: Iron 53, TIBC 270, % sat 20, B12 901, Folate 7.9 --> Transfuse if hgb <7, trend cbc daily. --> ++Occult blood. Consider GI followup. Appreciate recs. --> Hgb improved from yesterday. #. Anemia due to folic acid deficiency. --> At this time, begin the patient on folic acid. --> Review CBC daily to make sure no acute drop #. Diabetes mellitus. A1c test done. #. Acute coronary syndrome rule out. --> Check troponin. Cardiology to follow. #. Hypertension. --> Blood pressure at goal. Systolic blood pressure less than 140. --> Improved. BP has been WNL. #. Myocardial infarct. Subjective Date patient seen: Jan 18, 2018 Constitutional: Denies: no symptoms, chills, diaphoresis, fever, malaise, weakness, other HEENT: Denies: no symptoms, eye pain, blurred vision, tearing, double vision, ear pain, ear discharge, nose pain, nose congestion, throat pain, throat swelling, mouth pain, mouth swelling, other Cardiovascular: Denies: no symptoms, chest pain, edema, irregular heart rate, lightheadedness, palpitations, syncope, other Respiratory: Denies: no symptoms, cough, orthopnea, shortness of breath, SOB with excertion, SOB at rest, sputum, stridor, wheezing, other Gastrointestinal/Abdominal: Denies: no symptoms, abdomen distended, abdominal pain, black stools, tarry stools, blood in stool, constipated, diarrhea, difficulty swallowing, nausea, poor appetite, poor fluid intake, rectal bleeding , vomiting, other Genitourinary: Denies: no symptoms, burning, discharge, frequency, flank pain, hematuria, incontinence, pain, urgency, other Allergies: Coded Allergies: No Known Allergies (Unverified , 04/15/17) Subjective ++Occult blood. On abx. No major events. Objective Last 24 Hour Vital Signs Date Time Temp Pulse Resp B/P (MAP) Pulse Ox O2 Delivery O2 Flow Rate FiO2 01/19/18 09:00 92 136/71 01/19/18 08:10 Nasal Cannula 2.0 28 01/19/18 08:10 87 20 Nasal Cannula 2.0 28 01/19/18 08:00 96.1 84 20 136/71 99 01/19/18 06:05 131/63 01/19/18 04:07 97.5 01/19/18 04:00 97.7 97 18 131/63 98 Nasal Cannula 01/19/18 00:37 145/75 01/19/18 00:00 97.5 86 20 145/75 100 Nasal Cannula 01/19/18 00:00 Nasal Cannula 2.0 01/18/18 20:35 82 135/73 01/18/18 20:00 2.0 01/18/18 20:00 97.9 83 19 133/67 100 Nasal Cannula 01/18/18 19:01 99 20 Room Air 21 01/18/18 17:53 140/70 01/18/18 15:22 98.6 90 20 140/70 100 01/18/18 13:21 96 20 Room Air 21 01/18/18 12:44 141/71 01/18/18 11:46 97.2 93 18 141/71 98 Intake and Output 01/18/18 01/19/18 19:00 07:00 Intake Total 500 ml 800 ml Balance 500 ml 800 ml Intake Oral 250 ml 800 ml IV Total 250 ml # Voids 1 4 Laboratory Tests 01/19/18 03:35: White Blood Count 4.0L, Red Blood Count 3.24L, Hemoglobin 9.4L, Hematocrit 28.4L , Mean Corpuscular Volume 88, Mean Corpuscular Hemoglobin 29.1, Mean Corpuscular Hemoglobin Concent 33.1, Red Cell Distribution Width 15.8H, Platelet Count 197, Mean Platelet Volume 7.9, Neutrophils (%) (Auto) 45.1, Lymphocytes (%) (Auto) 34.1, Monocytes (%) (Auto) 14.9H, Eosinophils (%) (Auto) 4.5H, Basophils (%) (Auto) 1.4, Sodium Level 135L, Potassium Level 4.3, Chloride Level 102, Carbon Dioxide Level 28, Anion Gap 5, Blood Urea Nitrogen 24H, Creatinine 1.7H, Estimat Glomerular Filtration Rate 36.5, Glucose Level 114H, Calcium Level 8.5, Pro-B-Type Natriuretic Peptide 2955H Height (Feet): 5 Height (Inches): 4.00 Weight (Pounds): 138 General Appearance: lethargic, confused Cardiovascular: normal rate Respiratory/Chest: decreased breath sounds Edema: trace edema Earl Oquendo Jan 19, 2018 10:10
[2018-01-19 12:00] VITALS: BP 127/67
--- NOTE | 2018-01-19 12:44 | Pulmonology Progress Note ---
Assessment/Plan Assessment/Plan ASSESSMENT Elevated troponin CAD with hx of [place] and PCI HTN mild cardiomyopathy ( EF 40%) acute on chronic CHF , systolic and diastolic POA likely ATN superimposed on CRI ( due to DM and HTN) mild to moderate MR Mild pulmonary HTN masslike opacity right midlung, r/o mass chest wall pain , likely due to myalgia anemia of chronic disease folate deficiency r/o GI bleeding s/p EGD and flex sigmoid. gastritis internal hemorrhoids COPD/asthma DM Diabetic neuropathy PLAN OF CARE MS floor Mild elevation of troponin w/out peak or sridevi not suggestive of ACS as per cardio, tele SR, no acute ischemic changes ECHO with EF 40-45% and RVSP of 38 c/w mild pulm HTN as well as mild to moderate MR Stress test + ischemia and evidence of old infarct No need for any interventions at this time as per cardio cardio cleared for GI procedure Per cardio continue ASA and Plavix due to risk of thrombosis continue medical management with statin, BB, Lasix BP management with BB and Hydralazine urine cx + Enterobacter with small colony count, no urinary symptoms,likely asymptomatic bacteriuria O2 HHN prn CXR with evidence of interstitial congestion and 2 cm mass-like opacity R mid lung CT chest today or in am ( no contrast) renal US negative creatinine up to 1.7 hold Lasix for now and give 250 cc NS likely CRI due to DM and HTN with ATN due to Lasix superimposed chest wall pain, reproducible on palpation, likely due to myalgia, pain management HH stable anemia w/up c/w anemia of chronic disease and folate deficiency on folate supplement stool OB + GI follows s/p EGD and flex sigmoidoscopy ( colon. cancelled due to poor prep) findings of gastritis and internal hemorrhoids, diet resumed PPI monitor counts, transfuse prn, s/p 1 u PRBC BS management with Levemir and Starlix and SSI prn , endo follows case discussed and evaluated by supervising physician Subjective Allergies: Coded Allergies: No Known Allergies (Unverified , 04/15/17) Subjective afebrile, no leucocytosis c/o chest pain, , cardiac w/up ruled out for ischemia awaiting for CT chest Objective Last 24 Hour Vital Signs Date Time Temp Pulse Resp B/P (MAP) Pulse Ox O2 Delivery O2 Flow Rate FiO2 01/19/18 12:23 130/67 01/19/18 12:00 96.3 85 20 127/67 98 01/19/18 09:00 92 136/71 01/19/18 08:10 Nasal Cannula 2.0 28 01/19/18 08:10 87 20 Nasal Cannula 2.0 28 01/19/18 08:00 96.1 84 20 136/71 99 01/19/18 06:05 131/63 01/19/18 04:07 97.5 01/19/18 04:00 97.7 97 18 131/63 98 Nasal Cannula 01/19/18 00:37 145/75 01/19/18 00:00 97.5 86 20 145/75 100 Nasal Cannula 01/19/18 00:00 Nasal Cannula 2.0 01/18/18 20:35 82 135/73 01/18/18 20:00 2.0 01/18/18 20:00 97.9 83 19 133/67 100 Nasal Cannula 01/18/18 19:01 99 20 Room Air 21 01/18/18 17:53 140/70 01/18/18 15:22 98.6 90 20 140/70 100 01/18/18 13:21 96 20 Room Air 21 01/18/18 12:44 141/71 Intake and Output 01/18/18 01/19/18 19:00 07:00 Intake Total 500 ml 800 ml Balance 500 ml 800 ml Intake Oral 250 ml 800 ml IV Total 250 ml # Voids 1 4 Objective General Appearance: no acute distress HEENT: normocephalic, atraumatic, anicteric Respiratory/Chest: lungs clear, normal breath sounds, no respiratory distress Cardiovascular: normal rate, regular rhythm Abdomen: normal bowel sounds, soft, non tender Extremities: no edema Neurologic/Psychiatric: alert, responsive Laboratory Tests 01/19/18 03:35: White Blood Count 4.0L, Red Blood Count 3.24L, Hemoglobin 9.4L, Hematocrit 28.4L , Mean Corpuscular Volume 88, Mean Corpuscular Hemoglobin 29.1, Mean Corpuscular Hemoglobin Concent 33.1, Red Cell Distribution Width 15.8H, Platelet Count 197, Mean Platelet Volume 7.9, Neutrophils (%) (Auto) 45.1, Lymphocytes (%) (Auto) 34.1, Monocytes (%) (Auto) 14.9H, Eosinophils (%) (Auto) 4.5H, Basophils (%) (Auto) 1.4, Sodium Level 135L, Potassium Level 4.3, Chloride Level 102, Carbon Dioxide Level 28, Anion Gap 5, Blood Urea Nitrogen 24H, Creatinine 1.7H, Estimat Glomerular Filtration Rate 36.5, Glucose Level 114H, Calcium Level 8.5, Pro-B-Type Natriuretic Peptide 2955H Current Medications Medications (Trade) Dose Ordered Sig/Tristan Route PRN Reason Start Time Stop Time Status Last Admin Dose Admin Acetaminophen (Tylenol) 650 mg Q4H PRN ORAL FEVER 01/18/18 12:12 02/09/18 12:11 Albuterol/ Ipratropium (Albuterol/ Ipratropium) 3 ml Q4H PRN HHN Shortness of Breath 01/18/18 12:13 01/22/18 12:12 Aspirin (ASA) 81 mg DAILY ORAL 01/19/18 09:00 02/11/18 08:59 01/19/18 09:00 Atorvastatin Calcium (Lipitor) 20 mg BEDTIME ORAL 01/18/18 21:00 02/10/18 20:59 01/18/18 20:38 Carvedilol (Coreg) 6.25 mg EVERY 12 HOURS ORAL 01/18/18 21:00 02/10/18 08:59 01/19/18 09:00 Clopidogrel Bisulfate (Plavix) 75 mg DAILY ORAL 01/19/18 09:00 02/16/18 08:59 01/19/18 08:59 Dextrose (Dextrose 50%) STAT PRN IV Hypoglycemia 01/18/18 12:13 02/17/18 12:12 Folic Acid (Folate) 1 mg Q24HRS ORAL 01/18/18 21:00 02/10/18 20:59 01/18/18 20:38 Gabapentin (Neurontin) 300 mg BEDTIME ORAL 01/18/18 21:00 02/10/18 20:59 01/18/18 20:38 Heparin Sodium (Porcine) (Heparin 5000 units/ml) 5,000 units EVERY 12 HOURS SUBQ 01/18/18 21:00 02/10/18 08:59 01/19/18 09:01 Hydralazine HCl (Apresoline) 50 mg EVERY 6 HOURS ORAL 01/18/18 12:00 02/10/18 00:00 01/19/18 12:23 Insulin Aspart (NovoLOG) BEFORE MEALS AND HS SUBQ 01/18/18 12:30 02/17/18 12:29 01/19/18 12:28 Insulin Detemir (Levemir) 10 units Q12HR SUBQ 01/19/18 09:00 02/10/18 08:59 01/19/18 09:03 Levofloxacin (Levaquin) 250 mg DAILY ORAL 01/19/18 09:00 01/21/18 23:59 01/19/18 09:00 Morphine Sulfate (Morphine Sulfate) 2 mg Q4H PRN IVP severe Pain (Pain Scale 7-10) 01/18/18 12:15 01/22/18 12:14 01/19/18 04:07 Nateglinide (Starlix) 60 mg TIAC ORAL 01/18/18 16:30 02/15/18 06:29 01/19/18 12:21 Nitroglycerin (Ntg) 0.4 mg Every 5 Minutes PRN SL Prn Chest Pain 01/18/18 11:45 02/09/18 22:44 Ondansetron HCl (Zofran) 4 mg Q6H PRN IVP Nausea & Vomiting 01/18/18 12:14 02/09/18 12:13 Pantoprazole (Protonix) 40 mg DAILY ORAL 01/19/18 09:00 02/14/18 08:59 01/19/18 09:05 Polyethylene Glycol (Miralax) 17 gm DAILYPRN PRN ORAL Constipation 01/18/18 12:14 02/09/18 12:13 Tamsulosin HCl (Flomax) 0.4 mg BEDTIME ORAL 01/18/18 21:00 02/10/18 20:59 01/18/18 20:38 [facility]Milagro NP Jan 19, 2018 12:44
[2018-01-19] MEDS ORDERED: NS 250 ML IVPB ONE (12:45)
--- NOTE | 2018-01-19 14:53 | Internal Med Progress Note ---
Subjective Date of Service: Jan 19, 2018 Physician Name CaraballoKristina Attending Physician Onesimo Bautista MD Current Medications Medications (Trade) Dose Ordered Sig/Tristan Route PRN Reason Start Time Stop Time Status Last Admin Dose Admin Acetaminophen (Tylenol) 650 mg Q4H PRN ORAL FEVER 01/18/18 12:12 02/09/18 12:11 Albuterol/ Ipratropium (Albuterol/ Ipratropium) 3 ml Q4H PRN HHN Shortness of Breath 01/18/18 12:13 01/22/18 12:12 Aspirin (ASA) 81 mg DAILY ORAL 01/19/18 09:00 02/11/18 08:59 01/19/18 09:00 Atorvastatin Calcium (Lipitor) 20 mg BEDTIME ORAL 01/18/18 21:00 02/10/18 20:59 01/18/18 20:38 Carvedilol (Coreg) 6.25 mg EVERY 12 HOURS ORAL 01/18/18 21:00 02/10/18 08:59 01/19/18 09:00 Clopidogrel Bisulfate (Plavix) 75 mg DAILY ORAL 01/19/18 09:00 02/16/18 08:59 01/19/18 08:59 Dextrose (Dextrose 50%) STAT PRN IV Hypoglycemia 01/18/18 12:13 02/17/18 12:12 Folic Acid (Folate) 1 mg Q24HRS ORAL 01/18/18 21:00 02/10/18 20:59 01/18/18 20:38 Gabapentin (Neurontin) 300 mg BEDTIME ORAL 01/18/18 21:00 02/10/18 20:59 01/18/18 20:38 Heparin Sodium (Porcine) (Heparin 5000 units/ml) 5,000 units EVERY 12 HOURS SUBQ 01/18/18 21:00 02/10/18 08:59 01/19/18 09:01 Hydralazine HCl (Apresoline) 50 mg EVERY 6 HOURS ORAL 01/18/18 12:00 02/10/18 00:00 01/19/18 12:23 Insulin Aspart (NovoLOG) BEFORE MEALS AND HS SUBQ 01/18/18 12:30 02/17/18 12:29 01/19/18 12:28 Insulin Detemir (Levemir) 10 units Q12HR SUBQ 01/19/18 09:00 02/10/18 08:59 01/19/18 09:03 Levofloxacin (Levaquin) 250 mg DAILY ORAL 01/19/18 09:00 01/21/18 23:59 01/19/18 09:00 Morphine Sulfate (Morphine Sulfate) 2 mg Q4H PRN IVP severe Pain (Pain Scale 7-10) 01/18/18 12:15 01/22/18 12:14 01/19/18 13:05 Nateglinide (Starlix) 60 mg TIAC ORAL 01/18/18 16:30 02/15/18 06:29 01/19/18 12:21 Nitroglycerin (Ntg) 0.4 mg Every 5 Minutes PRN SL Prn Chest Pain 01/18/18 11:45 02/09/18 22:44 Ondansetron HCl (Zofran) 4 mg Q6H PRN IVP Nausea & Vomiting 01/18/18 12:14 02/09/18 12:13 Pantoprazole (Protonix) 40 mg DAILY ORAL 01/19/18 09:00 02/14/18 08:59 01/19/18 09:05 Polyethylene Glycol (Miralax) 17 gm DAILYPRN PRN ORAL Constipation 01/18/18 12:14 02/09/18 12:13 Tamsulosin HCl (Flomax) 0.4 mg BEDTIME ORAL 01/18/18 21:00 02/10/18 20:59 01/18/18 20:38 Allergies: Coded Allergies: No Known Allergies (Unverified , 04/15/17) ROS Limited/Unobtainable: No Constitutional: Reports: no symptoms HEENT: Reports: no symptoms Cardiovascular: Reports: no symptoms Respiratory: Reports: no symptoms Gastrointestinal/Abdominal: Reports: no symptoms Genitourinary: Reports: no symptoms Neurologic/Psychiatric: Reports: no symptoms Subjective 67 YO F admitted with chest pain and shortness of breath. Now elevated troponin. S/P EGD and flex sig 01/17/18.Cover for Int Trever-Dr Bautista Objective Last Vital Signs Date Time Temp Pulse Resp B/P (MAP) Pulse Ox O2 Delivery O2 Flow Rate FiO2 01/19/18 13:35 96.3 01/19/18 12:23 130/67 01/19/18 12:00 85 20 98 01/19/18 08:10 Nasal Cannula 2.0 28 Laboratory Tests Test 01/19/18 03:35 White Blood Count 4.0 K/UL (4.8-10.8) L Red Blood Count 3.24 M/UL (4.20-5.40) L Hemoglobin 9.4 G/DL (12.0-16.0) L Hematocrit 28.4 % (37.0-47.0) L Mean Corpuscular Volume 88 FL (80-99) Mean Corpuscular Hemoglobin 29.1 PG (27.0-31.0) Mean Corpuscular Hemoglobin Concent 33.1 G/DL (32.0-36.0) Red Cell Distribution Width 15.8 % (11.6-14.8) H Platelet Count 197 K/UL (150-450) Mean Platelet Volume 7.9 FL (6.5-10.1) Neutrophils (%) (Auto) 45.1 % (45.0-75.0) Lymphocytes (%) (Auto) 34.1 % (20.0-45.0) Monocytes (%) (Auto) 14.9 % (1.0-10.0) H Eosinophils (%) (Auto) 4.5 % (0.0-3.0) H Basophils (%) (Auto) 1.4 % (0.0-2.0) Sodium Level 135 MMOL/L (136-145) L Potassium Level 4.3 MMOL/L (3.5-5.1) Chloride Level 102 MMOL/L (98-107) Carbon Dioxide Level 28 MMOL/L (21-32) Anion Gap 5 mmol/L (5-15) Blood Urea Nitrogen 24 mg/dL (7-18) H Creatinine 1.7 MG/DL (0.55-1.30) H Estimat Glomerular Filtration Rate 36.5 mL/min (>60) Glucose Level 114 MG/DL (74-106) H Calcium Level 8.5 MG/DL (8.5-10.1) Pro-B-Type Natriuretic Peptide 2955 pg/mL (0-125) H Intake and Output 01/18/18 01/19/18 19:00 07:00 Intake Total 500 ml 800 ml Balance 500 ml 800 ml Intake Oral 250 ml 800 ml IV Total 250 ml # Voids 1 4 Objective General Appearance: WD/WN, no apparent distress, alert EENT: PERRL/EOMI, normal ENT inspection, TMs normal Neck: non-tender, normal alignment, supple Cardiovascular: normal peripheral pulses, normal rate, regular rhythm, no gallop/murmur, no JVD Respiratory/Chest: chest wall non-tender, lungs clear, normal breath sounds, no respiratory distress, no accessory muscle use Abdomen: normal bowel sounds, non tender, soft, no organomegaly, no mass Extremities: normal range of motion, non-tender 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 See cardiology note. (2) SOB (shortness of breath) (3) Diabetes mellitus, type II Assessment & Plan: See Endocrinology note. Cont levemir, novolog and starlix. (4) Elevated troponin Assessment & Plan: ?due to recent procedure? See cardiology note. (5) HTN (hypertension) Assessment & Plan: Continue coreg, vasotec and diltiazem (6) Asthma (7) COPD (chronic obstructive pulmonary disease) (8) CAD (coronary artery disease) Assessment & Plan: Continue plavix and aspirin. See cardiology note. (9) Anemia Assessment & Plan: s/P transfusion 1 unit PRBC 01/16/18 (10) Gastritis Assessment & Plan: S/P EGD (11) Occult blood in stools Assessment & Plan: S/P flex sig-see GI note Hemorrhoids.. Assessment/Plan [facility]charge plan: [facility]-see case management note. KRISTINA CARABALLO Jan 19, 2018 14:53
[2018-01-19 16:00] VITALS: BP 119/60
[2018-01-19 20:23] VITALS: BP 146/71
[2018-01-19] MEDS: Atorvastatin 20mg tab ORAL SCH (21:03)
[2018-01-19] MEDS: Tamsulosin 0.4mg cap ORAL SCH (21:03)
--- NOTE | 2018-01-19 23:59 | General Progress Note ---
Assessment/Plan Assessment/Plan #. Reoccurring GI bleed --> ++Occult blood. --> S/P EGD, flex sigmoid colon, colonoscopy cancelled due to poor prep --> Findings revealed gastritis and internal hemorrhoids --> Diet resumed PPI --> Continue to monitor closely. #. Anemia due to underlying chronic disease. --> Anemia workup has been reviewed. --> Labs: Iron 53, TIBC 270, % sat 20, B12 901, Folate 7.9 --> Transfuse if hgb <7, trend cbc daily. --> Has not needed blood transfusion --> ++Occult blood. Consider GI followup. Appreciate recs. --> Hgb improved from yesterday. #. Anemia due to folic acid deficiency. --> At this time, begin the patient on folic acid. --> Review CBC daily to make sure no acute drop #. Diabetes mellitus. A1c test done. #. Acute coronary syndrome rule out. --> Check troponin. Cardiology to follow. #. Hypertension. --> Blood pressure at goal. Systolic blood pressure less than 140. --> Improved. BP has been WNL. #. Myocardial infarct. Subjective Date patient seen: Jan 19, 2018 Constitutional: Denies: no symptoms, chills, diaphoresis, fever, malaise, weakness, other HEENT: Denies: no symptoms, eye pain, blurred vision, tearing, double vision, ear pain, ear discharge, nose pain, nose congestion, throat pain, throat swelling, mouth pain, mouth swelling, other Cardiovascular: Denies: no symptoms, chest pain, edema, irregular heart rate, lightheadedness, palpitations, syncope, other Respiratory: Denies: no symptoms, cough, orthopnea, shortness of breath, SOB with excertion, SOB at rest, sputum, stridor, wheezing, other Gastrointestinal/Abdominal: Denies: no symptoms, abdomen distended, abdominal pain, black stools, tarry stools, blood in stool, constipated, diarrhea, difficulty swallowing, nausea, poor appetite, poor fluid intake, rectal bleeding , vomiting, other Genitourinary: Denies: no symptoms, burning, discharge, frequency, flank pain, hematuria, incontinence, pain, urgency, other Allergies: Coded Allergies: No Known Allergies (Unverified , 04/15/17) Subjective ++Occult blood. No new events overnight. Objective Last 24 Hour Vital Signs Date Time Temp Pulse Resp B/P (MAP) Pulse Ox O2 Delivery O2 Flow Rate FiO2 01/19/18 21:53 Room Air 01/19/18 21:03 80 146/71 01/19/18 20:23 97.1 80 18 146/71 99 01/19/18 17:10 119/60 01/19/18 16:44 Room Air 01/19/18 16:00 97.9 83 20 119/60 95 01/19/18 13:35 96.3 01/19/18 12:23 130/67 01/19/18 12:01 Room Air 01/19/18 12:00 96.3 85 20 127/67 98 01/19/18 09:00 92 136/71 01/19/18 08:10 Nasal Cannula 2.0 28 01/19/18 08:10 87 20 Nasal Cannula 2.0 28 01/19/18 08:00 96.1 84 20 136/71 99 01/19/18 06:05 131/63 01/19/18 04:07 97.5 01/19/18 04:00 97.7 97 18 131/63 98 Nasal Cannula 01/19/18 00:37 145/75 01/19/18 00:00 97.5 86 20 145/75 100 Nasal Cannula 01/19/18 00:00 Nasal Cannula 2.0 Intake and Output 01/18/18 01/19/18 19:00 07:00 Intake Total 500 ml 800 ml Balance 500 ml 800 ml Intake Oral 250 ml 800 ml IV Total 250 ml # Voids 1 4 Laboratory Tests 01/19/18 03:35: White Blood Count 4.0L, Red Blood Count 3.24L, Hemoglobin 9.4L, Hematocrit 28.4L , Mean Corpuscular Volume 88, Mean Corpuscular Hemoglobin 29.1, Mean Corpuscular Hemoglobin Concent 33.1, Red Cell Distribution Width 15.8H, Platelet Count 197, Mean Platelet Volume 7.9, Neutrophils (%) (Auto) 45.1, Lymphocytes (%) (Auto) 34.1, Monocytes (%) (Auto) 14.9H, Eosinophils (%) (Auto) 4.5H, Basophils (%) (Auto) 1.4, Sodium Level 135L, Potassium Level 4.3, Chloride Level 102, Carbon Dioxide Level 28, Anion Gap 5, Blood Urea Nitrogen 24H, Creatinine 1.7H, Estimat Glomerular Filtration Rate 36.5, Glucose Level 114H, Calcium Level 8.5, Pro-B-Type Natriuretic Peptide 2955H Height (Feet): 5 Height (Inches): 4.00 Weight (Pounds): 138 General Appearance: confused Cardiovascular: normal rate, regular rhythm Respiratory/Chest: decreased breath sounds Earl Oquendo Jan 19, 2018 23:59
[2018-01-20 00:18] VITALS: BP 146/77
[2018-01-20] MEDS: HydrALAZINE 50mg tab ORAL SCH ×4 (00:34→17:03)
[2018-01-20] MEDS: Morphine Sulfate 4mg/ml Inj IVP PRN ×4 (01:00→14:06)
[2018-01-20 04:15] VITALS: BP 141/73
[2018-01-20] MEDS: NovoLOG Insulin Flexpen SUBQ SCH ×3 (06:12→16:58)
[2018-01-20] MEDS: Nateglinide 60mg tab ORAL SCH ×3 (06:31→16:56)
--- NOTE | 2018-01-20 06:45 | Immediate Post-Op Evaluation ---
Immediate Post-Op Evalulation Immediate Post-Op Evalulation Procedure: egd/colonoscopy Date of Evaluation: Jan 17, 2018 Time of Evaluation: 12:57 IV Fluids: 0.9 ns 150ml Blood Products: none Estimated Blood Loss: negligible Blood Pressure Systolic: 116 Blood Pressure Diastolic: 53 Pulse Rate: 81 Respiratory Rate: 18 O2 Sat by Pulse Oximetry: 96 Temperature (Fahrenheit): 98.4 Pain Score (1-10): 0 Nausea: No Vomiting: No Complications none Patient Status: awake, reacts, patent Hydration Status: adequate Drug: PASCALE Rudolph Jan 20, 2018 06:45
--- NOTE | 2018-01-20 06:45 | 48 Hour Post Anesthesia Eval ---
Post Anesthesia Evaluation Procedure: egd/colonoscopy Date of Evaluation: Jan 17, 2018 Time of Evaluation: 12:59 Blood Pressure Systolic: 116 0: 59 Pulse Rate: 81 Respiratory Rate: 18 Temperature (Fahrenheit): 97.0 O2 Sat by Pulse Oximetry: 98 Airway: patent Nausea: No Vomiting: No Pain Intensity: 0 Hydration Status: adequate Cardiopulmonary Status: stable Mental Status/LOC: patient returned to baseline Post-Anesthesia Complications: none PASCALE DOTY Jan 20, 2018 06:45
[2018-01-20] MEDS: Nitroglycerin Subl 0.4mg tab SL PRN ×2 (06:53→06:58)
[2018-01-20 08:00] VITALS: BP 135/70
--- NOTE | 2018-01-20 09:44 | Pulmonology Progress Note ---
Assessment/Plan Assessment/Plan ASSESSMENT Elevated troponin atypical chest pain, chest wall pain ( reproducible on palpation) likely due to myalgia probably due to recent CPR at [facility] acute on chronic CHF , systolic and diastolic POA CAD with hx of KS and PCI HTN heart disease with chronic kidney disease mild cardiomyopathy ( EF 40%) likely ATN superimposed on CRI ( due to HTN and DM) mild to moderate MR mild pulmonary HTN RUL mass, likely hamartoma, anemia of chronic disease folate deficiency s/p EGD and flex sigmoid. gastritis internal hemorrhoids COPD/asthma DM Diabetic neuropathy [facility] floor Mild elevation of troponin w/out peak or sridevi not suggestive of ACS as per cardio, tele SR, no acute ischemic changes ECHO with EF 40-45% and RVSP of 38 c/w mild pulm HTN as well as mild to moderate MR Stress test + ischemia and sg-ischemia mo need for further interventions at this time as per cardio chest pain - chest wall pain reproducible on palpation , likely myalgia, due to recent CPR pain management cardio cleared for GI procedure Per cardio continue ASA and Plavix due to risk of stent thrombosis continue medical management with statin, BB, Lasix BP management with BB and Hydralazine urine cx + Enterobacter with small colony count, no urinary symptoms,likely asymptomatic bacteriuria O2 HHN prn CXR with evidence of interstitial congestion and 2 cm mass-like opacity R mid lung CT chest today with RUL mass, likely hamartoma but neoplasm can not be excluded renal US negative creatinine up to 1.7 hold Lasix for now and give 250 cc NS likely CRI due to DM and HTN with ATN due to Lasix superimposed plan to resume Lasix when creat down HH stable anemia w/up c/w anemia of chronic disease and folate deficiency on folate supplement stool OB + GI follows s/p EGD and flex sigmoidoscopy ( colon. cancelled due to poor prep) findings of gastritis and internal hemorrhoids, diet resumed PPI monitor counts, transfuse prn, s/p 1 u PRBC BS management with Levemir and Starlix and SSI prn , endo follows creat down to 1.5 restart Lasix at SNF case discussed and evaluated by supervising physician Subjective Allergies: Coded Allergies: No Known Allergies (Unverified , 04/15/17) Subjective afebrile, no leucocytosis c/o chest pain, , cardiac w/up ruled out for ischemia CT chest this am Objective Last 24 Hour Vital Signs Date Time Temp Pulse Resp B/P (MAP) Pulse Ox O2 Delivery O2 Flow Rate FiO2 01/20/18 08:05 81 18 98 01/20/18 08:02 209.1 81 18 96 01/20/18 08:00 98.1 93 19 135/70 96 01/20/18 07:53 Nasal Cannula 2.0 28 01/20/18 07:53 81 20 Nasal Cannula 2.0 28 01/20/18 07:53 98 Nasal Cannula 2.0 28 01/20/18 06:53 136/67 01/20/18 06:31 141/73 01/20/18 05:23 97.4 01/20/18 04:53 97.4 01/20/18 04:25 Room Air 01/20/18 04:15 97.4 83 18 141/73 98 01/20/18 01:00 97.3 01/20/18 00:34 146/77 01/20/18 00:27 Room Air 01/20/18 00:18 97.3 87 17 146/77 100 01/19/18 21:53 Room Air 01/19/18 21:03 80 146/71 01/19/18 20:23 97.1 80 18 146/71 99 01/19/18 17:10 119/60 01/19/18 16:44 Room Air 01/19/18 16:00 97.9 83 20 119/60 95 01/19/18 12:23 130/67 01/19/18 12:01 Room Air 01/19/18 12:00 96.3 85 20 127/67 98 Intake and Output 01/19/18 01/20/18 19:00 07:00 Intake Total 360 ml 480 ml Balance 360 ml 480 ml Intake Oral 360 ml 480 ml # Voids 4 6 Objective General Appearance: no acute distress HEENT: normocephalic, atraumatic, anicteric Respiratory/Chest: lungs clear, normal breath sounds, no respiratory distress Cardiovascular: normal rate, regular rhythm Abdomen: normal bowel sounds, soft, non tender Extremities: no edema Neurologic/Psychiatric: alert, responsive Current Medications Medications (Trade) Dose Ordered Sig/Tristan Route PRN Reason Start Time Stop Time Status Last Admin Dose Admin Acetaminophen (Tylenol) 650 mg Q4H PRN ORAL FEVER 01/18/18 12:12 02/09/18 12:11 Albuterol/ Ipratropium (Albuterol/ Ipratropium) 3 ml Q4H PRN HHN Shortness of Breath 01/18/18 12:13 01/22/18 12:12 Aspirin (ASA) 81 mg DAILY ORAL 01/19/18 09:00 02/11/18 08:59 01/19/18 09:00 Atorvastatin Calcium (Lipitor) 20 mg BEDTIME ORAL 01/18/18 21:00 02/10/18 20:59 01/19/18 21:03 Carvedilol (Coreg) 6.25 mg EVERY 12 HOURS ORAL 01/18/18 21:00 02/10/18 08:59 01/19/18 21:03 Clopidogrel Bisulfate (Plavix) 75 mg DAILY ORAL 01/19/18 09:00 02/16/18 08:59 01/19/18 08:59 Dextrose (Dextrose 50%) STAT PRN IV Hypoglycemia 01/18/18 12:13 02/17/18 12:12 Folic Acid (Folate) 1 mg Q24HRS ORAL 01/18/18 21:00 02/10/18 20:59 01/19/18 21:03 Gabapentin (Neurontin) 300 mg BEDTIME ORAL 01/18/18 21:00 02/10/18 20:59 01/19/18 21:03 Heparin Sodium (Porcine) (Heparin 5000 units/ml) 5,000 units EVERY 12 HOURS SUBQ 01/18/18 21:00 02/10/18 08:59 01/19/18 21:05 Hydralazine HCl (Apresoline) 50 mg EVERY 6 HOURS ORAL 01/18/18 12:00 02/10/18 00:00 01/20/18 06:31 Insulin Aspart (NovoLOG) BEFORE MEALS AND HS SUBQ 01/18/18 12:30 02/17/18 12:29 01/19/18 17:12 Insulin Detemir (Levemir) 10 units Q12HR SUBQ 01/19/18 09:00 02/10/18 08:59 01/19/18 21:06 Levofloxacin (Levaquin) 250 mg DAILY ORAL 01/19/18 09:00 01/21/18 23:59 01/19/18 09:00 Morphine Sulfate (Morphine Sulfate) 2 mg Q4H PRN IVP severe Pain (Pain Scale 7-10) 01/18/18 12:15 01/22/18 12:14 01/20/18 04:53 Nateglinide (Starlix) 60 mg TIAC ORAL 01/18/18 16:30 02/15/18 06:29 01/20/18 06:31 Nitroglycerin (Ntg) 0.4 mg Every 5 Minutes PRN SL Prn Chest Pain 01/18/18 11:45 02/09/18 22:44 01/20/18 06:53 Ondansetron HCl (Zofran) 4 mg Q6H PRN IVP Nausea & Vomiting 01/18/18 12:14 02/09/18 12:13 Pantoprazole (Protonix) 40 mg DAILY ORAL 01/19/18 09:00 02/14/18 08:59 01/19/18 09:05 Polyethylene Glycol (Miralax) 17 gm DAILYPRN PRN ORAL Constipation 01/18/18 12:14 02/09/18 12:13 Tamsulosin HCl (Flomax) 0.4 mg BEDTIME ORAL 01/18/18 21:00 02/10/18 20:59 01/19/18 21:03 Sameer ([facility])Milagro NP Jan 20, 2018 09:44
[2018-01-20] MEDS: Carvedilol 6.25mg Tab ORAL SCH (09:54)
[2018-01-20] MEDS: Aspirin Baby 81mg ORAL SCH (09:54)
[2018-01-20] MEDS: Heparin 5000 units/ml inj SUBQ SCH (09:56)
[2018-01-20] MEDS: Levemir Flexpen SUBQ SCH (10:09)
--- NOTE | 2018-01-20 10:31 | Internal Med Progress Note ---
Subjective Date of Service: Jan 20, 2018 Physician Name Caraballo,Kristina Attending Physician Onesimo Bautista MD Current Medications Medications (Trade) Dose Ordered Sig/Tristan Route PRN Reason Start Time Stop Time Status Last Admin Dose Admin Acetaminophen (Tylenol) 650 mg Q4H PRN ORAL FEVER 01/18/18 12:12 02/09/18 12:11 Albuterol/ Ipratropium (Albuterol/ Ipratropium) 3 ml Q4H PRN HHN Shortness of Breath 01/18/18 12:13 01/22/18 12:12 Aspirin (ASA) 81 mg DAILY ORAL 01/19/18 09:00 02/11/18 08:59 01/20/18 09:54 Atorvastatin Calcium (Lipitor) 20 mg BEDTIME ORAL 01/18/18 21:00 02/10/18 20:59 01/19/18 21:03 Carvedilol (Coreg) 6.25 mg EVERY 12 HOURS ORAL 01/18/18 21:00 02/10/18 08:59 01/20/18 09:54 Clopidogrel Bisulfate (Plavix) 75 mg DAILY ORAL 01/19/18 09:00 02/16/18 08:59 01/20/18 09:54 Dextrose (Dextrose 50%) STAT PRN IV Hypoglycemia 01/18/18 12:13 02/17/18 12:12 Folic Acid (Folate) 1 mg Q24HRS ORAL 01/18/18 21:00 02/10/18 20:59 01/19/18 21:03 Gabapentin (Neurontin) 300 mg BEDTIME ORAL 01/18/18 21:00 02/10/18 20:59 01/19/18 21:03 Heparin Sodium (Porcine) (Heparin 5000 units/ml) 5,000 units EVERY 12 HOURS SUBQ 01/18/18 21:00 02/10/18 08:59 01/20/18 09:56 Hydralazine HCl (Apresoline) 50 mg EVERY 6 HOURS ORAL 01/18/18 12:00 02/10/18 00:00 01/20/18 06:31 Insulin Aspart (NovoLOG) BEFORE MEALS AND HS SUBQ 01/18/18 12:30 02/17/18 12:29 01/19/18 17:12 Insulin Detemir (Levemir) 10 units Q12HR SUBQ 01/19/18 09:00 02/10/18 08:59 01/20/18 10:09 Levofloxacin (Levaquin) 250 mg DAILY ORAL 01/19/18 09:00 01/21/18 23:59 01/20/18 09:54 Morphine Sulfate (Morphine Sulfate) 2 mg Q4H PRN IVP severe Pain (Pain Scale 7-10) 01/18/18 12:15 01/22/18 12:14 01/20/18 09:57 Nateglinide (Starlix) 60 mg TIAC ORAL 01/18/18 16:30 02/15/18 06:29 01/20/18 06:31 Nitroglycerin (Ntg) 0.4 mg Every 5 Minutes PRN SL Prn Chest Pain 01/18/18 11:45 02/09/18 22:44 01/20/18 06:53 Ondansetron HCl (Zofran) 4 mg Q6H PRN IVP Nausea & Vomiting 01/18/18 12:14 02/09/18 12:13 Pantoprazole (Protonix) 40 mg DAILY ORAL 01/19/18 09:00 02/14/18 08:59 01/20/18 10:08 Polyethylene Glycol (Miralax) 17 gm DAILYPRN PRN ORAL Constipation 01/18/18 12:14 02/09/18 12:13 Tamsulosin HCl (Flomax) 0.4 mg BEDTIME ORAL 01/18/18 21:00 02/10/18 20:59 01/19/18 21:03 Allergies: Coded Allergies: No Known Allergies (Unverified , 04/15/17) ROS Limited/Unobtainable: No Constitutional: Reports: no symptoms HEENT: Reports: no symptoms Cardiovascular: Reports: no symptoms Respiratory: Reports: no symptoms Gastrointestinal/Abdominal: Reports: no symptoms Genitourinary: Reports: no symptoms Neurologic/Psychiatric: Reports: no symptoms Subjective 67 YO F admitted with chest pain and shortness of breath. Now elevated troponin. S/P EGD and flex sig 01/17/18.Cover for Int Adina Bautista Objective Last Vital Signs Date Time Temp Pulse Resp B/P (MAP) Pulse Ox O2 Delivery O2 Flow Rate FiO2 01/20/18 09:54 93 137/70 01/20/18 08:05 18 98 01/20/18 08:02 209.1 2/19/18 07:53 Nasal Cannula 2.0 28 Intake and Output 01/19/18 01/20/18 19:00 07:00 Intake Total 360 ml 480 ml Balance 360 ml 480 ml Intake Oral 360 ml 480 ml # Voids 4 6 Objective General Appearance: WD/WN, no apparent distress, alert EENT: PERRL/EOMI, normal ENT inspection, TMs normal Neck: non-tender, normal alignment, supple Cardiovascular: normal peripheral pulses, normal rate, regular rhythm, no gallop/murmur, no JVD Respiratory/Chest: chest wall non-tender, lungs clear, normal breath sounds, no respiratory distress, no accessory muscle use Abdomen: normal bowel sounds, non tender, soft, no organomegaly, no mass Extremities: normal range of motion, non-tender 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 See cardiology note. (2) SOB (shortness of breath) (3) Diabetes mellitus, type II Assessment & Plan: See Endocrinology note. Cont levemir, novolog and starlix. (4) Elevated troponin Assessment & Plan: ?due to recent procedure? See cardiology note. (5) HTN (hypertension) Assessment & Plan: Continue coreg, vasotec and diltiazem (6) Asthma (7) COPD (chronic obstructive pulmonary disease) (8) CAD (coronary artery disease) Assessment & Plan: Continue plavix and aspirin. See cardiology note. (9) Anemia Assessment & Plan: s/P transfusion 1 unit PRBC 01/16/18 (10) Gastritis Assessment & Plan: S/P EGD (11) Occult blood in stools Assessment & Plan: S/P flex sig-see GI note Hemorrhoids.. Status: stable Assessment/Plan [facility]charge plan: [facility]-see case management note. KRISTINA CARABALLO Jan 20, 2018 10:31
[2018-01-20 10:45] LABS: BASOPHILS % (AUTO) 1.1 % (0.0-2.0); EOSINOPHILS % (AUTO) 3.9 % (0.0-3.0); HEMATOCRIT 29.3 % (37.0-47.0); HEMOGLOBIN 9.5 G/DL (12.0-16.0); LYMPHOCYTES % (AUTO) 30.8 % (20.0-45.0); MEAN CORPUSCULAR VOLUME 88 FL (80-99); NEUTROPHILS % (AUTO) 52.2 % (45.0-75.0); PLATELET COUNT 225 K/UL (150-450); RED BLOOD COUNT 3.35 M/UL (4.20-5.40); WHITE BLOOD COUNT 4.4 K/UL (4.8-10.8)
--- NOTE | 2018-01-20 10:46 | GI Progress Note ---
Assessment/Plan Problems: (1) Occult blood in stools ICD Codes: R19.5 - Other fecal abnormalities SNOMED: 97903412, 690661299 (2) Elevated troponin ICD Codes: R74.8 - Abnormal levels of other serum enzymes SNOMED: 992956341, 758119123, [id number] (3) Diabetes mellitus, type II ICD Codes: E11.9 - Type 2 diabetes mellitus without complications SNOMED: 24612359 (4) Anemia ICD Codes: D64.9 - Anemia, unspecified SNOMED: 299839471 (5) Diabetes mellitus ICD Codes: E11.9 - Type 2 diabetes mellitus without complications SNOMED: 50978354 Status: stable Status Narrative Discussed with Dr. Snow. Assessment/Plan occult blood positive anemia 2/2 folate/b12 deficiency elevated troponin s/p EGD and Flex-sig no active GIB on plavix stable H&H fu needs out patient fu Subjective Subjective limited Objective Last 24 Hour Vital Signs Date Time Temp Pulse Resp B/P (MAP) Pulse Ox O2 Delivery O2 Flow Rate FiO2 01/20/18 09:54 93 137/70 01/20/18 08:05 81 18 98 01/20/18 08:02 209.1 81 18 96 01/20/18 08:00 98.1 93 19 135/70 96 01/20/18 07:53 Nasal Cannula 2.0 28 01/20/18 07:53 81 20 Nasal Cannula 2.0 28 01/20/18 07:53 98 Nasal Cannula 2.0 28 01/20/18 06:53 136/67 01/20/18 06:31 141/73 01/20/18 05:23 97.4 01/20/18 04:53 97.4 01/20/18 04:25 Room Air 01/20/18 04:15 97.4 83 18 141/73 98 01/20/18 01:00 97.3 01/20/18 00:34 146/77 01/20/18 00:27 Room Air 01/20/18 00:18 97.3 87 17 146/77 100 01/19/18 21:53 Room Air 01/19/18 21:03 80 146/71 01/19/18 20:23 97.1 80 18 146/71 99 01/19/18 17:10 119/60 01/19/18 16:44 Room Air 01/19/18 16:00 97.9 83 20 119/60 95 01/19/18 12:23 130/67 01/19/18 12:01 Room Air 01/19/18 12:00 96.3 85 20 127/67 98 Intake and Output 01/19/18 01/20/18 19:00 07:00 Intake Total 360 ml 480 ml Balance 360 ml 480 ml Intake Oral 360 ml 480 ml # Voids 4 6 Laboratory Tests Test 01/20/18 10:05 White Blood Count Pending Red Blood Count Pending Hemoglobin Pending Hematocrit Pending Mean Corpuscular Volume Pending Mean Corpuscular Hemoglobin Pending Mean Corpuscular Hemoglobin Concent Pending Red Cell Distribution Width Pending Platelet Count Pending Mean Platelet Volume Pending Neutrophils (%) (Auto) Pending Lymphocytes (%) (Auto) Pending Monocytes (%) (Auto) Pending Eosinophils (%) (Auto) Pending Basophils (%) (Auto) Pending Sodium Level Pending Potassium Level Pending Chloride Level Pending Carbon Dioxide Level Pending Blood Urea Nitrogen Pending Creatinine Pending Estimat Glomerular Filtration Rate Pending Glucose Level Pending Calcium Level Pending Height (Feet): 5 Height (Inches): 4.00 Weight (Pounds): 138 General Appearance: WD/WN, no apparent distress, alert, other - OOB Cardiovascular: normal rate Respiratory/Chest: normal breath sounds, no respiratory distress Abdominal Exam: normal bowel sounds, non tender, soft Extremities: normal range of motion, non-tender Celina Alberts N.P. Jan 20, 2018 10:46
[2018-01-20 10:54] LABS: ANION GAP 5 mmol/L (5-15); BLOOD UREA NITROGEN 25 mg/dL (7-18); CALCIUM 8.5 MG/DL (8.5-10.1); CARBON DIOXIDE 27 MMOL/L (21-32); CHLORIDE 105 MMOL/L (98-107); CREATININE 1.5 MG/DL (0.55-1.30); POTASSIUM 4.3 MMOL/L (3.5-5.1); SODIUM 137 MMOL/L (136-145)
[2018-01-20 12:00] VITALS: BP 151/75
--- NOTE | 2018-01-20 12:14 | Diagnostic Imaging Report ---
Clinical Indication: Shortness of breath, abnormal prior radiograph Technique: Spiral acquisitions obtained through the chest. No IV contrast utilized, . Multiplanar reconstructions generated. Total dose length product 590.01 mGycm. CTDIvol(s) 17.31 mGy. Dose reduction achieved using automated exposure control Comparison: Reference made to chest radiograph dated 01/10/2018 Findings: There is a slightly lobulated but otherwise smoothly marginated mass in the right upper lobe adjacent to the major fissure. This measures 2.3 x 2.2 x 1.8 cm in diameter. There is no definite macroscopic fat, but is overall somewhat low in attenuation and some individual pixels demonstrate negative Hounsfield unit attenuation. There are moderate to large bilateral pleural effusions. There is compressive atelectasis of a significant portion of the left lower lobe, smaller portion of the right lower lobe, and some compressive atelectasis of portions of the right middle lobe. Some irregular peripheral opacities are seen in the bilateral upper lobes adjacent to the pleural surface. There is equivocal mild pulmonary parenchymal groundglass opacity, particularly in the upper lobes, and minimal interstitial septal thickening. The heart is enlarged. There is a pericardial effusion which measures up to 1 cm in thickness. There are dense coronary artery calcifications. No mediastinal or hilar mass or adenopathy. The esophagus is unremarkable. No axillary or chest wall mass or adenopathy. There is mild edema of the subcutaneous fat. The included upper abdominal anatomy is unremarkable. The bones are unremarkable. Impression: 2.3 cm mass in the right upper lobe, corresponding to abnormality described on prior chest radiographs. Relatively low attenuation suggests that this could be a hamartoma but this is not definitive, and neoplasm cannot be ruled out. Recommend PET/CT for better characterization. Alternatively consider tissue sampling. Bilateral moderate to large pleural effusions. Resultant pulmonary parenchymal compressive atelectasis Minimal interstitial septal thickening and pulmonary parenchymal groundglass opacity, likely reflecting mild pulmonary edema Cardiomegaly Pericardial effusion Mild edema of the subcutaneous fat The CT scanner at [facility] is accredited by the [employer] and the scans are performed using protocols designed to limit radiation exposure to as low as reasonably achievable to attain images of sufficient resolution adequate for diagnostic evaluation.
[2018-01-20] MEDS ORDERED: Lidocaine 1% MPF 10mg/ml 5ml INJ ONE (12:30)
[2018-01-20 15:47] VITALS: BP 126/57
[2018-01-20 17:03] VITALS: BP 126/57
[2018-01-20] MEDS ORDERED: TYLENOL650 MG/20. ORAL (17:15)
[2018-01-20] MEDS ORDERED: ACETAMINOPHEN325 M1 ORAL (17:15)
[2018-01-20] MEDS ORDERED: LEVEMIR FL100 UNIT/1 SUBQ ×2 (17:20→17:35)
[2018-01-20] MEDS ORDERED: NEURONTIN300 MG ORAL (17:22)
[2018-01-20] MEDS ORDERED: FOLIC ACID1 M1 PO (17:23)
[2018-01-20] MEDS ORDERED: ALBUTEROL2.5 MG/3 M INH (17:24)
[2018-01-20] MEDS ORDERED: PLAVIX75 MG ORAL (17:25)
[2018-01-20] MEDS ORDERED: PANTOPRAZOLE SO20 MG ORAL (17:26)
[2018-01-20] MEDS ORDERED: HEPARIN SO5000 UNIT2 SUBQ (17:28)
[2018-01-20] MEDS ORDERED: LEVAQUIN250 M1 ORAL (17:29)
[2018-01-20] MEDS ORDERED: CLOPIDOGREL75 MG ORAL (17:31)
[2018-01-20] MEDS ORDERED: MORPHINE SU4 MG/1 ML IJ (17:31)
[2018-01-20] MEDS ORDERED: PERCOCET 5-3251 EACH ORAL (17:57)
[2018-01-20] MEDS ORDERED: NS 275ml ONE (18:56)
--- NOTE | 2018-01-20 19:25 | Consultation ---
History of Present Illness General Date patient seen: Jan 19, 2018 Chief Complaint: Chest Pain Referring physician: Dr. Lindsay Reason for Consultation: OCCULT STOOL POSITIVE Present Illness HPI 67-year-old female with past medical history significant for diabetes mellitus, CAD, is a [facility] resident, at this time presents to the ER with chest pain. the pt is anxious and c/o chest tightness. the pt is not has cognitive impairment, Allergies: Coded Allergies: No Known Allergies (Unverified , 04/15/17) Medication History Scheduled Albuterol Sulfate (Ventolin Hfa), 1 PUFF INH EVERY 6 HOURS, (Reported) Aspirin* (Aspirin*), 81 MG ORAL DAILY, (Reported) Atorvastatin Calcium* (Atorvastatin Calcium*), 80 MG ORAL BEDTIME, (Reported) Carvedilol* (Carvedilol*), 6.25 MG ORAL EVERY 12 HOURS, (Reported) Clopidogrel Bisulfate* (Plavix*), 75 MG ORAL DAILY, (Reported) Clopidogrel* (Clopidogrel*), 75 MG ORAL DAILY, (Reported) Docusate Sodium* (Docusate Sodium*), 200 MG ORAL TWICE A DAY, (Reported) Folic Acid (Folic Acid), 1 MG PO DAILY, (Reported) Furosemide* (Lasix*), 40 MG ORAL DAILY, (Reported) Furosemide* (Lasix*), 40 MG ORAL DAILY, (Reported) Gabapentin (Neurontin), 300 MG ORAL BEDTIME, (Reported) Gabapentin* (Gabapentin*), 300 MG ORAL BEDTIME, (Reported) Heparin Sod (Porcine) (Heparin Sodium*), 5,000 UNITS SUBQ EVERY 12 HOURS, ( Reported) Hydralazine Hcl* (Hydralazine Hcl*), 50 MG ORAL EVERY 6 HOURS, (Reported) Insulin Detemir (Levemir Flexpen), 10 SUBQ EVERY 12 HOURS, (Reported) Insulin Detemir (Levemir Flexpen), 10 SUBQ EVERY 12 HOURS, (Reported) Insulin Regular, Human* (Novolin R*), 0 SUBQ .SLIDING SCALE, (Reported) Levofloxacin* (Levaquin*), 250 MG ORAL DAILY, (Reported) Losartan Potassium* (Losartan Potassium*), 25 MG ORAL DAILY, (Reported) Metformin Hcl* (Metformin Hcl*), 500 MG ORAL TWICE A DAY, (Reported) Multivitamin With Minerals (Multivitamins With Minerals*), 1 TAB ORAL DAILY, ( Reported) Nateglinide* (Starlix*), 60 MG ORAL BID, (Reported) Pantoprazole (Pantoprazole), 40 MG ORAL DAILY, (Reported) Tamsulosin Hcl (Tamsulosin Hcl*), 0.4 MG ORAL BEDTIME, (Reported) Ticagrelor* (Brilinta*), 90 MG PO BID, (Reported) Scheduled PRN Acetaminophen (Acetaminophen), 650 MG ORAL Q6H PRN for Prn Headache/Temp > 101, (Reported) Acetaminophen* (Acetaminophen*), 320 MG ORAL Q6H PRN for Mild Pain/Temp > 100.5, (Reported) Acetaminophen* (Acetaminophen 325MG Tablet*), 650 MG ORAL Q4H PRN for Pain Scale (3-5), (Reported) Albuterol Sulfate* (Albuterol Sulfate Hhn*), 3 ML INH Q4H PRN for Shortness of Breath, (Reported) Morphine Sulfate (Morphine Sulfate), 2 MG IJ for Pain Scale (6-10), (Reported) Oxycodone/Acetaminophen 5-325* (Percocet 5-325 Mg Tablet*), 1 TAB ORAL Q6H PRN for For Pain, (Reported) Oxycodone/Acetaminophen 5-325* (Percocet 5-325 Mg Tablet*), 1 TAB ORAL Q6H PRN for For Pain, (Reported) Polyethylene Glycol 3350* (Polyethylene Glycol 3350*), 17 GM ORAL NEEDED PRN for Constipation, (Reported) Miscellaneous Medications Calcitriol (Calcitriol), 0.25 MCG PO, (Reported) Insulin Lispro (Humalog), 0 SUBQ, (Reported) Insulin Regular, Human (Humulin R), 8 SUBQ, (Reported) Mometasone/Formoterol (Dulera 200 Mcg/5 Mcg Inhaler), 13 GM IH, (Reported) Nitroglycerin (Nitroglycerin), 0.4 MG SL, (Reported) Nph, Human Insulin Isophane (Humulin N), 18 SUBQ, (Reported) Patient History Healthcare decision maker WILD SERRANO Resuscitation status Full Code Advanced Directive on File Yes Physical Exam Last 24 Hour Vital Signs Date Time Temp Pulse Resp B/P (MAP) Pulse Ox O2 Delivery O2 Flow Rate FiO2 01/20/18 19:02 206.6 01/20/18 17:03 126/57 01/20/18 15:47 98.2 89 20 126/57 100 Nasal Cannula 2.0 01/20/18 14:06 97.0 01/20/18 12:16 151/75 01/20/18 12:00 97.0 92 18 151/75 95 01/20/18 09:54 93 137/70 01/20/18 08:05 81 18 98 01/20/18 08:02 209.1 81 18 96 01/20/18 08:00 98.1 93 19 135/70 96 01/20/18 07:53 Nasal Cannula 2.0 28 01/20/18 07:53 81 20 Nasal Cannula 2.0 28 01/20/18 07:53 98 Nasal Cannula 2.0 28 01/20/18 06:53 136/67 01/20/18 06:31 141/73 01/20/18 05:23 97.4 01/20/18 04:53 97.4 01/20/18 04:25 Room Air 01/20/18 04:15 97.4 83 18 141/73 98 01/20/18 01:00 97.3 01/20/18 00:34 146/77 01/20/18 00:27 Room Air 01/20/18 00:18 97.3 87 17 146/77 100 01/19/18 21:53 Room Air 01/19/18 21:03 80 146/71 01/19/18 20:23 97.1 80 18 146/71 99 Intake and Output 01/19/18 01/20/18 19:00 07:00 Intake Total 360 ml 480 ml Balance 360 ml 480 ml Intake Oral 360 ml 480 ml # Voids 4 6 Laboratory Tests Test 01/20/18 10:05 White Blood Count 4.4 K/UL (4.8-10.8) L Red Blood Count 3.35 M/UL (4.20-5.40) L Hemoglobin 9.5 G/DL (12.0-16.0) L Hematocrit 29.3 % (37.0-47.0) L Mean Corpuscular Volume 88 FL (80-99) Mean Corpuscular Hemoglobin 28.3 PG (27.0-31.0) Mean Corpuscular Hemoglobin Concent 32.3 G/DL (32.0-36.0) Red Cell Distribution Width 16.0 % (11.6-14.8) H Platelet Count 225 K/UL (150-450) Mean Platelet Volume 7.2 FL (6.5-10.1) Neutrophils (%) (Auto) 52.2 % (45.0-75.0) Lymphocytes (%) (Auto) 30.8 % (20.0-45.0) Monocytes (%) (Auto) 12.0 % (1.0-10.0) H Eosinophils (%) (Auto) 3.9 % (0.0-3.0) H Basophils (%) (Auto) 1.1 % (0.0-2.0) Sodium Level 137 MMOL/L (136-145) Potassium Level 4.3 MMOL/L (3.5-5.1) Chloride Level 105 MMOL/L (98-107) Carbon Dioxide Level 27 MMOL/L (21-32) Anion Gap 5 mmol/L (5-15) Blood Urea Nitrogen 25 mg/dL (7-18) H Creatinine 1.5 MG/DL (0.55-1.30) H Estimat Glomerular Filtration Rate 42.1 mL/min (>60) Glucose Level 108 MG/DL (74-106) H Calcium Level 8.5 MG/DL (8.5-10.1) Height (Feet): 5 Height (Inches): 4.00 Weight (Pounds): 138 Myrna Shultz M.D. Jan 20, 2018 19:25
--- NOTE | 2018-01-20 19:33 | General Progress Note ---
Assessment/Plan Status: stable, progressing Subjective Date patient seen: Jan 20, 2018 Neurologic/Psychiatric: Reports: anxiety, depressed, emotional problems Allergies: Coded Allergies: No Known Allergies (Unverified , 04/15/17) Objective Last 24 Hour Vital Signs Date Time Temp Pulse Resp B/P (MAP) Pulse Ox O2 Delivery O2 Flow Rate FiO2 01/20/18 19:02 206.6 01/20/18 17:03 126/57 01/20/18 15:47 98.2 89 20 126/57 100 Nasal Cannula 2.0 01/20/18 14:06 97.0 01/20/18 12:16 151/75 01/20/18 12:00 97.0 92 18 151/75 95 01/20/18 09:54 93 137/70 01/20/18 08:05 81 18 98 01/20/18 08:02 209.1 81 18 96 01/20/18 08:00 98.1 93 19 135/70 96 01/20/18 07:53 Nasal Cannula 2.0 28 01/20/18 07:53 81 20 Nasal Cannula 2.0 28 01/20/18 07:53 98 Nasal Cannula 2.0 28 01/20/18 06:53 136/67 01/20/18 06:31 141/73 01/20/18 05:23 97.4 01/20/18 04:53 97.4 01/20/18 04:25 Room Air 01/20/18 04:15 97.4 83 18 141/73 98 01/20/18 01:00 97.3 01/20/18 00:34 146/77 01/20/18 00:27 Room Air 01/20/18 00:18 97.3 87 17 146/77 100 01/19/18 21:53 Room Air 01/19/18 21:03 80 146/71 01/19/18 20:23 97.1 80 18 146/71 99 Intake and Output 01/19/18 01/20/18 19:00 07:00 Intake Total 360 ml 480 ml Balance 360 ml 480 ml Intake Oral 360 ml 480 ml # Voids 4 6 Laboratory Tests 01/20/18 10:05: White Blood Count 4.4L, Red Blood Count 3.35L, Hemoglobin 9.5L, Hematocrit 29.3L , Mean Corpuscular Volume 88, Mean Corpuscular Hemoglobin 28.3, Mean Corpuscular Hemoglobin Concent 32.3, Red Cell Distribution Width 16.0H, Platelet Count 225, Mean Platelet Volume 7.2, Neutrophils (%) (Auto) 52.2, Lymphocytes (%) (Auto) 30.8, Monocytes (%) (Auto) 12.0H, Eosinophils (%) (Auto) 3.9H, Basophils (%) (Auto) 1.1, Sodium Level 137, Potassium Level 4.3, Chloride Level 105, Carbon Dioxide Level 27, Anion Gap 5, Blood Urea Nitrogen 25H, Creatinine 1.5H, Estimat Glomerular Filtration Rate 42.1, Glucose Level 108H, Calcium Level 8.5 Height (Feet): 5 Height (Inches): 4.00 Weight (Pounds): 138 General Appearance: no apparent distress, alert Neurologic: alert, oriented x 3, responsive, depressed affect Myrna Shultz M.D. Jan 20, 2018 19:33
--- NOTE | 2018-01-21 08:31 | Cardiology Report ---
APPROVED REPORT EKG Measurement Heart [id number] Sinus rhythm with occasional premature ventricular complexes Nonspecific T wave abnormality Prolonged QT Abnormal ECG
--- NOTE | 2018-01-21 09:20 | General Progress Note ---
Assessment/Plan Assessment/Plan #. Reoccurring GI bleed --> ++Occult blood. --> S/P EGD, flex sigmoid colon, colonoscopy cancelled due to poor prep --> Findings revealed gastritis and internal hemorrhoids --> Diet resumed PPI --> Continue to monitor closely. GI followup. #. Anemia due to underlying chronic disease. --> Anemia workup has been reviewed. --> Labs: Iron 53, TIBC 270, % sat 20, B12 901, Folate 7.9 --> Transfuse if hgb <7, trend cbc daily. --> Has not needed blood transfusion --> ++Occult blood. Consider GI followup. Appreciate recs. --> Hgb improved from yesterday. #. Anemia due to folic acid deficiency. --> At this time, begin the patient on folic acid. --> Review CBC daily to make sure no acute drop #. Diabetes mellitus. A1c test done. #. Acute coronary syndrome rule out. --> Check troponin. Cardiology to follow. #. Hypertension. --> Blood pressure at goal. Systolic blood pressure less than 140. --> Improved. BP has been WNL. #. Myocardial infarct. Subjective Date patient seen: Jan 20, 2018 Constitutional: Denies: no symptoms, chills, diaphoresis, fever, malaise, weakness, other HEENT: Denies: no symptoms, eye pain, blurred vision, tearing, double vision, ear pain, ear discharge, nose pain, nose congestion, throat pain, throat swelling, mouth pain, mouth swelling, other Cardiovascular: Denies: no symptoms, chest pain, edema, irregular heart rate, lightheadedness, palpitations, syncope, other Respiratory: Denies: no symptoms, cough, orthopnea, shortness of breath, SOB with excertion, SOB at rest, sputum, stridor, wheezing, other Gastrointestinal/Abdominal: Denies: no symptoms, abdomen distended, abdominal pain, black stools, tarry stools, blood in stool, constipated, diarrhea, difficulty swallowing, nausea, poor appetite, poor fluid intake, rectal bleeding , vomiting, other Genitourinary: Denies: no symptoms, burning, discharge, frequency, flank pain, hematuria, incontinence, pain, urgency, other Hematologic/Lymphatic: Reports: anemia Allergies: Coded Allergies: No Known Allergies (Unverified , 04/15/17) Subjective No respiratory distress. No fever or chills. Objective Last 24 Hour Vital Signs Date Time Temp Pulse Resp B/P (MAP) Pulse Ox O2 Delivery O2 Flow Rate FiO2 01/20/18 19:02 206.6 01/20/18 17:03 126/57 01/20/18 15:47 98.2 89 20 126/57 100 Nasal Cannula 2.0 01/20/18 14:06 97.0 01/20/18 12:16 151/75 01/20/18 12:00 97.0 92 18 151/75 95 01/20/18 09:54 93 137/70 Intake and Output 01/20/18 01/21/18 19:00 07:00 Intake Total 240 ml Balance 240 ml Intake Oral 240 ml Laboratory Tests 01/20/18 10:05: White Blood Count 4.4L, Red Blood Count 3.35L, Hemoglobin 9.5L, Hematocrit 29.3L , Mean Corpuscular Volume 88, Mean Corpuscular Hemoglobin 28.3, Mean Corpuscular Hemoglobin Concent 32.3, Red Cell Distribution Width 16.0H, Platelet Count 225, Mean Platelet Volume 7.2, Neutrophils (%) (Auto) 52.2, Lymphocytes (%) (Auto) 30.8, Monocytes (%) (Auto) 12.0H, Eosinophils (%) (Auto) 3.9H, Basophils (%) (Auto) 1.1, Sodium Level 137, Potassium Level 4.3, Chloride Level 105, Carbon Dioxide Level 27, Anion Gap 5, Blood Urea Nitrogen 25H, Creatinine 1.5H, Estimat Glomerular Filtration Rate 42.1, Glucose Level 108H, Calcium Level 8.5 Height (Feet): 5 Height (Inches): 4.00 Weight (Pounds): 138 General Appearance: no apparent distress EENT: normal ENT inspection Neck: normal alignment Cardiovascular: normal rate, regular rhythm Respiratory/Chest: decreased breath sounds Earl Oquendo Jan 21, 2018 09:20
--- NOTE | 2018-01-23 10:59 | Discharge Summary ---
Discharge Summary Hospital Course Date of Admission Jan 10, 2018 at 21:10 Date of Discharge Jan 20, 2018 at 18:57 Admitting Diagnosis acs HPI Katherin Odom is a 67 year old female who was admitted on Jan 10, 2018 at 21:10 for Acute Coronary Syndrome Hospital Course DC SUMMARY # [id number] Discharge Medications Continued Medications: Acetaminophen* (Acetaminophen 325MG Tablet*) 325 Mg Tablet 650 MG ORAL Q4H PRN for Pain Scale (3-5), TAB Albuterol Sulfate* (Albuterol Sulfate Hhn*) 2.5 Mg/3 Ml Vial.neb 3 ML INH Q4H PRN for Shortness of Breath, EA Aspirin* (Aspirin*) 81 Mg Tab.chew 81 MG ORAL DAILY, TAB Atorvastatin Calcium* (Atorvastatin Calcium*) 40 Mg Tablet 80 MG ORAL BEDTIME, TAB Carvedilol* (Carvedilol*) 6.25 Mg Tablet 6.25 MG ORAL EVERY 12 HOURS, TAB Clopidogrel Bisulfate* (Plavix*) 75 Mg Tablet 75 MG ORAL DAILY, TAB Docusate Sodium* (Docusate Sodium*) 100 Mg Capsule 200 MG ORAL TWICE A DAY, CAP Folic Acid (Folic Acid) 1 Mg Tablet 1 MG PO DAILY, TAB Gabapentin* (Gabapentin*) 300 Mg Capsule 300 MG ORAL BEDTIME, CAP Heparin Sod (Porcine) (Heparin Sodium*) 5 000/1 Ml Vial 5000 UNITS SUBQ EVERY 12 HOURS, VIAL Hydralazine Hcl* (Hydralazine Hcl*) 50 Mg Tablet 50 MG ORAL EVERY 6 HOURS, TAB Insulin Detemir (Levemir Flexpen) 100 Unit/1 Ml Insuln.pen 10 SUBQ EVERY 12 HOURS, #300 UNITS 0 Refills Insulin Lispro (Humalog) 100 Unit/1 Ml Cartridge 0 SUBQ, #1 UNITS 0 Refills Insulin Regular, Human* (Novolin R*) 100 Unit/1 Ml Vial 0 SUBQ .SLIDING SCALE, UNITS Levofloxacin* (Levaquin*) 250 Mg Tablet 250 MG ORAL DAILY, TAB Nateglinide* (Starlix*) 60 Mg Tablet 60 MG ORAL BID, TAB Oxycodone/Acetaminophen 5-325* (Percocet 5-325 Mg Tablet*) 1 Each Tablet 1 TAB ORAL Q6H PRN for For Pain, #30 TAB 0 Refills Polyethylene Glycol 3350* (Polyethylene Glycol 3350*) 17 Gm Powd.pack 17 GM ORAL NEEDED PRN for Constipation, PACKET Tamsulosin Hcl (Tamsulosin Hcl*) 0.4 Mg Cap.er.24h 0.4 MG ORAL BEDTIME, CAP Discharge Condition Upon Discharge: stable Discharge Disposition Patient was discharged to SNF/Subacute Facility(03) Discharge Diagnoses: Sameer ([facility]),Milagro FERNANDEZ Jan 23, 2018 10:59
--- NOTE | 2018-01-24 02:17 | Discharge Summary 2 SIG ---
DATE OF ADMISSION: 01/10/2018 DATE OF DISCHARGE: 01/20/2018 REASON FOR ADMISSION: 67-year-old female with history of diabetes, hypertension, coronary artery disease, and COPD, presented to emergency department from the [facility] with a complaint of chest pain. Upon evaluation, the patient was found to have elevated troponin -0.358, glucose -162, BUN -21, and creatinine- 1.5. No leukocytosis. ProBNP- 3704. Hemoglobin -9.7 and hematocrit- 30.2. EKG showed normal sinus rhythm, no acute ischemic changes, some PVC's. Chest x-ray revealed bilateral effusions, questionable right lung mass, questionable infiltrate. The patient was admitted with diagnoses of elevated troponin, rule out acute coronary syndrome, anemia, acute tubular necrosis, diabetes, hypertension, COPD, and CHF. CONSULTANTS: 1. Mill Controller, Dr. Jayro Jay. 2. Athletic Team Physician, Dr. Jorge Lanza. 3. GI specialist, Dr. Edward Snow. 4. Grounds Crew Supervisor, Dr. Earl Oquendo. 5. Psychiatrist, Dr. Myrna Shultz. 6. Visitor Services Specialist, Dr. Sohail Tristan. HOSPITAL COURSE: The patient was admitted to monitored floor. Serial troponin were monitored. Cardiology consult was requested. Troponin with minimal elevation, 0.358 and 0.356 and 0.287. The patient with extensive cardiac history. The patient was hospitalized at [facility] for respiratory failure requiring intubation. She also was found at that time to have a non-STEMI and subsequently underwent coronary angiogram that revealed three-vessel coronary artery disease. Subsequently, she underwent interventional LAD and circumflex. Procedure was done on 12/20/2017. The surgeon did not feel that the patient was a good candidate for open-heart surgery because of the severe chronic obstructive pulmonary disease. On 12/16/2017, the patient suffered from cardiac arrest, most likely due to respiratory condition and at that time, she received chest compression. Mill Controller felt that her chest pain was atypical . Chest pain was reproducible on palpation exactly on the place at the junction with the sternum, probably likely due to myalgia due to recent CPR. Mill Controller, also stated that troponin were not significantly elevated, and the pattern of release was not suggestive of acute coronary syndrome. The patient undergone echocardiogram, which revealed ejection fraction of 40% to 45% and right ventricular systolic pressure of 38 consistent with mild pulmonary hypertension. It also revealed mild-to- moderate mitral regurgitation and mild tricuspid regurgitation. Stress test subsequently revealed myocardial infarct involving the lateral wall, inferior lateral wall, and inferior wall. The margins of the infarct showed some reversibility indicative of sg-infarct ischemia. Ejection fraction was 47%. Mill Controller closely reviewed the results of the stress test and suggested that the stress test showed infarction with some sg-infarct ischemia. No need for further intervention at this time. The patient with a high risk for the stent thrombosis, and incoming freight clerk advised to continue double antiplatelet therapy with Ecotrin and Plavix. Mill Controller cleared the patient for GI workup due to the anemia. The patient was on medical management of coronary artery disease and congestive heart failure: beta-enrico, diuretic statin. Blood pressure was managed with beta-enrico and hydralazine. Urine culture revealed Enterobacter with small colony count, no urinary complaints. Likely asymptomatic bacteriuria. Pain management provided. Supplemental oxygen and pulmonary toilet provided as needed. CT chest was done and revealed right upper lobe mass likely hamartoma , however, neoplasm cannot be excluded. Further workup recommended as outpatient. Repeat CT chest in three to six months. Renal ultrasound was negative. Renal parameters and electrolytes were closely monitored. Electrolytes were corrected as needed. Nephrotoxics were avoided. When creatinine was up to 1.7, Lasix was on hold and patient was given bolus of normal saline. The patient likely has chronic renal insufficiency due to diabetes and hypertension with acute tubular necrosis due to Lasix superimposed. Lasix to be resumed soon, when creatinine down. Hemoglobin and hematocrit remained stable. The patient required transfusion of one unit of packed red blood cells during this admission. Anemia workup was consistent with anemia of chronic disease and folate deficiency. The patient was started on folate supplement. Stool OB was positive. GI closely followed. After cardiac clearance, the patient undergone EGD and flexible sigmoidoscopy. Initial colonoscopy, which was planned , was canceled due to poor preparation. EGD and flexible sigmoidoscopy revealed gastritis and internal hemorrhoids, diet was resumed. The patient was started on PPI. Counts were closely monitored and stable prior to discharge. Blood sugar was managed with Levemir and Starlix as well as a sliding scale of insulin as needed. Visitor Services Specialist closely followed. On the day of discharge, creatinine down to 1.5. Lasix to be restarted at the [facility]. The patient was stable for discharge. FINAL DIAGNOSES: 1.Atypical chest pain 2. Chest wall pain likely due to myalgia ( probably due to recent CPR) 3. Coronary artery disease with history of myocardial infarction and percutaneous coronary intervention, 4. Hypertension, 5. Mild cardiomyopathy, 6. Acute on chronic congestive heart failure, systolic and diastolic, present on admission, 7. [id number] mitral regurgitation, 8. 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 11. Folate deficiency. 12. Status post esophagogastroduodenoscopy and flexible sigmoidoscopy. 13. Gastritis. 14. Internal hemorrhoids. 15. Likely acute tubular necrosis on chronic renal insufficiency due to diabetes and hypertension. 16. Chronic obstructive pulmonary disease/asthma. 17. Diabetes. 18. Diabetic neuropathy. DISCHARGE MEDICATIONS: See medication reconciliation list. DISCHARGE INSTRUCTIONS: The patient was [facility] to [facility]. Follow up with medical doctor at the facility. Closely monitor cardiopulmonary status and recommended to repeat CT chest in three to six months. Onesimo Bautista M.D. Milagro EstevezBronxcare Health SystemSofía N.PJorge DR: JOYCE JOB#: [id number] CC: DIAZ
== END 2018-01-20 18:57 | DRG 291 ==
LOC: EDBD 19:37 → EMR 21:00 → 2E 21:10 → EDBEDREQ 22:31 → 2E 01-12 08:00 → 4W 01-18 12:10
PROC: 0DJD8ZZ Inspection of Lower Intestinal Tract, Via Natural or Artificial Opening Endoscopic (ICD-10-PCS; principal; 2018-01-17 12:26)
PROC: 0DJ08ZZ Inspection of Upper Intestinal Tract, Via Natural or Artificial Opening Endoscopic (ICD-10-PCS; principal; 2018-01-17 12:26)
DX: I13.0 Hypertensive heart and chronic kidney disease with heart failure and stage 1 through stage 4 chronic kidney disease, or unspecified chronic kidney disease (principal); N17.0 Acute kidney failure with tubular necrosis; E11.22 Type 2 diabetes mellitus with diabetic chronic kidney disease; I27.20 Pulmonary hypertension, unspecified; E11.40 Type 2 diabetes mellitus with diabetic neuropathy, unspecified; D52.9 Folate deficiency anemia, unspecified; I50.43 Acute on chronic combined systolic (congestive) and diastolic (congestive) heart failure; Q85.9 Phakomatosis, unspecified; N18.9 Chronic kidney disease, unspecified; I25.10 Atherosclerotic heart disease of native coronary artery without angina pectoris; Z98.61 Coronary angioplasty status; I42.9 Cardiomyopathy, unspecified; K29.70 Gastritis, unspecified, without bleeding; J44.9 Chronic obstructive pulmonary disease, unspecified; K64.8 Other hemorrhoids; E53.8 Deficiency of other specified B group vitamins; I25.2 Old myocardial infarction; Z86.74 Personal history of sudden cardiac arrest; R19.5 Other fecal abnormalities; R07.89 Other chest pain; I34.0 Nonrheumatic mitral (valve) insufficiency
CPT/HCPCS: 36415; 71045; 71250; 76775; 78452; 80048; 80053; 80061; 81001; 82270; 82378; 82550; 82553; 82607; 82746; 82962; 83540; 83550; 83615; 83735; 83880; 84100; 84133; 84300; 84439; 84443; 84484; 84550; 85007; 85025; 85044; 85060; 85610; 85651; 85730; 86140; 86850; 86900; 86901; 86920; 87081; 87086; 87181; 89050; 93005; 93017; 93306; 94003; 94150; 94640; 94664; 94760; 99285; J1815; J2785; J7620; S5561

== ENCOUNTER 2018-02-05 20:39 | Emergency (ER) | payer MEDICARE, OTHER ==
[~2018-02-05] VITALS: Ht 162.6 cm; Wt 54.4 kg
[~2018-02-05 20:39] MED LIST changes: +ACETAMINOP160 MG/54 ORAL; +ACETAMINOPHEN325 M1 ORAL; +ALBUTEROL2.5 MG/3 M INH; +ASPIRIN81 MG ORAL; +ATORVASTATIN CA40 MG ORAL; +BRILINTA90 MG PO; +CALCITRIOL0.25 MCG PO; +CARVEDILOL6.25 MG ORAL; +CLOPIDOGREL75 MG ORAL; +DOCUSATE SODIU100 MG ORAL; +DULERA 200 MCG/13 GM IH; +FOLIC ACID1 M1 PO; +FUROSEMIDE40 MG ORAL; +GABAPENTIN300 MG ORAL; +HEPARIN SO5000 UNIT2 SUBQ; +HUMULIN N100 UNIT/1 SUBQ; +HUMULIN R100 UNIT/1 SUBQ; +HYDRALAZINE HCL50 MG ORAL; +LEVAQUIN250 M1 ORAL; +LEVEMIR FL100 UNIT/1 SUBQ; +MORPHINE SU4 MG/1 ML IJ; +MULTIVITAMINS1 EAC8 ORAL; +NEURONTIN300 MG ORAL; +NITROGLYCERIN0.4 MG SL; +PANTOPRAZOLE SO20 MG ORAL; +PERCOCET 5-3251 EACH ORAL; +PLAVIX75 MG ORAL; +POLYETHYLENE GL17 GM ORAL; +STARLIX60 MG ORAL; +TAMSULOSIN HCL0.4 MG ORAL; +TYLENOL650 MG/20. ORAL; +VENTOLIN HFA18 GM INH
[2018-02-05] MEDS ORDERED: Ketorolac 60mg Inj IM ONE (21:00)
[2018-02-05] MEDS ORDERED: FERROUSUL325 M1 PO (21:14)
[2018-02-05] MEDS ORDERED: TRAMADOL HCL50 MG ORAL (21:14)
[2018-02-05] MEDS ORDERED: HYDRALAZINE HCL50 MG ORAL (21:14)
[2018-02-05] MEDS ORDERED: LATANOPROST2.5 ML BOTH EYES (21:14)
[2018-02-05] MEDS ORDERED: PLAVIX75 MG ORAL (21:14)
[2018-02-05] MEDS ORDERED: BISACODYL5 MG ORAL (21:14)
[2018-02-05] MEDS ORDERED: Morphine Sulfate 4mg/ml Inj IVP ONE (21:15)
[2018-02-05 22:04] LABS: ANION GAP 6 mmol/L (5-15); BLOOD UREA NITROGEN 18 mg/dL (7-18); CALCIUM 9.1 MG/DL (8.5-10.1); CARBON DIOXIDE 28 MMOL/L (21-32); CHLORIDE 104 MMOL/L (98-107); CREATININE 1.4 MG/DL (0.55-1.30); POTASSIUM 4.3 MMOL/L (3.5-5.1); SODIUM 138 MMOL/L (136-145)
[2018-02-05 22:06] LABS: HEMATOCRIT 30.2 % (37.0-47.0); MEAN CORPUSCULAR VOLUME 89 FL (80-99); PLATELET COUNT 214 K/UL (150-450); RED BLOOD COUNT 3.39 M/UL (4.20-5.40); RED CELL DISTRIBUTION WIDTH 17.6 % (11.6-14.8); WHITE BLOOD COUNT 3.4 K/UL (4.8-10.8)
--- NOTE | 2018-02-05 22:16 | Emergency Room Report ---
History of Present Illness General Chief Complaint: Back Pain-No Injury Source: Patient, Medical Record, EMS Present Illness HPI Is a 67-year-old female with history of diabetes, CAD. She presents with chief complaint of mid back pain. She also history of chronic pain and taking tramadol and gabapentin. She has no trauma. Pain started today. Pain is 10 out of 10. Localized to the right mid back. No urinary complaints. No dysuria frequency or hematuria. No other complaint. Allergies: Coded Allergies: No Known Allergies (Unverified , 04/15/17) Patient History Past Medical History: see triage record, old chart reviewed, DM, CHF, COPD Past Surgical History: other Pertinent Family History: none Social History: Denies: smoking Last Menstrual Period: NA Now: No Immunizations: other Reviewed Nursing Documentation: PMH: Agreed, PSxH: Agreed Nursing Documentation-PMH Hx Hypertension: Yes - chronic pulmonary embolism Hx COPD: Yes Hx Diabetes: Yes Hx Cancer: No Review of Systems Eye: Denies: eye pain, blurred vision ENT: Denies: ear pain, nose congestion, throat swelling Respiratory: Denies: cough, shortness of breath Cardiovascular: Denies: chest pain, palpitations Gastrointestinal: Denies: abdominal pain, diarrhea, nausea, vomiting Musculoskeletal: Reports: back pain, Denies: joint pain Skin: Denies: rash Neurological: Denies: headache, numbness Endocrine: Denies: increased thirst, increased urine Hematologic/Lymphatic: Denies: easy bruising All Other Systems: negative except mentioned in HPI Physical Exam Vital Signs Date Time Temp Pulse Resp B/P (MAP) Pulse Ox O2 Delivery O2 Flow Rate FiO2 02/05/18 20:28 97.9 101 18 182/82 96 Room Air 97.9 vitals normal except for high blood pressure Sp02 EP Interpretation: reviewed, normal General Appearance: well appearing, no apparent distress, alert Head: normocephalic, atraumatic Eyes: bilateral eye PERRL, bilateral eye EOMI ENT: hearing grossly normal, normal pharynx Neck: full range of motion, supple, no meningismus Respiratory: chest non-tender, lungs clear, normal breath sounds Cardiovascular #1: regular rate, rhythm, no murmur Gastrointestinal: normal bowel sounds, non tender, no mass, no organomegaly, no bruit, non-distended Musculoskeletal: back normal, normal range of motion Psychiatric: anxious Skin: warm/dry Medical Decision Making Diagnostic Impression: Primary Impression: Back pain Qualified Codes: M54.5 - Low back pain ER Course Patient with upper lumbar spine pain. No step-off. No evidence of cauda equina syndrome, spinal epidural abscess or neoplastic process. Pain is controlled with a dose of morphine. Labs unremarkable. We'll discharge back to intermediate. She has not given a urine sample but has no urinary complaint. Last Vital Signs Date Time Temp Pulse Resp B/P (MAP) Pulse Ox O2 Delivery O2 Flow Rate FiO2 02/05/18 21:46 97.9 02/05/18 20:28 101 18 182/82 96 Room Air Status: improved Disposition: XFER SNF Condition: Improved Scripts Hydrocodone/Acetaminophen 7.5-325* (HYDROCODON-ACETAMINOPH 7.5-325*) 1 Each Tablet 1 TAB ORAL Q6H Y for For Pain, #30 TAB 0 Refills Prov: CAESAR QUINTANA M.D. 02/05/18 Referrals: Onesimo Bautista MD (PCP) Patient Instructions: Back Pain, Adult Additional Instructions: Follow-up with your doctor in 7 days. Return if worse. CAESAR QUINTANA M.D. Feb 05, 2018 22:16
[2018-02-05] MEDS ORDERED: HYDROCODON-ACE1 EA16 ORAL (22:47)
[2018-02-05 23:17] VITALS: BP 172/83
[2018-02-05 23:34] VITALS: BP 156/87
== END 2018-02-05 23:36 ==
LOC: EDBD 20:39 → EMR 21:11
DX: M54.5 Low back pain (principal); G89.29 Other chronic pain; J44.9 Chronic obstructive pulmonary disease, unspecified; E11.9 Type 2 diabetes mellitus without complications; Z86.711 Personal history of pulmonary embolism; I50.9 Heart failure, unspecified; I25.10 Atherosclerotic heart disease of native coronary artery without angina pectoris
CPT/HCPCS: 36415; 80048; 85007; 85025; 96372; 96374; 96375; 99284; J2270; J2405

== ENCOUNTER 2018-02-16 17:42 | Inpatient (IN) | payer MEDICARE, OTHER ==
[~2018-02-16] VITALS: Ht 162.6 cm; Wt 70.8 kg
[~2018-02-16 17:42] MED LIST changes: +BISACODYL5 MG ORAL; +FERROUSUL325 M1 PO; +HYDROCODON-ACE1 EA16 ORAL; +LATANOPROST2.5 ML BOTH EYES; +TRAMADOL HCL50 MG ORAL
[2018-02-16] MEDS ORDERED: Morphine Sulfate 4mg/ml Inj IVP ONE ×2 (18:00→19:30)
[2018-02-16 18:18] VITALS: BP 147/86
[2018-02-16 18:37] LABS: HEMATOCRIT 28.5 % (37.0-47.0); HEMOGLOBIN 9.4 G/DL (12.0-16.0); MEAN CORPUSCULAR VOLUME 89 FL (80-99); PLATELET COUNT 195 K/UL (150-450); RED BLOOD COUNT 3.21 M/UL (4.20-5.40); RED CELL DISTRIBUTION WIDTH 17.2 % (11.6-14.8); WHITE BLOOD COUNT 3.1 K/UL (4.8-10.8)
[2018-02-16 18:48] LABS: INR 1.1 (0.9-1.1)
[2018-02-16 18:55] LABS: ANION GAP 4 mmol/L (5-15); BLOOD UREA NITROGEN 18 mg/dL (7-18); CALCIUM 8.5 MG/DL (8.5-10.1); CARBON DIOXIDE 29 MMOL/L (21-32); CHLORIDE 104 MMOL/L (98-107); CREATININE 1.6 MG/DL (0.55-1.30); POTASSIUM 3.9 MMOL/L (3.5-5.1); SODIUM 137 MMOL/L (136-145)
--- NOTE | 2018-02-16 18:59 | Emergency Room Report ---
History of Present Illness General Chief Complaint: Back Pain-No Injury Source: Patient, EMS Present Illness HPI Patient presents with chest pain. She states it's her heart pain. Apparently her doctors have been trying to decrease her opiate administration. She has tramadol and was given this. She states this did not control the pain. The pain is severe - 10/10, substernal radiating to the left side and constant. Paramedics transported the patient here and states EKG was not a STEMI. She had refused to take [place] before being transported. No fevers, NVD, dysuria, calf pain, rashes. In the past her medications included morphine at the assisted living. They felt this was more related to opiate withdrawal than other medical problems. The patient is status post non-STEMI. She also has a history of chronic pulmonary emboli. She's also an insulin-dependent diabetic. She is anemic and has a h/o internal hemorrhoids and gastritis with + stools in past. She has been evaluated in past for anxiety. She was discharged 01/20/18 with these dx: Of note the patient had + troponins during that admission. 1.Atypical chest pain 2. Chest wall pain likely due to myalgia ( probably due to recent CPR) 3. Coronary artery disease with history of myocardial infarction and percutaneous coronary intervention, 4. Hypertension, 5. Mild cardiomyopathy, 6. Acute on chronic congestive heart failure, systolic and diastolic, present on admission, 7. Qluh-qm-rgktbbct mitral regurgitation, 8. 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 11. Folate deficiency. 12. Status post esophagogastroduodenoscopy and flexible sigmoidoscopy. 13. Gastritis. 14. Internal hemorrhoids. 15. Likely acute tubular necrosis on chronic renal insufficiency due to diabetes and hypertension. 16. Chronic obstructive pulmonary disease/asthma. 17. Diabetes. 18. Diabetic neuropathy. Allergies: Coded Allergies: No Known Allergies (Unverified , 04/15/17) Patient History Past Medical History: see triage record, old chart reviewed Past Surgical History: PTCA Social History: Denies: smoking Social History Narrative assisted living Last Menstrual Period: na Reviewed Nursing Documentation: PMH: Agreed, PSxH: Agreed Nursing Documentation-PMH Past Medical History: No History, Except For Hx Cardiac Problems: Yes - nstemi, hyperlipidemia, heart failure Hx Hypertension: Yes - chronic pulmonary embolism Hx COPD: Yes Hx Diabetes: Yes Hx Cancer: No Review of Systems All Other Systems: negative except mentioned in HPI Physical Exam Vital Signs Date Time Temp Pulse Resp B/P (MAP) Pulse Ox O2 Delivery O2 Flow Rate FiO2 02/16/18 17:38 97.3 78 22 140/78 100 97.3 02/16/18 18:18 Nasal Cannula Sp02 EP Interpretation: reviewed, normal General Appearance: well appearing, alert, mild distress Head: normocephalic Eyes: bilateral eye PERRL, bilateral eye EOMI, bilateral eye conjunctivae pale ENT: moist mucus membranes Neck: supple Respiratory: lungs clear, decreased breath sounds Cardiovascular #1: regular rate, rhythm Cardiovascular #2: 2+ radial (R) Gastrointestinal: normal inspection, normal bowel sounds, non tender, no mass, non-distended Musculoskeletal: back normal, gait/station normal, normal range of motion Neurologic: alert, speech normal, grossly normal, oriented - X2 Psychiatric: anxious Skin: warm/dry, pallor Medical Decision Making Diagnostic Impression: Primary Impression: Non-ST elevation (NSTEMI) myocardial infarction Additional Impressions: CHF (congestive heart failure) Qualified Codes: I50.9 - Heart failure, unspecified Pleural effusion Renal insufficiency Anemia Qualified Codes: D64.9 - Anemia, unspecified ER Course Patient with multiple cardiac risk factors presents with chest pain. Prehospital EKG was negative. Differential includes acute myocardial infarction , acute coronary syndrome, pulmonary embolus, chest wall pain, opiate withdrawal and dependence amongst others. Patient will be evaluated with EKG, chest x-ray and labs. She will be treated with morphine. EKG shows no injury. Chest x-ray shows bilateral pleural effusions and heart size is difficult to gauge on this x-ray. Lab called with + troponin. Aspirin administered and nitrates. Anemia (about what has been) and renal insufficiency. Diagnosis discussed with family and patient. Discussed with Dr. Tay who authorizes admission. Patient hypertensive. Metoprolol given. Greatly improved with treatment. Pain controlled. Dr. Bautista had admitted the patient in the past and agrees to care for her. Laboratory Tests Test 02/16/18 18:15 White Blood Count 3.1 K/UL (4.8-10.8) L Red Blood Count 3.21 M/UL (4.20-5.40) L Hemoglobin 9.4 G/DL (12.0-16.0) L Hematocrit 28.5 % (37.0-47.0) L Mean Corpuscular Volume 89 FL (80-99) Mean Corpuscular Hemoglobin 29.2 PG (27.0-31.0) Mean Corpuscular Hemoglobin Concent 32.9 G/DL (32.0-36.0) Red Cell Distribution Width 17.2 % (11.6-14.8) H Platelet Count 195 K/UL (150-450) Mean Platelet Volume 6.8 FL (6.5-10.1) Neutrophils (%) (Auto) % (45.0-75.0) Lymphocytes (%) (Auto) % (20.0-45.0) Monocytes (%) (Auto) % (1.0-10.0) Eosinophils (%) (Auto) % (0.0-3.0) Basophils (%) (Auto) % (0.0-2.0) Differential Total Cells Counted 100 Neutrophils % (Manual) 60 % (45-75) Lymphocytes % (Manual) 33 % (20-45) Monocytes % (Manual) 7 % (1-10) Eosinophils % (Manual) 0 % (0-3) Basophils % (Manual) 0 % (0-2) Band Neutrophils 0 % (0-8) Platelet Estimate Adequate Platelet Morphology Normal Hypochromasia Occasional Anisocytosis 1+ Prothrombin Time 11.9 SEC (9.30-11.50) H Prothrombin Time INR 1.1 (0.9-1.1) PTT 30 SEC (23-33) Sodium Level 137 MMOL/L (136-145) Potassium Level 3.9 MMOL/L (3.5-5.1) Chloride Level 104 MMOL/L (98-107) Carbon Dioxide Level 29 MMOL/L (21-32) Anion Gap 4 mmol/L (5-15) L Blood Urea Nitrogen 18 mg/dL (7-18) Creatinine 1.6 MG/DL (0.55-1.30) H Estimate Glomerular Filtration Rate 39.1 mL/min (>60) Glucose Level 144 MG/DL (74-106) H Calcium Level 8.5 MG/DL (8.5-10.1) Total Bilirubin 0.7 MG/DL (0.2-1.0) Aspartate Amino Transferase (AST) 33 U/L (15-37) Alanine Aminotransferase (ALT) 17 U/L (12-78) Alkaline Phosphatase 119 U/L (46-116) H Total Creatine Kinase 100 U/L (26-308) Troponin I 0.106 ng/mL (0.000-0.056) Pro-B-Type Natriuretic Peptide 6354 pg/mL (0-125) H Total Protein 7.5 G/DL (6.4-8.2) Albumin 3.0 G/DL (3.4-5.0) L Globulin 4.5 g/dL Albumin/Globulin Ratio 0.7 (1.0-2.7) L EKG Diagnostic Results Rate: normal Rhythm: NSR ST Segments: no acute changes ASA given to the pt in ED: Yes Rhythm Strip Diag. Results EP Interpretation: yes Rhythm: NSR, no PVC's, no ectopy Chest X-Ray Diagnostic Results Chest X-Ray Diagnostic Results : Chest X-Ray Ordered: Yes # of Views/Limited/Complete: 1 View Indication: Chest Pain EP Interpretation: Yes Interpretation: no pneumothorax, other - bilateral pleural effusions Last Vital Signs Date Time Temp Pulse Resp B/P (MAP) Pulse Ox O2 Delivery O2 Flow Rate FiO2 02/16/18 22:57 97.6 20 160/84 96 Nasal Cannula 2.0 97.6 02/16/18 17:38 78 Status: improved Disposition: ADMITTED INPATIENT Condition: Serious Referrals: NOT CHOSEN YASMIN/,REFERRING (PCP) Ryan Theodore M.D. Feb 16, 2018 18:59
[2018-02-16 19:06] LABS: ALANINE AMINOTRANSFERASE 17 U/L (12-78); ALBUMIN/GLOBULIN RATIO 0.7 (1.0-2.7); ALKALINE PHOSPHATASE 119 U/L (46-116); ASPARTATE AMINO TRANSFERASE 33 U/L (15-37); BILIRUBIN,TOTAL 0.7 MG/DL (0.2-1.0); CREATINE KINASE 100 U/L (26-308)
[2018-02-16] MEDS ORDERED: Nitroglycerin 2% oint pkt TOPIC ONE (19:15)
[2018-02-16 19:37] VITALS: BP 157/71
[2018-02-16] MEDS ORDERED: CARVEDILOL12.5 MG ORAL (19:37)
[2018-02-16] MEDS ORDERED: Miralax 17gm pkt ORAL PRN (20:00)
[2018-02-16] MEDS ORDERED: dilTIAZem HCl 25mg/5ml Inj IV PRN (20:00)
[2018-02-16] MEDS ORDERED: Albuterol/Ipratropium 3ml neb HHN PRN (20:00)
[2018-02-16] MEDS ORDERED: Nitroglycerin Subl 0.4mg tab SL PRN (20:00)
[2018-02-16] MEDS ORDERED: Enalaprilat 2.5mg/2ml Inj IV PRN (20:00)
[2018-02-16 20:43] VITALS: BP 157/76
[2018-02-16] MEDS ORDERED: Atorvastatin 80mg tab ORAL SCH (21:00)
[2018-02-16] MEDS ORDERED: FUROSEMIDE40 MG ORAL (21:14)
[2018-02-16] MEDS ORDERED: POTASSIUM CHLO20 ME1 ORAL (21:14)
[2018-02-16] MEDS: Tamsulosin 0.4mg cap ORAL SCH ×2 (21:26→21:27)
[2018-02-16 22:57] VITALS: BP 160/84
[2018-02-16] MEDS: Heparin 5000 units/ml inj SUBQ SCH (23:03)
[2018-02-16] MEDS ORDERED: Metoprolol 5mg/5ml Inj IVP STA (23:32)
[2018-02-16 23:41] VITALS: BP 159/93
[2018-02-17] VITALS (10 sets, daily range): BP systolic 141–158; BP diastolic 65–96
[2018-02-17 01:14] LABS: APPEARANCE,URINE CLEAR; BILIRUBIN, URINE NEGATIVE (NEGATIVE); GLUCOSE, URINE (UA) NEGATIVE (NEGATIVE); KETONES,URINE NEGATIVE (NEGATIVE); LEUKOCYTE ESTERASE ,URINE NEGATIVE (NEGATIVE); NITRITE,URINE NEGATIVE (NEGATIVE); PH,URINE 6 (4.5-8.0); PROTEIN,URINE 1+ (NEGATIVE); UROBILINOGEN,URINE NORMAL MG/DL (0.0-1.0)
[2018-02-17 01:16] LABS: COLOR,URINE YELLOW
[2018-02-17] MEDS: Morphine Sulfate 2mg/ml Inj IVP PRN ×3 (03:56→19:52)
[2018-02-17 04:19] LABS: HEMATOCRIT 24.9 % (37.0-47.0); HEMOGLOBIN 8.4 G/DL (12.0-16.0); MEAN CORPUSCULAR VOLUME 89 FL (80-99); PLATELET COUNT 173 K/UL (150-450); RED BLOOD COUNT 2.79 M/UL (4.20-5.40); RED CELL DISTRIBUTION WIDTH 17.5 % (11.6-14.8); WHITE BLOOD COUNT 3.2 K/UL (4.8-10.8)
[2018-02-17 04:28] LABS: INR 1.2 (0.9-1.1)
[2018-02-17 04:52] LABS: CHOLESTEROL 110 MG/DL (< 200); HDL CHOLESTEROL 57 MG/DL (40-60); TRIGLYCERIDES 44 MG/DL (30-150)
[2018-02-17] MEDS: HydrALAZINE 25mg tab ORAL SCH ×4 (06:25→18:16)
[2018-02-17] MEDS: NovoLOG Insulin Flexpen SUBQ SCH ×3 (06:30→16:30)
[2018-02-17] MEDS: Heparin 5000 units/ml inj SUBQ SCH ×2 (06:52→14:22)
[2018-02-17] MEDS ORDERED: Furosemide 40mg tab ORAL SCH (09:00)
[2018-02-17] MEDS ORDERED: Aspirin Baby 81mg ORAL SCH (09:00)
[2018-02-17] MEDS ORDERED: Levemir Flexpen SUBQ SCH (09:00)
--- NOTE | 2018-02-17 09:27 | Diagnostic Imaging Report ---
Indication: Chest pain Technique: One view of the chest Comparison: 01/10/2018 Findings: Again demonstrated are large bilateral pleural effusions and bilateral basilar atelectatic changes. Pleural fluid bilaterally appears somewhat increased. There is also interstitial congestion. Previously demonstrated airspace opacities are slightly less prominent than on the prior study. The previously described right upper lobe mass is not visible, may be obscured as patient is rotated. Impression: Large bilateral pleural effusions, increased from 01/10/2018 Bilateral interstitial congestion, similar to prior study. This agrees with the preliminary interpretation provided by the emergency room physician
[2018-02-17] MEDS: Carvedilol 12.5mg tab ORAL SCH ×2 (09:43→18:16)
--- NOTE | 2018-02-17 11:47 | History & Physical ---
History and Physical History & Physicial Dictated for Int Med-Dr Bautista no. [id number]. KRISTINA CARABALLO Feb 17, 2018 11:47
--- NOTE | 2018-02-17 11:51 | Consultation ---
History of Present Illness General Date patient seen: Feb 17, 2018 Chief Complaint: Back Pain-No Injury Reason for Consultation: pleural effusion Present Illness HPI 67 year old female with hx of CAD, HTN, cardiomyopathy, chronic back pain, DM, retirement resident, She was recently at [facility] and had extensive work/up done. She was brought in by paramedics because of intractable back pain. Initial evaluation revealed including cxr showed large L effusion and cardiomegaly and positive troponin. Allergies: Coded Allergies: No Known Allergies (Unverified , 04/15/17) Medication History Scheduled Aspirin* (Aspirin*), 81 MG ORAL DAILY, (Reported) Atorvastatin Calcium* (Atorvastatin Calcium*), 80 MG ORAL BEDTIME, (Reported) Carvedilol* (Carvedilol*), 12.5 MG ORAL TWICE A DAY, (Reported) Clopidogrel Bisulfate* (Plavix*), 75 MG ORAL DAILY, (Reported) Docusate Sodium* (Docusate Sodium*), 200 MG ORAL TWICE A DAY, (Reported) Folic Acid (Folic Acid), 1 MG PO DAILY, (Reported) Furosemide* (Lasix*), 40 MG ORAL DAILY, (Reported) Furosemide* (Lasix*), 40 MG ORAL DAILY, (Reported) Gabapentin* (Gabapentin*), 300 MG ORAL BEDTIME, (Reported) Heparin Sod (Porcine) (Heparin Sodium*), 5,000 UNITS SUBQ EVERY 12 HOURS, ( Reported) Hydralazine Hcl* (Hydralazine Hcl*), 75 MG ORAL EVERY 6 HOURS, (Reported) Insulin Detemir (Levemir Flexpen), 10 SUBQ EVERY 12 HOURS, (Reported) Insulin Regular, Human* (Novolin R*), 0 SUBQ .SLIDING SCALE, (Reported) Latanoprost* (Xalatan*), 1 DROP BOTH EYES BEDTIME, (Reported) Levofloxacin* (Levaquin*), 250 MG ORAL DAILY, (Reported) Losartan Potassium* (Losartan Potassium*), 25 MG ORAL DAILY, (Reported) Metformin Hcl* (Metformin Hcl*), 500 MG ORAL TWICE A DAY, (Reported) Multivitamin With Minerals (Multivitamins With Minerals*), 1 TAB ORAL DAILY, ( Reported) Nateglinide* (Starlix*), 60 MG ORAL BID, (Reported) Pantoprazole (Pantoprazole), 40 MG ORAL DAILY, (Reported) Potassium Chloride* (K-Dur*), 20 MEQ ORAL DAILY, (Reported) Tamsulosin Hcl (Tamsulosin Hcl*), 0.4 MG ORAL BEDTIME, (Reported) Ticagrelor* (Brilinta*), 90 MG PO BID, (Reported) Scheduled PRN Acetaminophen* (Acetaminophen 325MG Tablet*), 650 MG ORAL Q4H PRN for Pain Scale (3-5), (Reported) Albuterol Sulfate* (Albuterol Sulfate Hhn*), 3 ML INH Q4H PRN for Shortness of Breath, (Reported) Bisacodyl* (Dulcolax*), 10 MG ORAL DAILY PRN for Constipation, (Reported) Hydrocodone/Acetaminophen 7.5-325* (Hydrocodon-Acetaminoph 7.5-325*), 1 TAB ORAL Q6H PRN for For Pain Morphine Sulfate (Morphine Sulfate), 2 MG IJ for Pain Scale (6-10), (Reported) Oxycodone/Acetaminophen 5-325* (Percocet 5-325 Mg Tablet*), 1 TAB ORAL Q6H PRN for For Pain, (Reported) Polyethylene Glycol 3350* (Polyethylene Glycol 3350*), 17 GM ORAL NEEDED PRN for Constipation, (Reported) Tramadol Hcl* (Ultram*), 50 MG ORAL Q6H PRN for For Pain, (Reported) Miscellaneous Medications Ferrous Sulfate (Ferrousul), 325 MG PO, (Reported) Insulin Lispro (Humalog), 0 SUBQ, (Reported) Mometasone/Formoterol (Dulera 200 Mcg/5 Mcg Inhaler), 13 GM IH, (Reported) Nitroglycerin (Nitroglycerin), 0.4 MG SL, (Reported) Nph, Human Insulin Isophane (Humulin N), 18 SUBQ, (Reported) Discontinued Medications Acetaminophen (Acetaminophen), 650 MG ORAL Q6H PRN for Prn Headache/Temp > 101, (Reported) Discontinued Reason: Pt stopped taking med Acetaminophen* (Acetaminophen*), 320 MG ORAL Q6H PRN for Mild Pain/Temp > 100.5, (Reported) Discontinued Reason: Pt stopped taking med Albuterol Sulfate (Ventolin Hfa), 1 PUFF INH EVERY 6 HOURS, (Reported) Discontinued Reason: Pt stopped taking med Calcitriol (Calcitriol), 0.25 MCG PO, (Reported) Discontinued Reason: Pt stopped taking med Carvedilol* (Carvedilol*), 6.25 MG ORAL EVERY 12 HOURS, (Reported) Discontinued Reason: Prescription changed Patient History Healthcare decision maker Resuscitation status Full Code Advanced Directive on File No Past Medical/Surgical History Past Medical/Surgical History: (1) Diabetes mellitus (2) Hypertension (3) COPD (chronic obstructive pulmonary disease) Review of Systems All Other Systems: negative except mentioned in HPI Physical Exam General Appearance: cachetic Lines, tubes and drains: peripheral HEENT: normocephalic, atraumatic, mucous membranes moist Neck: supple Respiratory/Chest: crackles/rales Cardiovascular/Chest: normal peripheral pulses, normal rate Abdomen: normal bowel sounds, soft Genitourinary/Rectal: normal genital exam Extremities: moderate edema, pitting Skin Exam: normal pigmentation 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 Last 24 Hour Vital Signs Date Time Temp Pulse Resp B/P (MAP) Pulse Ox O2 Delivery O2 Flow Rate FiO2 02/17/18 09:44 104 02/17/18 09:43 99 141/67 02/17/18 09:36 97.8 98 20 152/79 98 Nasal Cannula 2.0 97.8 02/17/18 07:30 97.8 98 20 152/79 98 Nasal Cannula 2.0 97.8 02/17/18 06:25 146/67 02/17/18 06:15 97.8 98 20 146/67 98 Nasal Cannula 2.0 97.8 02/17/18 05:01 97.8 96 20 152/69 98 Nasal Cannula 2.0 97.8 02/17/18 04:26 97.6 02/17/18 03:56 97.6 02/17/18 03:47 97.6 92 20 144/65 93 Nasal Cannula 2.0 97.6 02/17/18 02:31 97.6 93 20 157/73 93 Nasal Cannula 2.0 97.6 02/17/18 00:44 97.6 90 20 158/74 90 Nasal Cannula 2.0 97.6 02/17/18 00:00 158/74 02/16/18 23:41 97.6 89 20 159/93 93 Nasal Cannula 2.0 97.6 3/18/18 23:38 93 159/89 02/16/18 22:57 97.6 92 20 160/84 96 Nasal Cannula 2.0 97.6 02/16/18 20:43 97.7 88 18 157/76 92 Nasal Cannula 2.0 97.7 02/16/18 20:06 97.7 02/16/18 19:37 97.7 90 18 157/71 98 Nasal Cannula 2.0 97.7 02/16/18 19:36 98.0 02/16/18 19:36 157/71 02/16/18 18:41 98.0 02/16/18 18:18 98.0 22 147/86 95 Nasal Cannula 98.0 02/16/18 18:11 97.3 02/16/18 17:38 97.3 78 22 140/78 100 97.3 Intake and Output 02/16/18 02/17/18 19:00 07:00 Intake Total 0 ml Balance 0 ml Intake Oral 0 ml Laboratory Tests Test 02/16/18 18:15 02/17/18 00:56 02/17/18 01:09 02/17/18 03:45 White Blood Count 3.1 K/UL (4.8-10.8) L 3.2 K/UL (4.8-10.8) L Red Blood Count 3.21 M/UL (4.20-5.40) L 2.79 M/UL (4.20-5.40) L Hemoglobin 9.4 G/DL (12.0-16.0) L 8.4 G/DL (12.0-16.0) L Hematocrit 28.5 % (37.0-47.0) L 24.9 % (37.0-47.0) L Mean Corpuscular Volume 89 FL (80-99) 89 FL (80-99) Mean Corpuscular Hemoglobin 29.2 PG (27.0-31.0) 30.1 PG (27.0-31.0) Mean Corpuscular Hemoglobin Concent 32.9 G/DL (32.0-36.0) 33.7 G/DL (32.0-36.0) Red Cell Distribution Width 17.2 % (11.6-14.8) H 17.5 % (11.6-14.8) H Platelet Count 195 K/UL (150-450) 173 K/UL (150-450) Mean Platelet Volume 6.8 FL (6.5-10.1) 6.9 FL (6.5-10.1) Neutrophils (%) (Auto) % (45.0-75.0) % (45.0-75.0) Lymphocytes (%) (Auto) % (20.0-45.0) % (20.0-45.0) Monocytes (%) (Auto) % (1.0-10.0) % (1.0-10.0) Eosinophils (%) (Auto) % (0.0-3.0) % (0.0-3.0) Basophils (%) (Auto) % (0.0-2.0) % (0.0-2.0) Differential Total Cells Counted 100 100 Neutrophils % (Manual) 60 % (45-75) 50 % (45-75) Lymphocytes % (Manual) 33 % (20-45) 39 % (20-45) Monocytes % (Manual) 7 % (1-10) 11 % (1-10) H Eosinophils % (Manual) 0 % (0-3) 0 % (0-3) Basophils % (Manual) 0 % (0-2) 0 % (0-2) Band Neutrophils 0 % (0-8) 0 % (0-8) Platelet Estimate Adequate Adequate Platelet Morphology Normal Normal Hypochromasia Occasional Anisocytosis 1+ 1+ Prothrombin Time 11.9 SEC (9.30-11.50) H 12.3 SEC (9.30-11.50) H Prothromb Time International Ratio 1.1 (0.9-1.1) 1.2 (0.9-1.1) H Activated Partial Thromboplast Time 30 SEC (23-33) 28 SEC (23-33) Sodium Level 137 MMOL/L (136-145) Potassium Level 3.9 MMOL/L (3.5-5.1) Chloride Level 104 MMOL/L (98-107) Carbon Dioxide Level 29 MMOL/L (21-32) Anion Gap 4 mmol/L (5-15) L Blood Urea Nitrogen 18 mg/dL (7-18) Creatinine 1.6 MG/DL (0.55-1.30) H Estimat Glomerular Filtration Rate 39.1 mL/min (>60) Glucose Level 144 MG/DL (74-106) H Calcium Level 8.5 MG/DL (8.5-10.1) Total Bilirubin 0.7 MG/DL (0.2-1.0) Aspartate Amino Transf (AST/SGOT) 33 U/L (15-37) Alanine Aminotransferase (ALT/SGPT) 17 U/L (12-78) Alkaline Phosphatase 119 U/L (46-116) H Total Creatine Kinase 100 U/L (26-308) Troponin I 0.106 ng/mL (0.000-0.056) 0.114 ng/mL (0.000-0.056) 0.066 ng/mL (0.000-0.056) Pro-B-Type Natriuretic Peptide 6354 pg/mL (0-125) H Total Protein 7.5 G/DL (6.4-8.2) Albumin 3.0 G/DL (3.4-5.0) L Globulin 4.5 g/dL Albumin/Globulin Ratio 0.7 (1.0-2.7) L Urine Color Yellow Urine Appearance Clear Urine pH 6 (4.5-8.0) Urine Specific [place] 1.015 (1.005-1.035) Urine Protein 1+ (NEGATIVE) H Urine Glucose (UA) Negative (NEGATIVE) Urine Ketones Negative (NEGATIVE) Urine Occult Blood Negative (NEGATIVE) Urine Nitrite Negative (NEGATIVE) Urine Bilirubin Negative (NEGATIVE) Urine Urobilinogen Normal MG/DL (0.0-1.0) Urine Leukocyte Esterase Negative (NEGATIVE) Urine RBC 0-2 /HPF (0 - 2) Urine WBC 0-2 /HPF (0 - 2) Urine Squamous Epithelial Cells Occasional /LPF Urine Bacteria Few /HPF (NONE) Urine Yeast Moderate /HPF (NONE) H C-Reactive Protein, Quantitative 0.5 mg/dL (0.00-0.90) Triglycerides Level 44 MG/DL (30-150) Cholesterol Level 110 MG/DL (< 200) LDL Cholesterol 53 mg/dL (<100) HDL Cholesterol 57 MG/DL (40-60) Cholesterol/HDL Ratio 1.9 (3.3-4.4) L Thyroid Stimulating Hormone (TSH) 3.122 uiU/mL (0.358-3.740) Height (Feet): 5 Height (Inches): 4.00 Weight (Pounds): 156 Medications Current Medications Medications (Trade) Dose Ordered Sig/Tristan Route PRN Reason Start Time Stop Time Status Last Admin Dose Admin Acetaminophen (Tylenol) 650 mg Q4H PRN ORAL FEVER 02/16/18 20:00 03/18/18 19:59 Albuterol/ Ipratropium (Albuterol/ Ipratropium) 3 ml Q4H PRN HHN Shortness of Breath 02/16/18 20:00 02/21/18 19:59 Aspirin (ASA) 162 mg DAILY ORAL 02/17/18 09:00 03/19/18 08:59 02/17/18 09:43 Atorvastatin Calcium (Lipitor) 80 mg BEDTIME ORAL 02/16/18 21:00 03/18/18 20:59 02/16/18 23:02 Carvedilol (Coreg) 12.5 mg TWICE A DAY ORAL 02/17/18 09:00 03/19/18 08:59 02/17/18 09:43 Clopidogrel Bisulfate (Plavix) 75 mg DAILY ORAL 02/17/18 09:00 03/19/18 08:59 02/17/18 09:43 Dextrose (Dextrose 50%) STAT PRN IV Hypoglycemia 02/16/18 20:00 03/18/18 19:59 Diltiazem HCl (Cardizem) 10 mg Q1H PRN IV heart rate more than 120, 02/16/18 20:00 03/18/18 19:59 Enalaprilat (Vasotec) 2.5 mg Q6H PRN IV sbp more than 160 02/16/18 20:00 03/18/18 19:59 Furosemide (Lasix) 40 mg DAILY ORAL 02/17/18 09:00 03/19/18 08:59 02/17/18 09:43 Gabapentin (Neurontin) 300 mg BEDTIME ORAL 02/16/18 21:00 03/18/18 20:59 02/16/18 23:15 Heparin Sodium (Porcine) (Heparin 5000 units/ml) 5,000 units EVERY 8 HOURS SUBQ 02/16/18 22:00 03/18/18 21:59 02/17/18 06:52 Hydralazine HCl (Apresoline) 75 mg EVERY 6 HOURS ORAL 02/17/18 00:00 03/19/18 00:00 02/17/18 06:25 Insulin Aspart (NovoLOG) BEFORE MEALS AND HS SUBQ 02/17/18 06:30 03/19/18 06:29 Insulin Detemir (Levemir) 10 units EVERY 12 HOURS SUBQ 02/17/18 09:00 03/19/18 08:59 02/17/18 09:48 Morphine Sulfate (Morphine Sulfate) 2 mg Q4H PRN IVP severe Pain (Pain Scale 7-10) 02/16/18 20:00 02/23/18 19:59 02/17/18 09:49 Nitroglycerin (Ntg) 0.4 mg Q5M PRN SL Prn Chest Pain 02/16/18 20:00 03/18/18 19:59 Ondansetron HCl (Zofran) 4 mg Q6H PRN IVP Nausea & Vomiting 02/16/18 20:00 03/18/18 19:59 Pantoprazole (Protonix) 40 mg DAILY ORAL 02/17/18 09:00 03/19/18 08:59 02/17/18 09:42 Polyethylene Glycol (Miralax) 17 gm DAILYPRN PRN ORAL Constipation 02/16/18 20:00 03/18/18 19:59 Tamsulosin HCl (Flomax) 0.4 mg BEDTIME ORAL 02/16/18 21:00 03/18/18 20:59 02/16/18 21:27 Temazepam (Restoril) 15 mg HSPRN PRN ORAL Insomnia 02/16/18 20:00 02/23/18 19:59 Assessment/Plan Problem List: (1) Pleural effusion ICD Codes: J90 - Pleural effusion, not elsewhere classified SNOMED: 05697075 (2) CAD (coronary artery disease) ICD Codes: I25.10 - Atherosclerotic heart disease of [place] coronary artery without angina pectoris SNOMED: 58036650 (3) Elevated troponin ICD Codes: R74.8 - Abnormal levels of other serum enzymes SNOMED: 955034480, 214781282, 863859598 (4) Anemia ICD Codes: D64.9 - Anemia, unspecified SNOMED: 377449866 Qualifiers: Qualified Codes: D64.9 - Anemia, unspecified (5) COPD (chronic obstructive pulmonary disease) ICD Codes: J44.9 - Chronic obstructive pulmonary disease, unspecified SNOMED: 91540177 (6) Diabetes mellitus, type II ICD Codes: E11.9 - Type 2 diabetes mellitus without complications SNOMED: 31758868 Assessment/Plan respiratory treatment US of L chest and thoracentesis diuretics check troponin cardio evaluation pain management dvt prophylaxis. Jorge Lanza MD Feb 17, 2018 11:51
--- NOTE | 2018-02-17 16:45 | History and Physical Report ---
DATE OF ADMISSION: 02/16/2018 CHIEF COMPLAINT: The patient is a 67-year-old female who presents with chief complaint of chest pain. HISTORY OF PRESENT ILLNESS: The patient is status post non-ST elevated myocardial infarction in December of 2017 at [facility]. The patient had three stents placed. The patient was then admitted to [facility] from December 10, 2017 to December 20, 2017. The patient was discharged to [facility]. History of present illness began yesterday Friday February 16, 2018. The patient began to experience substernal chest pain. The pain radiated to the right chest. The patient was transported to [place] emergency room. The patient was found to have elevated troponin and elevated BNP. The patient was admitted for chest pain to rule out acute myocardial infarction. REVIEW OF SYSTEMS: CONSTITUTIONAL: The patient denies weight loss or weight gain. The patient denies fevers or chills. HEENT: The patient denies ear or throat pain. The patient denies headache. CARDIOVASCULAR: The patient complains of chest pain as above. The patient denies palpitations. CHEST: The patient denies wheeze or shortness of breath. ABDOMEN: The patient denies nausea, vomiting, diarrhea, or constipation. GENITOURINARY: The patient denies dysuria or increased frequency of urination. NEUROMUSCULAR: The patient denies seizures or generalized weakness. PAST MEDICAL HISTORY: Significant. 1. Type 2 diabetes. 2. Coronary artery disease, status post non-ST elevated myocardial infarction in December 2017 with three stents placed. 3. Chronic obstructive pulmonary disease. 4. Dysphagia. 5. Hypercholesterolemia. 6. Type 2 diabetes. 7. Hypertension. 8. Diabetic peripheral neuropathy. 9. Congestive heart failure. 10. History of coronary artery disease. 11. Chronic obstructive pulmonary disease. PAST SURGICAL HISTORY: The patient denies. CURRENT MEDICATIONS: 1. Tylenol 650 mg p.o. q.4 h. p.r.n. 2. Albuterol nebulized q.4 h. p.r.n. 3. Aspirin 81 mg p.o. daily. 4. Atorvastatin 80 mg p.o. at bedtime. 5. Coreg 12.5 mg p.o. twice daily. 6. Iron sulfate 325 mg p.o. daily. 7. Folic acid 1 mg p.o. daily. 8. Gabapentin 300 mg p.o. at bedtime. 9. Regular insulin sliding scale. 10. Hydralazine 75 mg p.o. q.6 hours p.r.n. 11. Atrovent nebulized q.6 hours p.r.n. 12. Lasix 40 mg p.o. daily. 13. Levemir 10 units subcutaneous twice daily. 14. Multivitamin p.o. daily. 15. Nateglinide 60 mg p.o. twice daily. 16. [place] 7.5/325 mg one tablet p.o. q.6 h. p.r.n. 17. Plavix 75 mg p.o. daily. 18. Potassium chloride 20 mEq p.o. daily. 19. Flomax 0.4 mg p.o. at bedtime. 20. Tramadol 50 mg p.o. q.6 hours. 21. Xalatan. 0.005% ophthalmic solution one drop in both eyes at bedtime. ALLERGIES: No known drug allergies. SOCIAL HISTORY: The patient is single. The patient lives at [facility]. The patient denies tobacco use having quit in December 2017. The patient denies alcohol use. PHYSICAL EXAMINATION: VITAL SIGNS: Temperature 97.8, respirations 20, pulse 98, blood pressure 152/79. GENERAL: The patient is well-developed and well-nourished female, in no apparent distress. HEENT: Eyes, pupils are equal responsive to light and accommodation. Extraocular movements are intact. NECK: Supple without lymphadenopathy. CHEST: Lungs are clear to auscultation bilaterally without wheezes or rales. CARDIOVASCULAR: Regular rate. S1 and S2 normal without murmurs, rubs, or gallops. ABDOMEN: Soft, nontender, and nondistended. Positive bowel sounds. No evidence of hepatosplenomegaly. Currently no rebound or guarding noted. EXTREMITIES: Negative for clubbing, cyanosis, or edema. RECTAL/GENITAL: Refused. NEUROLOGICAL: Cranial nerves II through XII are grossly intact without focal deficits. Motor strength is 5/5 bilaterally. Deep tendon reflexes are 2+ plantar LABORATORY STUDIES: WBC 3.1, hemoglobin 9.4, hematocrit 28.5, platelets 195,000. Sodium 137, potassium 3.9, chloride 104, CO2 29, BUN 18, creatinine 1.6, glucose 144. Troponin elevated at 0.106. BNP elevated at 6354. Chest x-ray revealed large bilateral pleural effusions. ASSESSMENT: This is a 67-year-old female. 1. Chest pain. 2. Elevated troponin. 3. Congestive heart failure, acute on chronic. 4. Bilateral pleural effusions. 5. Diabetes type 2. 6. Hypertension. 7. Diabetic neuropathy. 8. Chronic obstructive pulmonary disease. 9. Coronary artery disease. 10. Dysphagia. 11. Hypercholesterolemia. TREATMENT: 1. Chest pain/elevated troponin/acute congestive heart failure. A Cardiology consultation is pending. Serial troponin levels will be performed. We will follow recommendation of Cardiology. 2. Diabetes type 2. Continue NovoLog sliding scale. 3. Bilateral pleural effusions. A Pulmonary consultation obtained with Dr. Jorge Lanza. 4. Hypertension. Continue Coreg as above. 5. Diabetic peripheral neuropathy. Continue Neurontin as above. 6. Chronic obstructive pulmonary disease. Continue DuoNeb every four hours p.r.n. 7. Congestive heart failure. 8. Coronary artery disease. 9. Dysphagia. 10. Hypercholesterolemia. Paul Lindsay M.D. DR: Yvonne JOB#: [id number] CC:
--- NOTE | 2018-02-17 19:28 | Cardiology Progress Note ---
Assessment/Plan Assessment/Plan [id number] Objective Last 24 Hour Vital Signs Date Time Temp Pulse Resp B/P (MAP) Pulse Ox O2 Delivery O2 Flow Rate FiO2 02/17/18 18:16 146/76 02/17/18 18:16 108 146/76 02/17/18 16:00 102 02/17/18 16:00 98.0 100 20 153/96 94 Nasal Cannula 2.0 98.0 02/17/18 12:22 149/78 02/17/18 12:00 97.9 104 21 149/78 98 Nasal Cannula 2.0 97.9 02/17/18 12:00 112 02/17/18 09:44 104 02/17/18 09:43 99 141/67 02/17/18 09:36 97.8 98 20 152/79 98 Nasal Cannula 2.0 97.8 02/17/18 08:00 97.2 99 20 141/67 97 Nasal Cannula 2.0 97.2 02/17/18 07:30 97.8 98 20 152/79 98 Nasal Cannula 2.0 97.8 02/17/18 06:25 146/67 02/17/18 06:15 97.8 98 20 146/67 98 Nasal Cannula 2.0 97.8 02/17/18 05:01 97.8 96 20 152/69 98 Nasal Cannula 2.0 97.8 02/17/18 04:26 97.6 02/17/18 03:56 97.6 02/17/18 03:47 97.6 92 20 144/65 93 Nasal Cannula 2.0 97.6 02/17/18 02:31 97.6 93 20 157/73 93 Nasal Cannula 2.0 97.6 02/17/18 00:44 97.6 90 20 158/74 90 Nasal Cannula 2.0 97.6 02/17/18 00:00 158/74 02/16/18 23:41 97.6 89 20 159/93 93 Nasal Cannula 2.0 97.6 02/16/18 23:38 93 159/89 02/16/18 22:57 97.6 92 20 160/84 96 Nasal Cannula 2.0 97.6 02/16/18 20:43 97.7 88 18 157/76 92 Nasal Cannula 2.0 97.7 02/16/18 20:06 97.7 02/16/18 19:37 97.7 90 18 157/71 98 Nasal Cannula 2.0 97.7 02/16/18 19:36 98.0 02/16/18 19:36 157/71 Intake and Output 02/16/18 02/17/18 19:00 07:00 Intake Total 0 ml Balance 0 ml Intake Oral 0 ml Laboratory Tests Test 02/17/18 00:56 02/17/18 01:09 02/17/18 03:45 Urine Color Yellow Urine Appearance Clear Urine pH 6 (4.5-8.0) Urine Specific [place] 1.015 (1.005-1.035) Urine Protein 1+ (NEGATIVE) H Urine Glucose (UA) Negative (NEGATIVE) Urine Ketones Negative (NEGATIVE) Urine Occult Blood Negative (NEGATIVE) Urine Nitrite Negative (NEGATIVE) Urine Bilirubin Negative (NEGATIVE) Urine Urobilinogen Normal MG/DL (0.0-1.0) Urine Leukocyte Esterase Negative (NEGATIVE) Urine RBC 0-2 /HPF (0 - 2) Urine WBC 0-2 /HPF (0 - 2) Urine Squamous Epithelial Cells Occasional /LPF Urine Bacteria Few /HPF (NONE) Urine Yeast Moderate /HPF (NONE) H Troponin I 0.114 ng/mL (0.000-0.056) 0.066 ng/mL (0.000-0.056) White Blood Count 3.2 K/UL (4.8-10.8) L Red Blood Count 2.79 M/UL (4.20-5.40) L Hemoglobin 8.4 G/DL (12.0-16.0) L Hematocrit 24.9 % (37.0-47.0) L Mean Corpuscular Volume 89 FL (80-99) Mean Corpuscular Hemoglobin 30.1 PG (27.0-31.0) Mean Corpuscular Hemoglobin Concent 33.7 G/DL (32.0-36.0) Red Cell Distribution Width 17.5 % (11.6-14.8) H Platelet Count 173 K/UL (150-450) Mean Platelet Volume 6.9 FL (6.5-10.1) Neutrophils (%) (Auto) % (45.0-75.0) Lymphocytes (%) (Auto) % (20.0-45.0) Monocytes (%) (Auto) % (1.0-10.0) Eosinophils (%) (Auto) % (0.0-3.0) Basophils (%) (Auto) % (0.0-2.0) Differential Total Cells Counted 100 Neutrophils % (Manual) 50 % (45-75) Lymphocytes % (Manual) 39 % (20-45) Monocytes % (Manual) 11 % (1-10) H Eosinophils % (Manual) 0 % (0-3) Basophils % (Manual) 0 % (0-2) Band Neutrophils 0 % (0-8) Platelet Estimate Adequate Platelet Morphology Normal Anisocytosis 1+ Prothrombin Time 12.3 SEC (9.30-11.50) H Prothromb Time International Ratio 1.2 (0.9-1.1) H Activated Partial Thromboplast Time 28 SEC (23-33) C-Reactive Protein, Quantitative 0.5 mg/dL (0.00-0.90) Triglycerides Level 44 MG/DL (30-150) Cholesterol Level 110 MG/DL (< 200) LDL Cholesterol 53 mg/dL (<100) HDL Cholesterol 57 MG/DL (40-60) Cholesterol/HDL Ratio 1.9 (3.3-4.4) L Thyroid Stimulating Hormone (TSH) 3.122 uiU/mL (0.358-3.740) LITA DAVE Feb 17, 2018 19:28
--- NOTE | 2018-02-18 | Consultation ---
DATE OF CONSULTATION: 02/17/2018 CARDIOLOGY CONSULTATION CONSULTING PHYSICIAN: Jayro Jay M.D. REFERRING PHYSICIAN: Jorge Lanza M.D. REASON FOR REFERRAL: Chest pain. HISTORY OF PRESENT ILLNESS: This is an elderly female, who presented to the hospital from a convalescent facility because of chest pains. The chest pain she describes it on the right side of the chest going down to the right side of the abdomen. She is really not able to tell how long it has been going on. The emergency room physician's data indicates that her doctor has been trying to decrease opiate administration, she has been getting tramadol, and apparently this has not controlled the pain, 09/10. When she came to the emergency room, she indicated it substernal radiating to the left side of the chest, constant pain according to the emergency room physician, however, to me, she indicates the pain is on the right side and it has been going on since she has had CPR back in January. She does not have shortness of breath at rest right now. She does not wake up because of shortness of breath. No palpitations. No dizziness or lightheadedness. PAST MEDICAL HISTORY: She had history of non-ST elevation myocardial infarction recently at [facility], three-vessel coronary artery disease. She underwent percutaneous coronary intervention on LAD and circumflex. Subsequently, she had cardiopulmonary arrest and she had CPR at that time. She also has history of diabetes mellitus, hypertension, heavy tobacco use disorder, renal insufficiency, anemia, and mild troponin abnormalities. She has undergone a perfusion imaging during that hospitalization that basically showed ejection fraction of 47%, myocardial infarction of both the lateral wall, inferolateral wall, and inferior wall. The margins show some reversibility indicative of sg-infarct ischemia, but no significant reversible pattern was otherwise identified in that test. She was continuing double-antiplatelet therapy with Plavix and aspirin after that and during that hospitalization, she had CT scan that showed right upper lobe mass likely hematoma, neoplasm could not be excluded. She was supposed to repeat a CT scan in about 3 to 6 months. She had endoscopy, flexible sigmoidoscopy, gastritis, and internal hemorrhoids were found in that evaluation and also she has history of mild cardiomyopathy and some congestive heart failure, [id number] mitral regurgitation, anemia, folate deficiency, acute tubular necrosis, renal insufficiency, and diabetic neuropathy as well. ALLERGIES: She has no allergies to medications. SOCIAL HISTORY: She does smoke, extensive history of smoking. No alcoholic beverages at this time. REVIEW OF SYSTEMS: GASTROINTESTINAL: She denies any nausea, vomiting, or diarrhea. GENITOURINARY: Negative. PULMONARY: Denies any coughing or wheezing. CONSTITUTIONAL: Negative. PHYSICAL EXAMINATION: GENERAL: Shows to be an elderly female, in no respiratory distress. HEENT: Unremarkable. NECK: Supple. No jugular venous distention. No abdominojugular reflux noted. LUNGS: Clear to auscultation and percussion. CARDIAC: S1 is normal. S2 is normal. Regular rate and rhythm. No heaves or thrills. There is a summation gallop noted. ABDOMEN: Soft and nontender. Positive bowel sounds. EXTREMITIES: There is no edema. NEUROLOGICAL: She is awake, alert, and responsive. LABORATORY AND DIAGNOSTIC DATA: White count 3.3, hemoglobin 9.4, and platelet count of 173,000. Sodium is 137, potassium 3.9, chloride 104, bicarbonate 29, BUN of 18, creatinine 1.6, and glucose of 144. Three sets of cardiac enzymes, 0.106, 0.114 and 0.066. CRP of 0.5. Total cholesterol 110. TSH of 3.12. INR 1.2 and PTT of 28. Venous duplex of the lower extremities shows no evidence of DVT. Chest x-ray that was performed, large bilateral pleural effusion, this was going back to 01/09/2018, and a CT scan at that time had shown 2.3-cm mass in the right upper lobe corresponding to abnormality on a prior chest x-ray related to low attenuation suggestive could be hematoma, not definitive, and moderate large pleural effusions. ASSESSMENT AND PLAN: 1. Chest pain, right sided. 2. Coronary artery disease, status post percutaneous coronary intervention in December 2017. 3. Right upper lobe mass, possibly hematoma. 4. Bilateral pleural effusions by CT scanning. 5. Renal insufficiency. 6. Diabetes mellitus. 7. Anemia. This patient was seen in cardiac consultation. The patient's pain is rather atypical. She does have coronary artery disease. She has had percutaneous coronary intervention in December and subsequent cardiac arrest at [facility], may have been a pulmonary issue. Nevertheless, telemetry data so far shows a sinus rhythm and EKG that was performed on February 11 showed normal sinus with nonspecific T-wave changes cardiac enzymes are not significant enough for the diagnosis of myocardial infarction based on World Health Organization data according to the [facility]. The patient may require further imaging with echocardiogram and/or repeat chest x-ray for further evaluation of the pleural effusion status in light of the fact that she is complaining of right-sided pain rather than left-sided pain at this time. Jayro Jay M.D. DR: JIMI JOB#: [id number] CC:
--- NOTE | 2018-02-19 09:14 | Discharge Summary ---
Discharge Summary Hospital Course Date of Admission Feb 16, 2018 at 19:20 Date of Discharge Feb 17, 2018 at 20:00 Admitting Diagnosis NSTEMI HPI Katherin Odom is a 67 year old female who was admitted on Feb 16, 2018 at 19:20 for Nstemi Hospital Course dc summary #[id number] Discharge Condition Upon Discharge: stable Discharge Disposition Patient was discharged to [facility] (04) Discharge Diagnoses: Discharge Instructions Discharge Instructions Special Instructions I have been assigned to complete a D/C Summary on this account. I was not involved in the patient management Milagro Estrella NP (Vanchtein) Feb 19, 2018 09:14
--- NOTE | 2018-02-19 20:16 | Cardiology Report ---
APPROVED REPORT EKG Measurement Heart [id number] Normal sinus rhythm Nonspecific T wave abnormality Prolonged QT Abnormal ECG
--- NOTE | 2018-02-20 01:31 | Discharge Summary 2 SIG ---
DATE OF ADMISSION: 02/16/2018 DATE OF DISCHARGE: 02/17/2018 REASON FOR ADMISSION: 67-year-old female with a history of hypertension, diabetes, cardiomyopathy, congestive heart failure, history of percutaneous coronary intervention in 12/2017, pulmonary edema, and hyperlipidemia presented to emergency department complaining of the chest pain. EKG revealed sinus rhythm. No acute ischemic changes. Chest x-ray revealed large bilateral pleural effusion. Troponin-0.106. ProBNP -6304. Hemoglobin- 9.4 and hematocrit -28.5. BUN -18 and creatinine -1.6. The patient received aspirin and nitroglycerin in ED. Noted elevated blood pressure, which was treated with metoprolol, analgesia provided. The patient was admitted with diagnosis of chest pain, elevated troponin, CHF, anemia, and renal insufficiency. HOSPITAL COURSE: The patient admitted to telemetry floor. Cardiology and Pulmonology consults were requested. Serial troponin x3 were elevated. According to automotive maintenance technician, chest pain was rather atypical. The patient did have a coronary artery disease with percutaneous coronary intervention in December and subsequently went to cardiac arrest that might be due to the pulmonary issues. Telemetry data showed sinus rhythm. EKG revealed normal sinus rhythm with nonspecific ST changes. No acute ischemic changes. Per automotive maintenance technician, elevation of troponin were not significant enough for the diagnosis of myocardial infarction based on World Health organization data. The patient may require further imaging with echocardiogram and repeat chest x-ray for evaluation of pleural effusions. [employer] seen evaluated the patient, supplemental oxygen titrated as needed to keep pulse oximetry above 92%. Pulmonary toilet provided as needed. [employer] ordered ultrasound of the chest and subsequent thoracentesis if indicated by ultrasound result ( not done since the patient was transferred to [place]). DVT prophylaxis provided. Pain management was addressed. Blood pressure was closely monitored. Home medications were resumed. The patient was on dual antiplatelet therapy. Lipid panel was stable. TSH was within normal limits. Statin was continued. Beta-enrico and hydralazine were used for blood pressure control. GI prophylaxis provided. Bowel regimen instituted. Venous duplex bilateral lower extremities was negative. Prior echocardiogram done in [place] in January 2018 revealed ejection fraction of 40% to 45% and right ventricular systolic pressure of 38 consistent with mild pulmonary hypertension ; CT chest done at that time revealed right upper lobe mass likely hamartoma. Further workup was recommended to repeat CT chest in three to six months. The patient was transferred to [facility] per insurance issues. FINAL DIAGNOSES: 1. Chest pain, right-sided, atypical. 2. Elevated troponin. 3. Coronary artery disease, status post PCI in 12/2017. 4. Acute on chronic CHF. 5. Large bilateral pleural effusion. 6. Right upper lobe mass, possibly hamartoma seen on the previous admission. 7. Anemia. 8. Renal insufficiency. 9. Hypertension. 10. Diabetes mellitus. 11. Diabetes nephropathy. 12. COPD. 13. Hypercholesterolemia. DISCHARGE MEDICATIONS: List of medications was sent to accepting facility DISCHARGE INSTRUCTIONS: The patient was transferred to [facility]. Follow up with medical doctor at the facility. Onesimo Bautista M.D. I have been assigned to dictate discharge summary on this account and I was not involved in the patient's management. Milagro EstevezSt. Elizabeth'S HospitalSofía N.P. DR: CHIKA JOB#: [id number] CC: DIAZ
--- NOTE | 2018-03-02 21:38 | Diagnostic Imaging Report ---
APPROVED REPORT CPT Code: 62650 Present Symptoms Shortness of breath BILATERAL: Imaging reveals a patent deep venous system bilaterally. There is no evidence of thrombus within the common femoral, proximal superficial femoral, popliteal or tibial segments. The greater saphenous veins are also within normal limits. Doppler indicates normal spontaneous flow within these segments.
== END 2018-02-17 20:00 | disposition short-term general hospital (02) | DRG 313 ==
LOC: EDBD 17:42 → EMR 18:35 → 2W 19:20 → EDBEDREQ 02-17 04:28
DX: R07.89 Other chest pain (principal); I25.2 Old myocardial infarction; J91.8 Pleural effusion in other conditions classified elsewhere; S27.321A Contusion of lung, unilateral, initial encounter; E11.42 Type 2 diabetes mellitus with diabetic polyneuropathy; I11.0 Hypertensive heart disease with heart failure; I50.9 Heart failure, unspecified; R13.10 Dysphagia, unspecified; R74.8 Abnormal levels of other serum enzymes; R91.8 Other nonspecific abnormal finding of lung field; E11.9 Type 2 diabetes mellitus without complications; I25.10 Atherosclerotic heart disease of native coronary artery without angina pectoris; Z95.5 Presence of coronary angioplasty implant and graft; E78.00 Pure hypercholesterolemia, unspecified; J44.9 Chronic obstructive pulmonary disease, unspecified; Z79.4 Long term (current) use of insulin; Z79.02 Long term (current) use of antithrombotics/antiplatelets; G89.29 Other chronic pain; M54.9 Dorsalgia, unspecified; F17.200 Nicotine dependence, unspecified, uncomplicated; I10 Essential (primary) hypertension
CPT/HCPCS: 36415; 71045; 80053; 80061; 81003; 82550; 82962; 83880; 84443; 84484; 85007; 85025; 85610; 85730; 86140; 87081; 87086; 93005; 93970; 99285; J1815; J2405

== ENCOUNTER 2018-04-02 17:00 | Inpatient (IN) | payer MEDICARE, OTHER ==
[~2018-04-02] VITALS: Ht 162.6 cm; Wt 54.4 kg
[~2018-04-02 17:00] MED LIST changes: +CARVEDILOL12.5 MG ORAL; +POTASSIUM CHLO20 ME1 ORAL
[2018-04-02] MEDS ORDERED: traMADol 50mg tab ORAL ONE (17:30)
[2018-04-02 17:38] VITALS: BP 116/67
[2018-04-02] MEDS ORDERED: Isovue-370 150ml vial INJ PRN (17:45)
[2018-04-02 18:07] LABS: BASOPHILS % (AUTO) 1.5 % (0.0-2.0); EOSINOPHILS % (AUTO) 1.3 % (0.0-3.0); HEMATOCRIT 36.9 % (37.0-47.0); HEMOGLOBIN 12.6 G/DL (12.0-16.0); LYMPHOCYTES % (AUTO) 26.9 % (20.0-45.0); MEAN CORPUSCULAR VOLUME 82 FL (80-99); MONOCYTES % (AUTO) 5.6 % (1.0-10.0); NEUTROPHILS % (AUTO) 64.7 % (45.0-75.0); PLATELET COUNT 272 K/UL (150-450); RED BLOOD COUNT 4.48 M/UL (4.20-5.40); RED CELL DISTRIBUTION WIDTH 15.3 % (11.6-14.8); WHITE BLOOD COUNT 3.9 K/UL (4.8-10.8)
[2018-04-02 18:13] LABS: ANION GAP 9 mmol/L (5-15); BLOOD UREA NITROGEN 17 mg/dL (7-18); CARBON DIOXIDE 27 MMOL/L (21-32); CHLORIDE 102 MMOL/L (98-107); CREATININE 1.2 MG/DL (0.55-1.30); POTASSIUM 3.7 MMOL/L (3.5-5.1); SODIUM 138 MMOL/L (136-145)
--- NOTE | 2018-04-02 18:20 | Emergency Room Report ---
History of Present Illness General Chief Complaint: Pain Source: Patient, EMS Present Illness HPI Patient is a 67-year-old female who presented after increased chest discomfort. Patient gradual onset of symptoms. She reports having recent surgery to the right lower extremity. The patient had been noted to have a fracture. She reports having some chest discomfort which he describes as sharp in nature. She additionally reports having bilateral leg pain which she states is related to her neuropathy. Patient run out of her tramadol. She denies any increased leg swelling. Allergies: Coded Allergies: No Known Allergies (Unverified , 04/15/17) Patient History Past Medical History: see triage record Reviewed Nursing Documentation: PMH: Agreed; PSxH: Agreed Nursing Documentation-PMH Hx Cardiac Problems: Yes - unspecified Hx Hypertension: Yes Hx Asthma: Yes Hx COPD: Yes - emphysema Hx Diabetes: Yes Hx Cancer: No Hx Gastrointestinal Problems: No Hx Neurological Problems: No Review of Systems All Other Systems: negative except mentioned in HPI Physical Exam Vital Signs Date Time Temp Pulse Resp B/P (MAP) Pulse Ox O2 Delivery O2 Flow Rate FiO2 04/02/18 16:57 98.2 100 18 112/68 100 98.2 04/02/18 17:38 Room Air Sp02 EP Interpretation: reviewed, normal General Appearance: normal inspection, well appearing, no apparent distress, alert, thin, Chronically Ill Head: atraumatic ENT: normal ENT inspection, hearing grossly normal, normal voice Neck: normal inspection, full range of motion, supple, no bony tend Respiratory: normal inspection, lungs clear, normal breath sounds, no respiratory distress, no retraction, no wheezing Cardiovascular #1: regular rate, rhythm, no edema Gastrointestinal: normal inspection, normal bowel sounds, non tender, soft, no guarding, no hernia Genitourinary: no CVA tenderness Musculoskeletal: normal inspection, back normal, normal range of motion Neurologic: normal inspection, alert, oriented x3, responsive, senior report developer III-XII nml as tested, speech normal Psychiatric: normal inspection, judgement/insight normal, mood/affect normal Skin: normal inspection, normal color, no rash, other - incisions without discharge or erythema to right lower extremity Medical Decision Making Diagnostic Impression: Primary Impression: Diabetes mellitus, type II Additional Impressions: Elevated troponin Non-ST elevation (NSTEMI) myocardial infarction COPD (chronic obstructive pulmonary disease) ER Course Patient is a for chest pain and leg pain.. Differential diagnosis included but was not limited to acute coronary syndrome, pulmonary embolism, pneumonia, aortic dissection, shingles, pneumothorax, aortic dissection, esophageal rupture , pericarditis. Given patient's recent surgery she's high risk for DVT and PE. The CT of the chest was ordered due to patient's recent chest discomfort.The patient was noted to have elevated troponin.Patient was given aspirin by mouth.CT the chest read by radiology showed cardiomegaly moderate pericardial effusion the moderate aortic calcifications suggestive a small ulcer involving the proximal descending thoracic aorta and no thoracic aneurysm or dissection was seen persistent 2.3 cm right upper lobe mass. Dr. Onesimo Bautista was contacted for inpatient management Labs Test 04/02/18 17:33 White Blood Count 3.9 K/UL (4.8-10.8) Red Blood Count 4.48 M/UL (4.20-5.40) Hemoglobin 12.6 G/DL (12.0-16.0) Hematocrit 36.9 % (37.0-47.0) Mean Corpuscular Volume 82 FL (80-99) Mean Corpuscular Hemoglobin 28.2 PG (27.0-31.0) Mean Corpuscular Hemoglobin Concent 34.2 G/DL (32.0-36.0) Red Cell Distribution Width 15.3 % (11.6-14.8) Platelet Count 272 K/UL (150-450) Mean Platelet Volume 7.1 FL (6.5-10.1) Neutrophils (%) (Auto) 64.7 % (45.0-75.0) Lymphocytes (%) (Auto) 26.9 % (20.0-45.0) Monocytes (%) (Auto) 5.6 % (1.0-10.0) Eosinophils (%) (Auto) 1.3 % (0.0-3.0) Basophils (%) (Auto) 1.5 % (0.0-2.0) Sodium Level 138 MMOL/L (136-145) Potassium Level 3.7 MMOL/L (3.5-5.1) Chloride Level 102 MMOL/L (98-107) Carbon Dioxide Level 27 MMOL/L (21-32) Anion Gap 9 mmol/L (5-15) Blood Urea Nitrogen 17 mg/dL (7-18) Creatinine 1.2 MG/DL (0.55-1.30) Estimat Glomerular Filtration Rate 54.5 mL/min (>60) Glucose Level 182 MG/DL (74-106) Calcium Level 9.0 MG/DL (8.5-10.1) Total Bilirubin 2.0 MG/DL (0.2-1.0) Aspartate Amino Transf (AST/SGOT) 17 U/L (15-37) Alanine Aminotransferase (ALT/SGPT) 14 U/L (12-78) Alkaline Phosphatase 175 U/L (46-116) Troponin I 0.746 ng/mL (0.000-0.056) Total Protein 8.2 G/DL (6.4-8.2) Albumin 3.1 G/DL (3.4-5.0) Globulin 5.1 g/dL Albumin/Globulin Ratio 0.6 (1.0-2.7) EKG Diagnostic Results Rate: normal Rhythm: NSR ST Segments: no acute changes ASA given to the pt in ED: Yes Rhythm Strip Diag. Results EP Interpretation: yes Rhythm: NSR, no PVC's, no ectopy Last Vital Signs Date Time Temp Pulse Resp B/P (MAP) Pulse Ox O2 Delivery O2 Flow Rate FiO2 04/02/18 17:38 100 16 116/67 99 Room Air 04/02/18 16:57 98.2 98.2 Status: unchanged Disposition: XFER [facility] Condition: Serious Harry Aggarwal April 02, 2018 18:20
[2018-04-02 18:23] LABS: ALANINE AMINOTRANSFERASE 14 U/L (12-78); ALBUMIN 3.1 G/DL (3.4-5.0); ALBUMIN/GLOBULIN RATIO 0.6 (1.0-2.7); ALKALINE PHOSPHATASE 175 U/L (46-116); ASPARTATE AMINO TRANSFERASE 17 U/L (15-37)
[2018-04-02] MEDS ORDERED: Aspirin Baby 81mg ORAL ONE (18:30)
[2018-04-02 18:34] LABS: BILIRUBIN,DIRECT 0.3 MG/DL (0.0-0.3)
[2018-04-02] MEDS ORDERED: ALBUTEROL SULF8.5 GM INH (19:01)
[2018-04-02] MEDS ORDERED: INSULIN CHARG5 UNITS SUBQ (19:03)
[2018-04-02] MEDS ORDERED: ASPIR 8181 MG ORAL (19:08)
[2018-04-02] MEDS ORDERED: ISOSORBIDE MONO60 M1 PO (19:08)
[2018-04-02] MEDS ORDERED: SPIRONOLACTONE25 MG ORAL (19:10)
[2018-04-02] MEDS ORDERED: TORSEMIDE20 MG ORAL (19:13)
[2018-04-02] MEDS ORDERED: FUROSEMIDE40 MG ORAL (19:13)
[2018-04-02] MEDS ORDERED: HYDRALAZINE HC100 MG ORAL (19:14)
[2018-04-02 19:30] VITALS: BP 126/62
[2018-04-02] MEDS ORDERED: NORCO 5-325 TA1 EACH ORAL (19:46)
[2018-04-02] MEDS ORDERED: ADVAIR 250/501 PUFFS INH (19:54)
[2018-04-02] MEDS ORDERED: NOVOLIN R100 UNIT/1 SUBQ (20:12)
[2018-04-02] MEDS ORDERED: Enalaprilat 2.5mg/2ml Inj IV PRN (20:15)
[2018-04-02] MEDS ORDERED: dilTIAZem HCl 25mg/5ml Inj IV PRN (20:15)
[2018-04-02] MEDS ORDERED: traMADol 50mg tab ORAL PRN (20:15)
[2018-04-02] MEDS ORDERED: Nitroglycerin Subl 0.4mg tab SL PRN (20:15)
[2018-04-02] MEDS ORDERED: Albuterol/Ipratropium 3ml neb HHN PRN (20:15)
[2018-04-02 20:30] VITALS: BP 134/66
[2018-04-02 21:30] VITALS: BP 144/62
[2018-04-02] MEDS: Miralax 17gm pkt ORAL PRN (23:19)
[2018-04-02] MEDS: Ketorolac 30mg Inj IV PRN (23:19)
[2018-04-02] MEDS: Heparin 5000 units/ml inj SUBQ SCH (23:21)
[2018-04-02] MEDS: NovoLOG Insulin Flexpen SUBQ SCH (23:21)
[2018-04-03] VITALS: BP 135/77
[2018-04-03] MEDS ORDERED: traMADol 50mg tab ORAL PRN (02:15)
[2018-04-03 04:00] VITALS: BP 134/67
[2018-04-03] MEDS: NovoLOG Insulin Flexpen SUBQ SCH ×4 (06:30→21:33)
[2018-04-03] MEDS: Heparin 5000 units/ml inj SUBQ SCH ×3 (06:47→21:35)
[2018-04-03 07:16] LABS: INR 1.2 (0.9-1.1)
[2018-04-03 07:33] LABS: HEMATOCRIT 33.5 % (37.0-47.0); HEMOGLOBIN 11.5 G/DL (12.0-16.0); MEAN CORPUSCULAR VOLUME 83 FL (80-99); PLATELET COUNT 246 K/UL (150-450); RED BLOOD COUNT 4.02 M/UL (4.20-5.40); RED CELL DISTRIBUTION WIDTH 16.8 % (11.6-14.8)
[2018-04-03 07:47] LABS: CHOLESTEROL 179 MG/DL (< 200); HDL CHOLESTEROL 45 MG/DL (40-60); TRIGLYCERIDES 85 MG/DL (30-150)
[2018-04-03 08:00] VITALS: BP 149/75
[2018-04-03] MEDS ORDERED: Carvedilol 12.5mg tab ORAL SCH (09:00)
--- NOTE | 2018-04-03 09:06 | Diagnostic Imaging Report ---
Indication: Chest pain Technique: Continuous helical transaxial imaging of the chest was obtained from the thoracic inlet to the upper abdomen during rapid intravenous contrast administration. Arterial phase of enhancement obtained. Coronal 2-D reformats were also obtained and maximum intensity projection images in multiple planes. Study obtained in a Siemens sensation [address] Automatic Exposure Control was utilized. Total Dose length Product (DLP): 491.[address] Dose Index Volume (CTDIvol): 16.03 mGy Comparison: 01/20/[address] chest Findings: Pulmonary artery is well opacified. There is no evidence of pulmonary embolus. The aorta is moderately calcified. No dissection or aneurysm identified. There are moderate bilateral pleural effusions and a moderate-sized pericardial effusion present. Within the right upper lobe there is a solitary mass demonstrated measuring approximately 2.5 cm. The mass was seen on the prior occasion and appears unchanged anasarca noted. No obvious adenopathy in the mediastinum or juli appreciated. There is atelectasis of the posterior basilar aspects of the lungs due to the pleural effusion. There is a small hiatal hernia. The visualized part of the upper abdomen is unremarkable. There is an unusual transverse fracture involving the lower aspect of the sternum. The fracture is transverse and the endosteal ends of the fracture appear sclerotic indicating this is an old injury or may be postsurgical. IMPRESSION: No evidence of pulmonary embolus, aortic dissection or aneurysm. Moderate atherosclerotic disease present. Moderate pericardial effusion and bilateral pleural effusions with associated posterior basilar atelectasis. Persistent 2.5 cm mass in the right upper lobe suspicious for neoplasm. Nonspecific 3 mm nodule in the right lower lobe also noted unchanged. Unusual sternal fracture or postsurgical defect. This appears old. [facility] has communicated the preliminary results to the Emergency Department. Their findings are largely concordant with this report. The CT scanner at [facility] is accredited by the [employer] and the scans are performed using dose optimization techniques as appropriate to a performed exam including Automatic Exposure control.
[2018-04-03] MEDS: Aspirin Baby 81mg ORAL SCH (09:46)
[2018-04-03] MEDS: Spironolactone 25mg tab ORAL SCH (09:49)
[2018-04-03] MEDS: Losartan 25mg tab ORAL SCH (09:49)
[2018-04-03] MEDS: Furosemide 40mg tab ORAL SCH ×2 (09:50→17:20)
[2018-04-03] MEDS: Ketorolac 30mg Inj IV PRN (10:04)
--- NOTE | 2018-04-03 11:29 | Consultation ---
History of Present Illness General Date patient seen: April 03, 2018 Chief Complaint: Pain Present Illness HPI 67-year-old female with extensive PMHx including CAD, cardiac arrest, MA, Stensts, COPD, RUL lung mass presented to ER with CC of chest discomfort with gradual onset. She reports having recent surgery to the right lower extremity. The patient had been noted to have a fracture. She reports having some chest discomfort which he describes as sharp in nature. She additionally reports having bilateral leg pain which she states is related to her neuropathy. She had a CT angio to rule out PE in ER. The same CT showed that pts RUL mass is unchanged in size. Allergies: Coded Allergies: No Known Allergies (Unverified , 04/15/17) Medication History Scheduled Aspirin* (Aspir 81*), 81 MG ORAL ACBREAKFAST, (Reported) Carvedilol* (Carvedilol*), 37.5 MG ORAL TWICE A DAY, (Reported) Clopidogrel Bisulfate* (Plavix*), 75 MG ORAL DAILY, (Reported) Fluticasone/Salmeterol (Advair 250-50 Diskus), 1 PUFF INH EVERY 12 HOURS, ( Reported) Furosemide* (Lasix*), 40 MG ORAL TWICE A DAY, (Reported) Gabapentin* (Gabapentin*), 300 MG ORAL BEDTIME, (Reported) Hydralazine Hcl* (Hydralazine Hcl*), 100 MG ORAL TWICE A DAY, (Reported) Insulin Human NPH (Novolin N), 24 UNITS SUBQ BIDAC, (Reported) Insulin Regular, Human* (Novolin R*), 4 UNITS SUBQ BIDAC, (Reported) Isosorbide Mononitrate (Isosorbide Mononitrate Er), 60 MG PO DAILY, (Reported) Losartan Potassium* (Losartan Potassium*), 25 MG ORAL DAILY, (Reported) Spironolactone* (Aldactone*), 25 MG ORAL DAILY, (Reported) Torsemide* (Demadex*), 20 MG ORAL TWICE A DAY, (Reported) Scheduled PRN Albuterol Sulfate* (Albuterol Sulfate Hhn*), 0.63 MG INH Q4H PRN for Shortness of Breath, (Reported) Albuterol Sulfate* (Albuterol Sulfate Mdi*), 2 PUFF INH Q4H PRN for Shortness of Breath, (Reported) Hydrocodone Bit/Acetaminophen 5-325* ([place] 5-325*), 1 TAB ORAL Q6H PRN for For Pain, (Reported) Tramadol Hcl* (Ultram*), 50 MG ORAL Q6H PRN for For Pain, (Reported) Discontinued Medications Acetaminophen* (Acetaminophen 325MG Tablet*), 650 MG ORAL Q4H PRN for Pain Scale (3-5), (Reported) Discontinued Reason: Therapy completed Atorvastatin Calcium* (Atorvastatin Calcium*), 80 MG ORAL BEDTIME, (Reported) Discontinued Reason: Therapy completed Bisacodyl* (Dulcolax*), 10 MG ORAL DAILY PRN for Constipation, (Reported) Discontinued Reason: Therapy completed Docusate Sodium* (Docusate Sodium*), 200 MG ORAL TWICE A DAY, (Reported) Discontinued Reason: Therapy completed Ferrous Sulfate (Ferrousul), 325 MG PO, (Reported) Discontinued Reason: Therapy completed Folic Acid (Folic Acid), 1 MG PO DAILY, (Reported) Discontinued Reason: Therapy completed Heparin Sod (Porcine) (Heparin Sodium*), 5,000 UNITS SUBQ EVERY 12 HOURS, ( Reported) Discontinued Reason: Therapy completed Hydralazine Hcl* (Hydralazine Hcl*), 75 MG ORAL EVERY 6 HOURS, (Reported) Discontinued Reason: Prescription changed Hydrocodone/Acetaminophen 7.5-325* (Hydrocodon-Acetaminoph 7.5-325*), 1 TAB ORAL Q6H PRN for For Pain Discontinued Reason: Medication dose changed Insulin Detemir (Levemir Flexpen), 10 SUBQ EVERY 12 HOURS, (Reported) Discontinued Reason: Therapy completed Insulin Lispro (Humalog), 0 SUBQ, (Reported) Discontinued Reason: Therapy completed Insulin Regular, Human* (Novolin R*), 0 SUBQ .SLIDING SCALE, (Reported) Discontinued Reason: Therapy completed Latanoprost* (Xalatan*), 1 DROP BOTH EYES BEDTIME, (Reported) Discontinued Reason: Therapy completed Levofloxacin* (Levaquin*), 250 MG ORAL DAILY, (Reported) Discontinued Reason: Therapy completed Metformin Hcl* (Metformin Hcl*), 500 MG ORAL TWICE A DAY, (Reported) Discontinued Reason: Therapy completed Mometasone/Formoterol (Dulera 200 Mcg/5 Mcg Inhaler), 13 GM IH, (Reported) Discontinued Reason: Therapy completed Morphine Sulfate (Morphine Sulfate), 2 MG IJ for Pain Scale (6-10), (Reported) Discontinued Reason: Therapy completed Multivitamin With Minerals (Multivitamins With Minerals*), 1 TAB ORAL DAILY, ( Reported) Discontinued Reason: Therapy completed Nateglinide* (Starlix*), 60 MG ORAL BID, (Reported) Discontinued Reason: Therapy completed Nitroglycerin (Nitroglycerin), 0.4 MG SL, (Reported) Discontinued Reason: Therapy completed Nph, Human Insulin Isophane (Humulin N), 18 SUBQ, (Reported) Discontinued Reason: Therapy completed Oxycodone/Acetaminophen 5-325* (Percocet 5-325 Mg Tablet*), 1 TAB ORAL Q6H PRN for For Pain, (Reported) Discontinued Reason: Therapy completed Pantoprazole (Pantoprazole), 40 MG ORAL DAILY, (Reported) Discontinued Reason: Therapy completed Polyethylene Glycol 3350* (Polyethylene Glycol 3350*), 17 GM ORAL NEEDED PRN for Constipation, (Reported) Discontinued Reason: Therapy completed Potassium Chloride* (K-Dur*), 20 MEQ ORAL DAILY, (Reported) Discontinued Reason: Therapy completed Tamsulosin Hcl (Tamsulosin Hcl*), 0.4 MG ORAL BEDTIME, (Reported) Discontinued Reason: Therapy completed Ticagrelor* (Brilinta*), 90 MG PO BID, (Reported) Discontinued Reason: Therapy completed Patient History Healthcare decision maker Resuscitation status Full Code Advanced Directive on File Review of Systems All Other Systems: negative except mentioned in HPI Physical Exam General Appearance: cachetic Lines, tubes and drains: peripheral HEENT: normocephalic, atraumatic Neck: non-tender, normal alignment Respiratory/Chest: chest wall non-tender, lungs clear Cardiovascular/Chest: normal peripheral pulses, normal rate Abdomen: normal bowel sounds Genitourinary/Rectal: normal genital exam Extremities: normal range of motion Last 24 Hour Vital Signs Date Time Temp Pulse Resp B/P (MAP) Pulse Ox O2 Delivery O2 Flow Rate FiO2 04/03/18 09:49 149/75 04/03/18 08:00 90 04/03/18 08:00 96.8 92 20 149/75 95 Room Air 96.8 04/03/18 04:00 93 04/03/18 04:00 98.1 96 20 134/67 95 Room Air 98.1 04/03/18 00:00 93 04/03/18 00:00 98.0 95 20 135/77 99 Room Air 98.0 04/02/18 23:49 97.8 04/02/18 23:19 97.8 04/02/18 22:00 97.8 88 16 144/62 99 Room Air 97.8 04/02/18 21:30 97.8 88 16 144/62 99 Room Air 97.8 04/02/18 20:30 97.8 90 16 134/66 98 Room Air 97.8 04/02/18 19:30 97.8 04/02/18 19:30 97.8 96 17 126/62 100 Room Air 97.8 04/02/18 17:38 100 16 116/67 99 Room Air 04/02/18 16:57 98.2 100 18 112/68 100 98.2 Intake and Output 04/02/18 04/03/18 19:00 07:00 Intake Total 0 ml 480 ml Balance 0 ml 480 ml Intake Oral 0 ml 480 ml Laboratory Tests Test 04/02/18 17:33 04/03/18 06:35 White Blood Count 3.9 K/UL (4.8-10.8) L 3.0 K/UL (4.8-10.8) L Red Blood Count 4.48 M/UL (4.20-5.40) 4.02 M/UL (4.20-5.40) L Hemoglobin 12.6 G/DL (12.0-16.0) 11.5 G/DL (12.0-16.0) L Hematocrit 36.9 % (37.0-47.0) L 33.5 % (37.0-47.0) L Mean Corpuscular Volume 82 FL (80-99) 83 FL (80-99) Mean Corpuscular Hemoglobin 28.2 PG (27.0-31.0) 28.7 PG (27.0-31.0) Mean Corpuscular Hemoglobin Concent 34.2 G/DL (32.0-36.0) 34.4 G/DL (32.0-36.0) Red Cell Distribution Width 15.3 % (11.6-14.8) H 16.8 % (11.6-14.8) H Platelet Count 272 K/UL (150-450) 246 K/UL (150-450) Mean Platelet Volume 7.1 FL (6.5-10.1) 7.1 FL (6.5-10.1) Neutrophils (%) (Auto) 64.7 % (45.0-75.0) % (45.0-75.0) Lymphocytes (%) (Auto) 26.9 % (20.0-45.0) % (20.0-45.0) Monocytes (%) (Auto) 5.6 % (1.0-10.0) % (1.0-10.0) Eosinophils (%) (Auto) 1.3 % (0.0-3.0) % (0.0-3.0) Basophils (%) (Auto) 1.5 % (0.0-2.0) % (0.0-2.0) Sodium Level 138 MMOL/L (136-145) Potassium Level 3.7 MMOL/L (3.5-5.1) Chloride Level 102 MMOL/L (98-107) Carbon Dioxide Level 27 MMOL/L (21-32) Anion Gap 9 mmol/L (5-15) Blood Urea Nitrogen 17 mg/dL (7-18) Creatinine 1.2 MG/DL (0.55-1.30) Estimat Glomerular Filtration Rate 54.5 mL/min (>60) Glucose Level 182 MG/DL (74-106) H Calcium Level 9.0 MG/DL (8.5-10.1) Total Bilirubin 2.0 MG/DL (0.2-1.0) H Direct Bilirubin 0.3 MG/DL (0.0-0.3) Aspartate Amino Transf (AST/SGOT) 17 U/L (15-37) Alanine Aminotransferase (ALT/SGPT) 14 U/L (12-78) Alkaline Phosphatase 175 U/L (46-116) H Troponin I 0.746 ng/mL (0.000-0.056) 0.870 ng/mL (0.000-0.056) Total Protein 8.2 G/DL (6.4-8.2) Albumin 3.1 G/DL (3.4-5.0) L Globulin 5.1 g/dL Albumin/Globulin Ratio 0.6 (1.0-2.7) L Differential Total Cells Counted 100 Neutrophils % (Manual) 41 % (45-75) L Lymphocytes % (Manual) 49 % (20-45) H Monocytes % (Manual) 4 % (1-10) Eosinophils % (Manual) 5 % (0-3) H Basophils % (Manual) 1 % (0-2) Band Neutrophils 0 % (0-8) Platelet Estimate Adequate Platelet Morphology Normal Hypochromasia 1+ Anisocytosis 1+ Prothrombin Time 12.3 SEC (9.30-11.50) H Prothromb Time International Ratio 1.2 (0.9-1.1) H Activated Partial Thromboplast Time 31 SEC (23-33) C-Reactive Protein, Quantitative 1.2 mg/dL (0.00-0.90) H Triglycerides Level 85 MG/DL (30-150) Cholesterol Level 179 MG/DL (< 200) LDL Cholesterol 127 mg/dL (<100) H HDL Cholesterol 45 MG/DL (40-60) Cholesterol/HDL Ratio 4.0 (3.3-4.4) Thyroid Stimulating Hormone (TSH) 2.103 uiU/mL (0.358-3.740) Height (Feet): 5 Height (Inches): 4.00 Weight (Pounds): 120 Medications Current Medications Medications (Trade) Dose Ordered Sig/Tristan Route PRN Reason Start Time Stop Time Status Last Admin Dose Admin Acetaminophen (Tylenol) 650 mg Q4H PRN ORAL FEVER 04/02/18 20:15 05/02/18 20:14 Albuterol/ Ipratropium (Albuterol/ Ipratropium) 3 ml EVERY 4 HOURS PRN HHN Shortness of Breath 04/02/18 20:15 04/07/18 20:14 Aspirin (ASA) 162 mg DAILY ORAL 04/03/18 09:00 05/03/18 08:59 04/03/18 09:46 Clopidogrel Bisulfate (Plavix) 75 mg DAILY ORAL 04/03/18 09:00 05/03/18 08:59 04/03/18 09:46 Dextrose (Dextrose 50%) 25 ml STAT PRN IV BS 60-69mg/dl 04/02/18 21:45 05/02/18 21:44 Dextrose (Dextrose 50%) 50 ml STAT PRN IV BS less than 60mg/dl 04/02/18 20:15 05/02/18 20:14 Diltiazem HCl (Cardizem) 10 mg EVERY HOUR PRN IV heart rate more than 120, 04/02/18 20:15 05/02/18 20:14 Enalaprilat (Vasotec) 2.5 mg EVERY 6 HOURS PRN IV sbp more than 160 04/02/18 20:15 05/02/18 20:14 Furosemide (Lasix) 40 mg TWICE A DAY ORAL 04/03/18 09:00 05/03/18 08:59 04/03/18 09:50 Gabapentin (Neurontin) 300 mg BEDTIME ORAL 04/03/18 21:00 05/03/18 20:59 Heparin Sodium (Porcine) (Heparin 5000 units/ml) 5,000 units EVERY 8 HOURS SUBQ 04/02/18 22:00 05/02/18 21:59 04/03/18 06:47 Insulin Aspart (NovoLOG) BEFORE MEALS AND HS SUBQ 04/02/18 21:00 05/02/18 20:59 04/02/18 23:21 Iopamidol (Isovue-370 150ml) 150 ml NOW PRN INJ Radiology Procedure 04/02/18 17:45 04/04/18 17:37 Ketorolac Tromethamine (Toradol 30mg) 30 mg Q6HR PRN IV moderate pain ( 4-6) 04/02/18 20:15 04/07/18 20:14 04/03/18 10:04 Losartan Potassium (Cozaar) 25 mg DAILY ORAL 04/03/18 09:00 05/03/18 08:59 04/03/18 09:49 Nitroglycerin (Ntg) 0.4 mg Q5M PRN SL Prn Chest Pain 04/02/18 20:15 05/02/18 20:14 Ondansetron HCl (Zofran) 4 mg Q6H PRN IVP Nausea & Vomiting 04/02/18 20:15 05/02/18 20:14 Pantoprazole (Protonix) 40 mg DAILY ORAL 04/03/18 09:00 05/03/18 08:59 04/03/18 09:49 Polyethylene Glycol (Miralax) 17 gm DAILYPRN PRN ORAL Constipation 04/02/18 20:15 05/02/18 20:14 04/02/18 23:19 Spironolactone (Aldactone) 25 mg DAILY ORAL 04/03/18 09:00 05/03/18 08:59 04/03/18 09:49 Temazepam (Restoril) 15 mg HSPRN PRN ORAL Insomnia 04/02/18 20:15 04/09/18 20:14 Tramadol HCl (Ultram) 50 mg Q6H PRN ORAL For Pain2-3 04/03/18 02:15 04/09/18 20:14 Assessment/Plan Problem List: (1) Non-ST elevation (NSTEMI) myocardial infarction ICD Codes: I21.4 - Non-ST elevation (NSTEMI) myocardial infarction SNOMED: 426493854 (2) Lung mass ICD Codes: R91.8 - Other nonspecific abnormal finding of lung field SNOMED: 841008375 (3) COPD (chronic obstructive pulmonary disease) ICD Codes: J44.9 - Chronic obstructive pulmonary disease, unspecified SNOMED: 76848123 (4) Diabetes mellitus, type II ICD Codes: E11.9 - Type 2 diabetes mellitus without complications SNOMED: 77544729 Assessment/Plan respiratory treatment serial ekg, troponin thoracic evaluation when pt more stable sliding scale diabetic diet pain management Jorge Lanza MD April 03, 2018 11:29
[2018-04-03 12:00] VITALS: BP 146/81
[2018-04-03 16:00] VITALS: BP 151/95
--- NOTE | 2018-04-03 17:02 | History & Physical ---
History and Physical History & Physicial Dictated for Int Med-Dr Bautista no. [id number]. KRISTINA CARABALLO April 03, 2018 17:02
--- NOTE | 2018-04-03 17:45 | History and Physical Report ---
DATE OF ADMISSION: 04/02/2018 CHIEF COMPLAINT: The patient is a 67-year-old female who presents with chief complaint of "pain all over." HISTORY OF PRESENT ILLNESS: The patient ran out of her tramadol several days ago. The patient states she has diabetic peripheral neuropathy. The patient states she has been having increasing pain all over. The patient presented to [facility]. The patient told staff she was having chest pain. The patient was admitted for chest pain to rule out acute coronary syndrome. REVIEW OF SYSTEMS: CONSTITUTIONAL: The patient denies weight loss weight gain. The patient denies fevers or chills. HEENT: The patient denies ear or throat pain. The patient denies headache. CARDIOVASCULAR: The patient complains of chest pain as above. The patient denies palpitations. ABDOMINAL: The patient denies nausea, vomiting, diarrhea, or constipation. CHEST: The patient denies wheeze or shortness of breath. GENITOURINARY: The patient denies dysuria or increased frequency of urination. NEUROMUSCULAR: The patient denies seizures or generalized weakness. PAST MEDICAL HISTORY: Significant. 1. Type 2 diabetes. 2. Coronary artery disease, status post non ST elevated myocardial infarction in December 2017 with three stents placed. 3. Chronic obstructive pulmonary disease. 4. Hypertension. 5. Hypercholesterolemia. 6. Diabetic peripheral neuropathy. 7. Congestive heart failure. PAST SURGICAL HISTORY: The patient denies. CURRENT MEDICATIONS: 1. Albuterol metered dose inhaler two puffs p.o q.i.d. p.r.n. 2. Aspirin 81 mg p.o. daily. 3. Coreg 12.5 mg p.o. twice daily. 4. Plavix 75 mg p.o. daily. 5. Advair 250/50 one puff p.o. twice daily. 6. Lasix 40 mg p.o. twice daily. 7. Neurontin 300 mg p.o. at bedtime. 8. Hydralazine 100 mg p.o. twice daily. 9. [place] 5/325 mg one tablet p.o. q.6 h. p.r.n. 10. NPH insulin 24 units subcutaneously twice daily. 11. Regular insulin 4 units subcutaneously q.a.c. meals. 12. Isosorbide mononitrate 60 mg p.o. daily. 13. Losartan 25 mg p.o. daily. 14. Aldactone 25 mg p.o. daily. 15. Demodex 20 mg p.o. twice daily. 16. Tramadol 50 mg p.o. q.6.h p.r.n. ALLERGIES: No known drug allergies. SOCIAL HISTORY: The patient is a . The patient admits to tobacco use one-half pack per day. The patient denies alcohol use. The patient lives with her sister and boyfriend. PHYSICAL EXAMINATION: VITAL SIGNS: Temperature 98.0, respirations 20, pulse 93, blood pressure 135/77. GENERAL: The patient is well-developed and well-nourished thin-appearing female, in no apparent distress. HEENT: Pupils equal and responsive to light and accommodation. Extraocular movements are intact. NECK: Supple without lymphadenopathy. CHEST: Lungs are clear to auscultation bilaterally without wheezes or rales. CARDIOVASCULAR: Regular rhythm and rate. S1 and S2 normal without murmurs, rubs, or gallops. ABDOMEN: Soft, nontender, and nondistended. Positive bowel sounds. No evidence of hepatosplenomegaly. Currently, no rebound or guarding noted. EXTREMITIES: Negative for clubbing, cyanosis, or edema. RECTAL/GENITAL: Refused. NEUROLOGIC: Cranial nerves II to XII are grossly intact without focal deficits. Motor strength is 5/5 bilaterally. Deep tendon reflexes are 2+ plantar. LABORATORY STUDIES: WBC 3.9, hemoglobin 12.6, hematocrit 36.9, platelets 272,000. Sodium 138, potassium 3.7, chloride 102, CO2 27, BUN 17, creatinine 1.2, glucose 182. Troponin elevated at 0.746. ASSESSMENT: This is a 67-year-old female. 1. Chest pain. 2. Elevated troponin. 3. History of coronary artery disease. 4. Diabetic peripheral neuropathy. 5. Diabetes type 2. 6. Hypertension. 7. Chronic obstructive pulmonary disease. 8. Hypercholesterolemia. 9. Congestive heart failure. 10. Hypertension. TREATMENT: 1. Elevated troponin/chest pain. A Cardiology consultation has been obtained with Dr. Jayro Jay. The patient may require a Cardiolite stress test during this hospitalization. We will follow recommendations of Cardiology. 2. Diabetic peripheral neuropathy. Continue Neurontin as above. 3. Diabetes type 2. A NovoLog sliding scale has been instituted. 4. Hypertension. Continue losartan and Coreg as above. 5. Chronic obstructive pulmonary disease. Continue Advair and albuterol as above. 6. Hypertension. 7. Hypercholesterolemia. 8. Congestive heart failure. An echocardiogram is pending. Paul Lindsay M.D. DR: Yvonne JOB#: [id number] CC:
--- NOTE | 2018-04-03 19:31 | Cardiology Progress Note ---
Assessment/Plan Assessment/Plan sternal fx noted on ct denies cp to me but admistted to er perfusion imaging 01/2018 showed no sig perfusion abn repat trop and ekg keep on dapt and statin will follow [id number] Objective Last 24 Hour Vital Signs Date Time Temp Pulse Resp B/P (MAP) Pulse Ox O2 Delivery O2 Flow Rate FiO2 04/03/18 16:00 97 04/03/18 16:00 97.9 92 21 151/95 97 Room Air 97.9 04/03/18 12:00 97.2 91 20 146/81 99 Room Air 97.2 04/03/18 12:00 91 04/03/18 09:49 149/75 04/03/18 08:00 90 04/03/18 08:00 96.8 92 20 149/75 95 Room Air 96.8 04/03/18 04:00 93 04/03/18 04:00 98.1 96 20 134/67 95 Room Air 98.1 04/03/18 00:00 93 04/03/18 00:00 98.0 95 20 135/77 99 Room Air 98.0 04/02/18 23:49 97.8 04/02/18 23:19 97.8 04/02/18 22:00 97.8 88 16 144/62 99 Room Air 97.8 04/02/18 21:30 97.8 88 16 144/62 99 Room Air 97.8 04/02/18 20:30 97.8 90 16 134/66 98 Room Air 97.8 Intake and Output 04/02/18 04/03/18 19:00 07:00 Intake Total 0 ml 480 ml Balance 0 ml 480 ml Intake Oral 0 ml 480 ml Laboratory Tests Test 04/03/18 06:35 White Blood Count 3.0 K/UL (4.8-10.8) L Red Blood Count 4.02 M/UL (4.20-5.40) L Hemoglobin 11.5 G/DL (12.0-16.0) L Hematocrit 33.5 % (37.0-47.0) L Mean Corpuscular Volume 83 FL (80-99) Mean Corpuscular Hemoglobin 28.7 PG (27.0-31.0) Mean Corpuscular Hemoglobin Concent 34.4 G/DL (32.0-36.0) Red Cell Distribution Width 16.8 % (11.6-14.8) H Platelet Count 246 K/UL (150-450) Mean Platelet Volume 7.1 FL (6.5-10.1) Neutrophils (%) (Auto) % (45.0-75.0) Lymphocytes (%) (Auto) % (20.0-45.0) Monocytes (%) (Auto) % (1.0-10.0) Eosinophils (%) (Auto) % (0.0-3.0) Basophils (%) (Auto) % (0.0-2.0) Differential Total Cells Counted 100 Neutrophils % (Manual) 41 % (45-75) L Lymphocytes % (Manual) 49 % (20-45) H Monocytes % (Manual) 4 % (1-10) Eosinophils % (Manual) 5 % (0-3) H Basophils % (Manual) 1 % (0-2) Band Neutrophils 0 % (0-8) Platelet Estimate Adequate Platelet Morphology Normal Hypochromasia 1+ Anisocytosis 1+ Prothrombin Time 12.3 SEC (9.30-11.50) H Prothromb Time International Ratio 1.2 (0.9-1.1) H Activated Partial Thromboplast Time 31 SEC (23-33) Troponin I 0.870 ng/mL (0.000-0.056) C-Reactive Protein, Quantitative 1.2 mg/dL (0.00-0.90) H Triglycerides Level 85 MG/DL (30-150) Cholesterol Level 179 MG/DL (< 200) LDL Cholesterol 127 mg/dL (<100) H HDL Cholesterol 45 MG/DL (40-60) Cholesterol/HDL Ratio 4.0 (3.3-4.4) Thyroid Stimulating Hormone (TSH) 2.103 uiU/mL (0.358-3.740) LITA DAVE April 03, 2018 19:31
[2018-04-03 20:00] VITALS: BP 150/83
[2018-04-03] MEDS: Atorvastatin 80mg tab ORAL SCH (21:32)
[2018-04-04] VITALS: BP 151/78
[2018-04-04 04:00] VITALS: BP 153/80
[2018-04-04] MEDS: Heparin 5000 units/ml inj SUBQ SCH ×3 (06:29→21:19)
[2018-04-04] MEDS: NovoLOG Insulin Flexpen SUBQ SCH ×4 (06:30→21:21)
[2018-04-04 07:17] LABS: HEMATOCRIT 36.6 % (37.0-47.0); HEMOGLOBIN 12.3 G/DL (12.0-16.0); MEAN CORPUSCULAR VOLUME 84 FL (80-99); PLATELET COUNT 283 K/UL (150-450); RED BLOOD COUNT 4.37 M/UL (4.20-5.40); RED CELL DISTRIBUTION WIDTH 16.6 % (11.6-14.8); WHITE BLOOD COUNT 2.9 K/UL (4.8-10.8)
[2018-04-04 07:31] LABS: ANION GAP 10 mmol/L (5-15); BLOOD UREA NITROGEN 20 mg/dL (7-18); CALCIUM 9.1 MG/DL (8.5-10.1); CARBON DIOXIDE 26 MMOL/L (21-32); CHLORIDE 104 MMOL/L (98-107); CREATININE 1.4 MG/DL (0.55-1.30); POTASSIUM 4.5 MMOL/L (3.5-5.1); SODIUM 140 MMOL/L (136-145)
[2018-04-04 08:00] VITALS: BP 150/84
[2018-04-04] MEDS: Furosemide 40mg tab ORAL SCH ×2 (09:29→17:27)
[2018-04-04] MEDS: Losartan 25mg tab ORAL SCH (09:29)
[2018-04-04] MEDS: Spironolactone 25mg tab ORAL SCH (09:29)
[2018-04-04] MEDS: Aspirin Baby 81mg ORAL SCH (09:29)
--- NOTE | 2018-04-04 10:09 | Consultation ---
History of Present Illness General Date patient seen: April 04, 2018 Chief Complaint: Present Illness Allergies: Coded Allergies: No Known Allergies (Unverified , 04/15/17) Medication History Scheduled Aspirin* (Aspir 81*), 81 MG ORAL ACBREAKFAST, (Reported) Carvedilol* (Carvedilol*), 37.5 MG ORAL TWICE A DAY, (Reported) Clopidogrel Bisulfate* (Plavix*), 75 MG ORAL DAILY, (Reported) Fluticasone/Salmeterol (Advair 250-50 Diskus), 1 PUFF INH EVERY 12 HOURS, ( Reported) Furosemide* (Lasix*), 40 MG ORAL TWICE A DAY, (Reported) Gabapentin* (Gabapentin*), 300 MG ORAL BEDTIME, (Reported) Hydralazine Hcl* (Hydralazine Hcl*), 100 MG ORAL TWICE A DAY, (Reported) Insulin Human NPH (Novolin N), 24 UNITS SUBQ BIDAC, (Reported) Insulin Regular, Human* (Novolin R*), 4 UNITS SUBQ BIDAC, (Reported) Isosorbide Mononitrate (Isosorbide Mononitrate Er), 60 MG PO DAILY, (Reported) Losartan Potassium* (Losartan Potassium*), 25 MG ORAL DAILY, (Reported) Spironolactone* (Aldactone*), 25 MG ORAL DAILY, (Reported) Torsemide* (Demadex*), 20 MG ORAL TWICE A DAY, (Reported) Scheduled PRN Albuterol Sulfate* (Albuterol Sulfate Hhn*), 0.63 MG INH Q4H PRN for Shortness of Breath, (Reported) Albuterol Sulfate* (Albuterol Sulfate Mdi*), 2 PUFF INH Q4H PRN for Shortness of Breath, (Reported) Hydrocodone Bit/Acetaminophen 5-325* ([place] 5-325*), 1 TAB ORAL Q6H PRN for For Pain, (Reported) Tramadol Hcl* (Ultram*), 50 MG ORAL Q6H PRN for For Pain, (Reported) Discontinued Medications Acetaminophen* (Acetaminophen 325MG Tablet*), 650 MG ORAL Q4H PRN for Pain Scale (3-5), (Reported) Discontinued Reason: Therapy completed Atorvastatin Calcium* (Atorvastatin Calcium*), 80 MG ORAL BEDTIME, (Reported) Discontinued Reason: Therapy completed Bisacodyl* (Dulcolax*), 10 MG ORAL DAILY PRN for Constipation, (Reported) Discontinued Reason: Therapy completed Docusate Sodium* (Docusate Sodium*), 200 MG ORAL TWICE A DAY, (Reported) Discontinued Reason: Therapy completed Ferrous Sulfate (Ferrousul), 325 MG PO, (Reported) Discontinued Reason: Therapy completed Folic Acid (Folic Acid), 1 MG PO DAILY, (Reported) Discontinued Reason: Therapy completed Heparin Sod (Porcine) (Heparin Sodium*), 5,000 UNITS SUBQ EVERY 12 HOURS, ( Reported) Discontinued Reason: Therapy completed Hydralazine Hcl* (Hydralazine Hcl*), 75 MG ORAL EVERY 6 HOURS, (Reported) Discontinued Reason: Prescription changed Hydrocodone/Acetaminophen 7.5-325* (Hydrocodon-Acetaminoph 7.5-325*), 1 TAB ORAL Q6H PRN for For Pain Discontinued Reason: Medication dose changed Insulin Detemir (Levemir Flexpen), 10 SUBQ EVERY 12 HOURS, (Reported) Discontinued Reason: Therapy completed Insulin Lispro (Humalog), 0 SUBQ, (Reported) Discontinued Reason: Therapy completed Insulin Regular, Human* (Novolin R*), 0 SUBQ .SLIDING SCALE, (Reported) Discontinued Reason: Therapy completed Latanoprost* (Xalatan*), 1 DROP BOTH EYES BEDTIME, (Reported) Discontinued Reason: Therapy completed Levofloxacin* (Levaquin*), 250 MG ORAL DAILY, (Reported) Discontinued Reason: Therapy completed Metformin Hcl* (Metformin Hcl*), 500 MG ORAL TWICE A DAY, (Reported) Discontinued Reason: Therapy completed Mometasone/Formoterol (Dulera 200 Mcg/5 Mcg Inhaler), 13 GM IH, (Reported) Discontinued Reason: Therapy completed Morphine Sulfate (Morphine Sulfate), 2 MG IJ for Pain Scale (6-10), (Reported) Discontinued Reason: Therapy completed Multivitamin With Minerals (Multivitamins With Minerals*), 1 TAB ORAL DAILY, ( Reported) Discontinued Reason: Therapy completed Nateglinide* (Starlix*), 60 MG ORAL BID, (Reported) Discontinued Reason: Therapy completed Nitroglycerin (Nitroglycerin), 0.4 MG SL, (Reported) Discontinued Reason: Therapy completed Nph, Human Insulin Isophane (Humulin N), 18 SUBQ, (Reported) Discontinued Reason: Therapy completed Oxycodone/Acetaminophen 5-325* (Percocet 5-325 Mg Tablet*), 1 TAB ORAL Q6H PRN for For Pain, (Reported) Discontinued Reason: Therapy completed Pantoprazole (Pantoprazole), 40 MG ORAL DAILY, (Reported) Discontinued Reason: Therapy completed Polyethylene Glycol 3350* (Polyethylene Glycol 3350*), 17 GM ORAL NEEDED PRN for Constipation, (Reported) Discontinued Reason: Therapy completed Potassium Chloride* (K-Dur*), 20 MEQ ORAL DAILY, (Reported) Discontinued Reason: Therapy completed Tamsulosin Hcl (Tamsulosin Hcl*), 0.4 MG ORAL BEDTIME, (Reported) Discontinued Reason: Therapy completed Ticagrelor* (Brilinta*), 90 MG PO BID, (Reported) Discontinued Reason: Therapy completed Patient History Healthcare decision maker Resuscitation status Full Code Advanced Directive on File Physical Exam Last 24 Hour Vital Signs Date Time Temp Pulse Resp B/P (MAP) Pulse Ox O2 Delivery O2 Flow Rate FiO2 04/04/18 09:29 150/84 04/04/18 08:00 97.6 111 19 150/84 94 Room Air 97.6 04/04/18 07:44 98.1 04/04/18 04:00 98.1 101 19 153/80 95 Nasal Cannula 2.0 98.1 04/04/18 04:00 107 04/04/18 00:00 101 04/04/18 00:00 98.0 99 20 151/78 99 Nasal Cannula 2.0 98.0 04/03/18 20:00 97.0 96 20 150/83 96 Nasal Cannula 2.0 97.0 04/03/18 20:00 95 04/03/18 16:00 97 04/03/18 16:00 97.9 92 21 151/95 97 Room Air 97.9 04/03/18 12:00 97.2 91 20 146/81 99 Room Air 97.2 04/03/18 12:00 91 Intake and Output 04/03/18 04/04/18 19:00 07:00 Intake Total 200 ml 200 ml Balance 200 ml 200 ml Intake Oral 200 ml 200 ml # Voids 5 5 # Bowel Movements 1 Laboratory Tests Test 04/04/18 05:40 White Blood Count 2.9 K/UL (4.8-10.8) L Red Blood Count 4.37 M/UL (4.20-5.40) Hemoglobin 12.3 G/DL (12.0-16.0) Hematocrit 36.6 % (37.0-47.0) L Mean Corpuscular Volume 84 FL (80-99) Mean Corpuscular Hemoglobin 28.3 PG (27.0-31.0) Mean Corpuscular Hemoglobin Concent 33.8 G/DL (32.0-36.0) Red Cell Distribution Width 16.6 % (11.6-14.8) H Platelet Count 283 K/UL (150-450) Mean Platelet Volume 7.0 FL (6.5-10.1) Neutrophils (%) (Auto) % (45.0-75.0) Lymphocytes (%) (Auto) % (20.0-45.0) Monocytes (%) (Auto) % (1.0-10.0) Eosinophils (%) (Auto) % (0.0-3.0) Basophils (%) (Auto) % (0.0-2.0) Differential Total Cells Counted 100 Neutrophils % (Manual) 34 % (45-75) L Lymphocytes % (Manual) 55 % (20-45) H Monocytes % (Manual) 6 % (1-10) Eosinophils % (Manual) 5 % (0-3) H Basophils % (Manual) 0 % (0-2) Band Neutrophils 0 % (0-8) Platelet Estimate Adequate Platelet Morphology Normal Anisocytosis 1+ Sodium Level 140 MMOL/L (136-145) Potassium Level 4.5 MMOL/L (3.5-5.1) Chloride Level 104 MMOL/L (98-107) Carbon Dioxide Level 26 MMOL/L (21-32) Anion Gap 10 mmol/L (5-15) Blood Urea Nitrogen 20 mg/dL (7-18) H Creatinine 1.4 MG/DL (0.55-1.30) H Estimat Glomerular Filtration Rate 45.6 mL/min (>60) Glucose Level 113 MG/DL (74-106) H Calcium Level 9.1 MG/DL (8.5-10.1) Troponin I 0.578 ng/mL (0.000-0.056) Height (Feet): 5 Height (Inches): 4.00 Weight (Pounds): 120 Medications Current Medications Medications (Trade) Dose Ordered Sig/Tristan Route PRN Reason Start Time Stop Time Status Last Admin Dose Admin Acetaminophen (Tylenol) 650 mg Q4H PRN ORAL FEVER 04/02/18 20:15 05/02/18 20:14 Albuterol/ Ipratropium (Albuterol/ Ipratropium) 3 ml EVERY 4 HOURS PRN HHN Shortness of Breath 04/02/18 20:15 04/07/18 20:14 Aspirin (ASA) 162 mg DAILY ORAL 04/03/18 09:00 05/03/18 08:59 04/04/18 09:29 Atorvastatin Calcium (Lipitor) 40 mg BEDTIME ORAL 04/03/18 21:00 05/03/18 20:59 04/03/18 21:32 Clopidogrel Bisulfate (Plavix) 75 mg DAILY ORAL 04/03/18 09:00 05/03/18 08:59 04/04/18 09:29 Dextrose (Dextrose 50%) 25 ml STAT PRN IV BS 60-69mg/dl 04/02/18 21:45 05/02/18 21:44 Dextrose (Dextrose 50%) 50 ml STAT PRN IV BS less than 60mg/dl 04/02/18 20:15 05/02/18 20:14 Diltiazem HCl (Cardizem) 10 mg EVERY HOUR PRN IV heart rate more than 120, 04/02/18 20:15 05/02/18 20:14 Enalaprilat (Vasotec) 2.5 mg EVERY 6 HOURS PRN IV sbp more than 160 04/02/18 20:15 05/02/18 20:14 Furosemide (Lasix) 40 mg TWICE A DAY ORAL 04/03/18 09:00 05/03/18 08:59 04/04/18 09:29 Gabapentin (Neurontin) 100 mg THREE TIMES A DAY ORAL 04/03/18 13:00 05/03/18 12:59 04/04/18 09:29 Gabapentin (Neurontin) 300 mg BEDTIME ORAL 04/03/18 21:00 05/03/18 20:59 04/03/18 21:31 Heparin Sodium (Porcine) (Heparin 5000 units/ml) 5,000 units EVERY 8 HOURS SUBQ 04/02/18 22:00 05/02/18 21:59 04/04/18 06:29 Insulin Aspart (NovoLOG) BEFORE MEALS AND HS SUBQ 04/02/18 21:00 05/02/18 20:59 04/04/18 06:30 Iopamidol (Isovue-370 150ml) 150 ml NOW PRN INJ Radiology Procedure 04/02/18 17:45 04/04/18 17:37 Ketorolac Tromethamine (Toradol 30mg) 30 mg Q6HR PRN IV moderate pain ( 4-6) 04/02/18 20:15 04/07/18 20:14 04/03/18 10:04 Losartan Potassium (Cozaar) 25 mg DAILY ORAL 04/03/18 09:00 05/03/18 08:59 04/04/18 09:29 Nitroglycerin (Ntg) 0.4 mg Q5M PRN SL Prn Chest Pain 04/02/18 20:15 05/02/18 20:14 Ondansetron HCl (Zofran) 4 mg Q6H PRN IVP Nausea & Vomiting 04/02/18 20:15 05/02/18 20:14 Pantoprazole (Protonix) 40 mg DAILY ORAL 04/03/18 09:00 05/03/18 08:59 04/04/18 09:29 Polyethylene Glycol (Miralax) 17 gm DAILYPRN PRN ORAL Constipation 04/02/18 20:15 05/02/18 20:14 04/02/18 23:19 Spironolactone (Aldactone) 25 mg DAILY ORAL 04/03/18 09:00 05/03/18 08:59 04/04/18 09:29 Temazepam (Restoril) 15 mg HSPRN PRN ORAL Insomnia 04/02/18 20:15 04/09/18 20:14 Tramadol HCl (Ultram) 50 mg Q6H PRN ORAL For Pain2-3 04/03/18 02:15 04/09/18 20:14 04/04/18 06:45 Assessment/Plan Assessment/Plan (1) Right hip pain (2) H/o right hip fx with ORIF (3) Peripheral Neuropathy seen dictated CHALINO HILL April 04, 2018 10:09
--- NOTE | 2018-04-04 11:06 | Consultation ---
History of Present Illness General Date patient seen: April 03, 2018 Chief Complaint: Pain Present Illness HPI 67-year-old female with mmp, presented after increased chest tightness and discomfort gradually. She reports having recent surgery to the right lower extremity. the pt is c/o pain and is irritable low energy. the pt is not endorsing si/hi/no psychotic sxs. Allergies: Coded Allergies: No Known Allergies (Unverified , 04/15/17) Medication History Scheduled Aspirin* (Aspir 81*), 81 MG ORAL ACBREAKFAST, (Reported) Carvedilol* (Carvedilol*), 37.5 MG ORAL TWICE A DAY, (Reported) Clopidogrel Bisulfate* (Plavix*), 75 MG ORAL DAILY, (Reported) Fluticasone/Salmeterol (Advair 250-50 Diskus), 1 PUFF INH EVERY 12 HOURS, ( Reported) Furosemide* (Lasix*), 40 MG ORAL TWICE A DAY, (Reported) Gabapentin* (Gabapentin*), 300 MG ORAL BEDTIME, (Reported) Hydralazine Hcl* (Hydralazine Hcl*), 100 MG ORAL TWICE A DAY, (Reported) Insulin Human NPH (Novolin N), 24 UNITS SUBQ BIDAC, (Reported) Insulin Regular, Human* (Novolin R*), 4 UNITS SUBQ BIDAC, (Reported) Isosorbide Mononitrate (Isosorbide Mononitrate Er), 60 MG PO DAILY, (Reported) Losartan Potassium* (Losartan Potassium*), 25 MG ORAL DAILY, (Reported) Spironolactone* (Aldactone*), 25 MG ORAL DAILY, (Reported) Torsemide* (Demadex*), 20 MG ORAL TWICE A DAY, (Reported) Scheduled PRN Albuterol Sulfate* (Albuterol Sulfate Hhn*), 0.63 MG INH Q4H PRN for Shortness of Breath, (Reported) Albuterol Sulfate* (Albuterol Sulfate Mdi*), 2 PUFF INH Q4H PRN for Shortness of Breath, (Reported) Hydrocodone Bit/Acetaminophen 5-325* ([place] 5-325*), 1 TAB ORAL Q6H PRN for For Pain, (Reported) Tramadol Hcl* (Ultram*), 50 MG ORAL Q6H PRN for For Pain, (Reported) Discontinued Medications Acetaminophen* (Acetaminophen 325MG Tablet*), 650 MG ORAL Q4H PRN for Pain Scale (3-5), (Reported) Discontinued Reason: Therapy completed Atorvastatin Calcium* (Atorvastatin Calcium*), 80 MG ORAL BEDTIME, (Reported) Discontinued Reason: Therapy completed Bisacodyl* (Dulcolax*), 10 MG ORAL DAILY PRN for Constipation, (Reported) Discontinued Reason: Therapy completed Docusate Sodium* (Docusate Sodium*), 200 MG ORAL TWICE A DAY, (Reported) Discontinued Reason: Therapy completed Ferrous Sulfate (Ferrousul), 325 MG PO, (Reported) Discontinued Reason: Therapy completed Folic Acid (Folic Acid), 1 MG PO DAILY, (Reported) Discontinued Reason: Therapy completed Heparin Sod (Porcine) (Heparin Sodium*), 5,000 UNITS SUBQ EVERY 12 HOURS, ( Reported) Discontinued Reason: Therapy completed Hydralazine Hcl* (Hydralazine Hcl*), 75 MG ORAL EVERY 6 HOURS, (Reported) Discontinued Reason: Prescription changed Hydrocodone/Acetaminophen 7.5-325* (Hydrocodon-Acetaminoph 7.5-325*), 1 TAB ORAL Q6H PRN for For Pain Discontinued Reason: Medication dose changed Insulin Detemir (Levemir Flexpen), 10 SUBQ EVERY 12 HOURS, (Reported) Discontinued Reason: Therapy completed Insulin Lispro (Humalog), 0 SUBQ, (Reported) Discontinued Reason: Therapy completed Insulin Regular, Human* (Novolin R*), 0 SUBQ .SLIDING SCALE, (Reported) Discontinued Reason: Therapy completed Latanoprost* (Xalatan*), 1 DROP BOTH EYES BEDTIME, (Reported) Discontinued Reason: Therapy completed Levofloxacin* (Levaquin*), 250 MG ORAL DAILY, (Reported) Discontinued Reason: Therapy completed Metformin Hcl* (Metformin Hcl*), 500 MG ORAL TWICE A DAY, (Reported) Discontinued Reason: Therapy completed Mometasone/Formoterol (Dulera 200 Mcg/5 Mcg Inhaler), 13 GM IH, (Reported) Discontinued Reason: Therapy completed Morphine Sulfate (Morphine Sulfate), 2 MG IJ for Pain Scale (6-10), (Reported) Discontinued Reason: Therapy completed Multivitamin With Minerals (Multivitamins With Minerals*), 1 TAB ORAL DAILY, ( Reported) Discontinued Reason: Therapy completed Nateglinide* (Starlix*), 60 MG ORAL BID, (Reported) Discontinued Reason: Therapy completed Nitroglycerin (Nitroglycerin), 0.4 MG SL, (Reported) Discontinued Reason: Therapy completed Nph, Human Insulin Isophane (Humulin N), 18 SUBQ, (Reported) Discontinued Reason: Therapy completed Oxycodone/Acetaminophen 5-325* (Percocet 5-325 Mg Tablet*), 1 TAB ORAL Q6H PRN for For Pain, (Reported) Discontinued Reason: Therapy completed Pantoprazole (Pantoprazole), 40 MG ORAL DAILY, (Reported) Discontinued Reason: Therapy completed Polyethylene Glycol 3350* (Polyethylene Glycol 3350*), 17 GM ORAL NEEDED PRN for Constipation, (Reported) Discontinued Reason: Therapy completed Potassium Chloride* (K-Dur*), 20 MEQ ORAL DAILY, (Reported) Discontinued Reason: Therapy completed Tamsulosin Hcl (Tamsulosin Hcl*), 0.4 MG ORAL BEDTIME, (Reported) Discontinued Reason: Therapy completed Ticagrelor* (Brilinta*), 90 MG PO BID, (Reported) Discontinued Reason: Therapy completed Patient History Limited by: medical condition History Provided By: Patient, Medical Record Healthcare decision maker Resuscitation status Full Code Advanced Directive on File Past Medical/Surgical History Past Medical/Surgical History: (1) ATN (acute tubular necrosis) (2) UTI (urinary tract infection) (3) Abnormal thyroid blood test (4) SOB (shortness of breath) (5) Chest pain (6) Asthma (7) HTN (hypertension) (8) Lower GI bleed (9) Occult blood in stools (10) Gastritis (11) Anemia (12) Diabetes mellitus (13) Hypertension (14) CAD (coronary artery disease) (15) COPD (chronic obstructive pulmonary disease) (16) Diabetes mellitus, type II (17) Elevated troponin (18) Intractable pain (19) Lung mass (20) Non-ST elevation (NSTEMI) myocardial infarction Review of Systems Psychiatric: Reports: prior hx, anxiety, depressed feelings, emotional problems Physical Exam General Appearance: WD/WN, no apparent distress, alert Neurologic: oriented x 3, responsive, depressed affect Last 24 Hour Vital Signs Date Time Temp Pulse Resp B/P (MAP) Pulse Ox O2 Delivery O2 Flow Rate FiO2 04/04/18 09:29 150/84 04/04/18 08:00 97.6 111 19 150/84 94 Room Air 97.6 04/04/18 07:44 98.1 04/04/18 04:00 98.1 101 19 153/80 95 Nasal Cannula 2.0 98.1 04/04/18 04:00 107 04/04/18 00:00 101 04/04/18 00:00 98.0 99 20 151/78 99 Nasal Cannula 2.0 98.0 04/03/18 20:00 97.0 96 20 150/83 96 Nasal Cannula 2.0 97.0 04/03/18 20:00 95 04/03/18 16:00 97 04/03/18 16:00 97.9 92 21 151/95 97 Room Air 97.9 04/03/18 12:00 97.2 91 20 146/81 99 Room Air 97.2 04/03/18 12:00 91 Intake and Output 04/03/18 04/04/18 19:00 07:00 Intake Total 200 ml 200 ml Balance 200 ml 200 ml Intake Oral 200 ml 200 ml # Voids 5 5 # Bowel Movements 1 Laboratory Tests Test 04/04/18 05:40 White Blood Count 2.9 K/UL (4.8-10.8) L Red Blood Count 4.37 M/UL (4.20-5.40) Hemoglobin 12.3 G/DL (12.0-16.0) Hematocrit 36.6 % (37.0-47.0) L Mean Corpuscular Volume 84 FL (80-99) Mean Corpuscular Hemoglobin 28.3 PG (27.0-31.0) Mean Corpuscular Hemoglobin Concent 33.8 G/DL (32.0-36.0) Red Cell Distribution Width 16.6 % (11.6-14.8) H Platelet Count 283 K/UL (150-450) Mean Platelet Volume 7.0 FL (6.5-10.1) Neutrophils (%) (Auto) % (45.0-75.0) Lymphocytes (%) (Auto) % (20.0-45.0) Monocytes (%) (Auto) % (1.0-10.0) Eosinophils (%) (Auto) % (0.0-3.0) Basophils (%) (Auto) % (0.0-2.0) Differential Total Cells Counted 100 Neutrophils % (Manual) 34 % (45-75) L Lymphocytes % (Manual) 55 % (20-45) H Monocytes % (Manual) 6 % (1-10) Eosinophils % (Manual) 5 % (0-3) H Basophils % (Manual) 0 % (0-2) Band Neutrophils 0 % (0-8) Platelet Estimate Adequate Platelet Morphology Normal Anisocytosis 1+ Sodium Level 140 MMOL/L (136-145) Potassium Level 4.5 MMOL/L (3.5-5.1) Chloride Level 104 MMOL/L (98-107) Carbon Dioxide Level 26 MMOL/L (21-32) Anion Gap 10 mmol/L (5-15) Blood Urea Nitrogen 20 mg/dL (7-18) H Creatinine 1.4 MG/DL (0.55-1.30) H Estimat Glomerular Filtration Rate 45.6 mL/min (>60) Glucose Level 113 MG/DL (74-106) H Calcium Level 9.1 MG/DL (8.5-10.1) Troponin I 0.578 ng/mL (0.000-0.056) Height (Feet): 5 Height (Inches): 4.00 Weight (Pounds): 120 Medications Current Medications Medications (Trade) Dose Ordered Sig/Tristan Route PRN Reason Start Time Stop Time Status Last Admin Dose Admin Acetaminophen (Tylenol) 650 mg Q4H PRN ORAL FEVER 04/02/18 20:15 05/02/18 20:14 Acetaminophen/ Hydrocodone Bitart ([place] 5/325) 1 tab Q4H PRN ORAL Severe Pain (Pain Scale 7-10) 04/04/18 10:15 04/11/18 10:14 Albuterol/ Ipratropium (Albuterol/ Ipratropium) 3 ml EVERY 4 HOURS PRN HHN Shortness of Breath 04/02/18 20:15 04/07/18 20:14 Aspirin (ASA) 162 mg DAILY ORAL 04/03/18 09:00 05/03/18 08:59 04/04/18 09:29 Atorvastatin Calcium (Lipitor) 40 mg BEDTIME ORAL 04/03/18 21:00 05/03/18 20:59 04/03/18 21:32 Clopidogrel Bisulfate (Plavix) 75 mg DAILY ORAL 04/03/18 09:00 05/03/18 08:59 04/04/18 09:29 Dextrose (Dextrose 50%) 25 ml STAT PRN IV BS 60-69mg/dl 04/02/18 21:45 05/02/18 21:44 Dextrose (Dextrose 50%) 50 ml STAT PRN IV BS less than 60mg/dl 04/02/18 20:15 05/02/18 20:14 Diltiazem HCl (Cardizem) 10 mg EVERY HOUR PRN IV heart rate more than 120, 04/02/18 20:15 05/02/18 20:14 Enalaprilat (Vasotec) 2.5 mg EVERY 6 HOURS PRN IV sbp more than 160 04/02/18 20:15 05/02/18 20:14 Furosemide (Lasix) 40 mg TWICE A DAY ORAL 04/03/18 09:00 05/03/18 08:59 04/04/18 09:29 Gabapentin (Neurontin) 100 mg THREE TIMES A DAY ORAL 04/03/18 13:00 05/03/18 12:59 04/04/18 09:29 Gabapentin (Neurontin) 300 mg BEDTIME ORAL 04/03/18 21:00 05/03/18 20:59 04/03/18 21:31 Heparin Sodium (Porcine) (Heparin 5000 units/ml) 5,000 units EVERY 8 HOURS SUBQ 04/02/18 22:00 05/02/18 21:59 04/04/18 06:29 Insulin Aspart (NovoLOG) BEFORE MEALS AND HS SUBQ 04/02/18 21:00 05/02/18 20:59 04/04/18 06:30 Iopamidol (Isovue-370 150ml) 150 ml NOW PRN INJ Radiology Procedure 04/02/18 17:45 04/04/18 17:37 Lidocaine (Lidoderm 5% PATCH) 1 patch DAILY TDERMAL 04/04/18 10:15 05/04/18 10:14 Losartan Potassium (Cozaar) 25 mg DAILY ORAL 04/03/18 09:00 05/03/18 08:59 04/04/18 09:29 Nitroglycerin (Ntg) 0.4 mg Q5M PRN SL Prn Chest Pain 04/02/18 20:15 05/02/18 20:14 Ondansetron HCl (Zofran) 4 mg Q6H PRN IVP Nausea & Vomiting 04/02/18 20:15 05/02/18 20:14 Pantoprazole (Protonix) 40 mg DAILY ORAL 04/03/18 09:00 05/03/18 08:59 04/04/18 09:29 Polyethylene Glycol (Miralax) 17 gm DAILYPRN PRN ORAL Constipation 04/02/18 20:15 05/02/18 20:14 04/02/18 23:19 Spironolactone (Aldactone) 25 mg DAILY ORAL 04/03/18 09:00 05/03/18 08:59 04/04/18 09:29 Temazepam (Restoril) 15 mg HSPRN PRN ORAL Insomnia 04/02/18 20:15 04/09/18 20:14 Assessment/Plan Status: stable Assessment/Plan depressive d/o pain - Rec Cymbalta as the pt has DM - The pt was provided with mary anne/Myrna Baca M.D. April 04, 2018 11:06
--- NOTE | 2018-04-04 11:07 | General Progress Note ---
Assessment/Plan Status: stable Assessment/Plan depressive d/o pain - Rec Cymbalta as the pt has DM - The pt was provided with ro/st Subjective Date patient seen: April 04, 2018 Neurologic/Psychiatric: Reports: anxiety, depressed, emotional problems Allergies: Coded Allergies: No Known Allergies (Unverified , 04/15/17) Subjective the pt is complaining of whole body pain. Objective Last 24 Hour Vital Signs Date Time Temp Pulse Resp B/P (MAP) Pulse Ox O2 Delivery O2 Flow Rate FiO2 04/04/18 09:29 150/84 04/04/18 08:00 97.6 111 19 150/84 94 Room Air 97.6 04/04/18 07:44 98.1 04/04/18 04:00 98.1 101 19 153/80 95 Nasal Cannula 2.0 98.1 04/04/18 04:00 107 04/04/18 00:00 101 04/04/18 00:00 98.0 99 20 151/78 99 Nasal Cannula 2.0 98.0 04/03/18 20:00 97.0 96 20 150/83 96 Nasal Cannula 2.0 97.0 04/03/18 20:00 95 04/03/18 16:00 97 04/03/18 16:00 97.9 92 21 151/95 97 Room Air 97.9 04/03/18 12:00 97.2 91 20 146/81 99 Room Air 97.2 04/03/18 12:00 91 Intake and Output 04/03/18 04/04/18 19:00 07:00 Intake Total 200 ml 200 ml Balance 200 ml 200 ml Intake Oral 200 ml 200 ml # Voids 5 5 # Bowel Movements 1 Laboratory Tests 04/04/18 05:40: White Blood Count 2.9L, Red Blood Count 4.37, Hemoglobin 12.3, Hematocrit 36.6L , Mean Corpuscular Volume 84, Mean Corpuscular Hemoglobin 28.3, Mean Corpuscular Hemoglobin Concent 33.8, Red Cell Distribution Width 16.6H, Platelet Count 283, Mean Platelet Volume 7.0, Neutrophils (%) (Auto) , Lymphocytes (%) (Auto) , Monocytes (%) (Auto) , Eosinophils (%) (Auto) , Basophils (%) (Auto) , Differential Total Cells Counted 100, Neutrophils % ( Manual) 34L, Lymphocytes % (Manual) 55H, Monocytes % (Manual) 6, Eosinophils % ( Manual) 5H, Basophils % (Manual) 0, Band Neutrophils 0, Platelet Estimate Adequate, Platelet Morphology Normal, Anisocytosis 1+, Sodium Level 140, Potassium Level 4.5, Chloride Level 104, Carbon Dioxide Level 26, Anion Gap 10, Blood Urea Nitrogen 20H, Creatinine 1.4H, Estimat Glomerular Filtration Rate 45.6, Glucose Level 113H, Calcium Level 9.1, Troponin I 0.578H Height (Feet): 5 Height (Inches): 4.00 Weight (Pounds): 120 General Appearance: WD/WN, no apparent distress, alert Neurologic: oriented x 3, responsive, depressed affect Myrna Shultz M.D. April 04, 2018 11:07
[2018-04-04] MEDS: Norco 5mg/325mg tab ORAL PRN ×2 (11:09→17:33)
--- NOTE | 2018-04-04 11:45 | Consultation ---
DATE OF CONSULTATION: 04/03/2018 CARDIOLOGY CONSULTATION CONSULTING PHYSICIAN: Jayro Jay M.D. REFERRING PHYSICIAN: Onesimo Bautista M.D. REASON FOR REFERRAL: Abnormal cardiac enzymes. HISTORY OF PRESENT ILLNESS: This is an elderly female, who has been admitted to the hospital. The patient is known to me from prior evaluation back in January of this year. She presented to the hospital again basically for pain all over her body, although she indicated to the emergency room physician that she was having more chest pain, worse than before. In either case, she denied chest pain to me. At this time denies any PND. Does have occasional shortness of breath. Uses two pillows and has the head of the bed up at night. No dizziness or lightheadedness. No heart pounding. Occasional palpitation. She does not to any significant degree at all. PAST MEDICAL HISTORY: Positive for history of chest pain, right-sided, with abnormal cardiac enzymes; coronary artery disease, status post PCI in December 2017; acute on chronic congestive heart failure; bilateral pleural effusions; right upper lobe mass, possibly hamartoma; anemia; renal insufficiency; hypertension; diabetes mellitus; diabetic neuropathy; COPD; and hyperlipidemia. From cardiac point of view, she had a non-ST elevation myocardial infarction in December 2017. Three-vessel coronary artery disease, underwent percutaneous coronary intervention in left anterior descending and circumflex. Subsequently, she had a cardiopulmonary arrest. She had CPR at that time and she has had some chest pains post reproduction on palpation of chest wall. She did have an ischemia evaluation in last hospitalization in March because of her chest pain and that showed an infarct in the lateral, inferolateral wall, and inferior aldana and some sg-infarct ischemia. Ejection fraction at that time was 47%. ALLERGIES: She denies any allergies to medication. SOCIAL HISTORY: She smokes less than half a pack a day. She has extensive history of smoking. She denies any alcoholic beverages. No drug use. She lives at home. REVIEW OF SYSTEMS: GASTROINTESTINAL: Positive for constipation. No bloody or black stool. GENITOURINARY: Negative. PULMONARY: Occasional coughing. CONSTITUTIONAL: Negative. NEUROLOGIC: Negative. PHYSICAL EXAMINATION: GENERAL: An elderly female, in no respiratory distress. NECK: Supple. No jugular venous distention. LUNGS: Clear to auscultation and percussion. CARDIAC: S1 is normal. S2 is normal. Regular rate and rhythm. No heaves, thrills, gallops, or rubs are noted. ABDOMEN: Soft and nontender. Positive bowel sounds. EXTREMITIES: There is no clubbing or cyanosis. There is no edema. NEUROLOGIC: She is awake, alert, responsive, in no apparent respiratory distress. LABORATORY AND DIAGNOSTIC DATA: White count is 3, hemoglobin 11.5, and platelet count of 246. Sodium is 138, potassium 3.7, chloride 102, bicarbonate 27, BUN of 17, creatinine 1.2, and glucose of 182. Her cardiac enzymes are persistently elevated on the new assay here at [facility] since January when she was first presented to the hospital, and levels did not show any peaking either and were just minimally abnormal. She has had an echocardiogram performed, the result of which is pending at this time. She had a CT scan of the chest that shows no evidence of pulmonary embolism, aortic dissection with aneurysm, , moderate pericardial effusion, and bilateral pleural effusions are noted. A 2.5 cm mass in the right upper lobe is suspicious for neoplasm. sternal fracture with post surgical defect. On venous duplex, peripheral vascular disease noted. The patient's electrocardiogram shows normal sinus rhythm. She does have sinus rhythm with nonspecific ST-T wave changes and appeared to be relatively unchanged since last time. ASSESSMENT AND PLAN: 1. Chest pain with history of status post percutaneous coronary intervention in left anterior descending and circumflex in December of 2017. 2. Pericardial effusion. 3. Pleural effusion. 4. Diabetes mellitus. 5. Lung mass. 6. Status post cardiac arrest with cardiopulmonary resuscitation back in December 2017 post percutaneous coronary intervention. This patient was seen in cardiac consultation. She actually denies any chest pain to me. She has indicated that she has had some chest pain that was worsening to the emergency room physician. Again, her cardiac enzymes are minimally abnormal, but persistently abnormal. She will have serial enzymes and EKGs checked. Echocardiogram has been performed, shows global hypokinesis with some pulmonary hypertension and some valvular regurgitation. Final report is pending at this time. She does have sternal fracture probably due to post CPR likely contributing to her chest pain that she has been experiencing. A perfusion imaging just performed approximately two months ago did not show any significant reversible defect on this, some abnormality on her EKG with increasing cardiac enzymes. probably not pursue that any further besides serial enzymes and EKGs. Jayro Jay M.D. DR: JIMI JOB#: [id number] CC:
[2018-04-04 12:00] VITALS: BP 150/87
--- NOTE | 2018-04-04 12:47 | Pulmonology Progress Note ---
Assessment/Plan Problems: (1) Non-ST elevation (NSTEMI) myocardial infarction (2) Lung mass (3) COPD (chronic obstructive pulmonary disease) (4) Diabetes mellitus, type II Assessment/Plan CT guided biopsy ordered, f/u cardio recommendations f/u troponin symptomatic treatment sliding scale Subjective ROS Limited/Unobtainable: No Interval Events: no new complains Allergies: Coded Allergies: No Known Allergies (Unverified , 04/15/17) Objective Last 24 Hour Vital Signs Date Time Temp Pulse Resp B/P (MAP) Pulse Ox O2 Delivery O2 Flow Rate FiO2 04/04/18 11:59 97.6 04/04/18 11:09 97.6 04/04/18 09:29 150/84 04/04/18 08:00 99 04/04/18 08:00 97.6 111 19 150/84 94 Room Air 97.6 04/04/18 07:44 98.1 04/04/18 04:00 98.1 101 19 153/80 95 Nasal Cannula 2.0 98.1 04/04/18 04:00 107 04/04/18 00:00 101 04/04/18 00:00 98.0 99 20 151/78 99 Nasal Cannula 2.0 98.0 04/03/18 20:00 97.0 96 20 150/83 96 Nasal Cannula 2.0 97.0 04/03/18 20:00 95 04/03/18 16:00 97 04/03/18 16:00 97.9 92 21 151/95 97 Room Air 97.9 Intake and Output 04/03/18 04/04/18 19:00 07:00 Intake Total 200 ml 200 ml Balance 200 ml 200 ml Intake Oral 200 ml 200 ml # Voids 5 5 # Bowel Movements 1 General Appearance: cachetic HEENT: normocephalic, atraumatic Breasts: no masses Cardiovascular: normal peripheral pulses Abdomen: no organomegaly Extremities: no cyanosis, no clubbing Skin: no rash Laboratory Tests 04/04/18 05:40: White Blood Count 2.9L, Red Blood Count 4.37, Hemoglobin 12.3, Hematocrit 36.6L , Mean Corpuscular Volume 84, Mean Corpuscular Hemoglobin 28.3, Mean Corpuscular Hemoglobin Concent 33.8, Red Cell Distribution Width 16.6H, Platelet Count 283, Mean Platelet Volume 7.0, Neutrophils (%) (Auto) , Lymphocytes (%) (Auto) , Monocytes (%) (Auto) , Eosinophils (%) (Auto) , Basophils (%) (Auto) , Differential Total Cells Counted 100, Neutrophils % ( Manual) 34L, Lymphocytes % (Manual) 55H, Monocytes % (Manual) 6, Eosinophils % ( Manual) 5H, Basophils % (Manual) 0, Band Neutrophils 0, Platelet Estimate Adequate, Platelet Morphology Normal, Anisocytosis 1+, Sodium Level 140, Potassium Level 4.5, Chloride Level 104, Carbon Dioxide Level 26, Anion Gap 10, Blood Urea Nitrogen 20H, Creatinine 1.4H, Estimat Glomerular Filtration Rate 45.6, Glucose Level 113H, Calcium Level 9.1, Troponin I 0.578H Current Medications Medications (Trade) Dose Ordered Sig/Tristan Route PRN Reason Start Time Stop Time Status Last Admin Dose Admin Acetaminophen (Tylenol) 650 mg Q4H PRN ORAL FEVER 04/02/18 20:15 05/02/18 20:14 Acetaminophen/ Hydrocodone Bitart ([place] 5/325) 1 tab Q4H PRN ORAL Severe Pain (Pain Scale 7-10) 04/04/18 10:15 04/11/18 10:14 04/04/18 11:09 Albuterol/ Ipratropium (Albuterol/ Ipratropium) 3 ml EVERY 4 HOURS PRN HHN Shortness of Breath 04/02/18 20:15 04/07/18 20:14 Aspirin (ASA) 162 mg DAILY ORAL 04/03/18 09:00 05/03/18 08:59 04/04/18 09:29 Atorvastatin Calcium (Lipitor) 40 mg BEDTIME ORAL 04/03/18 21:00 05/03/18 20:59 04/03/18 21:32 Clopidogrel Bisulfate (Plavix) 75 mg DAILY ORAL 04/03/18 09:00 05/03/18 08:59 04/04/18 09:29 Dextrose (Dextrose 50%) 25 ml STAT PRN IV BS 60-69mg/dl 04/02/18 21:45 05/02/18 21:44 Dextrose (Dextrose 50%) 50 ml STAT PRN IV BS less than 60mg/dl 04/02/18 20:15 05/02/18 20:14 Diltiazem HCl (Cardizem) 10 mg EVERY HOUR PRN IV heart rate more than 120, 04/02/18 20:15 05/02/18 20:14 Enalaprilat (Vasotec) 2.5 mg EVERY 6 HOURS PRN IV sbp more than 160 04/02/18 20:15 05/02/18 20:14 Furosemide (Lasix) 40 mg TWICE A DAY ORAL 04/03/18 09:00 05/03/18 08:59 04/04/18 09:29 Gabapentin (Neurontin) 100 mg THREE TIMES A DAY ORAL 04/03/18 13:00 05/03/18 12:59 04/04/18 12:02 Gabapentin (Neurontin) 300 mg BEDTIME ORAL 04/03/18 21:00 05/03/18 20:59 04/03/18 21:31 Heparin Sodium (Porcine) (Heparin 5000 units/ml) 5,000 units EVERY 8 HOURS SUBQ 04/02/18 22:00 05/02/18 21:59 04/04/18 06:29 Insulin Aspart (NovoLOG) BEFORE MEALS AND HS SUBQ 04/02/18 21:00 05/02/18 20:59 04/04/18 12:02 Iopamidol (Isovue-370 150ml) 150 ml NOW PRN INJ Radiology Procedure 04/02/18 17:45 04/04/18 17:37 Lidocaine (Lidoderm 5% PATCH) 1 patch DAILY TDERMAL 04/04/18 10:15 05/04/18 10:14 04/04/18 11:06 Losartan Potassium (Cozaar) 25 mg DAILY ORAL 04/03/18 09:00 05/03/18 08:59 04/04/18 09:29 Nitroglycerin (Ntg) 0.4 mg Q5M PRN SL Prn Chest Pain 04/02/18 20:15 05/02/18 20:14 Ondansetron HCl (Zofran) 4 mg Q6H PRN IVP Nausea & Vomiting 04/02/18 20:15 05/02/18 20:14 Pantoprazole (Protonix) 40 mg DAILY ORAL 04/03/18 09:00 05/03/18 08:59 04/04/18 09:29 Polyethylene Glycol (Miralax) 17 gm DAILYPRN PRN ORAL Constipation 04/02/18 20:15 05/02/18 20:14 04/02/18 23:19 Spironolactone (Aldactone) 25 mg DAILY ORAL 04/03/18 09:00 05/03/18 08:59 04/04/18 09:29 Temazepam (Restoril) 15 mg HSPRN PRN ORAL Insomnia 04/02/18 20:15 04/09/18 20:14 Jorge Lanza MD April 04, 2018 12:47
--- NOTE | 2018-04-04 14:33 | Internal Med Progress Note ---
Subjective Physician Name Onesimo Bautista Attending Physician Onesimo Bautista MD Current Medications Medications (Trade) Dose Ordered Sig/Tristan Route PRN Reason Start Time Stop Time Status Last Admin Dose Admin Acetaminophen (Tylenol) 650 mg Q4H PRN ORAL FEVER 04/02/18 20:15 05/02/18 20:14 Acetaminophen/ Hydrocodone Bitart ([place] 5/325) 1 tab Q4H PRN ORAL Severe Pain (Pain Scale 7-10) 04/04/18 10:15 04/11/18 10:14 04/04/18 11:09 Albuterol/ Ipratropium (Albuterol/ Ipratropium) 3 ml EVERY 4 HOURS PRN HHN Shortness of Breath 04/02/18 20:15 04/07/18 20:14 Aspirin (ASA) 162 mg DAILY ORAL 04/03/18 09:00 05/03/18 08:59 04/04/18 09:29 Atorvastatin Calcium (Lipitor) 40 mg BEDTIME ORAL 04/03/18 21:00 05/03/18 20:59 04/03/18 21:32 Clopidogrel Bisulfate (Plavix) 75 mg DAILY ORAL 04/03/18 09:00 05/03/18 08:59 04/04/18 09:29 Dextrose (Dextrose 50%) 25 ml STAT PRN IV BS 60-69mg/dl 04/02/18 21:45 05/02/18 21:44 Dextrose (Dextrose 50%) 50 ml STAT PRN IV BS less than 60mg/dl 04/02/18 20:15 05/02/18 20:14 Diltiazem HCl (Cardizem) 10 mg EVERY HOUR PRN IV heart rate more than 120, 04/02/18 20:15 05/02/18 20:14 Enalaprilat (Vasotec) 2.5 mg EVERY 6 HOURS PRN IV sbp more than 160 04/02/18 20:15 05/02/18 20:14 Furosemide (Lasix) 40 mg TWICE A DAY ORAL 04/03/18 09:00 05/03/18 08:59 04/04/18 09:29 Gabapentin (Neurontin) 100 mg THREE TIMES A DAY ORAL 04/03/18 13:00 05/03/18 12:59 04/04/18 12:02 Gabapentin (Neurontin) 300 mg BEDTIME ORAL 04/03/18 21:00 05/03/18 20:59 04/03/18 21:31 Heparin Sodium (Porcine) (Heparin 5000 units/ml) 5,000 units EVERY 8 HOURS SUBQ 04/02/18 22:00 05/02/18 21:59 04/04/18 14:01 Insulin Aspart (NovoLOG) BEFORE MEALS AND HS SUBQ 04/02/18 21:00 05/02/18 20:59 04/04/18 12:02 Iopamidol (Isovue-370 150ml) 150 ml NOW PRN INJ Radiology Procedure 04/02/18 17:45 04/04/18 17:37 Lidocaine (Lidoderm 5% PATCH) 1 patch DAILY TDERMAL 04/04/18 10:15 05/04/18 10:14 04/04/18 11:06 Losartan Potassium (Cozaar) 25 mg DAILY ORAL 04/03/18 09:00 05/03/18 08:59 04/04/18 09:29 Nitroglycerin (Ntg) 0.4 mg Q5M PRN SL Prn Chest Pain 04/02/18 20:15 05/02/18 20:14 Ondansetron HCl (Zofran) 4 mg Q6H PRN IVP Nausea & Vomiting 04/02/18 20:15 05/02/18 20:14 Pantoprazole (Protonix) 40 mg DAILY ORAL 04/03/18 09:00 05/03/18 08:59 04/04/18 09:29 Polyethylene Glycol (Miralax) 17 gm DAILYPRN PRN ORAL Constipation 04/02/18 20:15 05/02/18 20:14 04/02/18 23:19 Spironolactone (Aldactone) 25 mg DAILY ORAL 04/03/18 09:00 05/03/18 08:59 04/04/18 09:29 Temazepam (Restoril) 15 mg HSPRN PRN ORAL Insomnia 04/02/18 20:15 04/09/18 20:14 Allergies: Coded Allergies: No Known Allergies (Unverified , 04/15/17) Subjective awake, alert, responsive, no CP or SOB Objective Last Vital Signs Date Time Temp Pulse Resp B/P (MAP) Pulse Ox O2 Delivery O2 Flow Rate FiO2 04/04/18 12:00 97.1 97 18 150/87 97 Room Air 97.1 5/4/18 04:00 2.0 Laboratory Tests Test 04/04/18 05:40 White Blood Count 2.9 K/UL (4.8-10.8) L Red Blood Count 4.37 M/UL (4.20-5.40) Hemoglobin 12.3 G/DL (12.0-16.0) Hematocrit 36.6 % (37.0-47.0) L Mean Corpuscular Volume 84 FL (80-99) Mean Corpuscular Hemoglobin 28.3 PG (27.0-31.0) Mean Corpuscular Hemoglobin Concent 33.8 G/DL (32.0-36.0) Red Cell Distribution Width 16.6 % (11.6-14.8) H Platelet Count 283 K/UL (150-450) Mean Platelet Volume 7.0 FL (6.5-10.1) Neutrophils (%) (Auto) % (45.0-75.0) Lymphocytes (%) (Auto) % (20.0-45.0) Monocytes (%) (Auto) % (1.0-10.0) Eosinophils (%) (Auto) % (0.0-3.0) Basophils (%) (Auto) % (0.0-2.0) Differential Total Cells Counted 100 Neutrophils % (Manual) 34 % (45-75) L Lymphocytes % (Manual) 55 % (20-45) H Monocytes % (Manual) 6 % (1-10) Eosinophils % (Manual) 5 % (0-3) H Basophils % (Manual) 0 % (0-2) Band Neutrophils 0 % (0-8) Platelet Estimate Adequate Platelet Morphology Normal Anisocytosis 1+ Sodium Level 140 MMOL/L (136-145) Potassium Level 4.5 MMOL/L (3.5-5.1) Chloride Level 104 MMOL/L (98-107) Carbon Dioxide Level 26 MMOL/L (21-32) Anion Gap 10 mmol/L (5-15) Blood Urea Nitrogen 20 mg/dL (7-18) H Creatinine 1.4 MG/DL (0.55-1.30) H Estimat Glomerular Filtration Rate 45.6 mL/min (>60) Glucose Level 113 MG/DL (74-106) H Calcium Level 9.1 MG/DL (8.5-10.1) Troponin I 0.578 ng/mL (0.000-0.056) Intake and Output 04/03/18 04/04/18 19:00 07:00 Intake Total 200 ml 200 ml Balance 200 ml 200 ml Intake Oral 200 ml 200 ml # Voids 5 5 # Bowel Movements 1 Objective General: No acute distress, awake and alert HEENT: NCAT, sclera anicteric, PERRL, EOMI. Neck: Supple, no significant jugular venous distention, Lungs: Good inspiratory effort,, clear to auscultation bilaterally, no Wheeze or Rales. Heart: Regular rate and rhythm, normal S1/S2, no murmurs Abdomen: soft, nontender, nondistended. Normoactive bowel sounds. Extremities: No Cyanosis , clubbing or edema. Neuro: A&O x 3, Able to move all extremities Skin: warm, no rashes or lesions Psych: Normal mood and affect Assessment/Plan Assessment/Plan 1. Chest pain / CAD status post percutaneous coronary intervention in left anterior descending and circumflex in December of 2017. 2. Pericardial effusion. 3. Pleural effusion. 4. Diabetes mellitus type 2. 5. 2.5 Cm RUL Lung mass. 6. Status post cardiac arrest with cardiopulmonary resuscitation back in December 2017 post percutaneous coronary intervention. 7. Sternal fracture. 8. Hypertension. Plan: in Telemetry unit F/U with cardiology recommendations Monitor labs ambulation Full code Heparin SQ DC planning soon Onesimo Bautista MD April 04, 2018 14:33
--- NOTE | 2018-04-04 15:21 | Cardiology Report ---
APPROVED REPORT EKG Measurement Heart [id number] Sinus rhythm with premature atrial complexes Low voltage QRS T wave abnormality, consider anterior ischemia Prolonged QT Abnormal ECG
[2018-04-04 16:00] VITALS: BP 138/60
--- NOTE | 2018-04-04 17:00 | Consultation ---
DATE OF CONSULTATION: 04/04/2018 PAIN MANAGEMENT CONSULTATION CONSULTING PHYSICIAN: Negin Donaldson M.D. REFERRING PHYSICIAN: Jorge Lanza M.D. PHYSICIAN LINE ANALYST: Lois Chairez CHIEF COMPLAINT: Right lower extremity pain and generalized back pain. HISTORY OF PRESENT ILLNESS: This is a 67-year-old female, who is being seen on the the telemetry floor of [facility] for initial comprehensive pain management consultation. The patient reporting that she has been in right leg pain x3 weeks. It is a constant acute pain, rating 8 to 6/10, describing the pain as throbbing pain, increasing with movement, nothing has been helping to relieve the pain. She reported she had a fracture, had open reduction and internal fixation in the past 3 weeks and now has been admitted under the care of Dr. Bautista due to chest pain being seen by discharge planner at this time. She also has been having generalized body pain due to peripheral neuropathy, taking Neurontin. We were consulted so the patient would have adequate pain control while here in the hospital. The patient at this time started tramadol 50 mg tablet every 6 hours with Toradol 30 mg every 6 hours with minimal pain relief. PAST MEDICAL HISTORY: Diabetes mellitus and hypertension. PAST SURGICAL HISTORY: Open reduction and internal fixation right lower extremity. ALLERGIES: No known drug allergies. MEDICATIONS: Aspirin, carvedilol, Plavix, Advair, Lasix, Neurontin, hydralazine, Novolin, glipizide, losartan, and Aldactone, Demadex. SOCIAL HISTORY: She is a smoker. Denies alcohol abuse and IV drug abuse. REVIEW OF SYSTEMS: Denies rash, fever, chills, sweating, dizziness, drowsiness, blurred vision, sore throat, change in her weight. No nausea, vomiting, diarrhea, or blood in the stool or urine. No bowel or bladder incontinence. No dysuria. She is complaining of right lower extremity and generalized weakness body pain. PHYSICAL EXAMINATION: GENERAL: Alert, awake, and oriented. VITAL SIGNS: Blood pressure 150/84, heart rate 111, oxygen saturation 94%, respiratory rate 19, temperature 97.6 degrees Fahrenheit. HEENT: PERRLA. NECK: Range of motion is decreased with tenderness to paracervical muscles. No adenopathy. LUNGS: Decreased breath sounds bilaterally. HEART: Regular. ABDOMEN: Benign BACK: Range of motion is decreased in flexion and extension due to the patient's condition with tenderness to paraspinal muscles. No tenderness in trapezius or rhomboid muscles. EXTREMITIES: Upper extremity range of motion is full in all directions. No cyanosis. No clubbing. No edema. Sensory is intact. Reflexes are not obtainable. No adenopathy. Lower extremity range of motion is reduced due to the patient's pain and condition with scars noted at the right lower extremity with tenderness to palpation. No cyanosis. No clubbing. Sensory is intact. Reflexes are not obtainable. No adenopathy ASSESSMENT AND PLAN: This is a 67-year-old female with right hip pain, right hip fracture status post open reduction and internal fixation, peripheral neuropathy. The patient will be continued on Neurontin, discontinued off the tramadol and Toradol, will be started on [place] 5/325 one tablet every 4 hours as needed for severe pain as well as Lidoderm patch to be applied to the right hip at the site of the pain 12 hours on and 12 hours off. The patient was discussed with Dr. Donaldson and Dr. Donaldson concurred. We will follow the patient. Thank you very much for the courtesy of this consultation. Negin Donaldson M.D. JOE Chairez DR: Ian JOB#: [id number] CC: DIAZ
--- NOTE | 2018-04-04 18:23 | Cardiology Progress Note ---
Assessment/Plan Assessment/Plan 1. Chestpain 2. Pericardial effusion. 3. Pleural effusion. 4. Diabetes mellitus. 5. Lung mass. 6. Status post cardiac arrest with cardiopulmonary resuscitation back in December 2017 7. cad status post percutaneous coronary intervention in left anterior descend and cx 8. sternal fx 9. renal insur not clear if she even had pain yest today she indicates pain resolved and that it was righ tsided ekg unchanged trop min abn and no peak no sridevi and in ligt of renal insuf of question sig lung bx pending is on asa and plavix post pci 12/2017 Subjective Cardiovascular: Denies: chest pain - better right sided , lightheadedness, palpitations Respiratory: Denies: shortness of breath Gastrointestinal/Abdominal: Denies: abdominal pain Genitourinary: Denies: burning Objective Last 24 Hour Vital Signs Date Time Temp Pulse Resp B/P (MAP) Pulse Ox O2 Delivery O2 Flow Rate FiO2 04/04/18 17:33 97.3 04/04/18 16:00 88 04/04/18 16:00 97.3 78 18 138/60 95 Room Air 97.3 04/04/18 12:00 97.1 97 18 150/87 97 Room Air 97.1 04/04/18 12:00 96 04/04/18 11:59 97.6 04/04/18 11:09 97.6 04/04/18 09:29 150/84 04/04/18 08:00 99 04/04/18 08:00 97.6 111 19 150/84 94 Room Air 97.6 04/04/18 07:44 98.1 04/04/18 04:00 98.1 101 19 153/80 95 Nasal Cannula 2.0 98.1 04/04/18 04:00 107 04/04/18 00:00 101 04/04/18 00:00 98.0 99 20 151/78 99 Nasal Cannula 2.0 98.0 04/03/18 20:00 97.0 96 20 150/83 96 Nasal Cannula 2.0 97.0 04/03/18 20:00 95 General Appearance: no apparent distress, alert Neck: no JVD Cardiovascular: normal rate, regular rhythm Respiratory/Chest: lungs clear, normal breath sounds Abdomen: normal bowel sounds, non tender, soft Extremities: no swelling Intake and Output 04/03/18 04/04/18 19:00 07:00 Intake Total 200 ml 200 ml Balance 200 ml 200 ml Intake Oral 200 ml 200 ml # Voids 5 5 # Bowel Movements 1 Laboratory Tests Test 04/04/18 05:40 White Blood Count 2.9 K/UL (4.8-10.8) L Red Blood Count 4.37 M/UL (4.20-5.40) Hemoglobin 12.3 G/DL (12.0-16.0) Hematocrit 36.6 % (37.0-47.0) L Mean Corpuscular Volume 84 FL (80-99) Mean Corpuscular Hemoglobin 28.3 PG (27.0-31.0) Mean Corpuscular Hemoglobin Concent 33.8 G/DL (32.0-36.0) Red Cell Distribution Width 16.6 % (11.6-14.8) H Platelet Count 283 K/UL (150-450) Mean Platelet Volume 7.0 FL (6.5-10.1) Neutrophils (%) (Auto) % (45.0-75.0) Lymphocytes (%) (Auto) % (20.0-45.0) Monocytes (%) (Auto) % (1.0-10.0) Eosinophils (%) (Auto) % (0.0-3.0) Basophils (%) (Auto) % (0.0-2.0) Differential Total Cells Counted 100 Neutrophils % (Manual) 34 % (45-75) L Lymphocytes % (Manual) 55 % (20-45) H Monocytes % (Manual) 6 % (1-10) Eosinophils % (Manual) 5 % (0-3) H Basophils % (Manual) 0 % (0-2) Band Neutrophils 0 % (0-8) Platelet Estimate Adequate Platelet Morphology Normal Anisocytosis 1+ Sodium Level 140 MMOL/L (136-145) Potassium Level 4.5 MMOL/L (3.5-5.1) Chloride Level 104 MMOL/L (98-107) Carbon Dioxide Level 26 MMOL/L (21-32) Anion Gap 10 mmol/L (5-15) Blood Urea Nitrogen 20 mg/dL (7-18) H Creatinine 1.4 MG/DL (0.55-1.30) H Estimat Glomerular Filtration Rate 45.6 mL/min (>60) Glucose Level 113 MG/DL (74-106) H Calcium Level 9.1 MG/DL (8.5-10.1) Troponin I 0.578 ng/mL (0.000-0.056) LITA DAVE April 04, 2018 18:23
[2018-04-04 20:00] VITALS: BP 126/66
[2018-04-04] MEDS: Atorvastatin 80mg tab ORAL SCH (21:18)
[2018-04-05] VITALS: BP 150/86
[2018-04-05 04:00] VITALS: BP 155/83
[2018-04-05] MEDS: NovoLOG Insulin Flexpen SUBQ SCH ×4 (06:09→21:00)
[2018-04-05] MEDS: Heparin 5000 units/ml inj SUBQ SCH ×3 (06:12→22:00)
[2018-04-05 08:00] VITALS: BP 158/84
[2018-04-05 08:32] LABS: HEMATOCRIT 36.9 % (37.0-47.0); HEMOGLOBIN 12.7 G/DL (12.0-16.0); MEAN CORPUSCULAR VOLUME 85 FL (80-99); PLATELET COUNT 264 K/UL (150-450); RED BLOOD COUNT 4.37 M/UL (4.20-5.40); WHITE BLOOD COUNT 2.7 K/UL (4.8-10.8)
[2018-04-05] MEDS: Furosemide 40mg tab ORAL SCH ×2 (08:45→17:43)
[2018-04-05] MEDS: Losartan 25mg tab ORAL SCH (08:46)
[2018-04-05] MEDS: Spironolactone 25mg tab ORAL SCH (08:46)
[2018-04-05] MEDS: Aspirin Baby 81mg ORAL SCH (08:46)
[2018-04-05] MEDS: Norco 5mg/325mg tab ORAL PRN ×4 (08:46→21:59)
[2018-04-05 09:10] LABS: ALANINE AMINOTRANSFERASE 15 U/L (12-78); ALBUMIN 3.3 G/DL (3.4-5.0); ALBUMIN/GLOBULIN RATIO 0.6 (1.0-2.7); ALKALINE PHOSPHATASE 168 U/L (46-116); ANION GAP 12 mmol/L (5-15); ASPARTATE AMINO TRANSFERASE 22 U/L (15-37); BILIRUBIN,TOTAL 1.8 MG/DL (0.2-1.0); BLOOD UREA NITROGEN 23 mg/dL (7-18); CARBON DIOXIDE 26 MMOL/L (21-32); CHLORIDE 102 MMOL/L (98-107); CREATININE 1.4 MG/DL (0.55-1.30); PHOSPHORUS 3.6 MG/DL (2.5-4.9); POTASSIUM 4.4 MMOL/L (3.5-5.1); SODIUM 140 MMOL/L (136-145)
[2018-04-05 09:13] LABS: BILIRUBIN,DIRECT 0.4 MG/DL (0.0-0.3)
--- NOTE | 2018-04-05 10:32 | Pulmonology Progress Note ---
Assessment/Plan Assessment/Plan ASSESSMENT elevated troponin Possible NSTEMI Sternal fracture Status post cardiac arrest with cardiopulmonary resuscitation back in December 2017 CAD, status post percutaneous coronary intervention Mild cardiomyopathy pericardial effusion bilateral pleural effusion Renal insufficiency Right upper lobe mass, rule out malignancy COPD Diabetes mellitus Hypercholesterolemia Tobacco abuse with dependency PLAN OF CARE telemetry floor serial troponin EKG no ischemic changes educational guidance counselor follows CTA of the chest no PE, moderate pericardial effusion, bilateral pleural effusion, sternal fracture, right upper lobe mass 2.5 cm. Aspirin and Plavix trop min abnormal, no peak no sridevi and in light of renal insufficiency of questionable significance-as per cardio no further chest pain Echocardiogram in January 2018 with ejection fraction of 40-45% per cardio perfusion imaging 01/2018 showed no significant perfusion abnormalities medical management of congestive heart failure with beta enrico, angiotensin receptor enrico, and diuretics: Lasix IV and Aldactone. monitor cardiorenal parameters and volumes lipid panel with elevated LDL- 127, continue statin supplemental oxygen pulmonary toilet as needed CT guided lung biopsy pending certified rehabilitation counselor on smoking cessation Nicotine patch DVT prophylaxis Pain management Blood sugar management with sliding scale insulin and optimize as needed monitor renal parameters, lytes, correct lytes as needed, avoid nephrotoxic case discussed and evaluated by supervising physician Subjective Allergies: Coded Allergies: No Known Allergies (Unverified , 04/15/17) Subjective denies chest pain, intermittent SOB, weakness pulse ox stable on RA Objective Last 24 Hour Vital Signs Date Time Temp Pulse Resp B/P (MAP) Pulse Ox O2 Delivery O2 Flow Rate FiO2 04/05/18 09:45 97.7 04/05/18 08:46 97.7 04/05/18 08:46 158/84 04/05/18 08:21 106 18 Room Air 04/05/18 08:00 97.7 112 20 158/84 98 Room Air 97.7 04/05/18 08:00 106 04/05/18 04:00 103 04/05/18 04:00 97.5 101 20 155/83 97 Room Air 97.5 04/05/18 00:00 108 04/05/18 00:00 97.5 95 20 150/86 100 Room Air 97.5 04/04/18 20:00 92 04/04/18 20:00 97.1 89 20 126/66 98 Room Air 97.1 04/04/18 17:33 97.3 04/04/18 16:00 88 04/04/18 16:00 97.3 78 18 138/60 95 Room Air 97.3 04/04/18 12:00 97.1 97 18 150/87 97 Room Air 97.1 04/04/18 12:00 96 04/04/18 11:09 97.6 Intake and Output 04/04/18 04/05/18 19:00 07:00 Intake Total 600 ml 120 ml Balance 600 ml 120 ml Intake Oral 600 ml 120 ml # Voids 3 General Appearance: no acute distress, other - awake, alert, , weak AA female HEENT: normocephalic, atraumatic, anicteric Respiratory/Chest: no respiratory distress, decreased breath sounds Cardiovascular: regular rhythm, no JVD, tachycardia - ST in 110t6h Abdomen: normal bowel sounds, soft, non tender, non distended Extremities: no edema, pedal pulses normal Neurologic/Psychiatric: alert, responsive Laboratory Tests 04/05/18 06:37: White Blood Count 2.7L, Red Blood Count 4.37, Hemoglobin 12.7, Hematocrit 36.9L , Mean Corpuscular Volume 85, Mean Corpuscular Hemoglobin 29.1, Mean Corpuscular Hemoglobin Concent 34.5, Red Cell Distribution Width 17.0H, Platelet Count 264, Mean Platelet Volume 6.8, Neutrophils (%) (Auto) , Lymphocytes (%) (Auto) , Monocytes (%) (Auto) , Eosinophils (%) (Auto) , Basophils (%) (Auto) , Neutrophils % (Manual) [Pending], Lymphocytes % (Manual) [Pending], Platelet Estimate [Pending], Platelet Morphology [Pending], Erythrocyte Sedimentation Rate [Pending], Sodium Level 140, Potassium Level 4.4 , Chloride Level 102, Carbon Dioxide Level 26, Anion Gap 12, Blood Urea Nitrogen 23H, Creatinine 1.4H, Estimat Glomerular Filtration Rate 45.6, Glucose Level 114H, Calcium Level 9.0, Phosphorus Level 3.6, Magnesium Level 2.2, Total Bilirubin 1.8H, Direct Bilirubin 0.4H, Aspartate Amino Transf (AST/SGOT) 22, Alanine Aminotransferase (ALT/SGPT) 15, Alkaline Phosphatase 168H, Troponin I 0.421H, Total Protein 8.4H, Albumin 3.3L, Globulin 5.1, Albumin/Globulin Ratio 0.6L Current Medications Medications (Trade) Dose Ordered Sig/Tristan Route PRN Reason Start Time Stop Time Status Last Admin Dose Admin Acetaminophen (Tylenol) 650 mg Q4H PRN ORAL FEVER 04/02/18 20:15 05/02/18 20:14 Acetaminophen/ Hydrocodone Bitart ([place] 5/325) 1 tab Q4H PRN ORAL Severe Pain (Pain Scale 7-10) 04/04/18 10:15 04/11/18 10:14 04/05/18 08:46 Albuterol/ Ipratropium (Albuterol/ Ipratropium) 3 ml EVERY 4 HOURS PRN HHN Shortness of Breath 04/02/18 20:15 04/07/18 20:14 Aspirin (ASA) 162 mg DAILY ORAL 04/03/18 09:00 05/03/18 08:59 04/05/18 08:46 Atorvastatin Calcium (Lipitor) 40 mg BEDTIME ORAL 04/03/18 21:00 05/03/18 20:59 04/04/18 21:18 Clopidogrel Bisulfate (Plavix) 75 mg DAILY ORAL 04/03/18 09:00 05/03/18 08:59 04/05/18 08:45 Dextrose (Dextrose 50%) 25 ml STAT PRN IV BS 60-69mg/dl 04/02/18 21:45 05/02/18 21:44 Dextrose (Dextrose 50%) 50 ml STAT PRN IV BS less than 60mg/dl 04/02/18 20:15 05/02/18 20:14 Diltiazem HCl (Cardizem) 10 mg EVERY HOUR PRN IV heart rate more than 120, 04/02/18 20:15 05/02/18 20:14 Enalaprilat (Vasotec) 2.5 mg EVERY 6 HOURS PRN IV sbp more than 160 04/02/18 20:15 05/02/18 20:14 Furosemide (Lasix) 40 mg TWICE A DAY ORAL 04/03/18 09:00 05/03/18 08:59 04/05/18 08:45 Gabapentin (Neurontin) 100 mg THREE TIMES A DAY ORAL 04/03/18 13:00 05/03/18 12:59 04/05/18 08:45 Gabapentin (Neurontin) 300 mg BEDTIME ORAL 04/03/18 21:00 05/03/18 20:59 04/04/18 21:18 Heparin Sodium (Porcine) (Heparin 5000 units/ml) 5,000 units EVERY 8 HOURS SUBQ 04/02/18 22:00 05/02/18 21:59 04/05/18 06:12 Insulin Aspart (NovoLOG) BEFORE MEALS AND HS SUBQ 04/02/18 21:00 05/02/18 20:59 04/04/18 21:21 Lidocaine (Lidoderm 5% PATCH) 1 patch DAILY TDERMAL 04/04/18 10:15 05/04/18 10:14 04/05/18 08:45 Losartan Potassium (Cozaar) 25 mg DAILY ORAL 04/03/18 09:00 05/03/18 08:59 04/05/18 08:46 Nitroglycerin (Ntg) 0.4 mg Q5M PRN SL Prn Chest Pain 04/02/18 20:15 05/02/18 20:14 Ondansetron HCl (Zofran) 4 mg Q6H PRN IVP Nausea & Vomiting 04/02/18 20:15 05/02/18 20:14 Pantoprazole (Protonix) 40 mg DAILY ORAL 04/03/18 09:00 05/03/18 08:59 04/05/18 08:46 Polyethylene Glycol (Miralax) 17 gm DAILYPRN PRN ORAL Constipation 04/02/18 20:15 05/02/18 20:14 04/02/18 23:19 Spironolactone (Aldactone) 25 mg DAILY ORAL 04/03/18 09:00 05/03/18 08:59 04/05/18 08:46 Temazepam (Restoril) 15 mg HSPRN PRN ORAL Insomnia 04/02/18 20:15 04/09/18 20:14 [facility]Milagro NP April 05, 2018 10:32
[2018-04-05 11:56] VITALS: BP 150/72
--- NOTE | 2018-04-05 12:11 | Internal Med Progress Note ---
Subjective Date of Service: April 05, 2018 Physician Name Paul Caraballo Attending Physician Onesimo Bautista MD Current Medications Medications (Trade) Dose Ordered Sig/Tristan Route PRN Reason Start Time Stop Time Status Last Admin Dose Admin Acetaminophen (Tylenol) 650 mg Q4H PRN ORAL FEVER 04/02/18 20:15 05/02/18 20:14 Acetaminophen/ Hydrocodone Bitart ([place] 5/325) 1 tab Q4H PRN ORAL Severe Pain (Pain Scale 7-10) 04/04/18 10:15 04/11/18 10:14 04/05/18 08:46 Albuterol/ Ipratropium (Albuterol/ Ipratropium) 3 ml EVERY 4 HOURS PRN HHN Shortness of Breath 04/02/18 20:15 04/07/18 20:14 Aspirin (ASA) 162 mg DAILY ORAL 04/03/18 09:00 05/03/18 08:59 04/05/18 08:46 Atorvastatin Calcium (Lipitor) 40 mg BEDTIME ORAL 04/03/18 21:00 05/03/18 20:59 04/04/18 21:18 Clopidogrel Bisulfate (Plavix) 75 mg DAILY ORAL 04/03/18 09:00 05/03/18 08:59 04/05/18 08:45 Dextrose (Dextrose 50%) 25 ml STAT PRN IV BS 60-69mg/dl 04/02/18 21:45 05/02/18 21:44 Dextrose (Dextrose 50%) 50 ml STAT PRN IV BS less than 60mg/dl 04/02/18 20:15 05/02/18 20:14 Diltiazem HCl (Cardizem) 10 mg EVERY HOUR PRN IV heart rate more than 120, 04/02/18 20:15 05/02/18 20:14 Enalaprilat (Vasotec) 2.5 mg EVERY 6 HOURS PRN IV sbp more than 160 04/02/18 20:15 05/02/18 20:14 Furosemide (Lasix) 40 mg TWICE A DAY ORAL 04/03/18 09:00 05/03/18 08:59 04/05/18 08:45 Gabapentin (Neurontin) 100 mg THREE TIMES A DAY ORAL 04/03/18 13:00 05/03/18 12:59 04/05/18 08:45 Gabapentin (Neurontin) 300 mg BEDTIME ORAL 04/03/18 21:00 05/03/18 20:59 04/04/18 21:18 Heparin Sodium (Porcine) (Heparin 5000 units/ml) 5,000 units EVERY 8 HOURS SUBQ 04/02/18 22:00 05/02/18 21:59 04/05/18 06:12 Insulin Aspart (NovoLOG) BEFORE MEALS AND HS SUBQ 04/02/18 21:00 05/02/18 20:59 04/05/18 11:31 Lidocaine (Lidoderm 5% PATCH) 1 patch DAILY TDERMAL 04/04/18 10:15 05/04/18 10:14 04/05/18 08:45 Losartan Potassium (Cozaar) 25 mg DAILY ORAL 04/03/18 09:00 05/03/18 08:59 04/05/18 08:46 Nicotine (Nicoderm) 1 patch Q24H TDERMAL 04/05/18 12:00 05/05/18 11:59 04/05/18 11:31 Nitroglycerin (Ntg) 0.4 mg Q5M PRN SL Prn Chest Pain 04/02/18 20:15 05/02/18 20:14 Ondansetron HCl (Zofran) 4 mg Q6H PRN IVP Nausea & Vomiting 04/02/18 20:15 05/02/18 20:14 Pantoprazole (Protonix) 40 mg DAILY ORAL 04/03/18 09:00 05/03/18 08:59 04/05/18 08:46 Polyethylene Glycol (Miralax) 17 gm DAILYPRN PRN ORAL Constipation 04/02/18 20:15 05/02/18 20:14 04/02/18 23:19 Spironolactone (Aldactone) 25 mg DAILY ORAL 04/03/18 09:00 05/03/18 08:59 04/05/18 08:46 Temazepam (Restoril) 15 mg HSPRN PRN ORAL Insomnia 04/02/18 20:15 04/09/18 20:14 Allergies: Coded Allergies: No Known Allergies (Unverified , 04/15/17) ROS Limited/Unobtainable: No Constitutional: Reports: no symptoms HEENT: Reports: no symptoms Cardiovascular: Reports: no symptoms Respiratory: Reports: no symptoms Gastrointestinal/Abdominal: Reports: no symptoms Genitourinary: Reports: no symptoms Neurologic/Psychiatric: Reports: no symptoms Subjective 67 YO F admitted with chest pain. Now elevated troponin and RUL lung mass. Await CT guided biopsy. Cover for Int Med-Dr Bautista. Objective Last Vital Signs Date Time Temp Pulse Resp B/P (MAP) Pulse Ox O2 Delivery O2 Flow Rate FiO2 04/05/18 11:56 97.1 107 20 150/72 97 Nasal Cannula 2.0 97.1 Laboratory Tests Test 04/05/18 06:37 White Blood Count 2.7 K/UL (4.8-10.8) L Red Blood Count 4.37 M/UL (4.20-5.40) Hemoglobin 12.7 G/DL (12.0-16.0) Hematocrit 36.9 % (37.0-47.0) L Mean Corpuscular Volume 85 FL (80-99) Mean Corpuscular Hemoglobin 29.1 PG (27.0-31.0) Mean Corpuscular Hemoglobin Concent 34.5 G/DL (32.0-36.0) Red Cell Distribution Width 17.0 % (11.6-14.8) H Platelet Count 264 K/UL (150-450) Mean Platelet Volume 6.8 FL (6.5-10.1) Neutrophils (%) (Auto) % (45.0-75.0) Lymphocytes (%) (Auto) % (20.0-45.0) Monocytes (%) (Auto) % (1.0-10.0) Eosinophils (%) (Auto) % (0.0-3.0) Basophils (%) (Auto) % (0.0-2.0) Differential Total Cells Counted 100 Neutrophils % (Manual) 53 % (45-75) Lymphocytes % (Manual) 37 % (20-45) Monocytes % (Manual) 7 % (1-10) Eosinophils % (Manual) 3 % (0-3) Basophils % (Manual) 0 % (0-2) Band Neutrophils 0 % (0-8) Platelet Estimate Adequate Platelet Morphology Normal Anisocytosis 1+ Erythrocyte Sedimentation Rate 50 MM/HR (0-30) H Sodium Level 140 MMOL/L (136-145) Potassium Level 4.4 MMOL/L (3.5-5.1) Chloride Level 102 MMOL/L (98-107) Carbon Dioxide Level 26 MMOL/L (21-32) Anion Gap 12 mmol/L (5-15) Blood Urea Nitrogen 23 mg/dL (7-18) H Creatinine 1.4 MG/DL (0.55-1.30) H Estimat Glomerular Filtration Rate 45.6 mL/min (>60) Glucose Level 114 MG/DL (74-106) H Calcium Level 9.0 MG/DL (8.5-10.1) Phosphorus Level 3.6 MG/DL (2.5-4.9) Magnesium Level 2.2 MG/DL (1.8-2.4) Total Bilirubin 1.8 MG/DL (0.2-1.0) H Direct Bilirubin 0.4 MG/DL (0.0-0.3) H Aspartate Amino Transf (AST/SGOT) 22 U/L (15-37) Alanine Aminotransferase (ALT/SGPT) 15 U/L (12-78) Alkaline Phosphatase 168 U/L (46-116) H Troponin I 0.421 ng/mL (0.000-0.056) Total Protein 8.4 G/DL (6.4-8.2) H Albumin 3.3 G/DL (3.4-5.0) L Globulin 5.1 g/dL Albumin/Globulin Ratio 0.6 (1.0-2.7) L Intake and Output 04/04/18 04/05/18 19:00 07:00 Intake Total 600 ml 120 ml Balance 600 ml 120 ml Intake Oral 600 ml 120 ml # Voids 3 Objective Objective General: No acute distress, awake and alert HEENT: NCAT, sclera anicteric, PERRL, EOMI. Neck: Supple, no significant jugular venous distention, Lungs: Good inspiratory effort,, clear to auscultation bilaterally, no Wheeze or Rales. Heart: Regular rate and rhythm, normal S1/S2, no murmurs Abdomen: soft, nontender, nondistended. Normoactive bowel sounds. Extremities: No Cyanosis , clubbing or edema. Neuro: A&O x 3, Able to move all extremities Skin: warm, no rashes or lesions Psych: Normal mood and affect Assessment/Plan Problem List: (1) CHF (congestive heart failure) (2) Hypercholesteremia (3) Diabetic neuropathy (4) Chest pain (5) Lung mass Assessment & Plan: RUL. Await CT guided biopsy-see pulmonary note. (6) Elevated troponin Assessment & Plan: ?NSTEMI? See cardiology note. (7) CAD (coronary artery disease) Assessment & Plan: S/P PCI 12/19. Continue Plavix and ASA-see cardiology note. (8) Diabetes mellitus, type II Assessment & Plan: On novolog sliding scale. (9) HTN (hypertension) Assessment & Plan: Continue vasotec and cardizem (10) COPD (chronic obstructive pulmonary disease) Status: not improved PAUL CARABALLO April 05, 2018 12:11
--- NOTE | 2018-04-05 14:50 | Cardiology Progress Note ---
Assessment/Plan Problem List: (1) Diabetes mellitus, type II (2) Elevated troponin (3) COPD (chronic obstructive pulmonary disease) (4) Lung mass (5) CAD (coronary artery disease) (6) Chest pain (7) Hypertension Status: stable, unchanged Status Narrative Mrs. Odom has HTN, COPD and CAD and is s/p LCX, LAD PCI in 12/2017. She was adm w/ CP and has mild troponin elevation. However, there is a R UL mass noted on CT, as well as moderate pericardial effusion Assessment/Plan Evaluation of lung mass per primary team - CT guided biopsy Continue current cardiac medications. Cp appears non-anginal Peric effusion noted on CT - will followup w/ ECHO - ? malignant effusion Subjective ROS Limited/Unobtainable: No Subjective Cardiology for Dr. Jay Pt c/o mild dyspnea. No chest pain today Objective Last 24 Hour Vital Signs Date Time Temp Pulse Resp B/P (MAP) Pulse Ox O2 Delivery O2 Flow Rate FiO2 04/05/18 13:35 97.1 04/05/18 12:36 97.1 04/05/18 12:00 107 04/05/18 11:56 97.1 107 20 150/72 97 Nasal Cannula 2.0 97.1 04/05/18 08:46 97.7 04/05/18 08:46 158/84 04/05/18 08:21 106 18 Room Air 04/05/18 08:00 97.7 112 20 158/84 98 Room Air 97.7 04/05/18 08:00 106 04/05/18 04:00 103 04/05/18 04:00 97.5 101 20 155/83 97 Room Air 97.5 04/05/18 00:00 108 04/05/18 00:00 97.5 95 20 150/86 100 Room Air 97.5 04/04/18 20:00 92 04/04/18 20:00 97.1 89 20 126/66 98 Room Air 97.1 04/04/18 17:33 97.3 04/04/18 16:00 88 04/04/18 16:00 97.3 78 18 138/60 95 Room Air 97.3 General Appearance: WD/WN, no apparent distress, alert EENT: PERRL/EOMI Neck: supple, no JVD Rhythm: NSR Cardiovascular: normal rate, regular rhythm, no gallop/murmur Respiratory/Chest: lungs clear Abdomen: non tender, soft Extremities: no swelling Intake and Output 04/04/18 04/05/18 19:00 07:00 Intake Total 600 ml 120 ml Balance 600 ml 120 ml Intake Oral 600 ml 120 ml # Voids 3 Laboratory Tests Test 04/05/18 06:37 White Blood Count 2.7 K/UL (4.8-10.8) L Red Blood Count 4.37 M/UL (4.20-5.40) Hemoglobin 12.7 G/DL (12.0-16.0) Hematocrit 36.9 % (37.0-47.0) L Mean Corpuscular Volume 85 FL (80-99) Mean Corpuscular Hemoglobin 29.1 PG (27.0-31.0) Mean Corpuscular Hemoglobin Concent 34.5 G/DL (32.0-36.0) Red Cell Distribution Width 17.0 % (11.6-14.8) H Platelet Count 264 K/UL (150-450) Mean Platelet Volume 6.8 FL (6.5-10.1) Neutrophils (%) (Auto) % (45.0-75.0) Lymphocytes (%) (Auto) % (20.0-45.0) Monocytes (%) (Auto) % (1.0-10.0) Eosinophils (%) (Auto) % (0.0-3.0) Basophils (%) (Auto) % (0.0-2.0) Differential Total Cells Counted 100 Neutrophils % (Manual) 53 % (45-75) Lymphocytes % (Manual) 37 % (20-45) Monocytes % (Manual) 7 % (1-10) Eosinophils % (Manual) 3 % (0-3) Basophils % (Manual) 0 % (0-2) Band Neutrophils 0 % (0-8) Platelet Estimate Adequate Platelet Morphology Normal Anisocytosis 1+ Erythrocyte Sedimentation Rate 50 MM/HR (0-30) H Sodium Level 140 MMOL/L (136-145) Potassium Level 4.4 MMOL/L (3.5-5.1) Chloride Level 102 MMOL/L (98-107) Carbon Dioxide Level 26 MMOL/L (21-32) Anion Gap 12 mmol/L (5-15) Blood Urea Nitrogen 23 mg/dL (7-18) H Creatinine 1.4 MG/DL (0.55-1.30) H Estimat Glomerular Filtration Rate 45.6 mL/min (>60) Glucose Level 114 MG/DL (74-106) H Calcium Level 9.0 MG/DL (8.5-10.1) Phosphorus Level 3.6 MG/DL (2.5-4.9) Magnesium Level 2.2 MG/DL (1.8-2.4) Total Bilirubin 1.8 MG/DL (0.2-1.0) H Direct Bilirubin 0.4 MG/DL (0.0-0.3) H Aspartate Amino Transf (AST/SGOT) 22 U/L (15-37) Alanine Aminotransferase (ALT/SGPT) 15 U/L (12-78) Alkaline Phosphatase 168 U/L (46-116) H Troponin I 0.421 ng/mL (0.000-0.056) Total Protein 8.4 G/DL (6.4-8.2) H Albumin 3.3 G/DL (3.4-5.0) L Globulin 5.1 g/dL Albumin/Globulin Ratio 0.6 (1.0-2.7) L ALEXA LEWIS April 05, 2018 14:50
[2018-04-05 16:00] VITALS: BP 152/90
[2018-04-05 20:00] VITALS: BP 157/88
[2018-04-05] MEDS: Atorvastatin 80mg tab ORAL SCH (20:04)
[2018-04-06] VITALS: BP 159/98
[2018-04-06] MEDS: Norco 5mg/325mg tab ORAL PRN ×2 (01:31→21:10)
[2018-04-06 04:00] VITALS: BP 165/102
[2018-04-06] MEDS: NovoLOG Insulin Flexpen SUBQ SCH ×4 (06:35→21:13)
[2018-04-06] MEDS: Heparin 5000 units/ml inj SUBQ SCH ×3 (06:37→21:12)
[2018-04-06 08:01] VITALS: BP 158/76
[2018-04-06 08:33] LABS: HEMATOCRIT 34.6 % (37.0-47.0); HEMOGLOBIN 11.5 G/DL (12.0-16.0); MEAN CORPUSCULAR VOLUME 85 FL (80-99); PLATELET COUNT 236 K/UL (150-450); RED BLOOD COUNT 4.07 M/UL (4.20-5.40); RED CELL DISTRIBUTION WIDTH 17.2 % (11.6-14.8); WHITE BLOOD COUNT 2.7 K/UL (4.8-10.8)
[2018-04-06] MEDS: Furosemide 40mg tab ORAL SCH ×2 (09:00→17:40)
[2018-04-06] MEDS: Miralax 17gm pkt ORAL PRN (09:00)
[2018-04-06] MEDS: Aspirin Baby 81mg ORAL SCH (09:00)
[2018-04-06] MEDS: Spironolactone 25mg tab ORAL SCH (09:00)
[2018-04-06] MEDS: Losartan 25mg tab ORAL SCH (09:01)
[2018-04-06 09:02] LABS: ANION GAP 7 mmol/L (5-15); BLOOD UREA NITROGEN 24 mg/dL (7-18); CALCIUM 8.6 MG/DL (8.5-10.1); CARBON DIOXIDE 29 MMOL/L (21-32); CHLORIDE 104 MMOL/L (98-107); CREATININE 1.5 MG/DL (0.55-1.30); SODIUM 140 MMOL/L (136-145)
--- NOTE | 2018-04-06 09:39 | Pulmonology Progress Note ---
Assessment/Plan Assessment/Plan ASSESSMENT elevated troponin Possible NSTEMI Sternal fracture Status post cardiac arrest with cardiopulmonary resuscitation back in December 2017 CAD, status post percutaneous coronary intervention Mild cardiomyopathy pericardial effusion bilateral pleural effusion Renal insufficiency Right upper lobe mass, rule out malignancy COPD Diabetes mellitus Hypercholesterolemia Tobacco abuse with dependency acute kidney injury(due to nephrotoxic , possible due to IV contrast and daily Lasix) PLAN OF CARE telemetry floor serial troponin with minimal elevation, EKG no ischemic changes 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 Aspirin and Plavix trop min abnormal, no peak no sridevi and in light of renal insufficiency of questionable significance-as per cardio no further chest pain per cardio chest pain was noncardiac Echocardiogram in January 2018 with ejection fraction of 40-45% per cardio perfusion imaging 01/2018 showed no significant perfusion abnormalities medical management of congestive heart failure with beta enrico, angiotensin receptor enrico, and diuretics: Lasix IV and Aldactone. monitor cardiorenal parameters and volumes lipid panel with elevated LDL- 127, continue statin pericardial effusion and bilateral pleural effusion on CTA ECHO pending supplemental oxygen pulmonary toilet as needed CT guided lung biopsy pending explained to patient the need, patint agreed financial counselor on smoking cessation Nicotine patch DVT prophylaxis Pain management Blood sugar management with sliding scale insulin and optimize as needed monitor renal parameters, lytes, correct lytes as needed, avoid nephrotoxic creat trending up, on Lasix, and had IV contrast prior for CTA give 500 cc NS bolus ( in hope to improve creat prior to CT guided biopsy) case discussed and evaluated by supervising physician Subjective Allergies: Coded Allergies: No Known Allergies (Unverified , 04/15/17) Subjective denies chest pain, intermittent SOB, weakness pulse ox stable on RA lung biopsy pending Objective Last 24 Hour Vital Signs Date Time Temp Pulse Resp B/P (MAP) Pulse Ox O2 Delivery O2 Flow Rate FiO2 04/06/18 09:01 158/76 04/06/18 08:01 96.9 100 18 158/76 96 Room Air 96.9 04/06/18 07:26 86 16 Room Air 21 04/06/18 04:00 98.6 111 22 165/102 95 Nasal Cannula 2.0 98.6 04/06/18 04:00 110 04/06/18 00:00 98.6 104 22 159/98 98 Nasal Cannula 2.0 98.6 04/05/18 21:03 101 18 Room Air 21 04/05/18 20:00 105 04/05/18 20:00 97.8 106 20 157/88 97 Nasal Cannula 2.0 97.8 04/05/18 18:43 97.5 04/05/18 17:44 97.5 04/05/18 16:00 100 04/05/18 16:00 97.5 102 26 152/90 97 Nasal Cannula 2.0 97.5 04/05/18 12:36 97.1 04/05/18 12:00 107 04/05/18 11:56 97.1 107 20 150/72 97 Nasal Cannula 2.0 97.1 Intake and Output 04/05/18 04/06/18 19:00 07:00 Intake Total 600 ml 240 ml Balance 600 ml 240 ml Intake Oral 600 ml 240 ml # Voids 3 3 Objective General Appearance: no acute distress, awake, alert, , weak AA female HEENT: normocephalic, atraumatic, anicteric Respiratory/Chest: no respiratory distress, decreased breath sounds Cardiovascular: regular rhythm, no JVD, ST on tele Abdomen: normal bowel sounds, soft, non tender, non distended Extremities: no edema, pedal pulses normal Neurologic/Psychiatric: alert, responsive Laboratory Tests 04/06/18 07:33: White Blood Count 2.7L, Red Blood Count 4.07L, Hemoglobin 11.5L, Hematocrit 34.6L, Mean Corpuscular Volume 85, Mean Corpuscular Hemoglobin 28.2, Mean Corpuscular Hemoglobin Concent 33.2, Red Cell Distribution Width 17.2H, Platelet Count 236, Mean Platelet Volume 6.6, Neutrophils (%) (Auto) , Lymphocytes (%) (Auto) , Monocytes (%) (Auto) , Eosinophils (%) (Auto) , Basophils (%) (Auto) , Neutrophils % (Manual) [Pending], Lymphocytes % (Manual) [Pending], Platelet Estimate [Pending], Platelet Morphology [Pending], Sodium Level 140, Potassium Level 4.0, Chloride Level 104, Carbon Dioxide Level 29, Anion Gap 7, Blood Urea Nitrogen 24H, Creatinine 1.5H, Estimat Glomerular Filtration Rate 42.1, Glucose Level 223#H, Calcium Level 8.6 Current Medications Medications (Trade) Dose Ordered Sig/Tristan Route PRN Reason Start Time Stop Time Status Last Admin Dose Admin Acetaminophen (Tylenol) 650 mg Q4H PRN ORAL FEVER 04/02/18 20:15 05/02/18 20:14 Acetaminophen/ Hydrocodone Bitart ([place] 5/325) 1 tab Q4H PRN ORAL Severe Pain (Pain Scale 7-10) 04/04/18 10:15 04/11/18 10:14 04/06/18 01:31 Albuterol/ Ipratropium (Albuterol/ Ipratropium) 3 ml EVERY 4 HOURS PRN HHN Shortness of Breath 04/02/18 20:15 04/07/18 20:14 Aspirin (ASA) 162 mg DAILY ORAL 04/03/18 09:00 05/03/18 08:59 04/06/18 09:00 Atorvastatin Calcium (Lipitor) 40 mg BEDTIME ORAL 04/03/18 21:00 05/03/18 20:59 04/05/18 20:04 Clopidogrel Bisulfate (Plavix) 75 mg DAILY ORAL 04/03/18 09:00 05/03/18 08:59 04/06/18 09:00 Dextrose (Dextrose 50%) 25 ml STAT PRN IV BS 60-69mg/dl 04/02/18 21:45 05/02/18 21:44 Dextrose (Dextrose 50%) 50 ml STAT PRN IV BS less than 60mg/dl 04/02/18 20:15 05/02/18 20:14 Diltiazem HCl (Cardizem) 10 mg EVERY HOUR PRN IV heart rate more than 120, 04/02/18 20:15 05/02/18 20:14 Enalaprilat (Vasotec) 2.5 mg EVERY 6 HOURS PRN IV sbp more than 160 04/02/18 20:15 05/02/18 20:14 Furosemide (Lasix) 40 mg TWICE A DAY ORAL 04/03/18 09:00 05/03/18 08:59 04/06/18 09:00 Gabapentin (Neurontin) 100 mg THREE TIMES A DAY ORAL 04/03/18 13:00 05/03/18 12:59 04/06/18 09:00 Gabapentin (Neurontin) 300 mg BEDTIME ORAL 04/03/18 21:00 05/03/18 20:59 04/05/18 20:05 Heparin Sodium (Porcine) (Heparin 5000 units/ml) 5,000 units EVERY 8 HOURS SUBQ 04/02/18 22:00 05/02/18 21:59 04/06/18 06:37 Insulin Aspart (NovoLOG) BEFORE MEALS AND HS SUBQ 04/02/18 21:00 05/02/18 20:59 04/06/18 06:35 Lidocaine (Lidoderm 5% PATCH) 1 patch DAILY TDERMAL 04/04/18 10:15 05/04/18 10:14 04/06/18 09:00 Losartan Potassium (Cozaar) 25 mg DAILY ORAL 04/03/18 09:00 05/03/18 08:59 04/06/18 09:01 Nicotine (Nicoderm) 1 patch Q24H TDERMAL 04/05/18 12:00 05/05/18 11:59 04/05/18 11:31 Nitroglycerin (Ntg) 0.4 mg Q5M PRN SL Prn Chest Pain 04/02/18 20:15 05/02/18 20:14 Ondansetron HCl (Zofran) 4 mg Q6H PRN IVP Nausea & Vomiting 04/02/18 20:15 05/02/18 20:14 Pantoprazole (Protonix) 40 mg DAILY ORAL 04/03/18 09:00 05/03/18 08:59 04/06/18 09:00 Polyethylene Glycol (Miralax) 17 gm DAILYPRN PRN ORAL Constipation 04/02/18 20:15 05/02/18 20:14 04/06/18 09:00 Spironolactone (Aldactone) 25 mg DAILY ORAL 04/03/18 09:00 05/03/18 08:59 04/06/18 09:00 Temazepam (Restoril) 15 mg HSPRN PRN ORAL Insomnia 04/02/18 20:15 04/09/18 20:14 04/05/18 22:04 [facility] center[facility]ro Gore NP April 06, 2018 09:38
[2018-04-06] MEDS ORDERED: Sodium Chloride 500ML 500 ML IV ONE (09:45)
--- NOTE | 2018-04-06 11:15 | General Progress Note ---
Assessment/Plan Assessment/Plan (1) Right hip pain (2) H/o right hip fx with ORIF (3) Peripheral Neuropathy She will be continued on [place] and Lidoderm patch D/w Dr. Donaldson and he concurred. Subjective Date patient seen: April 06, 2018 Time patient seen: 10:30 - am Allergies: Coded Allergies: No Known Allergies (Unverified , 04/15/17) Subjective REVIEW OF SYSTEMS: Denies rash, fever, chills, sweating, dizziness, drowsiness, blurred vision, sore throat, change in her weight. No nausea, vomiting, diarrhea, or blood in the stool or urine. No bowel or bladder incontinence. No dysuria. She is complaining of right lower extremity and generalized weakness body pain. SUBJECTIVE: Patient is in bed reports that her pain is stable at a moderate level using the [place] as needed. Objective Last 24 Hour Vital Signs Date Time Temp Pulse Resp B/P (MAP) Pulse Ox O2 Delivery O2 Flow Rate FiO2 04/06/18 09:01 158/76 04/06/18 08:01 96.9 100 18 158/76 96 Room Air 96.9 04/06/18 08:00 104 04/06/18 07:26 86 16 Room Air 21 04/06/18 04:00 98.6 111 22 165/102 95 Nasal Cannula 2.0 98.6 04/06/18 04:00 110 04/06/18 00:00 98.6 104 22 159/98 98 Nasal Cannula 2.0 98.6 04/05/18 21:03 101 18 Room Air 21 04/05/18 20:00 105 04/05/18 20:00 97.8 106 20 157/88 97 Nasal Cannula 2.0 97.8 04/05/18 18:43 97.5 04/05/18 17:44 97.5 04/05/18 16:00 100 04/05/18 16:00 97.5 102 26 152/90 97 Nasal Cannula 2.0 97.5 04/05/18 12:36 97.1 04/05/18 12:00 107 04/05/18 11:56 97.1 107 20 150/72 97 Nasal Cannula 2.0 97.1 Intake and Output 04/05/18 04/06/18 19:00 07:00 Intake Total 600 ml 240 ml Balance 600 ml 240 ml Intake Oral 600 ml 240 ml # Voids 3 3 Laboratory Tests 04/06/18 07:33: White Blood Count 2.7L, Red Blood Count 4.07L, Hemoglobin 11.5L, Hematocrit 34.6L, Mean Corpuscular Volume 85, Mean Corpuscular Hemoglobin 28.2, Mean Corpuscular Hemoglobin Concent 33.2, Red Cell Distribution Width 17.2H, Platelet Count 236, Mean Platelet Volume 6.6, Neutrophils (%) (Auto) , Lymphocytes (%) (Auto) , Monocytes (%) (Auto) , Eosinophils (%) (Auto) , Basophils (%) (Auto) , Differential Total Cells Counted 100, Neutrophils % ( Manual) 43L, Lymphocytes % (Manual) 39, Monocytes % (Manual) 13H, Eosinophils % (Manual) 5H, Basophils % (Manual) 0, Band Neutrophils 0, Platelet Estimate Adequate, Platelet Morphology Normal, Anisocytosis 1+, Sodium Level 140, Potassium Level 4.0, Chloride Level 104, Carbon Dioxide Level 29, Anion Gap 7, Blood Urea Nitrogen 24H, Creatinine 1.5H, Estimat Glomerular Filtration Rate 42.1, Glucose Level 223#H, Calcium Level 8.6 Height (Feet): 5 Height (Inches): 4.00 Weight (Pounds): 120 Objective GENERAL: Alert, awake, and oriented. HEENT: PERRLA. NECK: Range of motion is decreased with tenderness to paracervical muscles. No adenopathy. LUNGS: Decreased breath sounds bilaterally. HEART: Regular. ABDOMEN: Benign BACK: Range of motion is decreased in flexion and extension due to the patient's condition with tenderness to paraspinal muscles. No tenderness in trapezius or rhomboid muscles. EXTREMITIES: No cyanosis. No clubbing. CHALINO HILL April 06, 2018 11:15
--- NOTE | 2018-04-06 11:59 | Cardiology Report ---
APPROVED REPORT EKG Measurement Heart [id number] SD [id number] Normal sinus rhythm Possible Left atrial enlargement Low voltage QRS Nonspecific T wave abnormality Prolonged QT Abnormal ECG
[2018-04-06 12:00] VITALS: BP 151/79
--- NOTE | 2018-04-06 13:51 | Cardiology Progress Note ---
Assessment/Plan Problem List: (1) Diabetes mellitus, type II (2) Elevated troponin (3) COPD (chronic obstructive pulmonary disease) (4) Lung mass (5) CAD (coronary artery disease) (6) Chest pain (7) Hypertension Status: stable, unchanged Status Narrative Mrs. Odom has HTN, COPD and CAD and is s/p LCX, LAD PCI in 12/2017. She was adm w/ CP and has mild troponin elevation. EKG w/ anterolateral T inversion. However, there is a R UL mass noted on CT, as well as moderate pericardial effusion. Suspect noncardiac cause of CP BP is not well controlled. Assessment/Plan Evaluation of lung mass per primary team - CT guided biopsy Continue current cardiac medications. Increase losartan to bid for BP control Peric effusion noted on CT - ECHO w/ small effusion - not hemodynamically significant. Subjective ROS Limited/Unobtainable: No Subjective Cardiology for Dr. Jay sedated, no c/o Objective Last 24 Hour Vital Signs Date Time Temp Pulse Resp B/P (MAP) Pulse Ox O2 Delivery O2 Flow Rate FiO2 04/06/18 12:00 102 04/06/18 12:00 96.8 106 18 151/79 96 Room Air 96.8 04/06/18 09:01 158/76 04/06/18 08:01 96.9 100 18 158/76 96 Room Air 96.9 04/06/18 08:00 104 04/06/18 07:26 86 16 Room Air 21 04/06/18 04:00 98.6 111 22 165/102 95 Nasal Cannula 2.0 98.6 04/06/18 04:00 110 04/06/18 00:00 98.6 104 22 159/98 98 Nasal Cannula 2.0 98.6 04/05/18 21:03 101 18 Room Air 21 04/05/18 20:00 105 04/05/18 20:00 97.8 106 20 157/88 97 Nasal Cannula 2.0 97.8 04/05/18 18:43 97.5 04/05/18 17:44 97.5 04/05/18 16:00 100 04/05/18 16:00 97.5 102 26 152/90 97 Nasal Cannula 2.0 97.5 General Appearance: WD/WN, no apparent distress, alert EENT: PERRL/EOMI Neck: supple, no JVD Rhythm: NSR Cardiovascular: regular rhythm, gallop/S4 Respiratory/Chest: chest wall non-tender, other Abdomen: non tender, soft Extremities: no swelling Intake and Output 04/05/18 04/06/18 19:00 07:00 Intake Total 600 ml 240 ml Balance 600 ml 240 ml Intake Oral 600 ml 240 ml # Voids 3 3 Laboratory Tests Test 04/06/18 07:33 White Blood Count 2.7 K/UL (4.8-10.8) L Red Blood Count 4.07 M/UL (4.20-5.40) L Hemoglobin 11.5 G/DL (12.0-16.0) L Hematocrit 34.6 % (37.0-47.0) L Mean Corpuscular Volume 85 FL (80-99) Mean Corpuscular Hemoglobin 28.2 PG (27.0-31.0) Mean Corpuscular Hemoglobin Concent 33.2 G/DL (32.0-36.0) Red Cell Distribution Width 17.2 % (11.6-14.8) H Platelet Count 236 K/UL (150-450) Mean Platelet Volume 6.6 FL (6.5-10.1) Neutrophils (%) (Auto) % (45.0-75.0) Lymphocytes (%) (Auto) % (20.0-45.0) Monocytes (%) (Auto) % (1.0-10.0) Eosinophils (%) (Auto) % (0.0-3.0) Basophils (%) (Auto) % (0.0-2.0) Differential Total Cells Counted 100 Neutrophils % (Manual) 43 % (45-75) L Lymphocytes % (Manual) 39 % (20-45) Monocytes % (Manual) 13 % (1-10) H Eosinophils % (Manual) 5 % (0-3) H Basophils % (Manual) 0 % (0-2) Band Neutrophils 0 % (0-8) Platelet Estimate Adequate Platelet Morphology Normal Anisocytosis 1+ Sodium Level 140 MMOL/L (136-145) Potassium Level 4.0 MMOL/L (3.5-5.1) Chloride Level 104 MMOL/L (98-107) Carbon Dioxide Level 29 MMOL/L (21-32) Anion Gap 7 mmol/L (5-15) Blood Urea Nitrogen 24 mg/dL (7-18) H Creatinine 1.5 MG/DL (0.55-1.30) H Estimat Glomerular Filtration Rate 42.1 mL/min (>60) Glucose Level 223 MG/DL (74-106) #H Calcium Level 8.6 MG/DL (8.5-10.1) ALEXA LEWIS April 06, 2018 13:51
--- NOTE | 2018-04-06 15:14 | Internal Med Progress Note ---
Subjective Date of Service: April 06, 2018 Physician Name Kristina Caraballo Attending Physician Onesimo Bautista MD Current Medications Medications (Trade) Dose Ordered Sig/Tristan Route PRN Reason Start Time Stop Time Status Last Admin Dose Admin Acetaminophen (Tylenol) 650 mg Q4H PRN ORAL FEVER 04/02/18 20:15 05/02/18 20:14 Acetaminophen/ Hydrocodone Bitart ([place] 5/325) 1 tab Q4H PRN ORAL Severe Pain (Pain Scale 7-10) 04/04/18 10:15 04/11/18 10:14 04/06/18 01:31 Albuterol/ Ipratropium (Albuterol/ Ipratropium) 3 ml Q4H PRN HHN Shortness of Breath 04/06/18 09:45 04/11/18 09:44 Aspirin (ASA) 162 mg DAILY ORAL 04/03/18 09:00 05/03/18 08:59 04/06/18 09:00 Atorvastatin Calcium (Lipitor) 40 mg BEDTIME ORAL 04/03/18 21:00 05/03/18 20:59 04/05/18 20:04 Clopidogrel Bisulfate (Plavix) 75 mg DAILY ORAL 04/03/18 09:00 05/03/18 08:59 04/06/18 09:00 Dextrose (Dextrose 50%) 25 ml STAT PRN IV BS 60-69mg/dl 04/02/18 21:45 05/02/18 21:44 Dextrose (Dextrose 50%) 50 ml STAT PRN IV BS less than 60mg/dl 04/02/18 20:15 05/02/18 20:14 Diltiazem HCl (Cardizem) 10 mg EVERY HOUR PRN IV heart rate more than 120, 04/02/18 20:15 05/02/18 20:14 Enalaprilat (Vasotec) 2.5 mg EVERY 6 HOURS PRN IV sbp more than 160 04/02/18 20:15 05/02/18 20:14 04/06/18 15:06 Furosemide (Lasix) 40 mg TWICE A DAY ORAL 04/03/18 09:00 05/03/18 08:59 04/06/18 09:00 Gabapentin (Neurontin) 100 mg THREE TIMES A DAY ORAL 04/03/18 13:00 05/03/18 12:59 04/06/18 12:34 Gabapentin (Neurontin) 300 mg BEDTIME ORAL 04/03/18 21:00 05/03/18 20:59 04/05/18 20:05 Heparin Sodium (Porcine) (Heparin 5000 units/ml) 5,000 units EVERY 8 HOURS SUBQ 04/02/18 22:00 05/02/18 21:59 04/06/18 14:17 Insulin Aspart (NovoLOG) BEFORE MEALS AND HS SUBQ 04/02/18 21:00 05/02/18 20:59 04/06/18 12:38 Lidocaine (Lidoderm 5% PATCH) 1 patch DAILY TDERMAL 04/04/18 10:15 05/04/18 10:14 04/06/18 09:00 Losartan Potassium (Cozaar) 25 mg DAILY ORAL 04/03/18 09:00 05/03/18 08:59 04/06/18 09:01 Nicotine (Nicoderm) 1 patch Q24H TDERMAL 04/05/18 12:00 05/05/18 11:59 04/06/18 12:34 Nitroglycerin (Ntg) 0.4 mg Q5M PRN SL Prn Chest Pain 04/02/18 20:15 05/02/18 20:14 Ondansetron HCl (Zofran) 4 mg Q6H PRN IVP Nausea & Vomiting 04/02/18 20:15 05/02/18 20:14 Pantoprazole (Protonix) 40 mg DAILY ORAL 04/03/18 09:00 05/03/18 08:59 04/06/18 09:00 Polyethylene Glycol (Miralax) 17 gm DAILYPRN PRN ORAL Constipation 04/02/18 20:15 05/02/18 20:14 04/06/18 09:00 Spironolactone (Aldactone) 25 mg DAILY ORAL 04/03/18 09:00 05/03/18 08:59 04/06/18 09:00 Temazepam (Restoril) 15 mg HSPRN PRN ORAL Insomnia 04/02/18 20:15 04/09/18 20:14 04/05/18 22:04 Allergies: Coded Allergies: No Known Allergies (Unverified , 04/15/17) ROS Limited/Unobtainable: No Constitutional: Reports: no symptoms HEENT: Reports: no symptoms Cardiovascular: Reports: no symptoms Respiratory: Reports: no symptoms Gastrointestinal/Abdominal: Reports: no symptoms Genitourinary: Reports: no symptoms Neurologic/Psychiatric: Reports: no symptoms Subjective 67 YO F admitted with chest pain. Now elevated troponin and RUL lung mass. Await CT guided biopsy. Cover for Int Tre[facility]-Dr Bautista. Objective Last Vital Signs Date Time Temp Pulse Resp B/P (MAP) Pulse Ox O2 Delivery O2 Flow Rate FiO2 04/06/18 15:06 170/93 04/06/18 12:00 102 04/06/18 12:00 96.8 18 96 Room Air 96.8 04/06/18 07:26 21 04/06/18 04:00 2.0 Laboratory Tests Test 04/06/18 07:33 White Blood Count 2.7 K/UL (4.8-10.8) L Red Blood Count 4.07 M/UL (4.20-5.40) L Hemoglobin 11.5 G/DL (12.0-16.0) L Hematocrit 34.6 % (37.0-47.0) L Mean Corpuscular Volume 85 FL (80-99) Mean Corpuscular Hemoglobin 28.2 PG (27.0-31.0) Mean Corpuscular Hemoglobin Concent 33.2 G/DL (32.0-36.0) Red Cell Distribution Width 17.2 % (11.6-14.8) H Platelet Count 236 K/UL (150-450) Mean Platelet Volume 6.6 FL (6.5-10.1) Neutrophils (%) (Auto) % (45.0-75.0) Lymphocytes (%) (Auto) % (20.0-45.0) Monocytes (%) (Auto) % (1.0-10.0) Eosinophils (%) (Auto) % (0.0-3.0) Basophils (%) (Auto) % (0.0-2.0) Differential Total Cells Counted 100 Neutrophils % (Manual) 43 % (45-75) L Lymphocytes % (Manual) 39 % (20-45) Monocytes % (Manual) 13 % (1-10) H Eosinophils % (Manual) 5 % (0-3) H Basophils % (Manual) 0 % (0-2) Band Neutrophils 0 % (0-8) Platelet Estimate Adequate Platelet Morphology Normal Anisocytosis 1+ Sodium Level 140 MMOL/L (136-145) Potassium Level 4.0 MMOL/L (3.5-5.1) Chloride Level 104 MMOL/L (98-107) Carbon Dioxide Level 29 MMOL/L (21-32) Anion Gap 7 mmol/L (5-15) Blood Urea Nitrogen 24 mg/dL (7-18) H Creatinine 1.5 MG/DL (0.55-1.30) H Estimat Glomerular Filtration Rate 42.1 mL/min (>60) Glucose Level 223 MG/DL (74-106) #H Calcium Level 8.6 MG/DL (8.5-10.1) Intake and Output 04/05/18 04/06/18 19:00 07:00 Intake Total 600 ml 240 ml Balance 600 ml 240 ml Intake Oral 600 ml 240 ml # Voids 3 3 Objective Objective General: No acute distress, awake and alert HEENT: NCAT, sclera anicteric, PERRL, EOMI. Neck: Supple, no significant jugular venous distention, Lungs: Good inspiratory effort,, clear to auscultation bilaterally, no Wheeze or Rales. Heart: Regular rate and rhythm, normal S1/S2, no murmurs Abdomen: soft, nontender, nondistended. Normoactive bowel sounds. Extremities: No Cyanosis , clubbing or edema. Neuro: A&O x 3, Able to move all extremities Skin: warm, no rashes or lesions Psych: Normal mood and affect Assessment/Plan Problem List: (1) CHF (congestive heart failure) (2) Hypercholesteremia (3) Diabetic neuropathy (4) Chest pain (5) Lung mass Assessment & Plan: RUL. Await CT guided biopsy-see pulmonary note. (6) Elevated troponin Assessment & Plan: ?NSTEMI? See cardiology note. (7) CAD (coronary artery disease) Assessment & Plan: S/P PCI 12/19. Continue Plavix and ASA-see cardiology note. (8) Diabetes mellitus, type II Assessment & Plan: On novolog sliding scale. (9) HTN (hypertension) Assessment & Plan: Continue vasotec and cardizem (10) COPD (chronic obstructive pulmonary disease) KRISTINA CARABALLO April 06, 2018 15:14
[2018-04-06 16:00] VITALS: BP 170/93
[2018-04-06 20:00] VITALS: BP 153/79
[2018-04-06] MEDS: Atorvastatin 80mg tab ORAL SCH (21:10)
[2018-04-07] VITALS: BP 143/71
[2018-04-07] MEDS: Albuterol/Ipratropium 3ml neb HHN PRN ×3 (01:46→16:34)
[2018-04-07 04:00] VITALS: BP 166/96
[2018-04-07] MEDS: Heparin 5000 units/ml inj SUBQ SCH ×2 (06:41→15:36)
[2018-04-07] MEDS: NovoLOG Insulin Flexpen SUBQ SCH ×3 (06:44→17:01)
[2018-04-07] MEDS: Norco 5mg/325mg tab ORAL PRN ×2 (07:31→16:57)
[2018-04-07 08:00] VITALS: BP 148/77
[2018-04-07] MEDS: Losartan 25mg tab ORAL SCH (08:44)
[2018-04-07] MEDS: Aspirin Baby 81mg ORAL SCH (08:44)
[2018-04-07] MEDS: Spironolactone 25mg tab ORAL SCH (08:44)
[2018-04-07] MEDS: Furosemide 40mg tab ORAL SCH ×2 (08:45→18:16)
--- NOTE | 2018-04-07 08:56 | General Progress Note ---
Assessment/Plan Assessment/Plan (1) Right hip pain (2) H/o right hip fx with ORIF (3) Peripheral Neuropathy She will be continued on [place] and Lidoderm patch D/w Dr. Donaldson and he concurred. Subjective Date patient seen: April 07, 2018 Time patient seen: 07:00 - am Allergies: Coded Allergies: No Known Allergies (Unverified , 04/15/17) Subjective REVIEW OF SYSTEMS: Denies rash, fever, chills, sweating, dizziness, drowsiness, blurred vision, sore throat, change in her weight. No nausea, vomiting, diarrhea, or blood in the stool or urine. No bowel or bladder incontinence. No dysuria. She is complaining of right lower extremity and generalized weakness body pain. SUBJECTIVE: The pain has been stable and on the medication. She has no new complaints. Objective Last 24 Hour Vital Signs Date Time Temp Pulse Resp B/P (MAP) Pulse Ox O2 Delivery O2 Flow Rate FiO2 04/07/18 08:44 148/77 04/07/18 08:30 98.0 04/07/18 08:00 98.0 96 18 148/77 97 Room Air 98.0 04/07/18 06:09 107 18 97 Nasal Cannula 2.0 28 04/07/18 06:09 28 04/07/18 06:01 105 18 91 Nasal Cannula 2.0 28 04/07/18 04:00 97.9 112 20 166/96 96 Room Air 97.9 04/07/18 04:00 105 04/07/18 01:52 24 04/07/18 01:52 106 18 99 Nasal Cannula 1.0 24 04/07/18 01:44 104 18 97 Nasal Cannula 1.0 24 04/07/18 00:00 106 04/07/18 00:00 97.0 105 20 143/71 96 Room Air 97.0 04/06/18 20:00 105 04/06/18 20:00 97.0 105 20 153/79 96 Room Air 97.0 04/06/18 19:50 97 Nasal Cannula 1.0 24 04/06/18 19:50 Nasal Cannula 1.0 24 04/06/18 19:50 106 16 Nasal Cannula 24 04/06/18 16:00 103 04/06/18 16:00 97.3 104 18 170/93 96 Room Air 97.3 04/06/18 15:06 170/93 04/06/18 12:00 102 04/06/18 12:00 96.8 106 18 151/79 96 Room Air 96.8 04/06/18 09:01 158/76 Intake and Output 04/06/18 04/07/18 19:00 07:00 Intake Total 360 ml Balance 360 ml Intake Oral 360 ml # Voids 2 2 Height (Feet): 5 Height (Inches): 4.00 Weight (Pounds): 120 Objective GENERAL: Alert, awake, and oriented. HEENT: PERRLA. NECK: Range of motion is decreased with tenderness to paracervical muscles. No adenopathy. LUNGS: Decreased breath sounds bilaterally. HEART: Regular. ABDOMEN: Benign BACK: Range of motion is decreased in flexion and extension due to the patient's condition with tenderness to paraspinal muscles. No tenderness in trapezius or rhomboid muscles. EXTREMITIES: No cyanosis. No clubbing. CHALINO HILL April 07, 2018 08:56
[2018-04-07 09:48] LABS: BASOPHILS % (AUTO) 1.3 % (0.0-2.0); EOSINOPHILS % (AUTO) 3.8 % (0.0-3.0); HEMATOCRIT 34.2 % (37.0-47.0); HEMOGLOBIN 11.5 G/DL (12.0-16.0); LYMPHOCYTES % (AUTO) 32.2 % (20.0-45.0); MEAN CORPUSCULAR VOLUME 85 FL (80-99); NEUTROPHILS % (AUTO) 55.8 % (45.0-75.0); PLATELET COUNT 240 K/UL (150-450); RED BLOOD COUNT 4.03 M/UL (4.20-5.40); RED CELL DISTRIBUTION WIDTH 16.6 % (11.6-14.8); WHITE BLOOD COUNT 3.6 K/UL (4.8-10.8)
[2018-04-07 10:02] LABS: INR 1.1 (0.9-1.1)
--- NOTE | 2018-04-07 10:05 | Diagnostic Imaging Report ---
APPROVED REPORT CPT Code: 07529 Symptoms Comments: R/O PAD Hx of Pain LEFT LEG: Common femoral artery waveform analysis is within normal limits at rest. Color flow duplex sonography reveals a mild (30-40%) stenosis at proximal superficial femoral artery. Imaging also reveals an occlusion in the mid superficial femoral artery. Reconstitution is seen in the distal superficial femoral artery. The popliteal artery is patent. The tibioperoneal trunk is also patent. The posterior tibial, anterior tibial and peroneal arteries are also mildly calcified. Doppler tibial artery waveform analysis is monophasic is consistent with severe ischemia at rest. ALLI Fuller was notified of abnormal results at 0830 hours.
--- NOTE | 2018-04-07 10:06 | Diagnostic Imaging Report ---
APPROVED REPORT CPT Code: 55043 Present Symptoms Comments: Left leg pain R/O DVT LEFT LEG: Venous imaging reveals a patent deep venous system. There is no evidence of thrombus within the femoral, popliteal or tibial segments. The greater saphenous vein is also within normal limits. Doppler indicates normal spontaneous flow within these segments. Incidental finding: Imaging reveals an occlusion in the mid superficial femoral artery. Reconstitution is seen in the distal superficial femoral artery.
--- NOTE | 2018-04-07 10:08 | Diagnostic Imaging Report ---
APPROVED REPORT CPT Code: 13226 Present Symptoms Comments: RIGHT LEG PAIN. RIGHT LEG: Venous imaging reveals a patent deep venous system. There is no evidence of thrombus within the femoral, popliteal or tibial segments. The greater saphenous vein is also within normal limits. Doppler indicates normal spontaneous flow within these segments.
[2018-04-07 10:20] LABS: ANION GAP 10 mmol/L (5-15); BLOOD UREA NITROGEN 22 mg/dL (7-18); CALCIUM 9.1 MG/DL (8.5-10.1); CARBON DIOXIDE 26 MMOL/L (21-32); CHLORIDE 105 MMOL/L (98-107); CREATININE 1.4 MG/DL (0.55-1.30); POTASSIUM 3.9 MMOL/L (3.5-5.1); SODIUM 141 MMOL/L (136-145)
--- NOTE | 2018-04-07 10:58 | Internal Med Progress Note ---
Subjective Date of Service: April 07, 2018 Physician Name Kristina Caraballo Attending Physician Onesimo Bautista MD Current Medications Medications (Trade) Dose Ordered Sig/Tristan Route PRN Reason Start Time Stop Time Status Last Admin Dose Admin Acetaminophen (Tylenol) 650 mg Q4H PRN ORAL FEVER 04/02/18 20:15 05/02/18 20:14 Acetaminophen/ Hydrocodone Bitart ([place] 5/325) 1 tab Q4H PRN ORAL Severe Pain (Pain Scale 7-10) 04/04/18 10:15 04/11/18 10:14 04/07/18 07:31 Albuterol/ Ipratropium (Albuterol/ Ipratropium) 3 ml Q4H PRN HHN Shortness of Breath 04/06/18 09:45 04/11/18 09:44 04/07/18 06:01 Aspirin (ASA) 162 mg DAILY ORAL 04/03/18 09:00 05/03/18 08:59 04/07/18 08:44 Atorvastatin Calcium (Lipitor) 40 mg BEDTIME ORAL 04/03/18 21:00 05/03/18 20:59 04/06/18 21:10 Clopidogrel Bisulfate (Plavix) 75 mg DAILY ORAL 04/03/18 09:00 05/03/18 08:59 04/07/18 08:44 Dextrose (Dextrose 50%) 25 ml STAT PRN IV BS 60-69mg/dl 04/02/18 21:45 05/02/18 21:44 Dextrose (Dextrose 50%) 50 ml STAT PRN IV BS less than 60mg/dl 04/02/18 20:15 05/02/18 20:14 Diltiazem HCl (Cardizem) 10 mg EVERY HOUR PRN IV heart rate more than 120, 04/02/18 20:15 05/02/18 20:14 Enalaprilat (Vasotec) 2.5 mg EVERY 6 HOURS PRN IV sbp more than 160 04/02/18 20:15 05/02/18 20:14 04/06/18 15:06 Furosemide (Lasix) 40 mg TWICE A DAY ORAL 04/03/18 09:00 05/03/18 08:59 04/07/18 08:45 Gabapentin (Neurontin) 100 mg THREE TIMES A DAY ORAL 04/03/18 13:00 05/03/18 12:59 04/07/18 08:44 Gabapentin (Neurontin) 300 mg BEDTIME ORAL 04/03/18 21:00 05/03/18 20:59 04/06/18 21:10 Heparin Sodium (Porcine) (Heparin 5000 units/ml) 5,000 units EVERY 8 HOURS SUBQ 04/02/18 22:00 05/02/18 21:59 04/07/18 06:41 Insulin Aspart (NovoLOG) BEFORE MEALS AND HS SUBQ 04/02/18 21:00 05/02/18 20:59 04/07/18 06:44 Lidocaine (Lidoderm 5% PATCH) 1 patch DAILY TDERMAL 04/04/18 10:15 05/04/18 10:14 04/07/18 08:44 Losartan Potassium (Cozaar) 25 mg DAILY ORAL 04/03/18 09:00 05/03/18 08:59 04/07/18 08:44 Nicotine (Nicoderm) 1 patch Q24H TDERMAL 04/05/18 12:00 05/05/18 11:59 04/06/18 12:34 Nitroglycerin (Ntg) 0.4 mg Q5M PRN SL Prn Chest Pain 04/02/18 20:15 05/02/18 20:14 Ondansetron HCl (Zofran) 4 mg Q6H PRN IVP Nausea & Vomiting 04/02/18 20:15 05/02/18 20:14 Pantoprazole (Protonix) 40 mg DAILY ORAL 04/03/18 09:00 05/03/18 08:59 04/07/18 08:43 Polyethylene Glycol (Miralax) 17 gm DAILYPRN PRN ORAL Constipation 04/02/18 20:15 05/02/18 20:14 04/06/18 09:00 Spironolactone (Aldactone) 25 mg DAILY ORAL 04/03/18 09:00 05/03/18 08:59 04/07/18 08:44 Temazepam (Restoril) 15 mg HSPRN PRN ORAL Insomnia 04/02/18 20:15 04/09/18 20:14 04/05/18 22:04 Allergies: Coded Allergies: No Known Allergies (Unverified , 04/15/17) ROS Limited/Unobtainable: No Constitutional: Reports: no symptoms HEENT: Reports: no symptoms Cardiovascular: Reports: chest pain Respiratory: Reports: no symptoms Gastrointestinal/Abdominal: Reports: no symptoms Genitourinary: Reports: no symptoms Neurologic/Psychiatric: Reports: no symptoms Subjective 67 YO F admitted with chest pain. Now elevated troponin and RUL lung mass. Await CT guided biopsy. Cover for Int [facility]-Dr Bautista. Objective Last Vital Signs Date Time Temp Pulse Resp B/P (MAP) Pulse Ox O2 Delivery O2 Flow Rate FiO2 04/07/18 08:50 Nasal Cannula 1.0 24 04/07/18 08:50 109 16 04/07/18 08:50 97 04/07/18 08:44 148/77 04/07/18 08:30 98.0 Laboratory Tests Test 04/07/18 08:20 White Blood Count 3.6 K/UL (4.8-10.8) L Red Blood Count 4.03 M/UL (4.20-5.40) L Hemoglobin 11.5 G/DL (12.0-16.0) L Hematocrit 34.2 % (37.0-47.0) L Mean Corpuscular Volume 85 FL (80-99) Mean Corpuscular Hemoglobin 28.5 PG (27.0-31.0) Mean Corpuscular Hemoglobin Concent 33.5 G/DL (32.0-36.0) Red Cell Distribution Width 16.6 % (11.6-14.8) H Platelet Count 240 K/UL (150-450) Mean Platelet Volume 7.2 FL (6.5-10.1) Neutrophils (%) (Auto) 55.8 % (45.0-75.0) Lymphocytes (%) (Auto) 32.2 % (20.0-45.0) Monocytes (%) (Auto) 7.0 % (1.0-10.0) Eosinophils (%) (Auto) 3.8 % (0.0-3.0) H Basophils (%) (Auto) 1.3 % (0.0-2.0) Prothrombin Time 11.4 SEC (9.30-11.50) Prothromb Time International Ratio 1.1 (0.9-1.1) Sodium Level 141 MMOL/L (136-145) Potassium Level 3.9 MMOL/L (3.5-5.1) Chloride Level 105 MMOL/L (98-107) Carbon Dioxide Level 26 MMOL/L (21-32) Anion Gap 10 mmol/L (5-15) Blood Urea Nitrogen 22 mg/dL (7-18) H Creatinine 1.4 MG/DL (0.55-1.30) H Estimat Glomerular Filtration Rate 45.6 mL/min (>60) Glucose Level 166 MG/DL (74-106) H Calcium Level 9.1 MG/DL (8.5-10.1) Intake and Output 04/06/18 04/07/18 19:00 07:00 Intake Total 360 ml Balance 360 ml Intake Oral 360 ml # Voids 2 2 Objective Objective General: No acute distress, awake and alert HEENT: NCAT, sclera anicteric, PERRL, EOMI. Neck: Supple, no significant jugular venous distention, Lungs: Good inspiratory effort,, clear to auscultation bilaterally, no Wheeze or Rales. Heart: Regular rate and rhythm, normal S1/S2, no murmurs Abdomen: soft, nontender, nondistended. Normoactive bowel sounds. Extremities: No Cyanosis , clubbing or edema. Neuro: A&O x 3, Able to move all extremities Skin: warm, no rashes or lesions Psych: Normal mood and affect Assessment/Plan Problem List: (1) CHF (congestive heart failure) (2) Hypercholesteremia (3) Diabetic neuropathy (4) Chest pain (5) Lung mass Assessment & Plan: RUL. Await CT guided biopsy-see pulmonary note. (6) Elevated troponin Assessment & Plan: ?NSTEMI? See cardiology note. (7) CAD (coronary artery disease) Assessment & Plan: S/P PCI 12/19. Continue Plavix and ASA-see cardiology note. (8) Diabetes mellitus, type II Assessment & Plan: On novolog sliding scale. (9) HTN (hypertension) Assessment & Plan: Continue vasotec and cardizem (10) COPD (chronic obstructive pulmonary disease) Status: not improved KRISTINA CARABALLO April 07, 2018 10:58
[2018-04-07 12:00] VITALS: BP 157/88
[2018-04-07] MEDS: Miralax 17gm pkt ORAL PRN (12:46)
--- NOTE | 2018-04-07 13:21 | Pulmonology Progress Note ---
Assessment/Plan Problems: (1) Non-ST elevation (NSTEMI) myocardial infarction (2) Lung mass (3) COPD (chronic obstructive pulmonary disease) (4) Diabetes mellitus, type II Assessment/Plan radiology recommending PET study, since the mass has not increased in size in the last few month. There is a very small chance for it to be cancerous. heart rate is still up, mostly over 100 Get a cxr now to follow up on previous pleural effusion. f/u cardio recommendations symptomatic treatment sliding scale Subjective ROS Limited/Unobtainable: No Interval Events: no new complains Allergies: Coded Allergies: No Known Allergies (Unverified , 04/15/17) Objective Last 24 Hour Vital Signs Date Time Temp Pulse Resp B/P (MAP) Pulse Ox O2 Delivery O2 Flow Rate FiO2 04/07/18 12:00 99.1 112 18 157/88 100 Nasal Cannula 2.0 99.1 04/07/18 08:50 Nasal Cannula 1.0 24 04/07/18 08:50 109 16 Nasal Cannula 1.0 24 04/07/18 08:50 97 Nasal Cannula 1.0 24 04/07/18 08:44 148/77 04/07/18 08:30 98.0 04/07/18 08:00 98.0 96 18 148/77 97 Nasal Cannula 2.0 98.0 04/07/18 08:00 100 04/07/18 06:09 107 18 97 Nasal Cannula 2.0 28 04/07/18 06:09 28 04/07/18 06:01 105 18 91 Nasal Cannula 2.0 28 04/07/18 04:00 97.9 112 20 166/96 96 Room Air 97.9 04/07/18 04:00 105 04/07/18 01:52 24 04/07/18 01:52 106 18 99 Nasal Cannula 1.0 24 04/07/18 01:44 104 18 97 Nasal Cannula 1.0 24 04/07/18 00:00 106 04/07/18 00:00 97.0 105 20 143/71 96 Room Air 97.0 04/06/18 20:00 105 04/06/18 20:00 97.0 105 20 153/79 96 Room Air 97.0 04/06/18 19:50 97 Nasal Cannula 1.0 24 04/06/18 19:50 Nasal Cannula 1.0 24 04/06/18 19:50 106 16 Nasal Cannula 24 04/06/18 16:00 103 04/06/18 16:00 97.3 104 18 170/93 96 Room Air 97.3 04/06/18 15:06 170/93 Intake and Output 04/06/18 04/07/18 19:00 07:00 Intake Total 360 ml Balance 360 ml Intake Oral 360 ml # Voids 2 2 General Appearance: cachetic HEENT: normocephalic, atraumatic Respiratory/Chest: chest wall non-tender, decreased breath sounds Cardiovascular: normal peripheral pulses, tachycardia Abdomen: normal bowel sounds, soft, non tender Genitourinary: normal external genitalia Extremities: no cyanosis Skin: no rash 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/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: 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 normal Laboratory Tests 04/07/18 08:20: White Blood Count 3.6L, Red Blood Count 4.03L, Hemoglobin 11.5L, Hematocrit 34.2L, Mean Corpuscular Volume 85, Mean Corpuscular Hemoglobin 28.5, Mean Corpuscular Hemoglobin Concent 33.5, Red Cell Distribution Width 16.6H, Platelet Count 240, Mean Platelet Volume 7.2, Neutrophils (%) (Auto) 55.8, Lymphocytes (%) (Auto) 32.2, Monocytes (%) (Auto) 7.0, Eosinophils (%) (Auto) 3.8H, Basophils (%) (Auto) 1.3, Prothrombin Time 11.4, Prothromb Time International Ratio 1.1, Sodium Level 141, Potassium Level 3.9, Chloride Level 105, Carbon Dioxide Level 26, Anion Gap 10, Blood Urea Nitrogen 22H, Creatinine 1.4H, Estimat Glomerular Filtration Rate 45.6, Glucose Level 166H, Calcium Level 9.1 Current Medications Medications (Trade) Dose Ordered Sig/Tristan Route PRN Reason Start Time Stop Time Status Last Admin Dose Admin Acetaminophen (Tylenol) 650 mg Q4H PRN ORAL FEVER 04/02/18 20:15 05/02/18 20:14 Acetaminophen/ Hydrocodone Bitart ([place] 5/325) 1 tab Q4H PRN ORAL Severe Pain (Pain Scale 7-10) 04/04/18 10:15 04/11/18 10:14 04/07/18 07:31 Albuterol/ Ipratropium (Albuterol/ Ipratropium) 3 ml Q4H PRN HHN Shortness of Breath 04/06/18 09:45 04/11/18 09:44 04/07/18 06:01 Aspirin (ASA) 162 mg DAILY ORAL 04/03/18 09:00 05/03/18 08:59 04/07/18 08:44 Atorvastatin Calcium (Lipitor) 40 mg BEDTIME ORAL 04/03/18 21:00 05/03/18 20:59 04/06/18 21:10 Clopidogrel Bisulfate (Plavix) 75 mg DAILY ORAL 04/03/18 09:00 05/03/18 08:59 04/07/18 08:44 Dextrose (Dextrose 50%) 25 ml STAT PRN IV BS 60-69mg/dl 04/02/18 21:45 05/02/18 21:44 Dextrose (Dextrose 50%) 50 ml STAT PRN IV BS less than 60mg/dl 04/02/18 20:15 05/02/18 20:14 Diltiazem HCl (Cardizem) 10 mg EVERY HOUR PRN IV heart rate more than 120, 04/02/18 20:15 05/02/18 20:14 Enalaprilat (Vasotec) 2.5 mg EVERY 6 HOURS PRN IV sbp more than 160 04/02/18 20:15 05/02/18 20:14 04/06/18 15:06 Furosemide (Lasix) 40 mg TWICE A DAY ORAL 04/03/18 09:00 05/03/18 08:59 04/07/18 08:45 Gabapentin (Neurontin) 100 mg THREE TIMES A DAY ORAL 04/03/18 13:00 05/03/18 12:59 04/07/18 12:46 Gabapentin (Neurontin) 300 mg BEDTIME ORAL 04/03/18 21:00 05/03/18 20:59 04/06/18 21:10 Heparin Sodium (Porcine) (Heparin 5000 units/ml) 5,000 units EVERY 8 HOURS SUBQ 04/02/18 22:00 05/02/18 21:59 04/07/18 06:41 Insulin Aspart (NovoLOG) BEFORE MEALS AND HS SUBQ 04/02/18 21:00 05/02/18 20:59 04/07/18 11:18 Lidocaine (Lidoderm 5% PATCH) 1 patch DAILY TDERMAL 04/04/18 10:15 05/04/18 10:14 04/07/18 08:44 Losartan Potassium (Cozaar) 25 mg DAILY ORAL 04/03/18 09:00 05/03/18 08:59 04/07/18 08:44 Nicotine (Nicoderm) 1 patch Q24H TDERMAL 04/05/18 12:00 05/05/18 11:59 04/07/18 11:23 Nitroglycerin (Ntg) 0.4 mg Q5M PRN SL Prn Chest Pain 04/02/18 20:15 05/02/18 20:14 Ondansetron HCl (Zofran) 4 mg Q6H PRN IVP Nausea & Vomiting 04/02/18 20:15 05/02/18 20:14 Pantoprazole (Protonix) 40 mg DAILY ORAL 04/03/18 09:00 05/03/18 08:59 04/07/18 08:43 Polyethylene Glycol (Miralax) 17 gm DAILYPRN PRN ORAL Constipation 04/02/18 20:15 05/02/18 20:14 04/07/18 12:46 Spironolactone (Aldactone) 25 mg DAILY ORAL 04/03/18 09:00 05/03/18 08:59 04/07/18 08:44 Temazepam (Restoril) 15 mg HSPRN PRN ORAL Insomnia 04/02/18 20:15 04/09/18 20:14 04/05/18 22:04 Jorge Lanza MD April 07, 2018 13:21
--- NOTE | 2018-04-07 14:15 | Diagnostic Imaging Report ---
Indication: Dyspnea Comparison: 02/16/2018 A single view chest radiograph was obtained. Findings: Bilateral pleural effusions noted. Enlarged cardiac silhouette demonstrated. Mass suspected within the right midlung. This has been confirmed by recent CT. No change compared the prior study IMPRESSION: Bilateral pleural effusions. Right pulmonary mass
[2018-04-07 16:00] VITALS: BP 140/80
--- NOTE | 2018-04-07 19:22 | Cardiology Progress Note ---
Assessment/Plan Assessment/Plan 1. Chestpain 2. Pericardial effusion. 3. Pleural effusion. 4. Diabetes mellitus. 5. Lung mass. 6. Status post cardiac arrest with cardiopulmonary resuscitation back in December 2017 7. cad status post percutaneous coronary intervention in left anterior descend and cx 8. sternal fx 9. renal insur ekg unchanged trop min abn and no peak no sridevi and in ligt of renal insuf of question sig prelim echo noted is on asa and plavix post pci 12/2017 Subjective Cardiovascular: Denies: chest pain Respiratory: Reports: shortness of breath Gastrointestinal/Abdominal: Denies: abdominal pain Genitourinary: Denies: burning Objective Last 24 Hour Vital Signs Date Time Temp Pulse Resp B/P (MAP) Pulse Ox O2 Delivery O2 Flow Rate FiO2 04/07/18 17:56 99.1 04/07/18 16:57 99.1 04/07/18 16:47 102 18 98 Nasal Cannula 2.0 28 04/07/18 16:47 28 04/07/18 16:34 102 18 93 Nasal Cannula 2.0 04/07/18 16:00 98.1 118 18 140/80 100 Nasal Cannula 2.0 98.1 04/07/18 16:00 117 04/07/18 12:00 99.1 112 18 157/88 100 Nasal Cannula 2.0 99.1 04/07/18 12:00 100 04/07/18 08:50 Nasal Cannula 1.0 04/07/18 08:50 109 16 Nasal Cannula 1.0 04/07/18 08:50 97 Nasal Cannula 1.0 04/07/18 08:44 148/77 04/07/18 08:00 98.0 96 18 148/77 97 Nasal Cannula 2.0 98.0 04/07/18 08:00 100 04/07/18 06:09 107 18 97 Nasal Cannula 2.0 04/07/18 06:09 28 04/07/18 06:01 105 18 91 Nasal Cannula 2.0 04/07/18 04:00 97.9 112 20 166/96 96 Room Air 97.9 04/07/18 04:00 105 04/07/18 01:52 24 04/07/18 01:52 106 18 99 Nasal Cannula 1.0 04/07/18 01:44 104 18 97 Nasal Cannula 1.0 24 04/07/18 00:00 106 04/07/18 00:00 97.0 105 20 143/71 96 Room Air 97.0 04/06/18 20:00 105 04/06/18 20:00 97.0 105 20 153/79 96 Room Air 97.0 04/06/18 19:50 97 Nasal Cannula 1.0 24 04/06/18 19:50 Nasal Cannula 1.0 24 04/06/18 19:50 106 16 Nasal Cannula 24 General Appearance: alert Neck: supple Cardiovascular: normal rate Respiratory/Chest: decreased breath sounds - at bases Abdomen: normal bowel sounds, non tender, soft Extremities: no swelling Intake and Output 04/06/18 04/07/18 19:00 07:00 Intake Total 360 ml Balance 360 ml Intake Oral 360 ml # Voids 2 2 Laboratory Tests Test 04/07/18 08:20 White Blood Count 3.6 K/UL (4.8-10.8) L Red Blood Count 4.03 M/UL (4.20-5.40) L Hemoglobin 11.5 G/DL (12.0-16.0) L Hematocrit 34.2 % (37.0-47.0) L Mean Corpuscular Volume 85 FL (80-99) Mean Corpuscular Hemoglobin 28.5 PG (27.0-31.0) Mean Corpuscular Hemoglobin Concent 33.5 G/DL (32.0-36.0) Red Cell Distribution Width 16.6 % (11.6-14.8) H Platelet Count 240 K/UL (150-450) Mean Platelet Volume 7.2 FL (6.5-10.1) Neutrophils (%) (Auto) 55.8 % (45.0-75.0) Lymphocytes (%) (Auto) 32.2 % (20.0-45.0) Monocytes (%) (Auto) 7.0 % (1.0-10.0) Eosinophils (%) (Auto) 3.8 % (0.0-3.0) H Basophils (%) (Auto) 1.3 % (0.0-2.0) Prothrombin Time 11.4 SEC (9.30-11.50) Prothromb Time International Ratio 1.1 (0.9-1.1) Sodium Level 141 MMOL/L (136-145) Potassium Level 3.9 MMOL/L (3.5-5.1) Chloride Level 105 MMOL/L (98-107) Carbon Dioxide Level 26 MMOL/L (21-32) Anion Gap 10 mmol/L (5-15) Blood Urea Nitrogen 22 mg/dL (7-18) H Creatinine 1.4 MG/DL (0.55-1.30) H Estimat Glomerular Filtration Rate 45.6 mL/min (>60) Glucose Level 166 MG/DL (74-106) H Calcium Level 9.1 MG/DL (8.5-10.1) LITA DAVE April 07, 2018 19:22
[2018-04-07 19:45] VITALS: BP 159/83
--- NOTE | 2018-04-08 09:48 | Cardiology Report ---
APPROVED REPORT EXAM: Two-dimensional and M-mode echocardiogram with Doppler and color Doppler. INDICATION LV function M-Mode DIMENSIONS IVSd1.3 (0.7-1.1cm)Left Atrium (MM)3.4 (1.6-4.0cm) LVDd4.2 (3.5-5.6cm)Aortic Root2.3 (2.0-3.7cm) PWd1.3 (0.7-1.1cm)Aortic Cusp Exc.1.2 (1.5-2.0cm) LVDs3.4 (2.5-4.0cm) PWs1.4 cm Normal left ventricular chamber size. Global left ventricular hypokinesis. Left ventricular ejection fraction estimated to be 40-45%. Mild to moderate left ventricular hypertrophy by 2-D. Large posterior pleural effusion. Small circumferential pericardical effusion. Left atrial size at upper limits of normal. Right chamber sizes are within normal limits. Moderate focal aortic valve sclerosis with reduced cusp excursion. Moderately thickened mitral valve leaflets with normal excursion. Moderate mitral annulus and aortic root calcification. Pulmonic valve not well visualized. IVC measured 1.9 cm with physiologic collapse. A color flow and spectral Doppler study was performed and revealed: Trace to mild aortic regurgitation. Peak aortic valve gradient of 22 mm Hg and a mean of 12 mmHg. Aortic valve area 1.3 cm2 calculated by continuity equation suggestive of mild to moderate aortic stenosis. Moderate mitral regurgitation. Mitral inflow velocities indicates possible pseudo normalization pattern implying moderately elevated left atrial pressure (Grade II ). Moderate tricuspid regurgitation. Tricuspid systolic velocities suggests peak right ventricular systolic pressure of 62 mmHg, consistent with severe pulmonary hypertension. No Pulmonic regurgitation present. No respiratory variation more than 25% across MV and TV.
--- NOTE | 2018-04-08 15:35 | General Progress Note ---
Assessment/Plan Assessment/Plan depressive d/o pain - Rec Cymbalta as the pt has DM - The pt was provided with ro/st Subjective Date patient seen: April 07, 2018 Neurologic/Psychiatric: Reports: anxiety, depressed, emotional problems Allergies: Coded Allergies: No Known Allergies (Unverified , 04/15/17) Subjective the pt is complaining of whole body pain. Objective Last 24 Hour Vital Signs Date Time Temp Pulse Resp B/P (MAP) Pulse Ox O2 Delivery O2 Flow Rate FiO2 04/07/18 19:45 98.3 110 20 159/83 93 Nasal Cannula 2.0 98.3 04/07/18 17:56 99.1 04/07/18 16:57 99.1 04/07/18 16:47 102 18 98 Nasal Cannula 2.0 28 04/07/18 16:47 28 04/07/18 16:34 102 18 93 Nasal Cannula 2.0 28 04/07/18 16:00 98.1 118 18 140/80 100 Nasal Cannula 2.0 98.1 04/07/18 16:00 117 Intake and Output 04/07/18 04/08/18 19:00 07:00 # Voids 3 Height (Feet): 5 Height (Inches): 4.00 Weight (Pounds): 120 Myrna Shultz M.D. April 08, 2018 15:35
--- NOTE | 2018-04-09 13:10 | Discharge Summary ---
Discharge Summary Hospital Course Date of Admission April 02, 2018 at 19:20 Date of Discharge April 07, 2018 at 20:05 Admitting Diagnosis CHEST PAIN,COPD HPI Katherin Odom is a 67 year old female who was admitted on April 02, 2018 at 19:20 for Chest Pain, Chronic Obstructive Pulmonary Disorder Hospital Course dc summary #[id number] Discharge Discharge Disposition Patient was discharged to [facility] ([facility]),Milagro FERNANDEZ April 09, 2018 13:10
--- NOTE | 2018-04-10 08:00 | Discharge Summary 2 SIG ---
DATE OF ADMISSION: 04/02/2018 DATE OF DISCHARGE: 04/07/2018 REASON FOR ADMISSION: 67-year-old female with past medical history significant for COPD, emphysema, diabetes, hypertension, CAD with PTCA, s/p cardiopulmonary arrest, presented to emergency department with increased chest discomfort. The patient reported gradual onset of symptoms. The patient had recent surgery in the right lower extremity secondary to fracture. She also reported bilateral leg pain. She states symptoms related to her neuropathy. The patient ran out of her tramadol for pain management. She denied leg swelling. Upon evaluation in the emergency department, vital signs were stable. No leukocytosis. Stable hemoglobin and hematocrit. Elevated troponin 0.746. EKG revealed normal sinus rhythm. No acute ischemic changes. Renal parameters were stable. Glucose 182. Stable LFT. Albumin 3.1. CT of the chest revealed no evidence of pulmonary emboli, aortic dissection or aneurysm. Moderate atherosclerotic disease was noted. Moderate pericardial effusion and bilateral pleural effusions were noted with associated posterior basilar atelectasis. Noted persistent 2.5 cm mass in the right upper lobe . The patient admitted with diagnosis of elevated troponin, possible non-STEMI, COPD, diabetes. CONSULTANTS: 1. Jayro Jay M.D., fixture builder. 2. Jorge Lanza M.D., payroll clerk. 3. Negin Donaldson M.D., pain specialist. 4. Myrna Shultz M.D., psychiatrist. HOSPITAL STAY: The patient admitted to telemetry floor. Meter/Relay Technician closely followed. Serial troponin with minimal elevation. EKG revealed no ischemic changes. The patient was on aspirin and Plavix. According to fixture builder, troponin was minimally abnormal, no peak, no sridevi, and in light of renal insufficiency of questionable significance. The patient had evidence of renal insufficiency. Creatinine baseline between 1.4 to 1.5. Chest pain resolved. The patient also had evidence of a sternal fracture likely secondary to CPR that she had prior, contributing to her chest pain. The patient had a non-STEMI in December 2017. At that time, she had a 3-vessel coronary artery disease and underwent percutaneous coronary intervention in left anterior descending and circumflex. Subsequently, she had a cardiopulmonary arrest. She had a CPR at that time and had some chest pain since that, reproducible on palpation on chest wall. She had an ischemia evaluation on last hospitalization, which showed the infarct in the inferolateral wall and an inferior wall sg-infarct ischemia. At that time, ejection fraction was 47%. Per fixture builder, chest pain was noncardiac. Echocardiogram in January 2018 revealed ejection fraction of 40% to 45% and perfusion imaging in 01/2018 showed no significant perfusion abnormality. Medical management of congestive heart failure was provided with beta-enrico, angiotensin receptor enrico, diuretics: intravenous Lasix and potassium sparing Aldactone. Cardiorenal parameters and volumes were closely monitored. Lipid panel revealed elevated LDL of 127. Statin was continued. The patient was counseled on low-fat, low-cholesterol, diabetic diet. Of concern were pericardial effusion seen on the CT. Subsequently, Echo was re-ordered. Echocardiogram revealed ejection fraction of 40% to 45%, large posterior pleural effusion and small circumferential pericardial effusion. Moderate mitral regurgitation, [id number] aortic stenosis, and moderate tricuspid regurgitation. Supplemental oxygen provided as needed. Pulmonary toilet provided as needed. CT-guided lung biopsy was ordered to rule out malignancy. The patient was counseled on smoking cessation. The patient was started on nicotine patch. DVT prophylaxis provided. Pain management provided. Blood sugar was managed with sliding scale of insulin. Radiology recommended PET scan since mass had not increased in size in the last few months. That was explained to the patient. Testing should be done as an outpatient. [facility] does not have available PET scan services. Renal parameters and electrolytes were closely monitored. Electrolytes corrected as needed. Nephrotoxins were avoided. The patient was on Lasix and also received IV contrast for CTA. The patient was given bolus of 500 mL normal saline in hope to improve creatinine; however, creatinine remained at the baseline of 1.4 to 1.5. Psychiatrist closely followed. Psychiatrist diagnosed the patient with depressive disorder and started the patient on Cymbalta. Pain specialist closely followed. Pain management provided as per pain specialist recommendation. The patient had a chest x-ray done prior to signing AMA, which revealed bilateral pleural effusion and right pulmonary mass. The patient was recommended to have a PET study as an outpatient. The patient decided to go to [facility] for further management. Family at the bedside. The risks and consequences of signing against medical advice were discussed with the patient. The patient verbalized understanding, signed the form, and left. FINAL DIAGNOSES: 1. Elevated troponin. 2. Possible non-ST elevated myocardial infarction. 3. Sternal fracture. 4. Status post cardiac arrest with cardiopulmonary resuscitation in December 2017. 5. Coronary artery disease, status post percutaneous coronary intervention. 6. Mild cardiomyopathy. 7. Pericardial effusion. 8. Bilateral pleural effusion. 9. Renal insufficiency. 10. Right upper lobe mass, rule out malignancy. 11. Chronic obstructive pulmonary disease. 12. Diabetes mellitus. 13. Hypercholesterolemia. 14. Tobacco abuse with dependency. 15. Acute kidney injury (due to nephrotoxic possibly due to the IV contrast and daily Lasix). Onesimo Bautista M.D. Milagro EstevezVa New [facility] Harbor Healthcare SystemSofía N.PJorge DR: Kanwal JOB#: [id number] CC: DIAZ
== END 2018-04-07 20:05 | disposition left against medical advice (07) | DRG 281 ==
LOC: EDBD 17:00 → EMR 18:35 → 2E 19:20 → EDBEDREQ 21:10 → 2E 22:10
DX: I21.4 Non-ST elevation (NSTEMI) myocardial infarction (principal); I31.3 Pericardial effusion (noninflammatory); N17.9 Acute kidney failure, unspecified; J98.11 Atelectasis; J44.9 Chronic obstructive pulmonary disease, unspecified; E11.42 Type 2 diabetes mellitus with diabetic polyneuropathy; R91.8 Other nonspecific abnormal finding of lung field; I50.9 Heart failure, unspecified; I11.0 Hypertensive heart disease with heart failure; T50.995A Adverse effect of other drugs, medicaments and biological substances, initial encounter; I25.10 Atherosclerotic heart disease of native coronary artery without angina pectoris; I25.2 Old myocardial infarction; Z95.5 Presence of coronary angioplasty implant and graft; E78.00 Pure hypercholesterolemia, unspecified; Z79.02 Long term (current) use of antithrombotics/antiplatelets; Z79.4 Long term (current) use of insulin; F17.200 Nicotine dependence, unspecified, uncomplicated; M79.604 Pain in right leg; M54.9 Dorsalgia, unspecified; Z86.74 Personal history of sudden cardiac arrest; S22.20XD Unspecified fracture of sternum, subsequent encounter for fracture with routine healing; M25.551 Pain in right hip; F32.9 Major depressive disorder, single episode, unspecified; I34.0 Nonrheumatic mitral (valve) insufficiency; I36.1 Nonrheumatic tricuspid (valve) insufficiency; I35.0 Nonrheumatic aortic (valve) stenosis
CPT/HCPCS: 36415; 71045; 71275; 80048; 80053; 80061; 82248; 82962; 83735; 84100; 84443; 84484; 85007; 85025; 85610; 85651; 85730; 86140; 93005; 93306; 93926; 93971; 94640; 94664; 94760; 99285; J1815; J7620

== ENCOUNTER 2018-04-15 12:09 | Emergency (ER) | payer MEDICARE, OTHER ==
[~2018-04-15] VITALS: Ht 162.6 cm; Wt 59.0 kg
[~2018-04-15 12:09] MED LIST changes: +ADVAIR 250/501 PUFFS INH; +ALBUTEROL SULF8.5 GM INH; +ASPIR 8181 MG ORAL; +HYDRALAZINE HC100 MG ORAL; +INSULIN CHARG5 UNITS SUBQ; +ISOSORBIDE MONO60 M1 PO; +NORCO 5-325 TA1 EACH ORAL; +SPIRONOLACTONE25 MG ORAL; +TORSEMIDE20 MG ORAL
[2018-04-15 12:35] VITALS: BP 119/71
--- NOTE | 2018-04-15 12:37 | Emergency Room Report ---
History of Present Illness General Chief Complaint: Pain Source: Patient Present Illness HPI 67-year-old female patient presents the ER brought in by EMS complaining of low back pain and generalized pain all over body. Patient reports she was in [facility] and discharged 2 days ago for same symptoms. Patient reports that she was not discharged on any medications. Patient reports she does not have any follow-up with pain management. Patient denies bowel or bladder problems. Patient reports pain all over her body. Patient denies other symptoms acutely. Patient was previously seen in this ER for similar symptoms. denies history of injury. patient has a urinary catheter in, yellow urine in bag , denies dysuria, states she had it placed because she was having problems urinating, states she has a follow-up appointment with her doctor to have it removed, does not know date of appointment, states her sister knows the date of the appointment. Allergies: Coded Allergies: No Known Allergies (Unverified , 04/15/17) Patient History Past Medical History: see triage record Last Menstrual Period: na Reviewed Nursing Documentation: PMH: Agreed; PSxH: Agreed Nursing Documentation-PMH Past Medical History: No History, Except For Hx Cardiac Problems: Yes Hx Hypertension: Yes Hx Asthma: Yes Hx COPD: Yes - emphysema Hx Diabetes: Yes Hx Cancer: No Hx Gastrointestinal Problems: No Hx Neurological Problems: Yes - neuropathy Hx Peripheral Neuropathy: Yes Review of Systems All Other Systems: negative except mentioned in HPI Physical Exam Vital Signs Date Time Temp Pulse Resp B/P (MAP) Pulse Ox O2 Delivery O2 Flow Rate FiO2 04/15/18 12:09 97.2 74 16 119/71 96 Room Air 97.2 Sp02 EP Interpretation: reviewed, normal General Appearance: well appearing, no apparent distress, alert, GCS 15, non- toxic Head: normocephalic, atraumatic Eyes: bilateral eye normal inspection, bilateral eye PERRL ENT: hearing grossly normal, normal pharynx, no angioedema, normal voice, uvula midline, moist mucus membranes Neck: full range of motion Respiratory: lungs clear, normal breath sounds, no rhonchi, no respiratory distress, no accessory muscle use, no wheezing, speaking full sentences Cardiovascular #1: regular rate, rhythm, no edema Gastrointestinal: non tender, soft, no mass, non-distended, no guarding, no rebound Genitourinary: no CVA tenderness Musculoskeletal: back normal, digits/nails normal, gait/station normal, normal range of motion, non-tender, other - no bony stepoff Neurologic: alert, oriented x3, responsive, motor strength/tone normal, sensory intact Psychiatric: mood/affect normal Skin: no rash Lymphatic: no adenopathy Medical Decision Making PA Attestation Dr. Melchor is my supervising Physician whom patient management has been discussed with. Diagnostic Impression: Primary Impression: Chronic pain ER Course Pt presents to ED c/o back pain. DDX considered but are not limited to sprain, strain, cauda equine, epidural abscess, AAA. Low suspicion for cauda equina. No fever, nontoxic appearing, no radiation of pain, low suspicion for epidural mass. No abdominal pain, no blood pressure elevation, nontoxic appearing, low suspicion for AAA. Patient does not require imaging at this time. VITAL SIGNS are WNL, patient is afebrile Ordered pain medication, imaging, labs. ER COURSE: Pain medication provided. CBC and CMP unremarkable, no elevation in WBC. Labs consistent with previous visit. Reviewed labs with Dr. melchor, agrees with assessment. PE: benign, no evidence of cauda equina or epidural mass. Patient reports feeling better following administration of medication. Will discharge patient to home. patient sister reports ER to transport home. Followup with pain management and/or PT. Request referral from PCP. Follow up with PCP for further management of pain symptoms. DISCHARGE: -Rx provided for Tylenol At this time pt. is stable for d/c to home. At this time patient is resting comfortably, in no acute distress, nontoxic appearing, smiling and talking without difficulty. Will provide printed patient care instructions, and any necessary prescriptions. Patient instructed to follow with primary care provider for further treatment and referral as needed. Care plan and follow up instructions have been discussed with the patient prior to discharge. Patient reports understanding and agreement to treatment plan. Patient questions asked and answered. ER precautions given, patient instructed to return to ER immediately for any new or worsening of symptoms. - Please note that this Emergency Department Report was dictated using [email or web address] hand technology software, occasionally this can lead to erroneous entry secondary to interpretation by the dictation equipment. Labs Test 04/15/18 12:45 White Blood Count 3.7 K/UL (4.8-10.8) Red Blood Count 3.40 M/UL (4.20-5.40) Hemoglobin 9.5 G/DL (12.0-16.0) Hematocrit 29.5 % (37.0-47.0) Mean Corpuscular Volume 87 FL (80-99) Mean Corpuscular Hemoglobin 27.9 PG (27.0-31.0) Mean Corpuscular Hemoglobin Concent 32.2 G/DL (32.0-36.0) Red Cell Distribution Width 17.9 % (11.6-14.8) Platelet Count 212 K/UL (150-450) Mean Platelet Volume 7.5 FL (6.5-10.1) Neutrophils (%) (Auto) 49.5 % (45.0-75.0) Lymphocytes (%) (Auto) 32.2 % (20.0-45.0) Monocytes (%) (Auto) 10.8 % (1.0-10.0) Eosinophils (%) (Auto) 5.2 % (0.0-3.0) Basophils (%) (Auto) 2.3 % (0.0-2.0) Sodium Level 140 MMOL/L (136-145) Potassium Level 3.9 MMOL/L (3.5-5.1) Chloride Level 106 MMOL/L (98-107) Carbon Dioxide Level 27 MMOL/L (21-32) Anion Gap 7 mmol/L (5-15) Blood Urea Nitrogen 26 mg/dL (7-18) Creatinine 1.2 MG/DL (0.55-1.30) Estimat Glomerular Filtration Rate 54.5 mL/min (>60) Glucose Level 189 MG/DL (74-106) Calcium Level 8.2 MG/DL (8.5-10.1) Total Bilirubin 0.5 MG/DL (0.2-1.0) Aspartate Amino Transf (AST/SGOT) 16 U/L (15-37) Alanine Aminotransferase (ALT/SGPT) 16 U/L (12-78) Alkaline Phosphatase 93 U/L (46-116) Total Protein 6.7 G/DL (6.4-8.2) Albumin 2.6 G/DL (3.4-5.0) Globulin 4.1 g/dL Albumin/Globulin Ratio 0.6 (1.0-2.7) Lipase 84 U/L (73-393) Last Vital Signs Date Time Temp Pulse Resp B/P (MAP) Pulse Ox O2 Delivery O2 Flow Rate FiO2 04/15/18 12:09 97.2 74 16 119/71 96 Room Air 97.2 Disposition: HOME, SELF-CARE Condition: Stable Scripts Acetaminophen* (TYLENOL EXTRA STRENGTH*) 500 Mg Tablet 500 MG ORAL Q8H PRN for Prn Headache/Temp > 101, #30 TAB 0 Refills Prov: Akhil Colvin 04/15/18 Patient Instructions: Chronic Pain Additional Instructions: Followup with primary care provider at scheduled appointment. Discuss referral to pain management. Discuss diabetes management. Discuss removal of catheter at that time. Take medications as directed. Patient questions asked and answered. ER precautions given, patient instructed to return to ER immediately for any new or worsening of symptoms. Akhil Colvin April 15, 2018 12:37
[2018-04-15] MEDS ORDERED: Morphine Sulfate 4mg/ml Inj IVP ONE (12:45)
[2018-04-15 13:11] LABS: BASOPHILS % (AUTO) 2.3 % (0.0-2.0); EOSINOPHILS % (AUTO) 5.2 % (0.0-3.0); HEMATOCRIT 29.5 % (37.0-47.0); HEMOGLOBIN 9.5 G/DL (12.0-16.0); LYMPHOCYTES % (AUTO) 32.2 % (20.0-45.0); MEAN CORPUSCULAR VOLUME 87 FL (80-99); MONOCYTES % (AUTO) 10.8 % (1.0-10.0); NEUTROPHILS % (AUTO) 49.5 % (45.0-75.0); PLATELET COUNT 212 K/UL (150-450); RED CELL DISTRIBUTION WIDTH 17.9 % (11.6-14.8); WHITE BLOOD COUNT 3.7 K/UL (4.8-10.8)
[2018-04-15 13:32] LABS: ANION GAP 7 mmol/L (5-15); BLOOD UREA NITROGEN 26 mg/dL (7-18); CALCIUM 8.2 MG/DL (8.5-10.1); CARBON DIOXIDE 27 MMOL/L (21-32); CHLORIDE 106 MMOL/L (98-107); CREATININE 1.2 MG/DL (0.55-1.30); POTASSIUM 3.9 MMOL/L (3.5-5.1); SODIUM 140 MMOL/L (136-145)
[2018-04-15 13:35] LABS: ALANINE AMINOTRANSFERASE 16 U/L (12-78); ALBUMIN 2.6 G/DL (3.4-5.0); ALBUMIN/GLOBULIN RATIO 0.6 (1.0-2.7); ALKALINE PHOSPHATASE 93 U/L (46-116); ASPARTATE AMINO TRANSFERASE 16 U/L (15-37); BILIRUBIN,TOTAL 0.5 MG/DL (0.2-1.0)
[2018-04-15] MEDS ORDERED: TYLENOL EXTRA500 MG ORAL (14:29)
[2018-04-15 15:46] VITALS: BP 119/71
== END 2018-04-15 14:35 | disposition home or self-care (01) ==
LOC: EDBD 12:09 → EMR 12:36
DX: G89.29 Other chronic pain (principal); M54.5 Low back pain; I10 Essential (primary) hypertension; J45.909 Unspecified asthma, uncomplicated; G62.9 Polyneuropathy, unspecified
CPT/HCPCS: 36415; 80053; 83690; 85025; 96374; 96375; 99283; J2270; J2405

== ENCOUNTER 2018-09-08 03:49 | Emergency (ER) | payer MEDICARE, OTHER ==
[2018-09-08] VITALS (7 sets, daily range): BP systolic 148–192; BP diastolic 65–87
[~2018-09-08] VITALS: Ht 142.2 cm; Wt 49.9 kg
[~2018-09-08 03:49] MED LIST changes: +TYLENOL EXTRA500 MG ORAL
--- NOTE | 2018-09-08 04:26 | Emergency Room Report ---
History of Present Illness General Chief Complaint: Dyspnea/Respdistress Source: Patient, Medical Record, EMS Present Illness HPI Patient presents with complaints of shortness of breath Patient was brought in by paramedics She had reported significant shortness of breath Tripoding at the scene Patient has history of COPD and CHF Unclear regarding recent medical problems patient was brought in In acute distress and respiratory distress Paramedics report the patient was hypertensive at the scene There was no reports of vomiting or diarrhea No reports of fever History of present illness remains limited given the patient's acuity upon presentation lack of ability to provide full history Allergies: Coded Allergies: No Known Allergies (Unverified , 04/15/17) Patient History Limited by: medical condition Past Medical History: see triage record Pertinent Family History: unable to obtain Now: No Reviewed Nursing Documentation: PMH: Agreed; PSxH: Agreed Nursing Documentation-PMH Hx Cardiac Problems: Yes Hx Hypertension: Yes Hx Asthma: Yes Hx COPD: Yes - emphysema Hx Diabetes: Yes Hx Cancer: No Hx Gastrointestinal Problems: No Hx Neurological Problems: Yes - neuropathy Hx Peripheral Neuropathy: Yes Review of Systems All Other Systems: limited - Other than the ones mentioned in the history of present illness all others are reviewed however they do stay limited due to the patient's mental status Physical Exam Vital Signs Date Time Temp Pulse Resp B/P (MAP) Pulse Ox O2 Delivery O2 Flow Rate FiO2 09/08/18 03:47 109 24 213/127 73 Mechanical Ventilator Sp02 EP Interpretation: reviewed, normal General Appearance: mild distress - Appears short of breath Head: normocephalic, atraumatic Eyes: bilateral eye PERRL, bilateral eye EOMI ENT: hearing grossly normal, normal pharynx Neck: full range of motion, supple Respiratory: respiratory distress, decreased breath sounds, crackles - Bilaterally Cardiovascular #1: no gallop, tachycardia, other - One out of 4 pitting edema bilaterally Gastrointestinal: non tender, soft Musculoskeletal: normal inspection Neurologic: alert, oriented x3, responsive Skin: normal color, no rash Lymphatic: no adenopathy Procedures Critical Care Time Critical Care Time 50 minutes for multiple re-evaluations Critical presentation with concern for cardiopulmonary injury and life- threatening pathology not including any procedural time Medical Decision Making Diagnostic Impression: Primary Impression: CHF (congestive heart failure) Additional Impressions: Dyspnea Respiratory distress ER Course Patient is a fairly complex patient with multiple differential to consideration including but not limited to cardiac cardiopulmonary and vascular emergencies Patient placed emergently on BiPAP Lasix is provided x-ray imaging shows findings consistent with CHF Patient also provided with Lasix and nitroglycerin Patient was able to be weaned off BiPAP Blood pressure remained elevated and requires multiple re-interventions At this time patient continues to do better and is otherwise stable for further inpatient care Labs Test 09/08/18 03:52 09/08/18 04:20 Arterial Blood pH 7.407 (7.350-7.450) Arterial Blood Partial Pressure CO2 37.5 mmHg (35.0-45.0) Arterial Blood Partial Pressure O2 79.8 mmHg (75.0-100.0) Arterial Blood HCO3 23.1 mmol/L (22.0-26.0) Arterial Blood Oxygen Saturation 94.7 % (95-100) Arterial Blood Base Excess -1.3 (-2-2) Vito Test Positive White Blood Count 4.8 K/UL (4.8-10.8) Red Blood Count 4.05 M/UL (4.20-5.40) Hemoglobin 12.8 G/DL (12.0-16.0) Hematocrit 37.5 % (37.0-47.0) Mean Corpuscular Volume 93 FL (80-99) Mean Corpuscular Hemoglobin 31.7 PG (27.0-31.0) Mean Corpuscular Hemoglobin Concent 34.3 G/DL (32.0-36.0) Red Cell Distribution Width 13.4 % (11.6-14.8) Platelet Count 228 K/UL (150-450) Mean Platelet Volume 7.9 FL (6.5-10.1) Neutrophils (%) (Auto) 44.5 % (45.0-75.0) Lymphocytes (%) (Auto) 39.9 % (20.0-45.0) Monocytes (%) (Auto) 10.1 % (1.0-10.0) Eosinophils (%) (Auto) 3.5 % (0.0-3.0) Basophils (%) (Auto) 2.0 % (0.0-2.0) Urine Color Pale yellow Urine Appearance Cloudy Urine pH 7 (4.5-8.0) Urine Specific [place] 1.010 (1.005-1.035) Urine Protein 3+ (NEGATIVE) Urine Glucose (UA) Negative (NEGATIVE) Urine Ketones Negative (NEGATIVE) Urine Blood 1+ (NEGATIVE) Urine Nitrite Negative (NEGATIVE) Urine Bilirubin Negative (NEGATIVE) Urine Urobilinogen 1 MG/DL (0.0-1.0) Urine Leukocyte Esterase 3+ (NEGATIVE) Urine RBC 0-2 /HPF (0 - 2) Urine WBC Tntc /HPF (0 - 2) Urine Squamous Epithelial Cells Few /LPF (NONE/OCC) Urine Bacteria Many /HPF (NONE) Sodium Level 143 MMOL/L (136-145) Potassium Level 4.9 MMOL/L (3.5-5.1) Chloride Level 108 MMOL/L (98-107) Carbon Dioxide Level 30 MMOL/L (21-32) Anion Gap 5 mmol/L (5-15) Blood Urea Nitrogen 35 mg/dL (7-18) Creatinine 1.7 MG/DL (0.55-1.30) Estimat Glomerular Filtration Rate 36.4 mL/min (>60) Glucose Level 167 MG/DL (74-106) Calcium Level 9.0 MG/DL (8.5-10.1) Total Bilirubin 0.6 MG/DL (0.2-1.0) Aspartate Amino Transf (AST/SGOT) 50 U/L (15-37) Alanine Aminotransferase (ALT/SGPT) 59 U/L (12-78) Alkaline Phosphatase 228 U/L (46-116) Total Creatine Kinase 70 U/L (26-308) Creatine Kinase MB 1.7 NG/ML (0.0-3.6) Creatine Kinase MB Relative Index 2.4 Troponin I 0.048 ng/mL (0.000-0.056) Pro-B-Type Natriuretic Peptide 5648 pg/mL (0-125) Total Protein 7.8 G/DL (6.4-8.2) Albumin 3.5 G/DL (3.4-5.0) Globulin 4.3 g/dL Albumin/Globulin Ratio 0.8 (1.0-2.7) Lipase 80 U/L (73-393) EKG Diagnostic Results Rate: normal Rhythm: NSR ST Segments: other - Nonspecific ST T-wave changes Rhythm Strip Diag. Results EP Interpretation: yes Rate: 80 Rhythm: NSR, no PVC's, no ectopy Chest X-Ray Diagnostic Results Chest X-Ray Diagnostic Results : Chest X-Ray Ordered: Yes # of Views/Limited/Complete: 1 View Indication: Shortness of Breath EP Interpretation: Yes Interpretation: no consolidation, no pneumothorax, other - Pulmonary congestion, cardiomegaly Impression: Other - acute CHF Electronically Signed by: Lee Munson DO Last Vital Signs Date Time Temp Pulse Resp B/P (MAP) Pulse Ox O2 Delivery O2 Flow Rate FiO2 09/08/18 03:47 109 24 213/127 73 Mechanical Ventilator Status: improved Disposition: ADMITTED INPATIENT Condition: Serious Referrals: NON PHYSICIAN (PCP) Lee Munson DO Sep 08, 2018 04:25
[2018-09-08] MEDS ORDERED: Nitroglycerin 2% oint pkt TOPIC ONE (04:30)
[2018-09-08 04:48] LABS: EOSINOPHILS % (AUTO) 3.5 % (0.0-3.0); HEMATOCRIT 37.5 % (37.0-47.0); HEMOGLOBIN 12.8 G/DL (12.0-16.0); LYMPHOCYTES % (AUTO) 39.9 % (20.0-45.0); MEAN CORPUSCULAR VOLUME 93 FL (80-99); MONOCYTES % (AUTO) 10.1 % (1.0-10.0); NEUTROPHILS % (AUTO) 44.5 % (45.0-75.0); PLATELET COUNT 228 K/UL (150-450); RED BLOOD COUNT 4.05 M/UL (4.20-5.40); RED CELL DISTRIBUTION WIDTH 13.4 % (11.6-14.8); WHITE BLOOD COUNT 4.8 K/UL (4.8-10.8)
[2018-09-08 04:50] LABS: BILIRUBIN, URINE NEGATIVE (NEGATIVE); COLOR,URINE PALE YELLOW; GLUCOSE, URINE (UA) NEGATIVE (NEGATIVE); KETONES,URINE NEGATIVE (NEGATIVE); NITRITE,URINE NEGATIVE (NEGATIVE); PH,URINE 7 (4.5-8.0); PROTEIN,URINE 3+ (NEGATIVE); UROBILINOGEN,URINE 1 MG/DL (0.0-1.0)
[2018-09-08 04:52] LABS: ANION GAP 5 mmol/L (5-15); BLOOD UREA NITROGEN 35 mg/dL (7-18); CARBON DIOXIDE 30 MMOL/L (21-32); CHLORIDE 108 MMOL/L (98-107); CREATININE 1.7 MG/DL (0.55-1.30); POTASSIUM 4.9 MMOL/L (3.5-5.1); SODIUM 143 MMOL/L (136-145)
[2018-09-08 04:57] LABS: APPEARANCE,URINE CLOUDY; LEUKOCYTE ESTERASE ,URINE 3+ (NEGATIVE)
[2018-09-08 05:07] LABS: ALANINE AMINOTRANSFERASE 59 U/L (12-78); ALBUMIN 3.5 G/DL (3.4-5.0); ALBUMIN/GLOBULIN RATIO 0.8 (1.0-2.7); ALKALINE PHOSPHATASE 228 U/L (46-116); ASPARTATE AMINO TRANSFERASE 50 U/L (15-37); BILIRUBIN,TOTAL 0.6 MG/DL (0.2-1.0); CKMB 1.7 NG/ML (0.0-3.6); CREATINE KINASE 70 U/L (26-308)
[2018-09-08] MEDS ORDERED: cloNIDine 0.2mg Tab ORAL ONE (06:30)
[2018-09-08] MEDS ORDERED: Albuterol/Ipratropium 3ml neb HHN PRN (09:15)
[2018-09-08] MEDS ORDERED: Miralax 17gm pkt ORAL PRN (09:15)
--- NOTE | 2018-09-08 09:57 | Diagnostic Imaging Report ---
Indication: Dyspnea Comparison: 04/07/2018 A single view chest radiograph was obtained. Findings: There is cardiomegaly present with prominent reticular markings and vascularity, findings consistent with CHF. In addition there is a nodular focus projected over the right upper lobe which was seen previously as well suspicious for underlying mass. A CTA chest from April 02, 2018 showed and confirmed a 2.5 cm mass in this location. IMPRESSION: Congestive heart failure. Persistent nodular mass in the right upper lobe. Malignancy not excluded.
[2018-09-08] MEDS ORDERED: NovoLOG Insulin Flexpen SUBQ SCH (11:30)
--- NOTE | 2018-09-08 14:43 | Cardiology Report ---
APPROVED REPORT EKG Measurement Heart [id number] CA [id number] Normal sinus rhythm Possible Left atrial enlargement Nonspecific T wave abnormality Abnormal ECG
[2018-09-08] MEDS ORDERED: Carvedilol 12.5mg tab ORAL SCH (21:00)
[2018-09-08] MEDS ORDERED: Heparin 5000 units/ml inj SUBQ SCH (21:00)
[2018-09-09] MEDS ORDERED: Spironolactone 25mg tab ORAL SCH (09:00)
== END 2018-09-08 10:39 | disposition short-term general hospital (02) ==
LOC: EDBD 03:49 → EMR 03:57 → UNDOADMIN 04:02 → 2E 04:02 → EDBEDREQ 06:07 → EMR 10:39
DX: I11.0 Hypertensive heart disease with heart failure (principal); I50.9 Heart failure, unspecified; R91.8 Other nonspecific abnormal finding of lung field; J43.9 Emphysema, unspecified; E11.9 Type 2 diabetes mellitus without complications
CPT/HCPCS: 36415; 36600; 71045; 80053; 81003; 82550; 82553; 82803; 82962; 83690; 83880; 84484; 85025; 87086; 87181; 93005; 94660; 94664; 96365; 96368; 96375; 96376; 99291; J0360; J1815; J1940; J1956